=== PATIENT | female | born 1960 | race American Indian/Alaskan Native ===

== ENCOUNTER 2017-06-21 12:21 | Emergency (ER) | payer MEDICAID, OTHER, SELFPAY ==
[2017-06-21 12:35] VITALS: BP 123/86; PULSE 78; RESP 16; RESP 18; TEMP 36.6; TEMP 36.7; O2SAT 98
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
--- NOTE | 2017-06-21 13:47 | DI.RAD.S_ITS ---
PROCEDURE: XR TIBIA FUBULA RT 2V INDICATIONS: pain/fall TECHNIQUE: 2 views of the tibia and fibula were acquired. COMPARISON: None. FINDINGS: Bones: No fractures or dislocations. No suspicious bony lesions. Soft tissues: No suspicious soft tissue calcifications or masses. IMPRESSION: 1. No fracture or dislocation of the tibia or fibula. Dictated by: Ranjit Crenshaw M.D. on 06/21/2017 at 14:45 Approved by: Ranjit Crenshaw M.D. on 06/21/2017 at 14:46
--- NOTE | 2017-06-21 13:47 | DI.RAD.S_ITS ---
PROCEDURE: XR FOOT RT MIN 3V INDICATIONS: fall, MT pain TECHNIQUE: 3 views of the foot were acquired. COMPARISON: None. FINDINGS: Bones: No fractures or dislocations. No suspicious bony lesions. Soft tissues: No tibiotalar joint effusion. Achilles tendon appears normal. IMPRESSION: 1. No fracture or dislocation. Dictated by: Ranjit Crenshaw M.D. on 06/21/2017 at 14:47 Approved by: Ranjit Crenshaw M.D. on 06/21/2017 at 14:47
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
[2017-06-21 14:12] VITALS: BP 127/75; PULSE 68; RESP 14; O2SAT 98
[2017-06-21] MEDS: HYDROCODONE/ACET 5/325 TABLET 2 TAB PO (14:38)
[2017-06-21 15:22] VITALS: BP 128/92; PULSE 62; RESP 20; TEMP 36.4; O2SAT 100
== END 2017-06-21 15:24 | disposition home or self-care (01) ==
PROVIDERS: Emergency Provider Internal Medicine; Family Provider Family Medicine; PCP Family Medicine
DX: S80.11XA Contusion of right lower leg, initial encounter (principal); W23.1XXA Caught, crushed, jammed, or pinched between stationary objects, initial encounter
CPT/HCPCS: 73562; 73590; 73630; 99283

== ENCOUNTER 2017-11-29 16:07 | Emergency (ER) | payer MEDICAID, OTHER, SELFPAY ==
[2017-11-29 16:17] VITALS: BP 143/93; PULSE 68; RESP 15; TEMP 36.1; O2SAT 99; BMI 28.3
[2017-11-29 19:07] VITALS: BP 132/79; PULSE 56; RESP 22; O2SAT 100
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
== END 2017-11-29 20:13 | disposition home or self-care (01) ==
PROVIDERS: Emergency Provider Emergency Medicine; Family Provider Family Medicine; PCP Family Medicine
DX: M25.511 Pain in right shoulder (principal)
CPT/HCPCS: 73030; 99283

== ENCOUNTER 2018-03-03 08:27 | Inpatient (IN) | payer MEDICAID, OTHER, SELFPAY ==
[2018-03-03] VITALS (21 sets, daily range): BP systolic 83–113; BP diastolic 41–76; PULSE 57–87; RESP 12–20; TEMP 36.3–36.9; O2SAT 95–100; BMI 32.4
--- NOTE | 2018-03-03 | DI.ECHO.S_ITS ---
[place] +---------+ Hospital +---------+ : : [address] : : [place], [place] : : : : [id number] : : : : Phone: [phone] Echocardiogram Report + + :Name: AURELIA CHRISTY Study Date: 03/04/2018 Height: 64 in : :[facility] Weight: 189 lb: : Gender: Female BSA: 1.9 m2 : :: 1960 Age: 57 yrs : :Reason For Study: Rule out Endocarditis : : Performed By: Alem Soliman : :Referring: SOY STOCK : + + Interpretation Summary The study quality was technically difficult. Although no obvious vegetation is seen, this possibility cannot be ruled out based on this study. Grossly normal biventricular systolic function. There is no prior echocardiogram noted for this patient. Procedure: A two-dimensional transthoracic echocardiogram with color flow and Doppler was performed. The study quality was technically difficult. There is no prior echocardiogram noted for this patient. Unable to use Definity due to RN unable to place IV. The patient was in sinus bradycardia with heart rates between 50-60 bpm during the exam. Left Ventricle: The left ventricle is grossly normal size. The left ventricular ejection fraction is grossly normal. There are no obvious focal wall motion abnormalities noted but poor endocardial definition reduces the sensitivity for the detection of such. Diastolic parameters suggest a relaxation abnormality of the left ventricle, consistent with probable normal filling pressures. Right Ventricle: The right ventricle is normal in size and function. Atria: The left atrium is borderline dilated. Right atrium not well visualized secondary to technical limitations. There is no Doppler evidence for an interatrial shunt. Mitral Valve: The mitral valve leaflets appear mildly thickened, but open well. There is mild mitral annular calcification. There is trace mitral regurgitation. Aortic Valve: The aortic valve opens well. There is no aortic valve stenosis. No aortic regurgitation is present. Tricuspid Valve: The tricuspid valve is not well visualized, but is grossly normal. There is a trace or physiologic amount of tricuspid regurgitation. The right ventricular systolic pressure is estimated to be at least 21 mmHg based on an estimated right atrial pressure of 3 mm Hg. Pulmonic Valve: The pulmonic valve is not well seen, but is grossly normal. There is a trace or physiologic amount of pulmonic regurgitation. Great Vessels: The aortic root is normal size. The ascending aorta is normal in size. The aortic arch is normal in size. The pulmonary artery is normal size. The IVC is of normal diameter and collapses greater than 50% with a sniff. This suggests a low right atrial pressure of 3 mm Hg. Pericardium/ Pleura There is no pericardial effusion. There is no pleural effusion. MMode/2D Measurements & Calculations LVOT diam: 1.9 cm LA A2 area: 25.2 cm2 Ao root diam: 3.0 cm LA A4 area: 27.5 cm2 asc Aorta Diam: 3.4 cm LA length (vol): 6.3 cm Ao Arch Diam (distal): 2.7 cm LA vol: 92.8 ml LA vol index: 48.6 ml/m2 RA long axis: 5.2 cm RVD1 (basal): 4.3 cm RA area: 22.6 cm2 RA vol: 83.4 ml RA : 43.7 ml/m2 IVC diam: 2.2 cm Doppler Measurements & Calculations Ao V2 max: 128.3 cm/sec LVOT Max Oswaldo: 85.8 cm/sec Ao V2 mean: 83.9 cm/sec LV V1 max P.9 mmHg Ao max P.6 mmHg LV V1 VTI: 20.4 cm Ao mean P.2 mmHg JOE(I,D): 2.1 cm2 Ao V2 VTI: 28.4 cm JOE(V,D): 2.0 cm2 sev ratio: 0.72 JOE indexed to BSA (cm^2/m^2): 1.1 MV E max oswaldo: 100.1 cm/sec TR max oswaldo: 212.5 cm/sec MV A max oswaldo: 47.8 cm/sec TR max P.1 mmHg MV E/A: 2.1 Med Peak E' Oswaldo: 7.7 cm/sec E/E' med: 13.0 Lat Peak E' Oswaldo: 9.5 cm/sec E/E' lat: 10.5 E/e' average: 11.7 MV dec time: 0.20 sec SV(LVOT): 60.5 ml Electronically signed by: John Del Toro M.D. on Reading Physician:03/04/2018 04:07 PM
--- NOTE | 2018-03-03 09:46 | ED_ITS ---
HPI - Skin/Abscess/Foreign Bdy General Chief complaint: Skin/Abscess/Foreign Body Stated complaint: infection on buttocks Time Seen by Provider: 03/03/18 09:45 Source: patient Mode of arrival: ambulatory Limitations: no limitations History of Present Illness HPI narrative: 57-year-old female here for evaluation of infection in her left posterior thigh/buttocks. Was seen at a outside clinic several days ago. Was started on clindamycin. She states she has been taking this medication. He has had 2 and half days of this medication. Returns today for worsening pain and worsening redness. No fevers. No prior history of abscesses. Related Data Home Medications Medication Instructions Recorded Confirmed albuterol sulfate [ProAir HFA] 1 - 2 puff INHALATION Q4-6H PRN 06/21/17 06/21/17 levothyroxine 1 tab PO DAILY 06/21/17 06/21/17 prazosin 2 mg PO QAM 06/21/17 06/21/17 prazosin 4 mg PO QHS 06/21/17 06/21/17 zolpidem 5 mg PO Q3D 06/21/17 06/21/17 Previous Rx's Medication Instructions Recorded estradiol 1 mg PO QDAY #90 tab 03/30/16 hydrocodone-acetaminophen [[place]] 1 tab PO Q4H PRN #10 tab 06/21/17 hydrocodone-acetaminophen 1 tab PO Q4-6H PRN #14 tab 11/29/17 Allergies Allergy/AdvReac Type Severity Reaction Status Date / Time bee pollen [BEE POLLEN] Allergy Unknown throat Verified 03/03/18 08:38 swelling Sulfa (Sulfonamide Allergy Unknown itchy, Verified 03/03/18 08:38 Antibiotics) rash, [SULFA (SULFONAMIDE asthma ANTIBIOTICS)] Iodinated Contrast- Oral and AdvReac Unknown asthma Verified 03/03/18 10:10 IV Dye tetracycline [TETRACYCLINE] AdvReac Unknown nausea Verified 03/03/18 08:38 Review of Systems Constitutional Reports fever(s) (Subjective) Cardiovascular Denies chest pain and Denies dyspnea Respiratory Denies dyspnea Gastrointestinal Gastrointestinal: Denies abdominal pain Musculoskeletal Comments: No left hip pain Integumentary/Breasts Comments: Redness on the back of the left leg Neurologic Comments: No tingling to the left lower extremity Hematologic/Lymphatic Denies easy bleeding and Denies easy bruising PFSH Social History Smoking Status: Never smoker Exam Initial Vital Signs Initial Vital Signs: Vital Signs Temperature 98.5 F 03/03/18 08:32 Pulse Rate 81 03/03/18 08:32 Respiratory Rate 20 03/03/18 08:32 Blood Pressure 110/69 03/03/18 08:32 Pulse Oximetry 97 03/03/18 08:32 Const General: cooperative, No comfortable (Uncomfortable), well developed and well groomed Orientation: alert, awake and oriented x3 HENMT Head: normal to inspection and normocephalic Resp Effort & Inspection: normal respiratory effort Auscultation: clear to auscultation bilaterally Cardio Rate: regular rate Pulses: radial pulses present GI Inspection: non-distended Palpation: soft, No firm and No tender Skin Other: Patient with a large area of redness on the left posterior proximal thigh. Also extending into the buttocks. Extending around to the medial aspect of the thigh. Some induration. A small area of ulceration. No drainage. Neuro General: alert, awake and oriented x3 Extrem General: normal to inspection and capillary refill normal Psych Appearance: grossly normal and well kempt Course Orders Ordered: ED Orders 03/03/18 10:10 CT pelvis wo con Stat 03/03/18 11:45 Basic Metabolic Panel Stat Complete Blood Count AUTO DIFF Stat 03/03/18 12:25 Wound Culture and Gram Stain Stat 03/03/18 12:38 Education, smoking cessation ONGOING 03/03/18 12:42 Consult to Physician Routine 03/04/18 Complete Blood Count AUTO DIFF Routine Comprehensive Metabolic Panel Routine 03/04/18 19:30 Vancomycin Trough Urgent Enoxaparin Sodium (Lovenox) 40 mg SUBCUT DAILY LARA Hydromorphone HCl (Dilaudid) 1 mg IV Q4HR PRN PRN Reason: pain Piperacillin/Tazobactam/Dextrose (Zosyn) 4.5 gm in 100 mls @ 200 mls/hr IV Q6H LARA Sodium Chloride (Normal Saline 0.9%) 1,000 mls @ 100 mls/hr IV CONT LARA Vancomycin HCl/Dextrose (Vancomycin) 750 mg in 150 mls @ 150 mls/hr IV Q8H LARA Ketorolac Tromethamine (Toradol) 10 mg PO Q6HR PRN PRN Reason: Pain, Moderate (4-6) Stop: 03/05/18 12:40 Ondansetron HCl (Zofran) 4 mg IV Q8HR PRN PRN Reason: Nausea And Vomiting Oxycodone HCl (Percolone) 5 mg PO Q6HR PRN PRN Reason: Pain, Moderate (4-6) Vancomycin HCl (Vancomycin Trough) 1 request [facility] Stop: 03/04/18 19:31 Discontinued Medications Hydromorphone HCl (Dilaudid) 1 mg IM NOW ONE Stop: 03/03/18 10:08 Last Admin: 03/03/18 10:14 Dose: 1 mg Hydromorphone HCl (Dilaudid) 1 mg IV NOW ONE Stop: 03/03/18 12:21 Last Admin: 03/03/18 12:27 Dose: 1 mg Vancomycin HCl/Dextrose (Vancomycin) 1,000 mg in 200 mls @ 200 mls/hr IV NOW ONE Stop: 03/03/18 12:31 Last Infusion: 03/03/18 13:19 Dose: 200 mls/hr Admin: 03/03/18 11:54 Dose: 200 mls/hr Vancomycin HCl (Vancomycin Per Pharmacy) 1 request [facility] [place] ONE Stop: 03/03/18 12:41 Vital Signs - 8 hr 03/03/18 08:32 03/03/18 11:16 03/03/18 12:46 Temperature 98.5 F Pulse Rate 81 71 68 Respiratory Rate 20 19 14 Blood Pressure 110/69 Blood Pressure [Left Arm] 112/51 L 101/60 Pulse Oximetry 97 99 97 MDM - Skin/Abscess/Foreign Bdy Lab Data Attestation: I reviewed the patient's lab results. Result diagrams: 03/03/18 11:45 03/03/18 11:45 Lab Results 03/03/18 03/03/18 Range/Units 11:45 11:45 WBC 11.7 H (4.5-11.0) X10^3/uL RBC 4.19 (4.0-5.2) X10^6/uL Hgb 13.4 (12.0-16.0) g/dL Hct 38.9 (36-46) % MCV 92.9 (80-100) fL MCH 32.1 (26-34) PG MCHC 34.5 (30-36) % RDW 13.2 (11.6-14.8) % Plt Count 331 (150-400) X10^3/uL Neut % (Auto) 73.4 (50-75) % Lymph % (Auto) 17.2 L (25-40) % [place] % (Auto) 7.6 (3-14) % Eos % (Auto) 1.3 L (2-4) % Baso % (Auto) 0.5 (0-2) % Neut # (Auto) 8600 H (3289-5418) /uL Lymph # (Auto) 2000 (6250-0766) /uL [place] # (Auto) 900 (0-900) /uL Eos # (Auto) 200 (0-450) /uL Baso # (Auto) 100 (0-100) /uL Sodium 138 (137-145) mmol/L Potassium 4.0 (3.4-5.1) mmol/L Chloride 102 (98-107) mmol/L Carbon Dioxide 26 (22-32) mmol/L BUN 4 L (7-17) mg/dL Creatinine 0.40 L (0.52-1.04) mg/dL Estimated GFR > 60.0 (>60) mL/min BUN/Creatinine Ratio 10.0 (6-22) Glucose 90 (70-100) mg/dL Calcium 8.5 (8.4-10.2) mg/dL Imaging Data CT pelvis: Radiologist's impression: PROCEDURE: CT PEL WO CON INDICATIONS: Left butt abscess, very painfull TECHNIQUE: Noncontrast 3 mm axial sections acquired through the bony pelvis, with coronal and sagittal reformatting. COMPARISON: [facility], CT, ABDOMEN/PELVIS WITH CONTRAST, 04/07/2016, 20: 27. FINDINGS: Image quality: Excellent. Bones: Visualized osseous structures are grossly unremarkable. No fracture, nor osseous lesion. Soft tissues: Within the left inferomedial gluteal location, there is an ill- defined region of severe fat stranding, spanning roughly 10 cm, extending into the posterior subcutaneous fat of the left superior thigh. No definite fluid collection is seen on noncontrast imaging. Visualized bowel loops are normal in caliber. Visualized vasculature is normal in caliber. No free fluid. No regional adenopathy. IMPRESSION: 1. Cellulitis within the left inferior gluteal and posterior thigh. No definite abscess seen by noncontrast imaging. Dictated by: Raghu Holliday M.D. on 03/03/2018 at 10:35 Approved by: Raghu Holliday M.D. on 03/03/2018 at 10:37 [facility] Narrative Medical decision making narrative: CT scan does not show any abscess or deep abscess. She has been on antibiotics for at least the past 2 and half days without any improvement in her symptoms and potentially worsening symptoms. Was in quite a bit of discomfort most likely because this is the area where she is sitting. No indication for incision and drainage. The CT scan was performed without IV contrast secondary to her allergy. I feel that given the fact that she has been on antibiotics for this long and the symptoms have been worsening that admitting to the hospital for IV antibiotics is warranted. I discussed this with the patient and her at bedside. They both expressed understanding and agreement plan. Discussed the case with Dr. Aponte who accepts the patient. Discharge Plan Departure Patient Disposition: Admitted As Inpatient Clinical Impression: Cellulitis Discharge Date/Time: 03/03/18 13:19 Interventions: ED Discharge Assessment Last Done: 03/03/18 13:12 Admit Date/Time: 03/03/18 12:03 Admit Provider: Jean Pierre Aponte
--- NOTE | 2018-03-03 10:10 | DI.CT.S_ITS ---
PROCEDURE: CT PEL WO CON INDICATIONS: Left butt abscess, very painfull TECHNIQUE: Noncontrast 3 mm axial sections acquired through the bony pelvis, with coronal and sagittal reformatting. COMPARISON: [facility], CT, ABDOMEN/PELVIS WITH CONTRAST, 04/07/2016, 20:27. FINDINGS: Image quality: Excellent. Bones: Visualized osseous structures are grossly unremarkable. No fracture, nor osseous lesion. Soft tissues: Within the left inferomedial gluteal location, there is an ill-defined region of severe fat stranding, spanning roughly 10 cm, extending into the posterior subcutaneous fat of the left superior thigh. No definite fluid collection is seen on noncontrast imaging. Visualized bowel loops are normal in caliber. Visualized vasculature is normal in caliber. No free fluid. No regional adenopathy. IMPRESSION: 1. Cellulitis within the left inferior gluteal and posterior thigh. No definite abscess seen by noncontrast imaging. Dictated by: Raghu Holliday M.D. on 03/03/2018 at 10:35 Approved by: Raghu Holliday M.D. on 03/03/2018 at 10:37
[2018-03-03] MEDS: HYDROMORPHONE 2 MG INJ 1 MG IM (10:14)
[2018-03-03] MEDS: VANCOMYCIN 1,000 MG/200 ML FROZ.PIGGY 200 MG IV (11:54)
[2018-03-03 11:56] LABS: Add Manual Diff / Slide Review NO; Basophils Absolute Auto 100 /uL (0-100); Basophils Percent Auto 0.5 % (0-2); Eosinophils Absolute Auto 200 /uL (0-450); Eosinophils Percent Auto 1.3 % (2-4); Hematocrit 38.9 % (36-46); Hemoglobin 13.4 g/dL (12.0-16.0); Lymphocytes Absolute Auto 2000 /uL (1100-4500); Lymphocytes Percent Auto 17.2 % (25-40); Mean Corpuscular HGB Conc 34.5 % (30-36); Mean Corpuscular Hemoglobin 32.1 PG (26-34); Mean Corpuscular Volume 92.9 fL (80-100); Monocytes Absolute Auto 900 /uL (0-900); Monocytes Percent Auto 7.6 % (3-14); Neutrophils Absolute Auto 8600 /uL (1500-7000); Neutrophils Percent Auto 73.4 % (50-75); Platelet Count 331 X10^3/uL (150-400); Red Blood Cell Count 4.19 X10^6/uL (4.0-5.2); Red Cell Distribution Width 13.2 % (11.6-14.8); White Blood Cell Count 11.7 X10^3/uL (4.5-11.0)
[2018-03-03 12:11] LABS: Blood Urea Nitrogen 4 mg/dL (7-17); Calcium 8.5 mg/dL (8.4-10.2); Carbon Dioxide 26 mmol/L (22-32); Chloride 102 mmol/L (98-107); Estimated Glomerular Filt Rate > 60.0 mL/min (>60); Glucose 90 mg/dL (70-100); HEMOLYSIS < 15 (0-50); Sodium 138 mmol/L (137-145)
[2018-03-03] MEDS: HYDROMORPHONE 2 MG INJ 1 MG IV (12:27)
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
[2018-03-03] MEDS: SODIUM CHLORIDE 0.9% 1,000 ML 100 ML IV (13:43)
[2018-03-03] MEDS: ENOXAPARIN 40 MG/0.4 ML SYRINGE SUBCUT (14:32)
[2018-03-03] MEDS: PIPERACILLIN-TAZO 4.5 GM/100 ML FROZ.PIGGY IV ×2 (14:32→19:25)
[2018-03-03] MEDS: HYDROMORPHONE 2 MG INJ IV (14:33)
[2018-03-03 14:35] LABS: Lactate (Lactic Acid) 0.6 mmol/L (0.7-2.1)
--- NOTE | 2018-03-03 16:24 | PM.CN ---
History of Present Illness Date Patient Seen: 03/03/18 Time Patient Seen: 16:00 Chief complaint: infection on buttocks Reason for consult: Cellulitis left buttock and thigh Requesting provider: Jean Pierre Aponte Narrative: Patient is a woman admitted for treatment of cellulitis. She says she was bit by a spider days ago. The area has gotten redder and more tender and she came to the emergency room and was admitted for treatment. I was asked to see her in case there is an abscess present. [facility] Medical History Hypothyroidism (Chronic) Surgical History History of bladder suspension procedure Status post cholecystectomy Status post rotator cuff repair (12/30/15) Status post vaginal hysterectomy Social History household members: spouse and family Smoking Status: Never smoker Meds Home Medications Medication Instructions Recorded Confirmed Type estradiol 1 mg PO QDAY #90 tab 03/30/16 03/03/18 Rx albuterol sulfate [ProAir HFA] 1 - 2 puff INHALATION Q4-6H PRN 06/21/17 03/03/18 History hydrocodone-acetaminophen [[place]] 1 tab PO Q4H PRN #10 tab 06/21/17 03/03/18 Rx levothyroxine 1 tab PO DAILY 06/21/17 03/03/18 History prazosin 2 mg PO QAM 06/21/17 03/03/18 History prazosin 4 mg PO QHS 06/21/17 03/03/18 History zolpidem 5 mg PO Q3D 06/21/17 03/03/18 History hydrocodone-acetaminophen 1 tab PO Q4-6H PRN #14 tab 11/29/17 03/03/18 Rx simvastatin 10 mg PO BEDTIME 03/03/18 03/03/18 History trazodone 150 mg PO BEDTIME 03/03/18 03/03/18 History Allergies Allergy/AdvReac Type Severity Reaction Status Date / Time bee pollen [BEE POLLEN] Allergy Unknown throat Verified 03/03/18 08:38 swelling Sulfa (Sulfonamide Allergy Unknown itchy, Verified 03/03/18 08:38 Antibiotics) rash, [SULFA (SULFONAMIDE asthma ANTIBIOTICS)] Iodinated Contrast- Oral and AdvReac Unknown asthma Verified 03/03/18 10:10 IV Dye tetracycline [TETRACYCLINE] AdvReac Unknown nausea Verified 03/03/18 08:38 Review of Systems Review of Systems Uses an inhaler as needed. No chest pain. No black or bloody bowel movements. No seizures blackouts. Exam Vital Signs (past 8 hours): - 03/03/18 08:32 03/03/18 11:16 03/03/18 12:46 Temperature 98.5 F Pulse Rate 81 71 68 Respiratory Rate 20 19 14 Blood Pressure 110/69 Blood Pressure [Left Arm] 112/51 L 101/60 Pulse Oximetry 97 99 97 03/03/18 13:20 03/03/18 13:55 03/03/18 15:42 Temperature 98.4 F 98.5 F Pulse Rate 71 62 Respiratory Rate 20 20 Blood Pressure 113/76 93/59 L Blood Pressure [Left Arm] Pulse Oximetry 96 96 97 Oxygen Delivery Method Room Air Oxygen Flow Rate 0 Narrative Exam Narrative: Co operative in distress with moving. Her lungs are clear to auscultation no rales or rhonchi. Heart regular rate and rhythm no murmur gallop. Abdomen is soft nontender without mass. Patient has an open sore on her left buttock over the area where the ischial tuberosity might be. There is induration and redness spreading away from it. The ulceration is flat. Objective Labs Result Diagrams: 03/03/18 11:45 03/03/18 11:45 Labs: Laboratory Results - last 24 hr 03/03/18 03/03/18 03/03/18 11:45 11:45 13:45 WBC 11.7 H RBC 4.19 Hgb 13.4 Hct 38.9 MCV 92.9 MCH 32.1 MCHC 34.5 RDW 13.2 Plt Count 331 Neut % (Auto) 73.4 Lymph % (Auto) 17.2 L [place] % (Auto) 7.6 Eos % (Auto) 1.3 L Baso % (Auto) 0.5 Neut # (Auto) 8600 H Lymph # (Auto) 2000 [place] # (Auto) 900 Eos # (Auto) 200 Baso # (Auto) 100 Sodium 138 Potassium 4.0 Chloride 102 Carbon Dioxide 26 BUN 4 L Creatinine 0.40 L Estimated GFR > 60.0 BUN/Creatinine Ratio 10.0 Glucose 90 Lactate 0.6 L Calcium 8.5 Assessment & Plan Plan: Assessment/Plan Narrative: Patient with an open wound on her buttock. She suggests the possibility of spider bites it looks like a an MRSA wound infection to me. She has grown strep in other areas. I would recommend she go to the operating room and I can unroof this and drain any pus that might be in the immediate vicinity. I discussed this with the patient and she is agreeable to do so. While this may not help if there is pus it certainly will make her feel better and also give a something to culture and treat.
[2018-03-03] MEDS: ALBUTEROL 2.5 MG/3 ML NEB (ADULT) INH (16:57)
[2018-03-03] MEDS: LACTATED RINGERS 1,000 ML 42 ML IV (16:58)
--- NOTE | 2018-03-03 16:59 | SUR.OPER ---
Lateral on padded OR bed, head on pillow, gel axillary roll in place, bottom leg bent with gel pad under knee to foot, upper leg straight and supported with pillows. Upper arm supported by pillows and secured over bottom arm to padded arm board. Safety belt at hip, tape over blanket lower legs.
[2018-03-03] MEDS: FAMOTIDINE 20 MG/50 ML PIGGYBACK 200 MG IV (17:04)
[2018-03-03] MEDS: METOCLOPRAMIDE 10 MG/2 ML INJ IV (17:07)
--- NOTE | 2018-03-03 17:22 | PM.PREOP ---
Pre-operative Note Interval Note History & Physical reviewed/Exam performed by Physician: Yes Changes to H&P: No
--- NOTE | 2018-03-03 17:56 | PM.OP.1 ---
Operative Date/Time/Diagnoses Date of procedure: 03/03/18 Time of procedure: 17:51 Pre-op diagnosis: Left buttock cellulitis with possible abscess Post-op diagnosis: same (Abscess left buttock) Procedure & Clinicians Procedure: Incision and drainage of abscess with cultures Same procedure as scheduled: Yes Indications: Cellulitis/possible abscess of the buttock Click Yes if Unassisted: Yes Anesthesia Type: General Operative Notes Findings: Abscess containing a tbsp of pus. Closure Type: non-primary Specimen(s): other (Cultures) Implants & Drains: Packed open Estimated Blood Loss (mL): 10 Blood products transfused: none Procedure in detail: The patient was placed partially on her right side when she was intubated with an LMA and asleep. She was prepped with Betadine and draped. I excised the open lesion about the size of a dime and removed the tissue. I probed the wound toward the indurated area lateral and entered a cavity of pus. I opened the skin over it and removed subcutaneous fat by excising it with the scalpel. The area removed was about 2 x 2 cm. The opening that I debrided of skin and dermis and subcu fat initially was about 2 x 2 cm and was excised with a scalpel also. The wound was irrigated copiously and packed with saline wet to dry. Dressing was applied and the patient was taken to the recovery area extubated in good condition. Complications: none Condition: stable Disposition: PACU Plan for aftercare: Admit for IV antibiotics and wound care
[2018-03-03] MEDS: HYDROMORPHONE 2 MG INJ 0.5 MG IV ×2 (18:17→18:26)
[2018-03-03] MEDS: VANCOMYCIN 750 MG/150 ML FROZ.PIGGY 150 MG IV (20:47)
[2018-03-03] MEDS: GABAPENTIN 300 MG CAPSULE PO (20:47)
[2018-03-04] VITALS (11 sets, daily range): BP systolic 101–127; BP diastolic 58–71; PULSE 51–64; RESP 15–18; TEMP 36.4–36.8; O2SAT 94–99
[2018-03-04] MEDS: PIPERACILLIN-TAZO 4.5 GM/100 ML FROZ.PIGGY IV ×5 (00:13→23:51)
[2018-03-04] MEDS: ZOLPIDEM 5 MG TABLET PO ×2 (00:13→22:09)
[2018-03-04] MEDS: VANCOMYCIN 750 MG/150 ML FROZ.PIGGY 150 MG IV ×3 (03:50→20:34)
[2018-03-04] MEDS: OXYCODONE/ACETAMINOPHEN 5/325 TABLET 2 TAB PO (03:50)
[2018-03-04 05:53] LABS: Add Manual Diff / Slide Review NO; Basophils Absolute Auto 0 /uL (0-100); Basophils Percent Auto 0.4 % (0-2); Eosinophils Absolute Auto 300 /uL (0-450); Eosinophils Percent Auto 3.9 % (2-4); Hematocrit 35.4 % (36-46); Hemoglobin 12.4 g/dL (12.0-16.0); Lymphocytes Absolute Auto 1600 /uL (1100-4500); Lymphocytes Percent Auto 18.6 % (25-40); Mean Corpuscular HGB Conc 34.9 % (30-36); Mean Corpuscular Hemoglobin 32.2 PG (26-34); Mean Corpuscular Volume 92.1 fL (80-100); Monocytes Absolute Auto 900 /uL (0-900); Monocytes Percent Auto 10.1 % (3-14); Neutrophils Absolute Auto 5900 /uL (1500-7000); Platelet Count 301 X10^3/uL (150-400); Red Blood Cell Count 3.84 X10^6/uL (4.0-5.2); White Blood Cell Count 8.8 X10^3/uL (4.5-11.0)
[2018-03-04 06:02] LABS: Alanine Aminotransferase 27 IU/L (9-52); Albumin 3.3 g/dL (3.5-5.0); Albumin Globulin Ratio 1.2 (1.0-2.8); Alkaline Phosphatase 64 U/L (38-126); Aspartate Aminotransferase 23 IU/L (14-36); Bilirubin Total 0.3 mg/dL (0.2-1.3); Blood Urea Nitrogen 3 mg/dL (7-17); Calcium 8.4 mg/dL (8.4-10.2); Carbon Dioxide 32 mmol/L (22-32); Chloride 97 mmol/L (98-107); Estimated Glomerular Filt Rate > 60.0 mL/min (>60); Globulin 2.8 g/dL (1.7-4.1); Glucose 123 mg/dL (70-100); HEMOLYSIS < 15 (0-50); Potassium 4.1 mmol/L (3.4-5.1); Sodium 135 mmol/L (137-145); Total Protein 6.1 g/dL (6.3-8.2)
[2018-03-04] MEDS: LEVOTHYROXINE 125 MCG TABLET PO (06:32)
[2018-03-04] MEDS: GABAPENTIN 300 MG CAPSULE PO ×2 (08:30→20:35)
[2018-03-04] MEDS: KETOROLAC 10 MG TABLET PO ×2 (08:30→18:44)
--- NOTE | 2018-03-04 08:31 | P.PN_ITS ---
Subjective Date Patient Seen: 03/04/18 Time Patient Seen: 08:46 Interval history: She is seen today to follow up the left buttock abscess/ cellulitis with the previous culture at another location on the chest earlier this week group a strep. Cultures done yesterday have no growth so far. She is on precautionary vancomycin with Zosyn at this time. She is postoperative day 1., incision and drainage per Dr. Moon and is feeling/looking a lot better. Exam Vital Signs (past 8 hours): - 03/04/18 03:59 Temperature 98.1 F Pulse Rate 61 Respiratory Rate 18 Blood Pressure 118/58 L Pulse Oximetry 97 Oxygen Delivery Method Room Air Oxygen Flow Rate 0 Narrative Exam Narrative: Alert and oriented x3. No apparent distress. She looks much, much better today. Heart is regular rate and rhythm without murmur. Lungs are clear to auscultation bilaterally. Extremities have no ankle edema. The left buttock incision area has a drain in place. There is no cellulitic redness. There is copious serosanguineous drainage continuing. Objective Labs Result Diagrams: 03/04/18 05:41 03/04/18 05:41 Labs: Laboratory Results - last 24 hr 03/03/18 03/03/18 03/03/18 11:45 11:45 13:45 WBC 11.7 H RBC 4.19 Hgb 13.4 Hct 38.9 MCV 92.9 MCH 32.1 MCHC 34.5 RDW 13.2 Plt Count 331 Neut % (Auto) 73.4 Lymph % (Auto) 17.2 L [place] % (Auto) 7.6 Eos % (Auto) 1.3 L Baso % (Auto) 0.5 Neut # (Auto) 8600 H Lymph # (Auto) 2000 [place] # (Auto) 900 Eos # (Auto) 200 Baso # (Auto) 100 Sodium 138 Potassium 4.0 Chloride 102 Carbon Dioxide 26 BUN 4 L Creatinine 0.40 L Estimated GFR > 60.0 BUN/Creatinine Ratio 10.0 Glucose 90 Lactate 0.6 L Calcium 8.5 Total Bilirubin AST ALT Alkaline Phosphatase Total Protein Albumin Globulin Albumin/Globulin Ratio 03/04/18 03/04/18 05:41 05:41 WBC 8.8 RBC 3.84 L Hgb 12.4 Hct 35.4 L MCV 92.1 MCH 32.2 MCHC 34.9 RDW 13.0 Plt Count 301 Neut % (Auto) 67.0 Lymph % (Auto) 18.6 L [place] % (Auto) 10.1 Eos % (Auto) 3.9 Baso % (Auto) 0.4 Neut # (Auto) 5900 Lymph # (Auto) 1600 [place] # (Auto) 900 Eos # (Auto) 300 Baso # (Auto) 0 Sodium 135 L Potassium 4.1 Chloride 97 L Carbon Dioxide 32 BUN 3 L Creatinine 0.50 L Estimated GFR > 60.0 BUN/Creatinine Ratio 6.0 Glucose 123 H Lactate Calcium 8.4 Total Bilirubin 0.3 AST 23 ALT 27 Alkaline Phosphatase 64 Total Protein 6.1 L Albumin 3.3 L Globulin 2.8 Albumin/Globulin Ratio 1.2 Assessment & Plan Plan: Assessment/Plan Narrative: - Cellulitis of L buttock, POA, Acute, Active - continue vancomycin, Zosyn. With the known organism of group a strep we can probably stop the vancomycin tomorrow assuming no growth on current cultures. - Dilaudid for pain management along with toradol. - Dr. Moon from general surgery is following. - echocardiogram ordered to rule out endocarditis as she does have a history of prior positive cocaine drug screen in November and a history of alcoholism, currently in remission. The other factor to consider is that she had 3 of these skin infections occur at the same time earlier this week. - Hypothyroid, POA, Chronic, Active - will continue home levothyroxine - hypercholesterolemia, POA, Chronic, Stable - will continue home simvastatin -Asthma, POA, Chronic, Stable -PRN albuterol and nebulizer tx as per home medications IBS - stable Zofran prn Depression, POA, Chronic, Active Continue home welbutrin PTSD continue home prazosin. Dayron Aponte MD Quality VTE Deep Vein Thrombosis/Pulmonary Embolism Present on Admission: No
[2018-03-04] MEDS: PRAZOSIN 1 MG CAPSULE 2 MG PO (08:35)
[2018-03-04] MEDS: OXYCODONE IR 10 MG TABLET PO ×4 (09:10→22:09)
[2018-03-04] MEDS: ESTRADIOL 1 MG TABLET PO (09:35)
--- NOTE | 2018-03-04 10:09 | CM.DANOTE ---
Patient is a 57 year old female who was admitted on 03/03/18 for Infection of Buttocks. Pt has [facility] and [facility] for insurance and her PCP is Dr. Princess Lewis at [facility]. EMR was reviewed. Per , pt with cellulitus and currently on IV-Abx and went to surg for I&D. Per MD, pt to have Echo today to r/o Endocarditis and pt has a hx of ETOH use and cocaine use but pt states she has been sober from ETOH for over 4 months and 2 months from Drugs. SW met bedside with pt, her Dtr and granddtr and explained role and pt confirmed that she lives at home in an apartment in [facility] with her and her Dtr and family live locally and are supportive. Pt states she is Independent at baseline with ADL's and drives and denies any hx of HH or SNF. Pt is established with her PCP and states her mental health meds (prazocin and wellbutrin) are prescribed by her psychiatrist and she sees her counselor regularly for additional support. Pt states that her family is local and available to assist at d/c if needed and pt became tearful stating she is worried about the Echo and possible endocarditis but feels she has lots of support and spoke to the Pack Train Driver earlier today and is actively involved in [employer]. Plan: SW to follow closely to confirm pt will be safe for d/c home with spouse and family support and any further identified discharge planning needs. LI Thakur Discharge Planning/Care Management CM Discharge Assessment Start: 03/04/18 10:04 Freq: Status: Active Protocol: Document 03/04/18 10:04 (Rec: 03/04/18 10:06 [id number]) Discharge Planning Assessment Assigned Aircraft Loadmaster Superintendent LI Bateman DPOA/Assigned Designee Name none Advance Directives? No History Provided By Patient Family Member Medical Record Has Patient been admitted in last 30 No days? Prior Living Arrangements House Household Members spouse Type of transporation used prior to Drives own vehicle admit Comment Lives at home with spouse and has local supportive Dtr and grandchildren Independent with ADL's Yes Is patient alert and oriented? Yes Caregiver for Another No Comment Patient has a counselor and psychiatrist for her depression and PTSD and med management Comment Likely home with spouse and supportive family assist Barriers to Discharge No Discharge Plan Home Transportation Arrangement Family likely able to provide transport home for patient at d/c. Referrals Initiated None needed Whiteboard Updated in Patient Room with Yes name and ext. # of Aircraft Loadmaster Superintendent Review Status In Process Please Provide Date Initial DC 03/04/18 Assessment Was Performed Next Review Type Continued Stay Review
[2018-03-04] MEDS: ENOXAPARIN 40 MG/0.4 ML SYRINGE SUBCUT (12:07)
--- NOTE | 2018-03-04 13:14 | PM.PN.1 ---
Subjective Date Patient Seen: 03/04/18 Time Patient Seen: 13:14 Interval history: Denies significant pain. No fever or chills. She is mildly anxious regarding dressing changes however. No dysuria or hematuria. No nausea or vomiting. Tolerating a regular diet this afternoon. Exam Vital Signs (past 8 hours): - 03/04/18 07:00 03/04/18 08:00 03/04/18 12:00 Temperature 98.2 F 98.2 F Pulse Rate 64 60 Respiratory Rate 18 18 Blood Pressure 111/65 123/67 Pulse Oximetry 96 98 99 Oxygen Delivery Method Room Air Oxygen Flow Rate 0 Narrative Exam Narrative: Patient seen and examined with the attending nurse, Cathleen Gudino Well-nourished well-developed female in no acute distress. Alert oriented x3. Patient's family is at the bedside as well. Focused examination of the left thigh region shows the induration to be softening around the abscess cavity. I personally change the wet-to-dry saline dressing to the abscess today. She tolerated this quite well. Wound is clean without residual pus. Skin flaps were viable. Objective Labs Result Diagrams: 03/04/18 05:41 03/04/18 05:41 Labs: Laboratory Results - last 24 hr 03/03/18 03/04/18 03/04/18 13:45 05:41 05:41 WBC 8.8 RBC 3.84 L Hgb 12.4 Hct 35.4 L MCV 92.1 MCH 32.2 MCHC 34.9 RDW 13.0 Plt Count 301 Neut % (Auto) 67.0 Lymph % (Auto) 18.6 L [place] % (Auto) 10.1 Eos % (Auto) 3.9 Baso % (Auto) 0.4 Neut # (Auto) 5900 Lymph # (Auto) 1600 [place] # (Auto) 900 Eos # (Auto) 300 Baso # (Auto) 0 Sodium 135 L Potassium 4.1 Chloride 97 L Carbon Dioxide 32 BUN 3 L Creatinine 0.50 L Estimated GFR > 60.0 BUN/Creatinine Ratio 6.0 Glucose 123 H Lactate 0.6 L Calcium 8.4 Total Bilirubin 0.3 AST 23 ALT 27 Alkaline Phosphatase 64 Total Protein 6.1 L Albumin 3.3 L Globulin 2.8 Albumin/Globulin Ratio 1.2 Cultures demonstrate Streptococcus pyogenes. Awaiting sensitivities. Assessment & Plan Plan: Assessment/Plan Narrative: 57-year-old female postoperative day 1 from incision and drainage and debridement of abscess cavity in the left thigh region posteriorly. The area appears clean without significant residual infection. Continue the current intravenous antibiotics for the Streptococcus species as we await sensitivities. She may be out of bed and ambulate as tolerated. Continue diet as tolerated. She may need home health nursing to assist with daily dressing changes. Nursing staff will work with the family as well for wound care purposes. All questions were answered to the patient's satisfaction, and she voiced understanding. Quality VTE Deep Vein Thrombosis/Pulmonary Embolism Present on Admission: No
[2018-03-04] MEDS: VANCOMYCIN TROUGH 1 REQUEST MISC (19:32)
[2018-03-04 20:04] LABS: Vancomycin Trough 11.7 ug/mL (10-20)
[2018-03-04] MEDS: PRAZOSIN 1 MG CAPSULE 4 MG PO (20:36)
[2018-03-04] MEDS: HYDROMORPHONE 2 MG INJ IV (20:38)
--- NOTE | 2018-03-04 21:53 | PC.NURSE ---
2100- Dressing changed per order wet to dry. Patient premedicated for procedure, tolerated well. Serousanginous fluid noted on dressing.
[2018-03-05] VITALS (9 sets, daily range): BP systolic 93–134; BP diastolic 65–72; PULSE 54–75; RESP 16–18; TEMP 36.4–36.8; O2SAT 91–99
[2018-03-05] MEDS: OXYCODONE IR 10 MG TABLET PO ×6 (02:06→20:55)
[2018-03-05] MEDS: VANCOMYCIN 750 MG/150 ML FROZ.PIGGY 150 MG IV (04:03)
[2018-03-05] MEDS: LEVOTHYROXINE 125 MCG TABLET PO (06:00)
[2018-03-05] MEDS: PIPERACILLIN-TAZO 4.5 GM/100 ML FROZ.PIGGY IV ×3 (06:14→17:44)
[2018-03-05] MEDS: ENOXAPARIN 40 MG/0.4 ML SYRINGE SUBCUT (09:51)
[2018-03-05] MEDS: PRAZOSIN 1 MG CAPSULE 2 MG PO (09:51)
[2018-03-05] MEDS: GABAPENTIN 300 MG CAPSULE PO ×2 (09:51→20:55)
[2018-03-05] MEDS: KETOROLAC 10 MG TABLET PO (09:52)
[2018-03-05] MEDS: ESTRADIOL 1 MG TABLET PO (09:52)
--- NOTE | 2018-03-05 10:01 | PM.PN.1 ---
Subjective Date Patient Seen: 03/05/18 Time Patient Seen: 10:04 Interval history: She is seen today to follow-up her strep pyogenes cellulitis/buttock abscess. She is also being treated for PTSD, hypothyroidism and hyperlipidemia. The wound cultures are consistently group a strep pyogenes. The vancomycin can be stopped. I spoke with Infectious Disease, Dr. Baker in [place]. She advised that clindamycin is the most effective for this organism but depending on sensitivity she could be discharged home on Augmentin as she was initially an outpatient oral clindamycin failure. Surgery is following her and she will need to follow up with them for dressing changes or at the wound Care Center. Exam Vital Signs (past 8 hours): - 03/05/18 04:00 03/05/18 08:02 Temperature 97.5 F L 97.6 F Pulse Rate 63 64 Respiratory Rate 18 18 Blood Pressure 119/65 134/70 Pulse Oximetry 97 98 Fraction of Inspired Oxygen 21 Oxygen Delivery Method Room Air Oxygen Flow Rate 0 Narrative Exam Narrative: She is alert and oriented x3. There is no apparent distress. Heart is regular rate and rhythm without murmur. Lungs are clear to auscultation. Extremities have no ankle edema. I did not examine the buttock/perineal area as surgery is checking on this daily. Objective Labs Result Diagrams: 03/04/18 05:41 03/04/18 05:41 Labs: Laboratory Results - last 24 hr 03/04/18 19:30 Vancomycin Trough 11.7 Assessment & Plan Plan: Assessment/Plan Narrative: - Strep Pyogenes Abscess/Cellulitis of L buttock, POA, Acute, Active - continue IV Zosyn. Per discussion with Infectious Disease today the outpatient regimen will likely include a full 14 days treatment, including the days inpatient, with oral Augmentin, assuming the sensitivities confirm sensitivity to penicillin. Clindamycin would normally be used but that was a failure as an oral outpatient regimen before admission - pain is resolved unless she is sitting directly on that area - general surgery is following. - echocardiogram does not show any obvious signs of valvular endocarditis. - Hypothyroid, POA, Chronic, Active - will continue home levothyroxine - hypercholesterolemia, POA, Chronic, Stable - will continue home simvastatin -Asthma, POA, Chronic, Stable -PRN albuterol and nebulizer tx as per home medications IBS - stable Zofran prn Depression, POA, Chronic, Active Continue home welbutrin PTSD continue home prazosin. Dayron Aponte MD Quality VTE Deep Vein Thrombosis/Pulmonary Embolism Present on Admission: No
--- NOTE | 2018-03-05 11:51 | PM.PN.1 ---
Subjective Date Patient Seen: 03/05/18 Time Patient Seen: 11:52 Interval history: Patient denies significant pain although she has localized discomfort with dressing changes. She is ambulating without difficulty. Tolerating a regular diet without nausea or vomiting. Denies chest pain or shortness of breath. No subjective fever or chills. Exam Vital Signs (past 8 hours): - 03/05/18 04:00 03/05/18 08:02 Temperature 97.5 F L 97.6 F Pulse Rate 63 64 Respiratory Rate 18 18 Blood Pressure 119/65 134/70 Pulse Oximetry 97 98 Fraction of Inspired Oxygen 21 Oxygen Delivery Method Room Air Oxygen Flow Rate 0 Narrative Exam Narrative: Well-nourished well-developed female ambulating about the room at the time of my visit this morning. She is alert oriented x3. Patient seen and examined with the attending nurse, Cathleen Gudino Patient's remains at the bedside for my entire visit as well Focused examination of the left posterior thigh at the wound shows it to be much less indurated without any significant erythema. Surrounding skin edges are clean and viable. I did not change the packing today as it was just done within the last hour or so per nursing staff after the patient had showered. No drainage. Objective Labs Result Diagrams: 03/04/18 05:41 03/04/18 05:41 Labs: Laboratory Results - last 24 hr 03/04/18 19:30 Vancomycin Trough 11.7 Cultures are showing both group way and group B Streptococcus species. They appear to be sensitive to most antibiotics. Assessment & Plan Plan: Assessment/Plan Narrative: 57-year-old female status post incision and drainage of left posterior thigh abscess who is responding nicely to therapy. At this point I would recommend at least once if not twice daily wet-to-dry dressing changes once she is discharged home. Discharge planning is coordinating a caregiver at this point. I anticipate she will be able to leave the hospital tomorrow on oral antibiotics. She is currently receiving intravenous Zosyn per the internal medicine service. Discontinue the IV Dilaudid as she is controlled on oral oxycodone at this time. Otherwise continue activity as tolerated. Once she is discharged from the hospital she will follow up in the surgery clinic within the week. I discussed all the above with her and her family in detail. Questions were answered to her satisfaction, and she voiced understanding. Orders were written. Quality VTE Deep Vein Thrombosis/Pulmonary Embolism Present on Admission: No
[2018-03-05] MEDS: ONDANSETRON 4 MG/2 ML INJ IV (15:32)
[2018-03-05] MEDS: PRAZOSIN 1 MG CAPSULE 4 MG PO (20:55)
[2018-03-06] VITALS: O2SAT 95
[2018-03-06 00:05] VITALS: BP 97/62; PULSE 62; RESP 16; TEMP 36.3; O2SAT 96
[2018-03-06] MEDS: SODIUM CHLORIDE 0.9% FLUSH 10 ML IV ×2 (00:20→06:42)
[2018-03-06] MEDS: PIPERACILLIN-TAZO 4.5 GM/100 ML FROZ.PIGGY IV ×2 (00:20→06:43)
[2018-03-06] MEDS: OXYCODONE IR 10 MG TABLET PO ×4 (01:01→12:43)
[2018-03-06] MEDS: LEVOTHYROXINE 125 MCG TABLET PO (05:32)
[2018-03-06 05:58] VITALS: BP 102/65; PULSE 61; RESP 20; TEMP 36.7; O2SAT 98
[2018-03-06 08:00] VITALS: BP 103/60; PULSE 68; RESP 18; TEMP 36.8; O2SAT 98
[2018-03-06 09:00] VITALS: O2SAT 99
[2018-03-06] MEDS: GABAPENTIN 300 MG CAPSULE PO (09:02)
[2018-03-06] MEDS: ESTRADIOL 1 MG TABLET PO (09:02)
[2018-03-06] MEDS: ENOXAPARIN 40 MG/0.4 ML SYRINGE SUBCUT (09:02)
[2018-03-06] MEDS: PRAZOSIN 1 MG CAPSULE 2 MG PO (09:03)
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
--- NOTE | 2018-03-06 09:40 | PC.NURSE ---
Addendum entered by Marivel Rodriguez R.N. 03/06/18 14:16: DC - given 10mg oxycodone prior to discharge, reviewed instructions, script for oxycodone provided, abx script sent electronically to [facility], belongings gathered, including dressing supplies for any changes, info provided re wound clinic appt tomorrow, hep lock dc'd, when pt wheeled by veneer department manager to car, stated the ER lost my shoes, the EVENT SECURITY OFFICER did check room and again with ER, none found, family to check at home. Original Note: Addendum entered by Marivel Rodriguez R.N. 03/06/18 10:35: INTEG - after earlier pain medication, positioned r side, dsg removed, pt is very tender around wound, skin soft, w/o redness, would bed with with exudate, cleaned with ns and replaced dampened 2x2 w/folded 4x4 over, hyperfix tape. Original Note: AM NOTE - awake, moving indep in bed, has own waffle cushion under buttocks, pain 8 on scale 0/10 l buttock, dsg cdi, has small scabbed spot posterior r shoulder and small spot r upper torso w/o drainage, smooth surface, hr reg ra 99%, after breakfast given 10mg po oxycodone prior to dsg change.
--- NOTE | 2018-03-06 10:23 | P.PN_ITS ---
Subjective Date Patient Seen: 03/06/18 Time Patient Seen: 10:19 Interval history: Patient denies any significant pain except with dressing changes. Pain otherwise controlled with oral analgesics. She remains afebrile without chills. No chest pain or shortness of breath. Tolerating a regular diet. She is having normal spontaneous bowel bladder function. Exam Vital Signs (past 8 hours): - 03/06/18 05:58 03/06/18 08:00 03/06/18 09:00 Temperature 98.0 F 98.3 F Pulse Rate 61 68 Respiratory Rate 20 18 Blood Pressure 102/65 103/60 Pulse Oximetry 98 98 99 Fraction of Inspired Oxygen 21 Oxygen Delivery Method Room Air Oxygen Flow Rate 0 Narrative Exam Narrative: Well-nourished well-developed female in no acute distress. Alert oriented x3. She is ambulating about the room at the time my visit. Her daughter is present as well for my entire visit. No fevers. Maximal temperature this morning 98.3. No tachycardia. Normal blood pressure. In the presence of the patient's family I examined the posterior thigh wound which shows no significant erythema or residual induration. Packing is clean. No significant drainage. Objective Labs Result Diagrams: 03/04/18 05:41 03/04/18 05:41 Labs: No new culture data other than that already Assessment & Plan Plan: Assessment/Plan Narrative: 57-year-old female status post incision and drainage of left posterior thigh abscess showing group A and group B strep species. She is stable from a surgical perspective in requires no further debridement at this point. Would recommend at least once daily if not twice daily wet-to-dry dressing changes. Patient will need assistance with such. These arrangements are being made today. She may shower but should not soak the incision in a bathtub or pool water until further notice. She may be discharged home today once the above care is in place. Antibiotics as per the internal medicine service. She may follow up with Dr. Moon at [facility] office Saturday March 10, 2018 or the following week on Wednesday March 14, 2018. Please contact the office for an appointment. However, I clearly explained to the patient to call or return sooner if she has any issues with fever, chills, further purulent drainage, progressive pain, or other concerns. All questions were answered to her satisfaction, and she voiced understanding. Quality VTE Deep Vein Thrombosis/Pulmonary Embolism Present on Admission: No
--- NOTE | 2018-03-06 12:11 | CM.DPC ---
DCP/continued: Reviewed chart. Spoke with Dr. Hawk and she reports that patient is medically stable for discharge. Patient requiring daily dressing changes after I&D to buttocks. Met with patient and daughter Alem at bedside explained role. Patient teary at time of visit. Daughter and patient upset and concerned because patient has not been getting her wellbutrin 150mg everyday since her arrival. Patient emotional at time of visit, and daughter wondering if it's because she has been without her home medications. Family had requested that RN (Tuesday)obtain order for home meds to be resumed but apparently that did not happen. At the request of patient and family placed call to [facility] they were agreeable to fax home medication list to CM department. Obtained list and provided to Dr. Hawk. PAPERHANGER APPRENTICE and MD spoke with patient and daughter and Dr. Hawk informed patient that she might be more emotional due to going without her home medications but that it should still be in her system. Apologized to family/patient re: home medication confusion. Patient agreeable to discharge home today and prefers to go outpatient for daily dressing changes. PAPERHANGER APPRENTICE placed call to [facility] ext# [phone] spoke with Carmen she confirms that they can see patient tomorrow at 1:15pm. Patient and daughter made aware that it is highly unlikely that insurance will cover daily dressings change as outpatient or through HH by professional RN. Family aware that they will most likely need to be taught. Daughter hesitant but patient reports that her spouse or another family member can assist. Encouraged patient to have that family member come to her appointment tomorrow. P: Home today. Provided RN with wound care appointment information and she will include with discharge instructions. LI Davies
== END 2018-03-06 14:22 | disposition home or self-care (01) | DRG 572 ==
LOC: ED 11:39 → AC 12:03
PROVIDERS: Specialist; Admitting Provider Family Medicine; Emergency Provider Emergency Medicine; Visit Provider Family Medicine
PROC: 0JB90ZZ Excision of Buttock Subcutaneous Tissue and Fascia, Open Approach (ICD-10-PCS; principal; 2018-03-03 16:20)
DX: L03.317 Cellulitis of buttock (principal); E03.9 Hypothyroidism, unspecified; E78.00 Pure hypercholesterolemia, unspecified; F32.9 Major depressive disorder, single episode, unspecified; F43.10 Post-traumatic stress disorder, unspecified; L02.31 Cutaneous abscess of buttock; B95.4 Other streptococcus as the cause of diseases classified elsewhere
CPT/HCPCS: 36415; 36591; 72192; 80048; 80053; 80202; 83605; 85025; 87070; 87075; 87077; 87147; 87186; 87205; 93306; 94760; 96365; 96366; 96375; 96376; 99283; 99284; J1170; J1650; J2250; J2405; J2543; J2704; J2765; J3010; J3370; J7613

== ENCOUNTER → 2018-03-07 13:39 | Outpatient (CLI) | payer MEDICAID, OTHER, SELFPAY ==
[2018-03-03 13:55] VITALS: BMI 32.4
== END ==
PROVIDERS: Visit Provider Family Medicine
DX: L02.31 Cutaneous abscess of buttock (principal); S31.829A Unspecified open wound of left buttock, initial encounter
CPT/HCPCS: 99213

== ENCOUNTER → 2018-03-14 13:26 | Outpatient (CLI) | payer MEDICAID, OTHER, SELFPAY ==
[2018-03-03 13:55] VITALS: BMI 32.4
== END ==
PROVIDERS: Visit Provider Family Medicine
DX: L02.31 Cutaneous abscess of buttock (principal); S31.829A Unspecified open wound of left buttock, initial encounter; R52 Pain, unspecified
CPT/HCPCS: 99213

== ENCOUNTER → 2018-03-21 10:40 | Outpatient (CLI) | payer MEDICAID, OTHER, SELFPAY ==
[2018-03-03 13:55] VITALS: BMI 32.4
--- NOTE | 2018-03-21 12:46 | PM.PN.1 ---
Subjective Date Patient Seen: 03/21/18 Time Patient Seen: 12:46 Interval history: Patient known to the general surgery service following incision and drainage of left posterior thigh abscess on approximately March 03, 2018 who is now being managed by the wound care center. She presented to the office and spoke with our nurse, Cyndy Conner, as I was not immediately available in the clinic. She actually presented directly from the wound Care Center to this office immediately following her scheduled appointment with Dr. Lopez. She presents for the sole purpose of requesting a refill on her opioid pain medication. She states she is continuing to have discomfort at the wound Care site. Exam Narrative Exam Narrative: Obviously I did not speak with or examined the patient as she had already left the clinic prior to my arrival and discussion with the nurse. Assessment & Plan Assessment Narrative: 57-year-old female status post incision and drainage of abscess almost 3 weeks ago now who continues to request opioid pain medication despite having several prescriptions for such already. In fact, her last prescription was filled by Dr. Moon exactly 7 days ago per the record. I spoke with Dr. Lopez via telephone several minutes ago after I received the patient's request. Per his report the wound is 88% closed by volume. Measurements now include dimensions of approximately 2 cm x 0.8 cm x 0.3 cm. He informs me that the wound is healing nicely with no induration or evidence of infection. The residual wound is granulating nicely. He does report that she has, in his opinion, remarkable pain out of proportion to the findings as well as his examination. Please see his note for further details. Regardless, he did not feel that the wound warranted opioid pain medication at this time. In addition, she has extensive documented history of alcohol and illicit substance abuse with significant addiction potential. Given that the wound is nearly healed and quite superficial as well as the above issues in conjunction with frequent opioid prescription refills I agree that further opiate therapy is not indicated. Patient was informed via office nurse at my instruction to utilize Tylenol and/or Advil as needed for pain. She will follow up in the Wound Care Center as directed also.
== END ==
PROVIDERS: Visit Provider Family Medicine
DX: L02.31 Cutaneous abscess of buttock (principal); S31.829A Unspecified open wound of left buttock, initial encounter; N63.12 Unspecified lump in the right breast, upper inner quadrant
CPT/HCPCS: 99212; 99213

== ENCOUNTER → 2018-03-28 13:45 | Outpatient (CLI) | payer MEDICAID, OTHER, SELFPAY ==
[2018-03-03 13:55] VITALS: BMI 32.4
== END ==
PROVIDERS: Visit Provider Family Medicine
DX: L02.31 Cutaneous abscess of buttock (principal); S31.829A Unspecified open wound of left buttock, initial encounter
CPT/HCPCS: 99212; 99213

== ENCOUNTER → 2018-05-10 16:15 | Outpatient (CLI) | payer MEDICAID, OTHER, SELFPAY ==
[2018-03-03 13:55] VITALS: BMI 32.4
--- NOTE | 2018-05-10 | DI.MRI.S_ITS ---
PROCEDURE: MR SHOULDER RT WO CON INDICATIONS: Other specific joint derangements of right shoulder. Right shoulder pain TECHNIQUE: Noncontrast oblique coronal T2 fast spin echo with fat saturation, oblique sagittal T1 spin echo and T2 fast spin echo with fat saturation, axial T1 spin echo and T2 fast spin echo with fat saturation through the shoulder. COMPARISON: None. FINDINGS: Image quality: Excellent. Rotator cuff: There is suggestion of prior rotator cuff tendon repair. There is a full-thickness rupture of the distal supraspinatus and infraspinatus at their insertions on greater tuberosity of humeral head with medial retraction of the tendon fibers to the level of the glenoid. Tendinosis and moderate grade partial-thickness tear involving the superior to mid fibers of the distal subscapularis is seen. There is moderate atrophy of supraspinatus and infraspinatus muscle. Mild atrophy of subscapularis muscle is also seen. Bones and bursae: There is suggestion of prior acromioplasty. Moderate to large amount of fluid is seen distending acromioclavicular joint capsule. Moderate amount of fluid is also noted within the glenohumeral joint and subacromial subdeltoid bursa. Osteoarthritic changes are noted in glenohumeral joint with superior migration of humeral head in relation to glenoid. No gross acute fracture or dislocation. No gross intra-articular loose body. Capsule and soft tissues: In the absence of intra-articular contrast, the labrum and glenohumeral ligaments appear intact. Tendinosis and moderate grade partial-thickness tear involving proximal intra-articular portion of lung in the biceps tendon is seen. The rotator interval appears normal, without fibrosis. The coracohumeral ligament is normal in thickness. IMPRESSION: #1. Prior rotator cuff tendon repair and possible acromioplasty with post surgical changes. Moderate glenohumeral joint osteoarthritis. No acute fracture or dislocation. Moderate amount of fluid distending acromioclavicular joint. Moderate amount of fluid within subacromial subdeltoid bursa and glenohumeral joint. No gross intra-articular loose body. #2. Full-thickness rupture of distal supraspinatus and infraspinatus with medial retraction of torn tendon fibers to the level of glenoid. Tendinosis and moderate grade partial-thickness tear involving superior to mid fibers of distal subscapularis. Moderate supraspinatus and infraspinatus muscle atrophy and mild subscapularis muscle atrophy. #3. Tendinosis and moderate grade partial-thickness involving proximal intra-articular portion of long head biceps tendon. No evidence of focal labral tear. Dictated by: Noel Collier M.D. on 05/10/2018 at 17:11 Approved by: Noel Collier M.D. on 05/10/2018 at 17:24
== END ==
PROVIDERS: Visit Provider Orthopaedic Surgery
DX: M24.811 Other specific joint derangements of right shoulder, not elsewhere classified (principal); M75.121 Complete rotator cuff tear or rupture of right shoulder, not specified as traumatic; M25.511 Pain in right shoulder; M19.011 Primary osteoarthritis, right shoulder; M67.88 Other specified disorders of synovium and tendon, other site
CPT/HCPCS: 73221

== ENCOUNTER 2018-11-22 23:13 | Emergency (ER) | payer MEDICAID, OTHER, SELFPAY ==
[2018-03-03 13:55] VITALS: BMI 32.4
--- NOTE | 2018-11-22 23:28 | DI.RAD.S_ITS ---
PROCEDURE: XR HIP W PEL IF DONE LT 2V INDICATIONS: fall with hip pain TECHNIQUE: AP pelvis with lateral view(s) of the left hip(s). COMPARISON: None. FINDINGS: Bones: No fractures or dislocations. Pelvic ring appears intact. No suspicious bony lesions. Lower lumbar spondylosis. Mild bilateral hip degeneration. Soft tissues: The visualized bowel gas pattern is normal. No suspicious soft tissue calcifications. IMPRESSION: No fracture. If the patient's pain or other symptoms persist, consider further evaluation with MRI Dictated by: Wiliam Hollis M.D. on 11/23/2018 at 9:16 Approved by: Wiliam Hollis M.D. on 11/23/2018 at 9:18
--- NOTE | 2018-11-22 23:28 | DI.RAD.S_ITS ---
PROCEDURE: XR SHOULDER LT MIN 2V INDICATIONS: fall with shoulder pain TECHNIQUE: 3 views of the shoulder were acquired. COMPARISON: [facility], CHRIS, CHEST 1 VIEW, 04/08/2017, 22:32. [facility], CR, XR SHOULDER RT MIN 2V, 11/29/2017, 18:46. FINDINGS: Bones: No fractures or dislocations. No suspicious bony lesions. Visualized ribs appear intact. Mild AC joint degeneration. There is also glenohumeral degenerative spurring and sclerosis. Soft tissues: No suspicious soft tissue calcifications. IMPRESSION: No fracture. Left shoulder joint degeneration. If the patient's pain or other symptoms persist, consider further evaluation with MRI Dictated by: Wiliam Hollis M.D. on 11/23/2018 at 9:26 Approved by: Wiliam Hollis M.D. on 11/23/2018 at 9:30
[2018-11-22 23:29] VITALS: BP 103/58; PULSE 68; RESP 14; O2SAT 99
--- NOTE | 2018-11-23 00:27 | DI.CT.S_ITS ---
PROCEDURE: CT PEL WO CON INDICATIONS: fall,left hip pain TECHNIQUE: Noncontrast 3 mm axial sections acquired through the bony pelvis, with coronal and sagittal reformatting. COMPARISON: [facility], CT, CT PEL WO CON, 03/03/2018, 10:00. [facility], CR, XR HIP W PEL IF DONE LT 2V, 11/22/2018, 23:28. FINDINGS: Image quality: Excellent. Bones: No fracture or focal osseous destruction identified. Anatomic alignment at the sacroiliac joints and pubic symphysis. Degenerative sclerosis present at the pubis symphysis. Mild bilateral hip degeneration. Lumbar spondylosis. Grade 1 anterolisthesis of L4 on L5. Kyphotic angulation of the sacrococcygeal junction although by CT this appears chronic. Soft tissues: Unremarkable appearance of the intrapelvic contents. IMPRESSION: No fracture identified. Chronic and degenerative changes as above. Dictated by: Wiliam Hollis M.D. on 11/23/2018 at 8:13 Approved by: Wiliam Hollis M.D. on 11/23/2018 at 8:17
--- NOTE | 2018-11-23 00:54 | ED_ITS ---
HPI - Fall General Chief Complaint: Fall Stated Complaint: fell this morning/got worse through day/cant sleep Time Seen by Provider: 11/22/18 23:15 Source: patient Mode of arrival: Ambulatory Limitations: no limitations History of Present Illness HPI Narrative: 58-year-old female nonsmoker with history of asthma presents with her and a chief complaint gradually worsening left shoulder and left hip pain over the course of the day. Upon waking yesterday morning she tripped in her sheets and fell onto her side. Her or pain was notable at the onset but nothing of significant concern. She states her pain primarily in her hip has been gradually worsening over the course of the day. She denies any head or neck pain. Both hip and shoulder are worse with range of motion and improved with rest. She denies any numbness, tingling or weakness. MD complaint: fall Onset (ago): hour(s) Fall from: standing Fall witnessed: no Place fall occurred: home Loss of consciousness: none Prolonged down time: no Symptoms prior to fall: none Context: tripped/slipped Related Data Home Medications Medication Instructions Recorded Confirmed albuterol sulfate 1 - 2 puff INHALATION Q4-6H PRN 06/21/17 03/03/18 levothyroxine 1 tab PO DAILY 06/21/17 03/03/18 prazosin 2 mg PO QAM 06/21/17 03/03/18 prazosin 4 mg PO QHS 06/21/17 03/03/18 zolpidem 5 mg PO Q3D 06/21/17 03/03/18 simvastatin 10 mg PO BEDTIME 03/03/18 03/03/18 trazodone 150 mg PO BEDTIME 03/03/18 03/03/18 bupropion HCl [Wellbutrin XL] 150 mg PO QAM 03/06/18 03/06/18 Previous Rx's Medication Instructions Recorded estradiol 1 mg PO QDAY #90 tab 03/30/16 oxycodone 10 mg PO Q4HR PRN #30 tab 03/06/18 hydrocodone 5 mg-acetaminophen 325 1 tab PO Q4H PRN #20 tab 03/14/18 mg tablet Allergies Allergy/AdvReac Type Severity Reaction Status Date / Time bee pollen [BEE POLLEN] Allergy Unknown throat Verified 03/03/18 08:38 swelling Sulfa (Sulfonamide Allergy Unknown itchy, Verified 03/03/18 08:38 Antibiotics) rash, [SULFA (SULFONAMIDE asthma ANTIBIOTICS)] Iodinated Contrast Media AdvReac Unknown asthma Verified 03/03/18 10:10 [Iodinated Contrast- Oral and IV Dye] tetracycline [TETRACYCLINE] AdvReac Unknown nausea Verified 03/03/18 08:38 Review of Systems Constitutional Constitutional: Denies chills, Denies fatigue, Denies fever(s), Denies frequent falls, Denies lethargy and Denies weakness Eyes Eyes: Denies change in vision, Denies eye discharge, Denies irritation and Denies loss of vision ENT Ears, Nose, Mouth, and Throat: Denies change in voice, Denies dizziness, Denies neck pain, Denies sore throat and Denies throat swelling Cardiovascular Cardiovascular: Denies chest pain, Denies irregular heart rhythm, Denies lightheadedness, Denies palpitations, Denies dyspnea, Denies dyspnea on exertion and Denies orthopnea Respiratory Respiratory: Denies cough, Denies dyspnea, Denies dyspnea on exertion and Denies wheezing Gastrointestinal Gastrointestinal: Denies abdominal pain, Denies change in bowel habits, Denies diarrhea, Denies nausea and Denies vomiting Genitourinary Genitourinary: Denies hematuria, Denies flank pain, Denies urinary incontinence and Denies urinary urgency Musculoskeletal Musculoskeletal: Denies back pain, Reports limited range of motion, Denies muscle weakness, Denies neck pain, Denies numbness and Denies tingling Integumentary/Breasts Skin/Breast: Denies pruritus, Denies erythema, Denies rash and Denies wounds Neurologic Neurologic: Denies behavioral changes, Denies confusion, Denies dizziness, Denies frequent falls, Denies loss of vision, Denies numbness, Denies tingling and Denies weakness Psychiatric Psychiatric: Denies anxiety, Denies behavioral changes, Denies confusion, Denies depression, Denies homicidal ideation and Denies suicidal ideation Endocrine Endocrine: Denies fatigue, Denies flushing and Denies palpitations Hematologic/Lymphatic Hematologic/Lymphatic: Denies easy bruising Allergic/Immunologic Allergic/Immunologic: Denies urticaria, Denies throat swelling and Denies wheezing Patient History Medical History Hypothyroidism (Chronic) Surgical History History of bladder suspension procedure Status post cholecystectomy Status post rotator cuff repair (12/30/15) Status post vaginal hysterectomy Social History household members: spouse Smoking Status: Never smoker Social History household members: spouse Smoking Status: Never smoker alcohol intake frequency: 0-2 drinks per day Substance Use Type: marijuana Exam Narrative Exam Narrative: GEN: AOx3 and in mild distress EYES: Pupils are equal, round, and reactive to light and accommodation. Extraoccular muscles are intact bilaterally. There is no subconjunctival hemorrhage or exudate. CHEST: Lungs are clear to auscultation bilaterally and free of wheezes, rales, or rhonchi. Heart rate is regular rhythm, there are no murmurs, clicks, rubs, or gallops. There is no chest wall tenderness. ABD: Abdomen is soft and nontender. There is no guarding or rebound. Bowel sounds are normal in all 4 quadrants. There is no mass or organomegaly. EXT: L shoulder absent of obvious deformity. Full, but painful ROM. No numbness, tingling, or weakness. NV in tact. L hip with full but decreased ROM. Tender to palp laterally. Closed. NV intact. SKIN: Warm, pink, and dry. No erythema or rash Initial Vital Signs Initial Vital Signs: Vital Signs Pulse Rate 68 11/22/18 23:29 Respiratory Rate 14 11/22/18 23:29 Blood Pressure 103/58 L 11/22/18 23:29 Pulse Oximetry 99 11/22/18 23:29 Procedures Orthopedic Splinting/Casting Injury #1: Side: left Upper Extremity Injury Location: shoulder Upper Extremity Immobilizer: sling/shoulder immobilizer Post splinting neuro exam: intact Post splinting vascular exam: intact Placed by: Nursing Course Orders Ordered: ED Orders 11/22/18 23:28 XR hip w pel if done LT 2V Stat XR shoulder LT min 2V Stat 11/23/18 00:27 CT pelvis wo con Stat Vital Signs Vital signs: Vital Signs - 8 hr 11/22/18 23:29 Pulse Rate 68 Respiratory Rate 14 Blood Pressure 103/58 L Pulse Oximetry 99 MDM - Fall Imaging Data Shoulder Xray: Attestation: I personally reviewed and interpreted this imaging study as follows: My impression: NO fracture or dislocation Pelvis / Hip Xray: Attestation: I personally reviewed and interpreted this imaging study as follows: My impression: No fx or dislocation Pelvis CT: Radiologist's impression: No fracture or dislocation Discharge Plan Departure Patient Disposition: Home Clinical Impression: Acute pain of left hip Acute shoulder pain Qualifiers: Laterality: left Qualified Code(s): M25.512 - Pain in left shoulder Instructions: How to Prevent Falls Activity Restrictions/Additional Instructions: *You have been diagnosed with [acute left shoulder and hip pain] *What to do: *Take medications as directed *Follow up with your primary care provider in 2-3 days, call for an appointment. Let them know you were seen in the Emergency Department and that we ask that you be seen in follow up *Return to ER if you should have any new, worsening or concerning symptoms Prescriptions: No Action estradiol 1 MG tablet 1 mg PO QDAY Qty: 90 RF: 3 hydrocodone-acetaminophen [[place]] 5-325 mg tablet 1 tab PO Q4H PRN (Reason: pain) Qty: 20 RF: 0 levothyroxine 125 mcg tablet 1 tab PO DAILY RF: 0 albuterol sulfate 90 mcg/actuation HFA aerosol inhaler 1 - 2 puff Inhalation Q4-6H PRN (Reason: Shortness Of Breath) RF: 0 prazosin 2 mg capsule 2 mg PO QAM RF: 0 prazosin 2 mg capsule 4 mg PO QHS RF: 0 zolpidem 5 mg tablet 5 mg PO Q3D RF: 0 simvastatin 10 mg Tablet 10 mg PO BEDTIME RF: 0 trazodone 150 mg Tablet 150 mg PO BEDTIME RF: 0 bupropion HCl [Wellbutrin XL] 150 mg Tablet Extended Release 24 Hr 150 mg PO QAM RF: 0 oxycodone 10 mg Tablet 10 mg PO Q4HR PRN (Reason: Pain, Severe (7-10)) Qty: 30 RF: 0 Referrals: Hammad Ahn MD [Primary Care Provider] -
[2018-11-23 02:09] VITALS: BP 108/63; PULSE 64; RESP 14; O2SAT 99
== END 2018-11-23 01:58 | disposition home or self-care (01) ==
PROVIDERS: Emergency Provider Emergency Medicine; PCP Family Medicine
DX: M25.552 Pain in left hip (principal); M25.512 Pain in left shoulder; W01.0XXA Fall on same level from slipping, tripping and stumbling without subsequent striking against object, initial encounter
CPT/HCPCS: 72192; 73030; 73502; 99282; 99284

== ENCOUNTER → 2019-02-13 14:51 | Outpatient (CLI) | payer MEDICAID, OTHER, SELFPAY ==
[2018-03-03 13:55] VITALS: BMI 32.4
--- NOTE | 2019-02-13 | DI.RAD.S_ITS ---
PROCEDURE: XR SHOULDER LT MIN 2V INDICATIONS: ACUTE PAIN OF RIGHT SHOULDER TECHNIQUE: 3 views of the shoulder were acquired. COMPARISON: [facility], CR, XR SHOULDER LT MIN 2V, 11/22/2018, 23:28. FINDINGS: Bones: No fractures or dislocations. No suspicious bony lesions. Mild cortical or joint effusion. There is prominent inferior osteophyte under the acromion. Visualized ribs appear intact. Soft tissues: No suspicious soft tissue calcifications. IMPRESSION: 1. No fracture or dislocation. 2. Prominent inferior osteophyte under the acromion, which may impinge the rotator cuff tendon. If clinical symptoms persist or clinical suspicion for pathology is high, MRI is suggested for further evaluation. Dictated by: Neal Loving M.D. on 02/13/2019 at 17:54 Approved by: Neal Loving M.D. on 02/13/2019 at 18:16
== END ==
PROVIDERS: PCP Family Medicine; Visit Provider Family Medicine
DX: M25.712 Osteophyte, left shoulder (principal); M25.511 Pain in right shoulder
CPT/HCPCS: 73030

== ENCOUNTER → 2019-03-31 09:42 | Outpatient (CLI) | payer MEDICAID, OTHER, SELFPAY ==
[2018-03-03 13:55] VITALS: BMI 32.4
--- NOTE | 2019-03-31 | DI.MRI.S_ITS ---
PROCEDURE: MR SHOULDER LT WO CON INDICATIONS: Impingement syndrome of left shoulder TECHNIQUE: Noncontrast oblique coronal T2 fast spin echo with fat saturation, oblique sagittal T1 spin echo and T2 fast spin echo with fat saturation, axial T1 spin echo and T2 fast spin echo with fat saturation through the shoulder. COMPARISON: [facility], MR, MR SHOULDER RT WO CON, 05/10/2018, 16:29. FINDINGS: Image quality: Excellent. Rotator cuff: Massive full-thickness tear of the supraspinatus and infraspinatus tendons measuring up to 4.6 cm in its AP dimension on sagittal image 13/10. This measures approximately 4.1 cm in the transverse/longitudinal dimension as seen on coronal image 11/8. Severe subscapularis tendinopathy and high-grade partial-thickness articular sided tear is noted, with medial subluxation long head biceps tendon. Teres minor appears grossly intact. There is severe atrophy of the supraspinatus, infraspinatus and subscapularis muscles. Bones and bursae: No bone marrow contusions or fractures. Moderate acromioclavicular joint degeneration. Glenohumeral degenerative joint disease. There is marrow edema and subchondral cystic change. Acromion demonstrates conventional anatomy, without an os acromiale. Capsule and soft tissues: Labrum: Ill-defined circumferential labral tear, involving all segments. Blunted appearance of the inferior labrum. Long head of the biceps tendinopathy, and medial subluxation. Partial obliteration of the subcoracoid fat. Coracohumeral ligament not well visualized. IMPRESSION: Massive full-thickness tear involving the supraspinatus and infraspinatus tendons as detailed above Severe subscapularis tendinopathy and high-grade partial-thickness articular sided tear, probably greater than 50% of tendon thickness Severe atrophy of the supraspinatus, infraspinatus and subscapularis muscles. Associated medial subluxation long head biceps tendon, and background tendinopathy. Ill-defined circumferential labral tear, likely chronic. Severe acromioclavicular and glenohumeral degenerative joint disease Dictated by: Wiliam Hollis M.D. on 04/02/2019 at 10:04 Approved by: Wiliam Hollis M.D. on 04/02/2019 at 11:01
== END ==
PROVIDERS: PCP Family Medicine; Referring Provider Orthopaedic Surgery; Visit Provider Orthopaedic Surgery
DX: M75.122 Complete rotator cuff tear or rupture of left shoulder, not specified as traumatic (principal); M75.42 Impingement syndrome of left shoulder; M19.012 Primary osteoarthritis, left shoulder; S43.492A Other sprain of left shoulder joint, initial encounter; M62.512 Muscle wasting and atrophy, not elsewhere classified, left shoulder; M67.814 Other specified disorders of tendon, left shoulder
CPT/HCPCS: 73221

== ENCOUNTER 2020-06-24 17:00 | Emergency (ER) | payer MEDICAID, OTHER, SELFPAY ==
[2018-03-03 13:55] VITALS: BMI 32.4
[2020-06-24] VITALS (9 sets, daily range): BP systolic 130–177; BP diastolic 70–93; PULSE 68–80; RESP 14–25; TEMP 36.9–37.4; O2SAT 92–99; BMI 38.6
--- NOTE | 2020-06-24 17:25 | DI.CT.S_ITS ---
PROCEDURE: CT HEAD/BRAIN WO CON INDICATIONS: severe headache, sudden onset TECHNIQUE: Noncontrast 4.5 mm thick angled axial sections acquired from the foramen magnum to the vertex, with coronal and sagittal reformats. For radiation dose reduction, the following was used: automated exposure control, adjustment of mA and/or kV according to patient size. COMPARISON: None. FINDINGS: Image quality: Excellent. CSF spaces: Basal cisterns are patent. No extra-axial fluid collections. Ventricles are normal in size and shape. Brain: No midline shift. No intracranial masses or hemorrhage. [place]on[place]-white matter interface is normal. Skull and face: Calvarium and visualized facial bones are intact, without suspicious lesions. Sinuses: Visualized sinuses and mastoids are clear. IMPRESSION: Unremarkable CT brain without intracranial hemorrhage or mass effect. Dictated by: Huber Christensen M.D. on 06/24/2020 at 17:07 Approved by: Huber Christensen M.D. on 06/24/2020 at 17:18
--- NOTE | 2020-06-24 17:25 | DI.CT.S_ITS ---
PROCEDURE: CT ANGIO HEAD AND NECK INDICATIONS: sudden headache TECHNIQUE: After the administration of intravenous contrast, 1 mm thick sections acquired from the aortic arch through the [place]. Post-contrast 4.5 mm thick sections then re-acquired from the foramen magnum to the vertex. COMPARISON: None. FINDINGS: Cerebral CT Angiogram: Internal carotid arteries: No acute findings. Intracranial ICA are patent with no significant stenosis. No occlusion. No aneurysm. Mild calcified atherosclerotic plaque noted involving the cavernous portions of both internal carotid arteries. Anterior cerebral arteries: Unremarkable. No significant stenosis. No occlusion. No aneurysm. Middle cerebral arteries: Unremarkable. No significant stenosis. No occlusion. No aneurysm. Posterior cerebral arteries: Unremarkable. No significant stenosis. No occlusion. No aneurysm. Basilar artery: Unremarkable. No significant stenosis. No occlusion. No aneurysm. Vertebral arteries: There is right vertebral artery dominance common the left vertebral artery is diminutive. The distal left intradural vertebral artery occludes distally. The widely patent right vertebral artery supplies the basilar artery. Dural venous sinuses: Unremarkable given phase of enhancement. Other: None. Neck CT Angiogram: Internal carotid arteries: Unremarkable. No significant stenosis. No dissection or occlusion. Both carotid vessels are tortuous, and there is medialization in the mid cervical ICA bilaterally. Common carotid arteries: Unremarkable. No significant stenosis. No dissection or occlusion. External carotid arteries: Unremarkable. No occlusion. Vertebral arteries: Unremarkable. No significant stenosis. No dissection or occlusion. There is right vertebral artery dominance Aortic Arch and Mediastinum: Partially visualized aortic arch unremarkable without evidence of aneurysm. Origins of the great vessels unremarkable. Other: There has been a surgical thyroidectomy. Both lung apices are clear. Degenerative changes noted involving the cervical spine results in grade 1 anterior spondylolisthesis at C7-T1 and reversal the normal cervical lordosis. IMPRESSION: 1. Right vertebral artery dominance. 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 Right vertebral artery is widely patent. 2. No evidence of intracranial aneurysm or vascular malformation. No intracranial hemorrhage. Any quantitative measurements of stenosis were performed using NASCET criteria. Dictated by: Huber Christensen M.D. on 06/24/2020 at 18:06 Approved by: Huber Christensen M.D. on 06/24/2020 at 18:25
[2020-06-24] MEDS: METOCLOPRAMIDE 10 MG/2 ML INJ IV (17:39)
[2020-06-24] MEDS: MORPHINE 4 MG/ML INJ IV (17:39)
[2020-06-24] MEDS: SODIUM CHLORIDE 0.9% 1,000 ML 1000 ML IV (17:40)
[2020-06-24] MEDS: diphenhydrAMINE 50 MG/ML VIAL 25 MG IV ×2 (17:40→18:34)
[2020-06-24 17:59] LABS: Add Manual Diff / Slide Review NO; Basophils Absolute Auto 100 /uL (0-100); Basophils Percent Auto 0.6 % (0-2); Eosinophils Absolute Auto 100 /uL (0-450); Eosinophils Percent Auto 1.5 % (2-4); Hematocrit 42.5 % (36-46); Hemoglobin 15.1 g/dL (12.0-16.0); Lymphocytes Absolute Auto 1800 /uL (1100-4500); Lymphocytes Percent Auto 21.3 % (25-40); Mean Corpuscular HGB Conc 35.5 % (30-36); Mean Corpuscular Hemoglobin 33.8 PG (26-34); Mean Corpuscular Volume 95.2 fL (80-100); Monocytes Absolute Auto 500 /uL (0-900); Monocytes Percent Auto 6.4 % (3-14); Neutrophils Absolute Auto 5800 /uL (1500-7000); Neutrophils Percent Auto 70.2 % (50-75); Platelet Count 285 X10^3/uL (150-400); Red Blood Cell Count 4.47 X10^6/uL (4.0-5.2); Red Cell Distribution Width 13.6 % (11.6-14.8); White Blood Cell Count 8.3 X10^3/uL (4.5-11.0)
[2020-06-24 18:09] LABS: INR 1.1 (0.9-1.3); Prothrombin Time 11.8 SECONDS (10.1-12.7)
[2020-06-24 18:12] LABS: PTT Partial Thromboplastin Tim 34 SECONDS (26.4-36.2)
[2020-06-24 18:20] LABS: Alanine Aminotransferase 16 IU/L (<35); Albumin 4.6 g/dL (3.5-5.0); Albumin Globulin Ratio 1.4 (1.0-2.8); Alkaline Phosphatase 80 U/L (38-126); Aspartate Aminotransferase 34 IU/L (14-36); BUN Creatinine Ratio 13.2 (6-22); Bilirubin Total 0.5 mg/dL (0.2-1.3); Blood Urea Nitrogen 9 mg/dL (7-17); Calcium 9.3 mg/dL (8.4-10.2); Carbon Dioxide 23 mmol/L (22-32); Chloride 102 mmol/L (98-107); Estimated Glomerular Filt Rate > 60.0 mL/min (>60); Ethanol (ETOH) < 10 mg/dL; Globulin 3.2 g/dL (1.7-4.1); Glucose 95 mg/dL (80-110); HEMOLYSIS < 15 (0-50); Potassium 3.9 mmol/L (3.4-5.1); Sodium 134 mmol/L (137-145); Total Protein 7.8 g/dL (6.3-8.2)
[2020-06-24] MEDS: methylPREDNISolone 125 MG/2 ML VIAL IV (18:34)
--- NOTE | 2020-06-24 20:41 | ED.HA ---
HPI - Headache General Chief Complaint: Headache Stated Complaint: Headache Time Seen by Provider: 06/24/20 17:17 Mode of arrival: EMS Limitations: no limitations History of Present Illness HPI Narrative: 59-year-old woman with a history of hypertension, hyperlipidemia, hypothyroidism depression anxiety presents with severe headache that began at 4:15 a.m. this afternoon. She describes having a very busy and active day, tirado so than each usual for her. She got out of the car to go for a walk and within 10-15 steps she noticed the onset of headache, complaining that everything was too bright and immediately felt that ?something was wrong?. She is concerned that this may be related to the fact that she has not taken her thyroid medication for the last 2 weeks. She does have refills available to her but has not had a chance to pick him up. She also notes that she has not picked up her Ativan and has not had any Ativan for the last 3-4 days. She typically takes 1 mg 3 times a day. She does not have a history of stroke she states that she has not had migraines since she was quite a bit younger. She does not describe fevers, cough, chest pain, palpitations, abdominal pain she is not having any vomiting, no diarrhea, no dysuria. She has no complaints of weakness or numbness or unilateral neurologic changes. Related Data Home Medications Medication Instructions Recorded Confirmed albuterol sulfate 1 - 2 puff INHALATION Q4-6H PRN 06/21/17 03/03/18 levothyroxine 1 tab PO DAILY 06/21/17 03/03/18 prazosin 2 mg PO QAM 06/21/17 03/03/18 prazosin 4 mg PO QHS 06/21/17 03/03/18 zolpidem 5 mg PO Q3D 06/21/17 03/03/18 simvastatin 10 mg PO BEDTIME 03/03/18 03/03/18 trazodone 150 mg PO BEDTIME 03/03/18 03/03/18 bupropion HCl [Wellbutrin XL] 150 mg PO QAM 03/06/18 03/06/18 Previous Rx's Medication Instructions Recorded estradiol 1 mg PO QDAY #90 tab 03/30/16 oxycodone 10 mg PO Q4HR PRN #30 tab 03/06/18 hydrocodone 5 mg-acetaminophen 325 1 tab PO Q4H PRN #20 tab 03/14/18 mg tablet Allergies Allergy/AdvReac Type Severity Reaction Status Date / Time NSAIDS (Non-Steroidal Allergy Intermediate worsening Verified 06/24/20 20:54 Anti-Inflamma asthma, throat swelling bee pollen [BEE POLLEN] Allergy Unknown throat Verified 03/03/18 08:38 swelling Sulfa (Sulfonamide Allergy Unknown itchy, Verified 03/03/18 08:38 Antibiotics) rash, [SULFA (SULFONAMIDE asthma ANTIBIOTICS)] Iodinated Contrast Media AdvReac Unknown asthma Verified 03/03/18 10:10 [Iodinated Contrast- Oral and IV Dye] tetracycline [TETRACYCLINE] AdvReac Unknown nausea Verified 03/03/18 08:38 Review of Systems Review of Systems Narrative: Remainder of complete review of systems is otherwise unremarkable except for that included in the HPI. Patient History Medical History Hypothyroidism Surgical History History of bladder suspension procedure Status post cholecystectomy Status post rotator cuff repair (12/30/15) Status post vaginal hysterectomy Social History household members: spouse Smoking Status: Never smoker Smoking Status: Never smoker alcohol intake frequency: 0-2 drinks per day Substance Use Type: marijuana Exam Narrative Exam Narrative: General: Sitting with the hoodie covering her eyes but Able to give a complete and coherent history. Well-nourished well-developed HEENT: Moist mucous membranes, normal sclera with reactive pupils, Neck: No JVD, supple Respiratory: Lungs are clear to auscultation, no wheezing no rales no rhonchi. Full and symmetrical air movement Cardiac: Regular rate and rhythm no murmurs no bruits Abdomen: Soft, nontender, good bowel tones, no flank pain Skin: Warm and dry, no rashes Neurologic: Grossly neurologically intact with no obvious asymmetries or abnormalities Extremities: No trauma, well perfused Psych: Cooperative, appropriate insight and affect Initial Vital Signs Initial Vital Signs: Vital Signs Temperature 99.3 F 06/24/20 17:08 Pulse Rate 79 06/24/20 17:08 Respiratory Rate 20 06/24/20 17:08 Blood Pressure 139/92 H 06/24/20 17:08 Pulse Oximetry 99 06/24/20 17:08 Course Orders Ordered: Discontinued Medications Diphenhydramine HCl (Diphenhydramine 50 Mg/Ml Vial) 25 mg IV NOW ONE Stop: 06/24/20 17:26 Last Admin: 06/24/20 17:40 Dose: 25 mg Documented by: ANI Diphenhydramine HCl (Diphenhydramine 50 Mg/Ml Vial) 25 mg IV NOW ONE Stop: 06/24/20 18:27 Last Admin: 06/24/20 18:34 Dose: 25 mg Documented by: ANI Sodium Chloride (Normal Saline 0.9%) 1,000 mls @ 1,000 mls/hr IV BOLUS ONE Stop: 06/24/20 18:24 Last Infusion: 06/24/20 19:00 Dose: 0 mls/hr Documented by: Admin: 06/24/20 17:40 Dose: 1,000 mls/hr Documented by: ANI Lorazepam (Lorazepam 2 Mg/Ml Inj) 1 mg IV NOW ONE Stop: 06/24/20 20:55 Last Admin: 06/24/20 21:04 Dose: 1 mg Documented by: KAYLA Lorazepam (Lorazepam 2 Mg/Ml Inj) 1 mg IV NOW ONE Stop: 06/24/20 21:22 Last Admin: 06/24/20 21:23 Dose: 1 mg Documented by: GIULIANA Methylprednisolone (Methylprednisolone 125 Mg/2 Ml Vial) 125 mg IV NOW ONE Stop: 06/24/20 18:27 Last Admin: 06/24/20 18:34 Dose: 125 mg Documented by: ANI Metoclopramide HCl (Metoclopramide 10 Mg/2 Ml Inj) 10 mg IV NOW ONE Stop: 06/24/20 17:26 Last Admin: 06/24/20 17:39 Dose: 10 mg Documented by: ANI Metoclopramide HCl (Metoclopramide 10 Mg/2 Ml Inj) 10 mg IV NOW ONE Stop: 06/24/20 20:55 Last Admin: 06/24/20 21:04 Dose: Not Given Documented by: KAYLA Morphine Sulfate (Morphine 4 Mg/Ml Inj) 4 mg IV NOW ONE Stop: 06/24/20 17:26 Last Admin: 06/24/20 17:39 Dose: 4 mg Documented by: ANI Vital Signs Vital signs: Vital Signs - 8 hr 06/24/20 21:39 Temperature 98.5 F Pulse Rate 72 Respiratory Rate 20 Blood Pressure 132/70 Pulse Oximetry 92 MDM - Headache Medical Records Attestation: I reviewed the patient's medical records. Lab Data Attestation: I reviewed the patient's lab results. Result diagrams: 06/24/20 17:52 06/24/20 17:52 Labs: Lab Results 06/24/20 06/24/20 06/24/20 Range/Units 17:52 17:52 17:52 WBC 8.3 (4.5-11.0) X10^3/uL RBC 4.47 (4.0-5.2) X10^6/uL Hgb 15.1 (12.0-16.0) g/dL Hct 42.5 (36-46) % MCV 95.2 (80-100) fL MCH 33.8 (26-34) PG MCHC 35.5 (30-36) % RDW 13.6 (11.6-14.8) % Plt Count 285 (150-400) X10^3/uL Neut % (Auto) 70.2 (50-75) % Lymph % (Auto) 21.3 L (25-40) % [place] % (Auto) 6.4 (3-14) % Eos % (Auto) 1.5 L (2-4) % Baso % (Auto) 0.6 (0-2) % Neut # (Auto) 5800 (6384-5746) /uL Lymph # (Auto) 1800 (3817-4386) /uL [place] # (Auto) 500 (0-900) /uL Eos # (Auto) 100 (0-450) /uL Baso # (Auto) 100 (0-100) /uL PT 11.8 (10.1-12.7) SECONDS INR 1.1 (0.9-1.3) APTT 34 (26.4-36.2) SECONDS Sodium 134 L (137-145) mmol/L Potassium 3.9 (3.4-5.1) mmol/L Chloride 102 (98-107) mmol/L Carbon Dioxide 23 (22-32) mmol/L BUN 9 (7-17) mg/dL Creatinine 0.68 (0.52-1.04) mg/dL Estimated GFR > 60.0 (>60) mL/min BUN/Creatinine Ratio 13.2 (6-22) Glucose 95 (80-110) mg/dL Calcium 9.3 (8.4-10.2) mg/dL Total Bilirubin 0.5 (0.2-1.3) mg/dL AST 34 (14-36) IU/L ALT 16 (<35) IU/L Alkaline Phosphatase 80 (38-126) U/L Total Protein 7.8 (6.3-8.2) g/dL Albumin 4.6 (3.5-5.0) g/dL Globulin 3.2 (1.7-4.1) g/dL Albumin/Globulin Ratio 1.4 (1.0-2.8) TSH (0.47-4.68) uIU/mL Ethyl Alcohol ( - 10) mg/dL 06/24/20 06/24/20 Range/Units 17:52 17:52 WBC (4.5-11.0) X10^3/uL RBC (4.0-5.2) X10^6/uL Hgb (12.0-16.0) g/dL Hct (36-46) % MCV (80-100) fL MCH (26-34) PG MCHC (30-36) % RDW (11.6-14.8) % Plt Count (150-400) X10^3/uL Neut % (Auto) (50-75) % Lymph % (Auto) (25-40) % [place] % (Auto) (3-14) % Eos % (Auto) (2-4) % Baso % (Auto) (0-2) % Neut # (Auto) (5441-7430) /uL Lymph # (Auto) (3213-5309) /uL [place] # (Auto) (0-900) /uL Eos # (Auto) (0-450) /uL Baso # (Auto) (0-100) /uL PT (10.1-12.7) SECONDS INR (0.9-1.3) APTT (26.4-36.2) SECONDS Sodium (137-145) mmol/L Potassium (3.4-5.1) mmol/L Chloride (98-107) mmol/L Carbon Dioxide (22-32) mmol/L BUN (7-17) mg/dL Creatinine (0.52-1.04) mg/dL Estimated GFR (>60) mL/min BUN/Creatinine Ratio (6-22) Glucose (80-110) mg/dL Calcium (8.4-10.2) mg/dL Total Bilirubin (0.2-1.3) mg/dL AST (14-36) IU/L ALT (<35) IU/L Alkaline Phosphatase (38-126) U/L Total Protein (6.3-8.2) g/dL Albumin (3.5-5.0) g/dL Globulin (1.7-4.1) g/dL Albumin/Globulin Ratio (1.0-2.8) TSH 13.3 H (0.47-4.68) uIU/mL Ethyl Alcohol < 10 ( - 10) mg/dL Urine Dip Bedside Urine Glucose Negative Bedside Urine Bilirubin - Negative Bedside Urine Ketone - Negative Urine Specific [place] 1.015 Bedside Urine Occult Blood - Negative Bedside Urine pH 7.0 Bedside Urine Protein - Negative Bedside Urine Urobilinogen - Negative Bedside Urine Nitrite - Negative Bedside Urine Leukocytes - Negative Esterase Imaging Data CT scan - head: Radiologist's Impression: FINDINGS: Image quality: Excellent. CSF spaces: Basal cisterns are patent. No extra-axial fluid collections. Ventricles are normal in size and shape. Brain: No midline shift. No intracranial masses or hemorrhage. Jeronimo-white matter interface is normal. Skull and face: Calvarium and visualized facial bones are intact, without suspicious lesions. Sinuses: Visualized sinuses and mastoids are clear. IMPRESSION: Unremarkable CT brain without intracranial hemorrhage or mass effect. Dictated by: Huber Christensen M.D. on 06/24/2020 at 17:07 Head neck CTA: Radiologist's Impression: FINDINGS: Cerebral CT Angiogram: Internal carotid arteries: No acute findings. Intracranial ICA are patent with no significant stenosis. No occlusion. No aneurysm. Mild calcified atherosclerotic plaque noted involving the cavernous portions of both internal carotid arteries. Anterior cerebral arteries: Unremarkable. No significant stenosis. No occlusion. No aneurysm. Middle cerebral arteries: Unremarkable. No significant stenosis. No occlusion. No aneurysm. Posterior cerebral arteries: Unremarkable. No significant stenosis. No occlusion. No aneurysm. Basilar artery: Unremarkable. No significant stenosis. No occlusion. No aneurysm. Vertebral arteries: There is right vertebral artery dominance common the left vertebral artery is diminutive. The distal left intradural vertebral artery occludes distally. The widely patent right vertebral artery supplies the basilar artery. Dural venous sinuses: Unremarkable given phase of enhancement. Other: None. Neck CT Angiogram: Internal carotid arteries: Unremarkable. No significant stenosis. No dissection or occlusion. Both carotid vessels are tortuous, and there is medialization in the mid cervical ICA bilaterally. Common carotid arteries: Unremarkable. No significant stenosis. No dissection or occlusion. External carotid arteries: Unremarkable. No occlusion. Vertebral arteries: Unremarkable. No significant stenosis. No dissection or occlusion. There is right vertebral artery dominance Aortic Arch and Mediastinum: Partially visualized aortic arch unremarkable without evidence of aneurysm. Origins of the great vessels unremarkable. Other: There has been a surgical thyroidectomy. Both lung apices are clear. Degenerative changes noted involving the cervical spine results in grade 1 anterior spondylolisthesis at C7-T1 and reversal the normal cervical lordosis. IMPRESSION: 1. Right vertebral artery dominance. 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 Right vertebral artery is widely patent. 2. No evidence of intracranial aneurysm or vascular malformation. No intracranial hemorrhage. Any quantitative measurements of stenosis were performed using NASCET criteria. Dictated by: Huber Christensen M.D. on 06/24/2020 at 18:06 MDM Narrative Medical decision making narrative: 59-year-old woman with acute onset headache with negative head CT and CT a. Labs are unremarkable. She feels slightly better after a L of fluid. She notes that she is allergic to nonsteroidal (her upper throat gets tight in her tongue feels like it is swollen) so she was not given Toradol. When I realized it had been 3-4 days since she has had any benzodiazepines in the setting of taking 3 mg of Ativan daily an additional mg of Ativan was given to her IV which did help with symptoms significantly. At this point there is no evidence of stroke, meningitis, other infection. Migraine exacerbated by mild benzodiazepine withdrawal certainly is within the realm of possibility. She is safe for home discharge at this time. Discharge Plan Departure Patient Disposition: Home Clinical Impression: Headache Qualifiers: Headache type: unspecified Headache chronicity pattern: acute headache Intractability: not intractable Qualified Code(s): R51.9 - Headache, unspecified Benzodiazepine withdrawal Qualifiers: Complication of substance-induced condition: uncomplicated Qualified Code(s): F13.230 - Sedative, hypnotic or anxiolytic dependence with withdrawal, uncomplicated Instructions: DI for Headache Activity Restrictions/Additional Instructions: Thank you for coming in today Your workup was very reassuring. There is no evidence of stroke, aneurysm or bleeding inside your brain. There is no clear infection and her kidney function and liver function are all quite appropriate. In describing your medications if you typically take 3 mg of Ativan a day and having had this for 3-4 days, you may be experiencing some mild withdrawal symptoms from this medication. I have given you a dose of Ativan in the emergency department. Please fill your prescription that you have available to you tomorrow. I have added thyroid labs on to your lab work done in the emergency department for your primary care doctor to follow up with in the near future. Please schedule an appointment for this. At this time it is safe for you to go home. I hope that you feel better. Prescriptions: No Action estradiol 1 MG tablet 1 mg PO QDAY Qty: 90 RF: 3 hydrocodone-acetaminophen [[place]] 5-325 mg tablet 1 tab PO Q4H PRN (Reason: pain) Qty: 20 RF: 0 levothyroxine 125 mcg tablet 1 tab PO DAILY RF: 0 albuterol sulfate 90 mcg/actuation HFA aerosol inhaler 1 - 2 puff Inhalation Q4-6H PRN (Reason: Shortness Of Breath) RF: 0 prazosin 2 mg capsule 2 mg PO QAM RF: 0 prazosin 2 mg capsule 4 mg PO QHS RF: 0 zolpidem 5 mg tablet 5 mg PO Q3D RF: 0 simvastatin 10 mg Tablet 10 mg PO BEDTIME RF: 0 trazodone 150 mg Tablet 150 mg PO BEDTIME RF: 0 bupropion HCl [Wellbutrin XL] 150 mg Tablet Extended Release 24 Hr 150 mg PO QAM RF: 0 oxycodone 10 mg Tablet 10 mg PO Q4HR PRN (Reason: Pain, Severe (7-10)) Qty: 30 RF: 0
[2020-06-24] MEDS: LORazepam 2 MG/ML INJ 1 MG IV ×2 (21:04→21:23)
[2020-06-24 21:43] LABS: Thyroid Stimulating Hormone 13.3 uIU/mL (0.47-4.68)
== END 2020-06-24 21:40 | disposition home or self-care (01) ==
PROVIDERS: Emergency Medicine; Emergency Provider Emergency Medicine
DX: R51.9 Headache, unspecified (principal); F13.230 Sedative, hypnotic or anxiolytic dependence with withdrawal, uncomplicated
CPT/HCPCS: 36415; 70450; 70496; 70498; 80053; 80320; 81003; 84443; 85025; 85610; 85730; 96361; 96374; 96375; 96376; 99284; J1200; J2060; J2270; J2765; J2930

== ENCOUNTER → 2021-04-15 16:49 | Outpatient (CLI) | payer MEDICAID, OTHER, SELFPAY ==
[2018-03-03 13:55] VITALS: BMI 32.4
--- NOTE | 2021-04-15 | DI.RAD.S_ITS ---
PROCEDURE: XR FOOT LT MIN 3V INDICATIONS: pain of left mid foot TECHNIQUE: 3 views of the foot were acquired. COMPARISON: None. FINDINGS: Bones: No fractures or dislocations. No suspicious bony lesions. Small calcaneal bone spur. Mild 1st TMT joint osteoarthritis. Soft tissues: No tibiotalar joint effusion. Achilles tendon appears normal. IMPRESSION: 1. Osteoarthritis. 2. Calcaneal bone spur. Dictated by: Danna Tan MD, PhD on 04/16/2021 at 10:45 Approved by: Danna Tan MD, PhD on 04/16/2021 at 10:46
== END ==
PROVIDERS: PCP Family Medicine; Referring Provider Family Medicine; Visit Provider Family Medicine
DX: M19.072 Primary osteoarthritis, left ankle and foot (principal); M77.32 Calcaneal spur, left foot; M79.672 Pain in left foot
CPT/HCPCS: 73630

== ENCOUNTER → 2021-07-07 09:48 | Outpatient (CLI) | payer MEDICAID, OTHER, SELFPAY ==
[2018-03-03 13:55] VITALS: BMI 32.4
[2021-07-07 10:42] LABS: COVID19 -Nasal RAPID Negative (Negative)
== END ==
PROVIDERS: PCP Family Medicine; Visit Provider Surgery
DX: Z20.822 Contact with and (suspected) exposure to COVID-19; Z01.812 Encounter for preprocedural laboratory examination
CPT/HCPCS: 87635; C9803

== ENCOUNTER 2021-07-08 09:42 | Day surgery (SDC) | payer MEDICAID, OTHER, SELFPAY ==
[2018-03-03 13:55] VITALS: BMI 32.4
--- NOTE | 2021-07-08 | PATH_ITS ---
[facility] Accession Number: [id number] . 01 Material submitted: . colon - TRANSVERSE COLON POLYPS . 01 Diagnosis: Transverse Colon Polyps, Biopsies: Fragments of tubular adenoma. MRV 07/10/2021 1202 Local . 01 Electronically signed: . Luis Alfredo Gonzalez MD, PhD, Pathologist NPI- [id number] . 01 Gross description: . TRANSVERSE COLON POLYPS: Received in formalin are 2 fragment(s) of simmons, soft tissue measuring 0.3 x 0.3 x 0.3 cm to 0.2 x 0.1 x 0.1 cm submitted entirely in 1 cassette(s) /CPE 07/09/2021 0430 Local . 01 Pathologist provided ICD-10: D12.3 . 01 CPT . 984954 Specimen Comment: A courtesy copy of this report has been sent to [phone] Performed at: 01 [facility] [address] [place] [address], [place], [place] [id number] MD Ranjit Morales MD Phone: [phone]
[2021-07-08 10:07] VITALS: BMI 37.8
[2021-07-08 10:14] VITALS: BP 111/76; PULSE 68; RESP 18; TEMP 36.9; O2SAT 95
[2021-07-08] MEDS: ACETAMINOPHEN 325 MG TABLET 975 MG PO (10:20)
[2021-07-08] MEDS: LACTATED RINGERS 1,000 ML 200 ML IV (10:21)
--- NOTE | 2021-07-08 11:22 | PM.HP.1 ---
History of Present Illness History of Present Illness Date Patient Seen: 07/08/21 Time Patient Seen: 11:27 Chief complaint: DX COLONOSCOPY Narrative: The patient presents for colorectal screening. She has a personal history of colonic polyps. Last colonoscopy 5 years ago. She had bad reaction to procedural sedation secondary to multiple wait meetings and is requesting anesthesia service. No personal or family history of colon cancer. On further history denies any recent gastrointestinal symptoms. No nausea, vomiting, abdominal pain, loss of appetite, unexplained weight loss, change in bowel habits, diarrhea, constipation, melena, hematochezia, or bright red blood per rectum. Patient History Medical History Hypothyroidism Surgical History History of bladder suspension procedure Status post cholecystectomy Status post rotator cuff repair (12/30/15) Status post vaginal hysterectomy Family & Social History Social History: household members spouse Tobacco & Substance use: Smoking Status Never smoker alcohol intake frequency holiday/special occasion Substance Use Type marijuana Meds Home Medications and Allergies Home Medications Medication Instructions Recorded Confirmed Type estradiol 1 mg tablet 1 mg PO QDAY #90 tab 03/30/16 07/08/21 Rx albuterol sulfate 90 mcg/actuation 1 - 2 puff INHALATION Q4-6H PRN 06/21/17 07/08/21 History aerosol inhaler levothyroxine 125 mcg tablet 1 tab PO DAILY 06/21/17 07/08/21 History prazosin 2 mg capsule 10 mg PO DAILY 06/21/17 07/08/21 History aripiprazole 5 mg PO DAILY 07/08/21 07/08/21 History escitalopram oxalate 30 mg PO DAILY 07/08/21 07/08/21 History lorazepam 1 mg capsule,extended 1 mg PO BID 07/08/21 07/08/21 History release 24 hr Allergies Allergy/AdvReac Type Severity Reaction Status Date / Time NSAIDS (Non-Steroidal Allergy Intermediate worsening Verified 07/08/21 09:54 Anti-Inflamma asthma, throat swelling bee pollen [BEE POLLEN] Allergy Unknown throat Verified 07/08/21 09:54 swelling Sulfa (Sulfonamide Allergy Unknown itchy, Verified 07/08/21 09:54 Antibiotics) rash, [SULFA (SULFONAMIDE asthma ANTIBIOTICS)] Iodinated Contrast Media AdvReac Unknown asthma Verified 07/08/21 09:54 [Iodinated Contrast- Oral and IV Dye] tetracycline [TETRACYCLINE] AdvReac Unknown nausea Verified 07/08/21 09:54 Exam Vital Signs (past 8 hours): - 07/08/21 10:14 Temperature 98.5 F Pulse Rate 68 Respiratory Rate 18 Blood Pressure 111/76 Pulse Oximetry 95 Oxygen Delivery Method Room Air Narrative Exam Narrative: General adult woman alert no acute distress Chest nonlabored respiration Abdomen soft nontender nondistended Extremities warm well perfused Assessment & Plan Assessment & Plan narrative: The patient requires colorectal screening and colonoscopy is recommended. Technical details were discussed. Risks, benefits, alternatives explained. Risks including but not limited to myocardial infarction, aspiration, bleeding, pain, missed lesion, incomplete examination, need for further radiographic studies, colonic perforation, and need for major abdominal surgery were discussed. All questions were answered to their satisfaction, and they are in agreement with this plan. Time Spent With Patient Critical Care time: I spent a total of [] minutes of critical care time on this patient's care today; this time is exclusive of procedural time.
--- NOTE | 2021-07-08 12:10 | PM.OP.COLON ---
Operative Date/Time/Diagnoses Date of procedure: 07/08/21 Time of procedure: 12:10 Pre-op diagnosis: Personal history of colon polyps Post-op diagnosis: same Procedure & Clinicians Study performed: Colonoscopy Same procedure as scheduled: Yes Indications: personal history colon polyps Surgeon: Ayo Spain Procedure Notes Procedure in detail: The history and physical was performed/updated and the patient is ASA class is 3. The procedure was discussed in detail with the patient. Potential risks complications including infection, bleeding, missed diagnosis, perforation, need for surgery, and were explained. Their questions were answered and informed consent was obtained. Patient was brought to the procedure room and placed standard monitoring equipment. The patient's vital signs were monitored continuously throughout the entire procedure. Prior to starting time-out was performed. The patient was placed in the left lateral recumbent position. Procedural sedation was administered by Anesthesia. Examination began with a thorough inspection of the perianal area there was no evidence of fissures, fistulae, external hemorrhoids or cutaneous malignancy. The colonoscopy scope was then placed into the anal canal and was advanced to the cecum, which was identified by the ileocecal valve, the appendiceal orifice and the confluence of the taenia. The scope was then slowly withdrawn examining colon thoroughly in all directions, irrigating it of any residual stool. FINDINGS 1. two 5 mm polyps within the transverse colon were removed with biopsy forceps 2. Internal hemorrhoids The patient tolerated the procedure well. They will be discharged once criteria are met. The prep was of good/excellent quality. The withdrawl time was 8 minutes. Specimen(s): other (Transverse colonic polyps) Complications: none Impression: Polyps Post-procedure Recommendations: Colonoscopy in 5 years Disposition: same day surgery
[2021-07-08 12:15] VITALS: BP 93/72; PULSE 72; RESP 22; TEMP 36.4; O2SAT 93
[2021-07-08 12:20] VITALS: BP 99/66; PULSE 70; RESP 19; O2SAT 93
[2021-07-08 12:25] VITALS: BP 105/69; PULSE 67; RESP 19; O2SAT 93
[2021-07-08 12:30] VITALS: BP 119/74; PULSE 83; RESP 17; TEMP 36.4; O2SAT 97
[2021-07-08 12:35] VITALS: BP 121/73; PULSE 78; RESP 16; O2SAT 99
== END 2021-07-08 12:49 | disposition home or self-care (01) ==
PROVIDERS: PCP Family Medicine; Referring Provider Surgery; Visit Provider Surgery
PROC: 0DJD8ZZ Inspection of Lower Intestinal Tract, Via Natural or Artificial Opening Endoscopic (ICD-10-PCS; CPT 45378; principal; 2021-07-08 11:15)
DX: Z12.11 Encounter for screening for malignant neoplasm of colon (principal); Z86.010 Personal history of colon polyps; K64.8 Other hemorrhoids; D12.3 Benign neoplasm of transverse colon; E66.9 Obesity, unspecified; Z68.37 Body mass index [BMI] 37.0-37.9, adult
CPT/HCPCS: 45380; 99152; J2250; J2704

== ENCOUNTER 2021-10-19 07:54 | Emergency (ER) | payer MEDICAID, OTHER, SELFPAY ==
[2018-03-03 13:55] VITALS: BMI 32.4
--- NOTE | 2021-10-19 08:15 | ED.GIBLEED ---
HPI - GI Bleed General Chief complaint: Abdominal Pain Stated complaint: too much to drink thinks she has bleeding inside Time Seen by Provider: 10/19/21 08:14 Source: patient and old records reviewed Limitations: no limitations History of Present Illness HPI Narrative: This is a 61-year-old female with history of asthma, anxiety depression, possible hypertension and dyslipidemia, hypothyroidism with prior thyroid cancer and thyroidectomy and parotid nodule and parotid gland removed. Patient states that last night she thinks she had 5 maybe more beers she states she does not normally drink this morning she has felt sweaty she is been vomiting has had some lower bilateral abdominal pain and then having black tarry stools in the past 12 hours. Patient has felt sweaty and hot. She denies chest pain or pressure. She felt short of breath last night but not currently. She still feels quite nauseated. Patient states she was vomiting what looked like bile or yellow denies blood in her emesis. Patient denies any syncope or passing out. No dizziness. No back or flank pain. Patient denies any dysuria urgency or frequency. Patient states no blood thinners. Patient did have a colonoscopy in July of 2021 which showed 2 5 mm polyps that were removed and internal hemorrhoids. Related Data Home Medications Medication Instructions Recorded Confirmed albuterol sulfate 90 mcg/actuation 1 - 2 puff inhalation Q4-6H PRN 06/21/17 10/19/21 aerosol inhaler Shortness Of Breath levothyroxine 125 mcg tablet 1 tab PO DAILY 06/21/17 10/19/21 prazosin 2 mg capsule 10 mg PO DAILY 06/21/17 10/19/21 aripiprazole 5 mg PO DAILY 07/08/21 10/19/21 escitalopram oxalate 30 mg PO DAILY 07/08/21 10/19/21 lorazepam 1 mg capsule,extended 1 mg PO BID 07/08/21 10/19/21 release 24 hr Previous Rx's Medication Instructions Recorded estradiol 1 mg tablet 1 mg PO QDAY #90 tabs 03/30/16 ondansetron 4 mg disintegrating 4 mg PO Q6H PRN nausea and 10/19/21 tablet vomiting #5 tabs Allergies Allergy/AdvReac Type Severity Reaction Status Date / Time NSAIDS (Non-Steroidal Allergy Intermediate worsening Verified 10/19/21 07:40 Anti-Inflamma asthma, throat swelling bee pollen [BEE POLLEN] Allergy Unknown throat Verified 10/19/21 07:40 swelling Sulfa (Sulfonamide Allergy Unknown itchy, Verified 10/19/21 07:40 Antibiotics) rash, [SULFA (SULFONAMIDE asthma ANTIBIOTICS)] Iodinated Contrast Media AdvReac Unknown asthma Verified 10/19/21 07:40 [Iodinated Contrast- Oral and IV Dye] tetracycline [TETRACYCLINE] AdvReac Unknown nausea Verified 10/19/21 07:40 Review of Systems Review of Systems ROS Unobtainable: All systems reviewed & are unremarkable except as noted in HPI and below Patient History Medical History (Updated 10/19/21 @ 10:04 by Fransisca Copeland DO) Hypothyroidism Surgical History History of bladder suspension procedure Status post cholecystectomy Status post rotator cuff repair (12/30/15) Status post vaginal hysterectomy Social History household members: spouse Smoking Status: Never smoker Smoking Status: Never smoker alcohol intake frequency: holidays/special occasions only Substance Use Type: marijuana Exam Narrative Exam Narrative: GENERAL: Alert and oriented x three, female in moderate distress. Patient is clammy. Does not appear to be diaphoretic. HEENT: Head normocephalic, atraumatic, EOMI, pupils reactive, face symmetric, moist mucous membranes NECK: Supple, full range of motion CARDIOVASCULAR: Regular rate and rhythm without murmurs, rubs or gallops. No edema bilateral lower extremities. RESPIRATORY: Breath sounds equal bilaterally, no wheezes rales or rhonchi. No tachypnea or accessory muscle use. ABDOMEN: Soft, mild bilateral lower abdominal tenderness, hyperactive bowel sounds all 4 quadrants. No guarding or rebound, rigidity, no mass, on digital rectal exam stool occult is negative patient does have little bit of green mucousy discharge rectally. No mass appreciated. Patient has some small hemorrhoids. No bright red blood. : No CVA tenderness EXTREMITIES: Normal range of motion, no clubbing or edema. Neurovascularly intact NEUROLOGICAL: Cranial nerves II through XII grossly intact. Moving all extremities SKIN: Warm, dry, no petechiae, no rashes or lesions. Initial Vital Signs Initial Vital Signs: Vital Signs Temperature 97.7 F 10/19/21 08:20 Pulse Rate 66 10/19/21 08:20 Respiratory Rate 26 H 10/19/21 08:20 Blood Pressure 178/89 H 10/19/21 08:20 Pulse Oximetry 99 10/19/21 08:20 Oxygen Delivery Method 10/19/21 08:20 Course Orders Ordered: Discontinued Medications Diphenhydramine HCl (Diphenhydramine 50 Mg/Ml Vial) 25 mg IV NOW ONE Stop: 10/19/21 08:29 Last Admin: 10/19/21 08:37 Dose: 25 mg Documented By: OW Sodium Chloride (Normal Saline 0.9%) 1,000 mls @ 150 mls/hr IV CONT LARA Last Infusion: 10/19/21 10:47 Dose: 0 mls/hr Documented By: Admin: 10/19/21 08:37 Dose: 150 mls/hr Documented By: OW Methylprednisolone (Methylprednisolone 125 Mg/2 Ml Vial) 125 mg IV NOW ONE Stop: 10/19/21 08:29 Last Admin: 10/19/21 08:37 Dose: 125 mg Documented By: OW Morphine Sulfate (Morphine 2 Mg/Ml Inj) 2 mg IV Q2HR PRN PRN Reason: Pain, Moderate (4-6) Last Admin: 10/19/21 09:45 Dose: 2 mg Documented By: OW Ondansetron HCl (Ondansetron 4 Mg/2 Ml Inj) 4 mg IV NOW ONE Stop: 10/19/21 08:17 Last Admin: 10/19/21 08:22 Dose: 4 mg Documented By: DONTE Vital Signs Vital signs: Vital Signs - 8 hr 10/19/21 08:20 10/19/21 09:05 10/19/21 10:00 Temperature 97.7 F Pulse Rate 66 71 71 Respiratory Rate 26 H 20 21 Blood Pressure 178/89 H 147/72 H Pulse Oximetry 99 96 94 Oxygen Delivery Method Room Air Room Air MDM - GI Bleed Lab Data Result diagrams: 10/19/21 08:13 10/19/21 08:13 Labs: Lab Results 10/19/21 10/19/21 10/19/21 Range/Units 08:13 08:13 08:13 WBC 6.4 (4.5-11.0) X10^3/uL RBC 4.98 (4.0-5.2) X10^6/uL Hgb 16.6 H (12.0-16.0) g/dL Hct 46.2 H (36-46) % MCV 92.9 (80-100) fL MCH 33.4 (26-34) PG MCHC 36.0 (30-36) % RDW 13.6 (11.6-14.8) % Plt Count 267 (150-400) X10^3/uL Neut % (Auto) 68.0 (50-75) % Lymph % (Auto) 24.2 L (25-40) % [place] % (Auto) 6.6 (3-14) % Eos % (Auto) 0.4 L (2-4) % Baso % (Auto) 0.8 (0-2) % Neut # (Auto) 4300 (7789-4712) /uL Lymph # (Auto) 1500 (1738-1822) /uL [place] # (Auto) 400 (0-900) /uL Eos # (Auto) 0 (0-450) /uL Baso # (Auto) 100 (0-100) /uL Sodium 134 L (137-145) mmol/L Potassium 3.9 (3.4-5.1) mmol/L Chloride 102 (98-107) mmol/L Carbon Dioxide 17 L (22-32) mmol/L BUN 11 (7-17) mg/dL Creatinine 0.66 (0.52-1.04) mg/dL Estimated GFR > 60 (>60) mL/min BUN/Creatinine Ratio 16.7 (6-22) Glucose 114 H (80-110) mg/dL Calcium 7.9 L (8.4-10.2) mg/dL Total Bilirubin 1.2 (0.2-1.3) mg/dL AST 191 H (14-36) IU/L ALT 72 H (<35) IU/L Alkaline Phosphatase 157 H (38-126) U/L Total Creatine Kinase (30-135) U/L CK-MB (CK-2) (<2.37) ng/mL CK-MB (CK-2) Rel Index (1.5-5.0) % Troponin I (0.01-0.034) ng/mL Total Protein 8.2 (6.3-8.2) g/dL Albumin 4.3 (3.5-5.0) g/dL Globulin 3.9 (1.7-4.1) g/dL Albumin/Globulin Ratio 1.1 (1.0-2.8) Lipase 143 (23-300) U/L 10/19/21 Range/Units 08:13 WBC (4.5-11.0) X10^3/uL RBC (4.0-5.2) X10^6/uL Hgb (12.0-16.0) g/dL Hct (36-46) % MCV (80-100) fL MCH (26-34) PG MCHC (30-36) % RDW (11.6-14.8) % Plt Count (150-400) X10^3/uL Neut % (Auto) (50-75) % Lymph % (Auto) (25-40) % [place] % (Auto) (3-14) % Eos % (Auto) (2-4) % Baso % (Auto) (0-2) % Neut # (Auto) (3467-1635) /uL Lymph # (Auto) (0969-9087) /uL [place] # (Auto) (0-900) /uL Eos # (Auto) (0-450) /uL Baso # (Auto) (0-100) /uL Sodium (137-145) mmol/L Potassium (3.4-5.1) mmol/L Chloride (98-107) mmol/L Carbon Dioxide (22-32) mmol/L BUN (7-17) mg/dL Creatinine (0.52-1.04) mg/dL Estimated GFR (>60) mL/min BUN/Creatinine Ratio (6-22) Glucose (80-110) mg/dL Calcium (8.4-10.2) mg/dL Total Bilirubin (0.2-1.3) mg/dL AST (14-36) IU/L ALT (<35) IU/L Alkaline Phosphatase (38-126) U/L Total Creatine Kinase 167 H (30-135) U/L CK-MB (CK-2) 5.88 H (<2.37) ng/mL CK-MB (CK-2) Rel Index 3.5 (1.5-5.0) % Troponin I < 0.012 (0.01-0.034) ng/mL Total Protein (6.3-8.2) g/dL Albumin (3.5-5.0) g/dL Globulin (1.7-4.1) g/dL Albumin/Globulin Ratio (1.0-2.8) Lipase (23-300) U/L Point of Care Testing Stool Occult Blood Negative Urine Dip Bedside Urine Glucose Negative Bedside Urine Bilirubin - Negative Bedside Urine Ketone - Negative Urine Specific [place] 1.01 Bedside Urine Occult Blood +/- Bedside Urine pH 6.5 Bedside Urine Protein - Negative Bedside Urine Urobilinogen - Negative Bedside Urine Nitrite - Negative Bedside Urine Leukocytes - Negative Esterase ECG Data Attestation: I personally reviewed and interpreted this ECG as follows: Prior ECG tracings: available for review Interpretation: Sinus rhythm right bundle-branch block. Rate of 74 ME 182 QRS of 158 QTC 521. Patient has prior from 04/08/2017 which had abnormal LAD. MDM Narrative Medical decision making narrative: This is a 61-year-old female who states she had too much alcohol to drink was vomiting overnight no hematemesis but had reported black stools, stool occult is negative here, patient's labs otherwise fairly stable LFTs are slightly elevated. Patient having lower discomfort with this reported black stools CT abdomen was obtained, so some cirrhotic change, patient states she has not been told this before she is aware of the change on her kidney discussion he is to continue to follow this. Plan for short course of Zofran, patient is feeling much better after fluids and Zofran here and return precautions. Discharge Plan Departure Patient Disposition: Home Clinical Impression: Vomiting, Angiomyolipoma of right kidney Activity Restrictions/Additional Instructions: Your labs today are overall reassuring although your liver enzymes are slightly elevated this can be related to alcohol intake. Your imaging today shows some cirrhosis or change to liver, incidentally there is a small mass on your right kidney which was present on prior imaging and should be monitored by you in your physician but is not likely cause of your discomfort today. I would recommend that you have scope or EGD/colonoscopy to evaluate for dark stools. It sounds like you had a colonoscopy in the last several months but should be repeated if having persistent changes. You may take Zofran 1 tablet every 6 hours as needed for nausea. Please continue to avoid alcohol especially with the changes seen to your liver. Prescription sent to [facility] in [place]. Please return for persistent symptoms, fevers, new chest pain, shortness of breath, persistent black or bloody stools or other new or concerning changes. Prescriptions: New ondansetron 4 mg tablet,disintegrating 4 mg PO Q6H PRN (Reason: nausea and vomiting) Qty: 5 0RF No Action estradiol 1 MG tablet 1 mg PO QDAY Qty: 90 3RF levothyroxine 125 mcg tablet 1 tab PO DAILY Label Comments: TAKE 1 TABLET BY MOUTH EVERY DAY albuterol sulfate 90 mcg/actuation HFA aerosol inhaler 1 - 2 puff Inhalation Q4-6H PRN (Reason: Shortness Of Breath) Label Comments: INHALE 1-2 PUFFS INHALE EVERY 4-6 HOURS prazosin 2 mg capsule 10 mg PO DAILY Label Comments: 2 CAPSULES BY MOUTH AT AT BEDTIME FOR HIGH BLOOD PRESSURE-5 mgs tabs Rx Instructions: takes at hs lorazepam 1 mg Capsule,Extended Release 24hr 1 mg PO BID aripiprazole 5 mg PO DAILY escitalopram oxalate 30 mg PO DAILY Rx Instructions: one 10 mg, one 20 mgs Referrals: Amanda Lara MD [Primary Care Provider] - Ayo Spain MD [Physician] - Visit Report Forms: Patient Portal/API
[2021-10-19 08:20] VITALS: BP 178/89; PULSE 66; RESP 26; TEMP 36.5; O2SAT 99; BMI 36.6
[2021-10-19] MEDS: ONDANSETRON 4 MG/2 ML INJ IV (08:22)
--- NOTE | 2021-10-19 08:28 | DI.CT.S_ITS ---
PROCEDURE: CT ABDOMEN PELVIS W CON INDICATIONS: lower abd pain, black stools, vomiting TECHNIQUE: After the administration of intravenous contrast, axial sections acquired from the lung bases to the pubic symphysis. Coronal and sagittal reformats were performed. For radiation dose reduction, the following was used: automated exposure control, adjustment of mA and/or kV according to patient size. COMPARISON: [facility], CT, ABDOMEN/PELVIS WITH CONTRAST, 04/07/2016, 20:27. FINDINGS: Image quality: Excellent. Lung bases: Unremarkable. Heart: No significant findings. ABDOMEN: Liver: Liver is enlarged. Hepatic contour is nodular. Gallbladder: Surgically absent Biliary ducts: Unremarkable. Pancreas: Unremarkable. Spleen: Unremarkable. Adrenal Glands: Unremarkable. Kidneys and Ureters: No hydronephrosis. Fat containing mass within the inferior pole right kidney posteriorly measuring 25 mm, increased in size. Nonobstructing punctate calcification within the superior pole left kidney, new since the prior examination. Stomach and Bowel: Stomach, small bowel loops, and colon are unremarkable. Normal appendix. Diverticulosis of the descending and sigmoid colon. Peritoneum: No abnormal intraperitoneal fluid. No free air. Ventral Wall: No hernias. Abdominal Nodes: No retroperitoneal or mesenteric adenopathy by size criteria. Vessels: Aorta and inferior vena cava are normal in size. PELVIS: Pelvic Organs: Unremarkable. Bladder: Unremarkable. Pelvic Nodes: No enlarged lymph nodes. Miscellaneous: No hernias are seen. Bones: Anterolisthesis of L4 on L5. IMPRESSION: 1. No acute process. 2. Normal appendix. 3. Increased right inferior pole renal angiomyolipoma. 4. Cirrhosis. 5. Nonobstructing left superior pole renal calcification. Dictated by: Raghu Holliday M.D. on 10/19/2021 at 9:43 Approved by: Raghu Holliday M.D. on 10/19/2021 at 9:45
[2021-10-19 08:35] LABS: Hematocrit 46.2 % (36-46); Hemoglobin 16.6 g/dL (12.0-16.0); Lymphocytes Percent Auto 24.2 % (25-40); Mean Corpuscular Hemoglobin 33.4 PG (26-34); Mean Corpuscular Volume 92.9 fL (80-100); Monocytes Percent Auto 6.6 % (3-14); Platelet Count 267 X10^3/uL (150-400); Red Blood Cell Count 4.98 X10^6/uL (4.0-5.2); Red Cell Distribution Width 13.6 % (11.6-14.8); White Blood Cell Count 6.4 X10^3/uL (4.5-11.0)
[2021-10-19 08:36] LABS: Add Manual Diff / Slide Review NO; Basophils Absolute Auto 100 /uL (0-100); Basophils Percent Auto 0.8 % (0-2); Eosinophils Absolute Auto 0 /uL (0-450); Eosinophils Percent Auto 0.4 % (2-4); Lymphocytes Absolute Auto 1500 /uL (1100-4500); Monocytes Absolute Auto 400 /uL (0-900); Neutrophils Absolute Auto 4300 /uL (1500-7000)
[2021-10-19] MEDS: methylPREDNISolone 125 MG/2 ML VIAL IV (08:37)
[2021-10-19] MEDS: diphenhydrAMINE 50 MG/ML VIAL 25 MG IV (08:37)
[2021-10-19] MEDS: SODIUM CHLORIDE 0.9% 1,000 ML 150 ML IV (08:37)
[2021-10-19 08:41] LABS: Alanine Aminotransferase 72 IU/L (<35); Albumin 4.3 g/dL (3.5-5.0); Albumin Globulin Ratio 1.1 (1.0-2.8); Alkaline Phosphatase 157 U/L (38-126); Aspartate Aminotransferase 191 IU/L (14-36); BUN Creatinine Ratio 16.7 (6-22); Bilirubin Total 1.2 mg/dL (0.2-1.3); Blood Urea Nitrogen 11 mg/dL (7-17); Calcium 7.9 mg/dL (8.4-10.2); Carbon Dioxide 17 mmol/L (22-32); Chloride 102 mmol/L (98-107); Estimated Glomerular Filt Rate > 60 mL/min (>60); Globulin 3.9 g/dL (1.7-4.1); Glucose 114 mg/dL (80-110); HEMOLYSIS 24 (0-50); Potassium 3.9 mmol/L (3.4-5.1); Sodium 134 mmol/L (137-145); Total Protein 8.2 g/dL (6.3-8.2)
[2021-10-19 08:49] LABS: Lipase 143 U/L (23-300)
[2021-10-19 08:51] LABS: Creatine Kinase 167 U/L (30-135)
[2021-10-19 09:04] LABS: Troponin I < 0.012 ng/mL (0.01-0.034)
[2021-10-19 09:05] VITALS: BP 147/72; PULSE 71; RESP 20; O2SAT 96
[2021-10-19 09:07] LABS: CKMB % Relative Index 3.5 % (1.5-5.0); Creatine Kinase MB 5.88 ng/mL (<2.37)
[2021-10-19] MEDS: MORPHINE 2 MG/ML INJ IV (09:45)
[2021-10-19 10:00] VITALS: PULSE 71; RESP 21; O2SAT 94
[2021-10-19 10:57] VITALS: BP 154/78; PULSE 77; RESP 24; O2SAT 95
== END 2021-10-19 10:59 | disposition home or self-care (01) ==
PROVIDERS: Emergency Provider Emergency Medicine; PCP Family Medicine
DX: D17.71 Benign lipomatous neoplasm of kidney (principal); R11.2 Nausea with vomiting, unspecified; R79.89 Other specified abnormal findings of blood chemistry
CPT/HCPCS: 36415; 74177; 80053; 81003; 82272; 82550; 82553; 83690; 84484; 85025; 93005; 96361; 96374; 96375; 99284; J1200; J2270; J2405; J2930

== ENCOUNTER 2022-04-19 07:33 | Emergency (ER) | payer MEDICAID, OTHER, SELFPAY ==
[2018-03-03 13:55] VITALS: BMI 32.4
[2022-04-19] VITALS (11 sets, daily range): BP systolic 119–144; BP diastolic 66–79; PULSE 70–82; RESP 14–26; TEMP 36.1; O2SAT 93–99; BMI 36.6
--- NOTE | 2022-04-19 07:40 | DI.RAD.S_ITS ---
PROCEDURE: XR CHEST 1V INDICATIONS: chest pain TECHNIQUE: One view of the chest was acquired. COMPARISON: [facility], CHEST 1 VIEW, 04/08/2017, 22:32. [facility], CHEST 2 VIEW, 05/31/2016, 23:29. FINDINGS: Surgical changes and devices: None. Lungs and pleura: Lungs are clear. No pleural effusions or pneumothorax. Mediastinum: Mediastinal contours appear normal. Heart size is normal. Bones and chest wall: No suspicious bony lesions. Overlying soft tissues appear unremarkable. IMPRESSION: No acute cardiopulmonary process. Dictated by: Jagdeep Arauz M.D. on 04/19/2022 at 8:39 Approved by: Jagdeep Arauz M.D. on 04/19/2022 at 8:43
--- NOTE | 2022-04-19 07:51 | ED_ITS ---
HPI - Chest Pain General Chief Complaint: Chest Pain Stated Complaint: chest pain since 4 am Time Seen by Provider: 04/19/22 07:41 Source: patient Mode of arrival: Ambulatory Limitations: no limitations History of Present Illness HPI narrative: Patient is a 61-year-old female. Has a history of hypertension and anxiety and asthma. Woke up this morning at approximately 0400 hours with dull chest discomfort. Has been consistent since then. No shortness of breath. Some nausea but no vomiting. She states she has had symptoms similar to this in the past but it was several years ago. She stated that she had a workup and was told that was most likely anxiety. She states she does feel anxious. She did take some Ativan this morning which she states did not help her symptoms all that much. Symptoms not worse with palpation or movement or breathing. No fevers. Related Data Home Medications Medication Instructions Recorded Confirmed albuterol sulfate 90 mcg/actuation 1 - 2 puff inhalation Q4-6H PRN 06/21/17 10/19/21 aerosol inhaler Shortness Of Breath levothyroxine 125 mcg tablet 1 tab PO DAILY 06/21/17 10/19/21 prazosin 2 mg capsule 10 mg PO DAILY 06/21/17 10/19/21 aripiprazole 5 mg PO DAILY 07/08/21 10/19/21 escitalopram oxalate 30 mg PO DAILY 07/08/21 10/19/21 lorazepam 1 mg capsule,extended 1 mg PO BID 07/08/21 10/19/21 release 24 hr Previous Rx's Medication Instructions Recorded estradiol 1 mg tablet 1 mg PO QDAY #90 tabs 03/30/16 ondansetron 4 mg disintegrating 4 mg PO Q6H PRN nausea and 10/19/21 tablet vomiting #5 tabs Allergies Allergy/AdvReac Type Severity Reaction Status Date / Time NSAIDS (Non-Steroidal Allergy Intermediate worsening Verified 04/19/22 07:46 Anti-Inflamma asthma, throat swelling bee pollen [BEE POLLEN] Allergy Unknown throat Verified 04/19/22 07:46 swelling Sulfa (Sulfonamide Allergy Unknown itchy, Verified 04/19/22 07:46 Antibiotics) rash, [SULFA (SULFONAMIDE asthma ANTIBIOTICS)] Iodinated Contrast Media AdvReac Unknown asthma Verified 04/19/22 07:46 [Iodinated Contrast- Oral and IV Dye] tetracycline [TETRACYCLINE] AdvReac Unknown nausea Verified 04/19/22 07:46 Review of Systems Review of Systems ROS Unobtainable: All systems reviewed & are unremarkable except as noted in HPI and below Patient History Medical History (Updated 04/19/22 @ 11:16 by Moisés Welsh DO) Hypothyroidism Surgical History History of bladder suspension procedure Status post cholecystectomy Status post rotator cuff repair (12/30/15) Status post vaginal hysterectomy Social History household members: spouse Smoking Status: Never smoker Smoking Status: Never smoker alcohol intake frequency: 0-2 drinks per day Substance Use Type: does not use Exam Initial Vital Signs Initial Vital Signs: Vital Signs Temperature 97 F L 04/19/22 07:40 Pulse Rate 76 04/19/22 07:40 Respiratory Rate 20 04/19/22 07:40 Blood Pressure 133/67 04/19/22 07:40 Pulse Oximetry 99 04/19/22 07:40 Oxygen Delivery Method Room Air 04/19/22 07:40 Const General: cooperative and comfortable HENMT Head: normal to inspection and normocephalic Resp Effort & Inspection: normal respiratory effort Auscultation: clear to auscultation bilaterally Cardio Rate: regular rate Rhythm: regular rhythm GI Inspection: normal to inspection and non-distended Skin General: no rashes or lesions noted Neuro General: patient alert, patient awake and moves all extremities Extrem General: capillary refill normal Scores HEART Score Heart Score history: Slightly Suspicious Heart Score EKG: Normal Heart Score Age: 45-64 years old Heart Score risk factors: 1-2 risk factors Heart Score troponin: < or = to normal limit Heart Score Total: 2 Course Orders Ordered: ED Orders 04/19/22 07:40 XR chest 1V Stat EKG-12 Lead Stat 04/19/22 07:50 Complete Blood Count AUTO DIFF Stat Comprehensive Metabolic Panel Stat Lipase Stat Magnesium Stat Troponin & CK Cardiac Panel Stat 04/19/22 09:52 Troponin I Stat Discontinued Medications Aspirin (Aspirin 81 Mg Chew Tab) 324 mg PO NOW ONE Stop: 04/19/22 07:41 Last Admin: 04/19/22 07:57 Dose: 324 mg Documented By: AT Lorazepam (Lorazepam 2 Mg/Ml Inj) 1 mg IV NOW ONE Stop: 04/19/22 07:52 Last Admin: 04/19/22 07:58 Dose: 1 mg Documented By: AT Lorazepam (Lorazepam 2 Mg/Ml Inj) 1 mg IV NOW ONE Stop: 04/19/22 09:03 Last Admin: 04/19/22 09:15 Dose: 1 mg Documented By: AT Vital Signs Vital signs: Vital Signs - 8 hr 04/19/22 07:40 04/19/22 07:52 04/19/22 08:00 Temperature 97 F L Pulse Rate 76 79 78 Respiratory Rate 20 14 20 Blood Pressure 133/67 Pulse Oximetry 99 95 97 Oxygen Delivery Method Room Air Room Air 04/19/22 08:02 04/19/22 08:02 04/19/22 08:30 Temperature Pulse Rate 74 Respiratory Rate 16 Blood Pressure 119/71 124/66 Pulse Oximetry 95 Oxygen Delivery Method 04/19/22 08:30 04/19/22 09:00 04/19/22 09:01 Temperature Pulse Rate 72 76 82 Respiratory Rate 25 H 23 24 Blood Pressure Pulse Oximetry 93 95 97 Oxygen Delivery Method Room Air Room Air 04/19/22 09:01 04/19/22 09:30 04/19/22 09:30 Temperature Pulse Rate 70 Respiratory Rate 26 H Blood Pressure 144/73 H 128/66 Pulse Oximetry 94 Oxygen Delivery Method Room Air 04/19/22 10:00 04/19/22 10:00 04/19/22 10:30 Temperature Pulse Rate 74 Respiratory Rate 19 Blood Pressure 128/71 140/79 Pulse Oximetry 97 Oxygen Delivery Method Room Air 04/19/22 10:30 04/19/22 11:00 04/19/22 11:00 Temperature Pulse Rate 74 70 Respiratory Rate 22 24 Blood Pressure 131/74 Pulse Oximetry 96 94 Oxygen Delivery Method Room Air Room Air MDM - Chest Pain Lab Data Attestation: I reviewed the patient's lab results. 04/19/22 07:50 04/19/22 07:50 Labs: Lab Results 04/19/22 04/19/22 04/19/22 Range/Units 07:50 07:50 09:52 WBC 6.0 (4.5-11.0) X10^3/uL RBC 4.45 (4.0-5.2) X10^6/uL Hgb 14.5 (12.0-16.0) g/dL Hct 41.9 (36-46) % MCV 94.3 (80-100) fL MCH 32.7 (26-34) PG MCHC 34.6 (30-36) % RDW 13.4 (11.6-14.8) % Plt Count 296 (150-400) X10^3/uL Neut % (Auto) 62.8 (50-75) % Lymph % (Auto) 29.4 (25-40) % [place] % (Auto) 4.9 (3-14) % Eos % (Auto) 2.1 (2-4) % Baso % (Auto) 0.8 (0-2) % Neut # (Auto) 3800 (1367-7898) /uL Lymph # (Auto) 1800 (0988-1223) /uL [place] # (Auto) 300 (0-900) /uL Eos # (Auto) 100 (0-450) /uL Baso # (Auto) 0 (0-100) /uL Sodium 134 L (137-145) mmol/L Potassium 4.2 (3.4-5.1) mmol/L Chloride 105 (98-107) mmol/L Carbon Dioxide 22 (22-32) mmol/L BUN 13 (7-17) mg/dL Creatinine 0.54 (0.52-1.04) mg/dL Estimated GFR > 60 (>60) mL/min BUN/Creatinine Ratio 24.1 H (6-22) Glucose 106 (80-110) mg/dL Calcium 7.4 L (8.4-10.2) mg/dL Magnesium 1.8 (1.6-2.3) mg/dL Total Bilirubin 0.7 (0.2-1.3) mg/dL AST 70 H (14-36) IU/L ALT 41 H (<35) IU/L Alkaline Phosphatase 99 (38-126) U/L Total Creatine Kinase 63 (30-135) U/L CK-MB (CK-2) TNP CK-MB (CK-2) Rel Index TNP Troponin I < 0.012 < 0.012 (0.01-0.034) ng/mL Total Protein 7.2 (6.3-8.2) g/dL Albumin 3.9 (3.5-5.0) g/dL Globulin 3.3 (1.7-4.1) g/dL Albumin/Globulin Ratio 1.2 (1.0-2.8) Lipase 65 (23-300) U/L Imaging Data Chest x-ray: Radiologist's Impression: PROCEDURE:? XR CHEST 1V ? INDICATIONS:? chest pain ? TECHNIQUE:? One view of the chest was acquired.? ? COMPARISON:? [facility], CHEST 1 VIEW, 04/08/2017, 22:32.? [facility], CHEST 2 VIEW, 05/31/2016, 23:29. ? FINDINGS:? ? Surgical changes and devices:? None.? ? Lungs and pleura:? Lungs are clear.? No pleural effusions or pneumothorax.? ? Mediastinum:? Mediastinal contours appear normal.? Heart size is normal.? ? Bones and chest wall:? No suspicious bony lesions.? Overlying soft tissues appear unremarkable.? ? IMPRESSION:? No acute cardiopulmonary process. ECG Data Attestation: I personally reviewed and interpreted this ECG as follows: Interpretation: Sinus rhythm Left axis deviation Ventricular rate is 77 Normal axis Normal QRS Normal QTC No ST T wave changes MDM Narrative Medical decision making narrative: Chest x-ray is unremarkable. Low risk heart score. EKG is unremarkable. Patient has not had risk stratification testing. I did discuss this with the patient. Will discharge patient home to follow-up with primary provider to discuss this further. She was given return precautions. She expressed understanding and agreement. Discharge Plan Departure Patient Disposition: Home Clinical Impression: Atypical chest pain Instructions: DI for Atypical Chest Pain Activity Restrictions/Additional Instructions: Continue to take all of your medications as directed. Contact your primary doctor to discuss further workup to include a stress test. Return to the emergency department for any new or worsening symptoms. Prescriptions: No Action estradiol 1 MG tablet 1 mg PO QDAY Qty: 90 3RF levothyroxine 125 mcg tablet 1 tab PO DAILY Patient Comments: TAKE 1 TABLET BY MOUTH EVERY DAY albuterol sulfate 90 mcg/actuation HFA aerosol inhaler 1 - 2 puff Inhalation Q4-6H PRN (Reason: Shortness Of Breath) Patient Comments: INHALE 1-2 PUFFS INHALE EVERY 4-6 HOURS prazosin 2 mg capsule 10 mg PO DAILY Patient Comments: 2 CAPSULES BY MOUTH AT AT BEDTIME FOR HIGH BLOOD PRESSURE-5 mgs tabs Rx Instructions: takes at hs ondansetron 4 mg tablet,disintegrating 4 mg PO Q6H PRN (Reason: nausea and vomiting) Qty: 5 0RF lorazepam 1 mg Capsule,Extended Release 24hr 1 mg PO BID aripiprazole 5 mg PO DAILY escitalopram oxalate 30 mg PO DAILY Rx Instructions: one 10 mg, one 20 mgs Referrals: Amanda Lara MD [Primary Care Provider] - Stand Alone Forms: Patient Portal/API
[2022-04-19] MEDS: ASPIRIN 81 MG CHEW TAB 324 MG PO (07:57)
[2022-04-19] MEDS: LORazepam 2 MG/ML INJ 1 MG IV ×2 (07:58→09:15)
[2022-04-19 08:04] LABS: Add Manual Diff / Slide Review NO; Basophils Absolute Auto 0 /uL (0-100); Basophils Percent Auto 0.8 % (0-2); Eosinophils Absolute Auto 100 /uL (0-450); Eosinophils Percent Auto 2.1 % (2-4); Hematocrit 41.9 % (36-46); Hemoglobin 14.5 g/dL (12.0-16.0); Lymphocytes Absolute Auto 1800 /uL (1100-4500); Lymphocytes Percent Auto 29.4 % (25-40); Mean Corpuscular HGB Conc 34.6 % (30-36); Mean Corpuscular Hemoglobin 32.7 PG (26-34); Mean Corpuscular Volume 94.3 fL (80-100); Monocytes Absolute Auto 300 /uL (0-900); Monocytes Percent Auto 4.9 % (3-14); Neutrophils Absolute Auto 3800 /uL (1500-7000); Neutrophils Percent Auto 62.8 % (50-75); Platelet Count 296 X10^3/uL (150-400); Red Blood Cell Count 4.45 X10^6/uL (4.0-5.2); Red Cell Distribution Width 13.4 % (11.6-14.8)
[2022-04-19 08:20] LABS: Alanine Aminotransferase 41 IU/L (<35); Albumin 3.9 g/dL (3.5-5.0); Albumin Globulin Ratio 1.2 (1.0-2.8); Alkaline Phosphatase 99 U/L (38-126); Aspartate Aminotransferase 70 IU/L (14-36); BUN Creatinine Ratio 24.1 (6-22); Bilirubin Total 0.7 mg/dL (0.2-1.3); Blood Urea Nitrogen 13 mg/dL (7-17); Calcium 7.4 mg/dL (8.4-10.2); Carbon Dioxide 22 mmol/L (22-32); Chloride 105 mmol/L (98-107); Creatine Kinase 63 U/L (30-135); Estimated Glomerular Filt Rate > 60 mL/min (>60); Globulin 3.3 g/dL (1.7-4.1); Glucose 106 mg/dL (80-110); Lipase 65 U/L (23-300); Magnesium 1.8 mg/dL (1.6-2.3); Potassium 4.2 mmol/L (3.4-5.1); Sodium 134 mmol/L (137-145); Total Protein 7.2 g/dL (6.3-8.2)
[2022-04-19 08:23] LABS: HEMOLYSIS 51 (0-50)
[2022-04-19 08:45] LABS: Troponin I < 0.012 ng/mL (0.01-0.034)
[2022-04-19 10:28] LABS: Troponin I < 0.012 ng/mL (0.01-0.034)
== END 2022-04-19 11:23 | disposition home or self-care (01) ==
PROVIDERS: Emergency Provider Emergency Medicine; PCP Family Medicine
DX: R07.89 Other chest pain (principal)
CPT/HCPCS: 36415; 71045; 80053; 82550; 83690; 83735; 84484; 85025; 93005; 93010; 96374; 96376; 99284; J2060

== ENCOUNTER 2023-01-16 07:02 | Emergency (ER) | payer MEDICAID, OTHER, SELFPAY ==
[2018-03-03 13:55] VITALS: BMI 32.4
[2023-01-16] VITALS (7 sets, daily range): BP systolic 152–171; BP diastolic 67–87; PULSE 76–85; RESP 18; TEMP 36.8; O2SAT 93–97; BMI 33.7
--- NOTE | 2023-01-16 07:06 | ED.FEMALEGU ---
HPI - Female Genitourinary General Chief complaint: Urogenital-Female Stated complaint: uti for 2 weeks -meds not helping has back pain Time Seen by Provider: 01/16/23 07:05 Source: patient, RN notes reviewed and old records reviewed Mode of arrival: Ambulatory Limitations: no limitations History of Present Illness HPI Narrative: 62-year-old female with history of asthma, hypothyroidism, hypertension, disorder who presents with complaint of urinary symptoms and diagnosis of UTI/pyelonephritis starting just before . Patient states symptoms have been persistent and worsening despite antibiotics. She states she was seen the Tuesday after started on an amoxicillin and did not improve her symptoms which were mostly dysuria, urgency sense of incomplete emptying and frequency was changed to Augmentin which she has completed with persistent symptoms and worsening abdominal and flank pain. Patient states she still has urinary symptoms such as dysuria, urgency, sense of incomplete emptying she has not seen any hematuria denies any vaginal bleeding or discharge. Patient notes she had UTIs remotely in the past but has not had 1 for many years. She also notes she was told she would a mass on her right kidney at some point. She is right lower quadrant pain and right flank pain. She states the flank pain is new and worsening over the last 24 hours. She is felt hot and cold intermittently. She is had nausea but no vomiting. No chest pain or shortness of breath reported. Patient denies any left-sided pain. Patient states she had a bowel movement earlier today no black or bloody stools. Patient states no pain medication today, she was taking Pyridium and it was helpful. She states only prior surgeries are for thyroidectomy and a mass underneath her right chin. Patient states she has allergies to sulfa which causes a rash and iodine/contrast dye which irritates her asthma. She states she has had pretreatment before and tolerated CT contrast well. Denies tobacco, alcohol or illicit. Patient's primary care is with the [facility], Dr. Amanda Lara. Related Data Home Medications Medication Instructions Recorded Confirmed albuterol sulfate 90 mcg/actuation 1 - 2 puff inhalation Q4-6H PRN 06/21/17 10/19/21 aerosol inhaler Shortness Of Breath levothyroxine 125 mcg tablet 1 tab PO DAILY 06/21/17 10/19/21 prazosin 2 mg capsule 10 mg PO DAILY 06/21/17 10/19/21 aripiprazole 5 mg PO DAILY 07/08/21 10/19/21 escitalopram oxalate 30 mg PO DAILY 07/08/21 10/19/21 lorazepam 1 mg capsule,extended 1 mg PO BID 07/08/21 10/19/21 release 24 hr Previous Rx's Medication Instructions Recorded estradiol 1 mg tablet 1 mg PO QDAY #90 tabs 03/30/16 ondansetron 4 mg disintegrating 4 mg PO Q6H PRN nausea and 10/19/21 tablet vomiting #5 tabs ciprofloxacin HCl 500 mg tablet 500 mg PO Q12H #14 tabs 01/16/23 metoclopramide HCl 10 mg tablet 10 mg PO Q6H PRN nausea and 01/16/23 (Reglan) vomiting #10 tabs oxycodone 5 mg tablet 5 mg PO Q6H PRN pain #10 tabs 01/16/23 Allergies Allergy/AdvReac Type Severity Reaction Status Date / Time NSAIDS (Non-Steroidal Allergy Intermediate worsening Verified 04/19/22 07:46 Anti-Inflamma asthma, throat swelling bee pollen [BEE POLLEN] Allergy Unknown throat Verified 04/19/22 07:46 swelling Sulfa (Sulfonamide Allergy Unknown itchy, Verified 04/19/22 07:46 Antibiotics) rash, [SULFA (SULFONAMIDE asthma ANTIBIOTICS)] Iodinated Contrast Media AdvReac Unknown asthma Verified 04/19/22 07:46 [Iodinated Contrast- Oral and IV Dye] tetracycline [TETRACYCLINE] AdvReac Unknown nausea Verified 04/19/22 07:46 Review of Systems Review of Systems ROS Unobtainable: All systems reviewed & are unremarkable except as noted in HPI and below Patient History Medical History (Updated 01/16/23 @ 08:56 by Fransisca Copeland DO) Hypothyroidism Surgical History History of bladder suspension procedure Status post rotator cuff repair (12/30/15) Status post cholecystectomy Status post vaginal hysterectomy alcohol intake frequency: 0-2 drinks per day Substance Use Type: does not use Exam Narrative Exam Narrative: GENERAL: Alert and oriented x three, female in moderate distress. HEENT: Head normocephalic, atraumatic, EOMI, pupils reactive, face symmetric, moist mucous membranes NECK: Supple, full range of motion CARDIOVASCULAR: Regular rate and rhythm without murmurs, rubs or gallops. RESPIRATORY: Breath sounds equal bilaterally, no wheezes rales or rhonchi. ABDOMEN: Soft, positive for right lower quadrant tenderness patient also has some mild right upper quadrant but much more significant in the lower. Normoactive bowel sounds all 4 quadrants. No guarding or rebound, rigidity, no mass : Positive for right CVA tenderness, no left CVA tenderness. EXTREMITIES: Normal range of motion, no clubbing or edema. Neurovascularly intact NEUROLOGICAL: Cranial nerves II through XII grossly intact. Moving all extremities SKIN: Warm, dry, no petechiae, no rashes or lesions, no erythema, blisters or other skin changes to torso. Initial Vital Signs Initial Vital Signs: Vital Signs Pulse Rate 77 01/16/23 07:10 Blood Pressure 171/87 H 01/16/23 07:10 Pulse Oximetry 96 01/16/23 07:10 Course Orders Ordered: ED Orders 01/16/23 07:18 Complete Blood Count AUTO DIFF Stat Comprehensive Metabolic Panel Stat Lipase Stat 01/16/23 07:32 Urine Culture Stat Urine Microscopic Stat 01/16/23 08:14 CT abdomen pelvis w con Stat Discontinued Medications Acetaminophen (Acetaminophen 325 Mg Tablet) 975 mg PO NOW ONE Stop: 01/16/23 07:24 Last Admin: 01/16/23 07:33 Dose: 975 mg Documented By: ELDA Ciprofloxacin (Ciprofloxacin 250 Mg Tablet) 500 mg PO NOW ONE Stop: 01/16/23 09:00 Last Admin: 01/16/23 09:06 Dose: 500 mg Documented By: ELDA Diphenhydramine HCl (Diphenhydramine 50 Mg/Ml Vial) 50 mg IV NOW ONE Stop: 01/16/23 07:22 Last Admin: 01/16/23 07:34 Dose: 50 mg Documented By: ELDA Sodium Chloride (Normal Saline 0.9%) 1,000 mls @ 1,000 mls/hr IV BOLUS ONE Stop: 01/16/23 08:20 Last Infusion: 01/16/23 08:36 Dose: Infused Documented By: Admin: 01/16/23 07:33 Dose: 1,000 mls/hr Documented By: ELDA Methylprednisolone (Methylprednisolone 125 Mg/2 Ml Vial) 125 mg IV NOW ONE Stop: 01/16/23 07:23 Last Admin: 01/16/23 07:33 Dose: 125 mg Documented By: ELDA Morphine Sulfate (Morphine 4 Mg/Ml Inj) 4 mg IV NOW ONE Stop: 01/16/23 07:56 Last Admin: 01/16/23 08:00 Dose: 4 mg Documented By: ELDA Ondansetron HCl (Ondansetron 4 Mg/2 Ml Inj) 4 mg IV NOW ONE Stop: 01/16/23 07:56 Last Admin: 01/16/23 08:00 Dose: 4 mg Documented By: ELDA Oxycodone/Acetaminophen (Oxycodone/Acetaminophen 5/325 Tablet) 2 tab PO NOW ONE Stop: 01/16/23 09:00 Last Admin: 01/16/23 09:05 Dose: 2 tab Documented By: ELDA Phenazopyridine HCl (Phenazopyridine 100 Mg Tablet) 200 mg PO NOW ONE Stop: 01/16/23 07:24 Last Admin: 01/16/23 07:34 Dose: 200 mg Documented By: ELDA Vital Signs Vital signs: Vital Signs - 8 hr 01/16/23 07:10 01/16/23 07:10 01/16/23 07:17 Temperature 98.2 F Pulse Rate 77 85 Respiratory Rate 18 Blood Pressure 171/87 H 171/87 H Pulse Oximetry 96 97 Oxygen Delivery Method Room Air 01/16/23 07:36 01/16/23 08:11 01/16/23 08:30 Temperature Pulse Rate 78 82 78 Respiratory Rate Blood Pressure Pulse Oximetry 96 96 95 Oxygen Delivery Method 01/16/23 08:54 01/16/23 08:54 01/16/23 09:00 Temperature Pulse Rate 76 78 Respiratory Rate Blood Pressure 152/67 H Pulse Oximetry 96 93 Oxygen Delivery Method MDM - Female Genitourinary Lab Data 01/16/23 07:18 01/16/23 07:18 Labs: Lab Results 01/16/23 01/16/23 Range/Units 07:18 07:32 WBC 11.2 H (4.5-11.0) X10^3/uL RBC 4.64 (4.0-5.2) X10^6/uL Hgb 15.7 (12.0-16.0) g/dL Hct 45.2 (36-46) % MCV 97.3 (80-100) fL MCH 33.7 (26-34) PG MCHC 34.7 (30-36) % RDW 13.3 (11.6-14.8) % Plt Count 320 (150-400) X10^3/uL Neut % (Auto) 80.0 H (50-75) % Lymph % (Auto) 14.1 L (25-40) % [place] % (Auto) 4.6 (3-14) % Eos % (Auto) 0.6 L (2-4) % Baso % (Auto) 0.7 (0-2) % Neut # (Auto) 9000 H (3292-6752) /uL Lymph # (Auto) 1600 (1574-7402) /uL [place] # (Auto) 500 (0-900) /uL Eos # (Auto) 100 (0-450) /uL Baso # (Auto) 100 (0-100) /uL Sodium 133 L (137-145) mmol/L Potassium 4.2 (3.4-5.1) mmol/L Chloride 102 (98-107) mmol/L Carbon Dioxide 23 (22-32) mmol/L BUN 3 L (7-17) mg/dL Creatinine 0.58 (0.52-1.04) mg/dL Estimated GFR > 60 (>60) mL/min BUN/Creatinine Ratio 5.2 L (6-22) Glucose 138 H (80-110) mg/dL Calcium 9.1 (8.4-10.2) mg/dL Total Bilirubin 0.8 (0.2-1.3) mg/dL AST 75 H (14-36) IU/L ALT 38 H (<35) IU/L Alkaline Phosphatase 130 H (38-126) U/L Total Protein 8.3 H (6.3-8.2) g/dL Albumin 4.3 (3.5-5.0) g/dL Globulin 4.0 (1.7-4.1) g/dL Albumin/Globulin Ratio 1.1 (1.0-2.8) Lipase 146 (23-300) U/L Urine RBC None seen (0-5/HPF) Urine WBC None seen (0-5/HPF) Ur Squamous Epith Cells 1-5 /hpf (0-5/HPF) Urine Bacteria None seen (None) Ur Culture Indicated? Cult not indicated Urine Dip Bedside Urine Glucose Negative Bedside Urine Bilirubin - Negative Bedside Urine Ketone - Negative Urine Specific [place] 1.005 Bedside Urine Occult Blood - Negative Bedside Urine pH 8.0 Bedside Urine Protein - Negative Bedside Urine Urobilinogen - Negative Bedside Urine Nitrite - Negative Bedside Urine Leukocytes - Negative Esterase MDM Narrative Medical decision making narrative: 62-year-old female with reported UTI with urinary symptoms now developed right lower quadrant and right flank pain. Patient has had 2 rounds of antibiotics amoxicillin followed by Augmentin. Patient's vitals here she is slightly hypertensive but no tachycardia, afebrile normal O2 on room air and normal respiratory rate. Discussed with patient could be pyelonephritis that is not adequately treated but with her right lower quadrant flank pain could also be kidney stone, appendicitis, colitis versus other cause. Patient agreeable to line labs, pain medication and CT imaging. We will pre treat as patient has reported contrast allergy she states she has tolerated well with Solu-Medrol and Benadryl in the past. Labs white count of 11.2, hemoglobin of 15 hematocrit of 45 platelets of 320 leftward shift 80% neutrophils no bandemia. Sodium 133, normal BUN 3, glucose of 138, bilirubin is negative but AST 75 ALT 38 with an alk-phos of 130- lipase. Urine, point of care urine negative. Microscopy shows no RBCs no WBCs 1-5 squamous epithelials with no bacteria. CT abdomen pelvis shows hepatic steatosis nodular contour consistent with cirrhosis liver is enlarged. Right inferior pole fat containing lesion measuring 2.8 x 2.5 cm consistent with angiomyolipoma and diverticulosis without evidence of diverticulitis, normal appendix. No evidence of pyelonephritis with left upper pole 2 mm nonobstructing calcification no obstructing stones noted degenerative changes with grade 1 anterolisthesis on L4-L5. Recheck after Tylenol, Pyridium, fluids patient was still quite uncomfortable. Has allergies to NSAIDs was given a dose of IV narcotic pain medication. Patient states she does feel improved. Patient's workup shows slight leukocytosis, urine is otherwise negative although she has been on antibiotics x2 until recently has had urinary symptoms so sent for culture. Patient imaging does not show clear source she has slightly elevated LFTs but has been elevated in the past. She was much more tender in her flank and right lower quadrant making gallbladder less likely source of symptoms. Patient has change to the right kidney consistent with angiomyolipoma does not appear to be abscess. Discussed pelvic exam and patient notes she is had a prior hysterectomy. States she is not having any symptoms and seems less likely source. Discussed findings with patient plan for short course of pain medication. After discussion we will send urine for urine culture she does have some urinary symptoms still. Discussed risks versus benefits of starting a new antibiotic. Patient would like to go ahead and start. We will also send with a little antinausea and narcotic pain medication for the short term. Need for follow-up, return precautions reviewed. Also reviewed all the patient's labs and imaging findings with her and her at bedside. Discharge Plan Departure Patient Disposition: Home Clinical Impression: Flank pain, acute, Abdominal pain Activity Restrictions/Additional Instructions: Your workup today does not show a clear source for pain, we will continue with the new antibiotic. Urine culture was sent this takes 2 days to result if it shows resistance to bacteria you would be contacted but will not be contacted for negative cultures or if it is the appropriate antibiotic. Your workup does show hepatic steatosis or fatty liver changes, a mass or tumor on your right kidney most consistent with an angiomyolipoma. Continue to follow these changes with your primary care physician. Let them know if they are not already aware of these. Take antibiotics until completed. You may take Zofran 1 tablet every 6 hours as needed for nausea/vomiting. You may take Tylenol up to a 1000 mg every 6 hours as needed. You may continue your home prescription of Pyridium. Take oxycodone 1-2 tablets every 6 hours as needed for pain. This medication can make you sleepy do not drive, perform hazardous activities or make any major decisions while taking it. This medication will make you constipated please take a stool softener once to twice daily until stools are soft and regular. Prescription sent to [facility] in [place]. Please return for fevers, new or worsening abdominal back or flank pain, persistent vomiting, black or bloody stools, inability to difficulty to urinate or other new or concerning changes. Prescriptions: New ciprofloxacin HCl 500 mg tablet 500 mg PO Q12H Qty: 14 0RF oxycodone 5 mg tablet 5 mg PO Q6H PRN (Reason: pain) Qty: 10 0RF metoclopramide HCl [Reglan] 10 mg tablet 10 mg PO Q6H PRN (Reason: nausea and vomiting) Qty: 10 0RF No Action estradiol 1 MG tablet 1 mg PO QDAY Qty: 90 3RF levothyroxine 125 mcg tablet 1 tab PO DAILY Patient Comments: TAKE 1 TABLET BY MOUTH EVERY DAY albuterol sulfate 90 mcg/actuation HFA aerosol inhaler 1 - 2 puff Inhalation Q4-6H PRN (Reason: Shortness Of Breath) Patient Comments: INHALE 1-2 PUFFS INHALE EVERY 4-6 HOURS prazosin 2 mg capsule 10 mg PO DAILY Patient Comments: 2 CAPSULES BY MOUTH AT AT BEDTIME FOR HIGH BLOOD PRESSURE-5 mgs tabs Rx Instructions: takes at hs ondansetron 4 mg tablet,disintegrating 4 mg PO Q6H PRN (Reason: nausea and vomiting) Qty: 5 0RF lorazepam 1 mg Capsule,Extended Release 24hr 1 mg PO BID aripiprazole 5 mg PO DAILY escitalopram oxalate 30 mg PO DAILY Rx Instructions: one 10 mg, one 20 mgs Referrals: Amanda Lara MD [Primary Care Provider] - Stand Alone Forms: Patient Portal/API
[2023-01-16] MEDS: ACETAMINOPHEN 325 MG TABLET 975 MG PO (07:33)
[2023-01-16] MEDS: methylPREDNISolone 125 MG/2 ML VIAL IV (07:33)
[2023-01-16] MEDS: SODIUM CHLORIDE 0.9% 1,000 ML 1000 ML IV (07:33)
[2023-01-16] MEDS: diphenhydrAMINE 50 MG/ML VIAL IV (07:34)
[2023-01-16] MEDS: PHENAZOPYRIDINE 100 MG TABLET 200 MG PO (07:34)
[2023-01-16 07:36] LABS: Add Manual Diff / Slide Review NO; Basophils Absolute Auto 100 /uL (0-100); Basophils Percent Auto 0.7 % (0-2); Eosinophils Absolute Auto 100 /uL (0-450); Eosinophils Percent Auto 0.6 % (2-4); Hematocrit 45.2 % (36-46); Hemoglobin 15.7 g/dL (12.0-16.0); Lymphocytes Absolute Auto 1600 /uL (1100-4500); Lymphocytes Percent Auto 14.1 % (25-40); Mean Corpuscular HGB Conc 34.7 % (30-36); Mean Corpuscular Hemoglobin 33.7 PG (26-34); Mean Corpuscular Volume 97.3 fL (80-100); Monocytes Absolute Auto 500 /uL (0-900); Monocytes Percent Auto 4.6 % (3-14); Neutrophils Absolute Auto 9000 /uL (1500-7000); Platelet Count 320 X10^3/uL (150-400); Red Blood Cell Count 4.64 X10^6/uL (4.0-5.2); Red Cell Distribution Width 13.3 % (11.6-14.8); White Blood Cell Count 11.2 X10^3/uL (4.5-11.0)
[2023-01-16 07:47] LABS: Alanine Aminotransferase 38 IU/L (<35); Albumin 4.3 g/dL (3.5-5.0); Albumin Globulin Ratio 1.1 (1.0-2.8); Alkaline Phosphatase 130 U/L (38-126); Aspartate Aminotransferase 75 IU/L (14-36); BUN Creatinine Ratio 5.2 (6-22); Bilirubin Total 0.8 mg/dL (0.2-1.3); Blood Urea Nitrogen 3 mg/dL (7-17); Calcium 9.1 mg/dL (8.4-10.2); Carbon Dioxide 23 mmol/L (22-32); Chloride 102 mmol/L (98-107); Estimated Glomerular Filt Rate > 60 mL/min (>60); Glucose 138 mg/dL (80-110); HEMOLYSIS 36 (0-50); Lipase 146 U/L (23-300); Potassium 4.2 mmol/L (3.4-5.1); Sodium 133 mmol/L (137-145); Total Protein 8.3 g/dL (6.3-8.2)
[2023-01-16] MEDS: MORPHINE 4 MG/ML INJ IV (08:00)
[2023-01-16] MEDS: ONDANSETRON 4 MG/2 ML INJ IV (08:00)
[2023-01-16 08:01] LABS: Bacteria Urine None Seen; Culture Indicated Urine Cult Not Indicated; RBC Urine None Seen (0-5/HPF); Squamous Epithelial Cell Urine 1-5 /HPF (0-5/HPF); WBC Urine None Seen (0-5/HPF)
--- NOTE | 2023-01-16 08:14 | DI.CT.S_ITS ---
PROCEDURE: CT ABDOMEN PELVIS W CON INDICATIONS: ? pyelonephritis, RLQ/R flank x 2-3weeks after abx TECHNIQUE: After the administration of intravenous contrast, axial sections acquired from the lung bases to the pubic symphysis. Coronal and sagittal reformats were performed. For radiation dose reduction, the following was used: automated exposure control, adjustment of mA and/or kV according to patient size. COMPARISON: [facility], CT, CT ABDOMEN PELVIS W CON, 10/19/2021, 9:28. FINDINGS: Image quality: Excellent. Lung bases: Unremarkable. Heart: No significant findings. ABDOMEN: Liver: Decreased attenuation of liver consistent with hepatic steatosis. Nodular contour, consistent with cirrhosis. Liver is enlarged. Gallbladder: Surgically absent. Biliary ducts: Unremarkable. Pancreas: Unremarkable. Spleen: Unremarkable. Adrenal Glands: Unremarkable. Kidneys and Ureters: Right inferior pole fat containing lesion measuring 2.8 x 2.5 cm. 2 mm nonobstructing calcification at the left upper pole. No hydronephrosis.. Stomach and Bowel: Stomach, small bowel loops, and colon are unremarkable. Diverticulosis without evidence of acute diverticulitis. Normal appendix. Peritoneum: No abnormal intraperitoneal fluid. No free air. Ventral Wall: No hernias. Abdominal Nodes: No retroperitoneal or mesenteric adenopathy by size criteria. Vessels: Aorta and inferior vena cava are normal in size. Mild atherosclerotic vascular calcifications. PELVIS: Pelvic Organs: Hysterectomy.. Bladder: Unremarkable. Pelvic Nodes: No enlarged lymph nodes. Miscellaneous: No hernias are seen. Bones: Degenerative changes of the lumbar spine. Grade 1 anterolisthesis of L4 on L5. IMPRESSION: 1. No evidence of pyelonephritis. Left upper pole 2 mm nonobstructing calcification. No obstructing stones. 2. Diverticulosis without evidence of acute diverticulitis. Normal appendix. 3. Fat containing lesion at the inferior pole the right kidney measuring 2.8 cm, most consistent with an angiomyolipoma. 4. Hepatic cirrhosis with superimposed steatosis. Dictated by: Javad Avila M.D. on 01/16/2023 at 8:23 Approved by: Javad Avila M.D. on 01/16/2023 at 8:31
[2023-01-16] MEDS: OXYCODONE/ACETAMINOPHEN 5/325 TABLET 2 TAB PO (09:05)
[2023-01-16] MEDS: CIPROFLOXACIN 250 MG TABLET 500 MG PO (09:06)
== END 2023-01-16 09:14 | disposition home or self-care (01) ==
PROVIDERS: Emergency Provider Emergency Medicine; PCP Family Medicine
DX: R30.0 Dysuria (principal); R10.9 Unspecified abdominal pain; B96.20 Unspecified Escherichia coli [E. coli] as the cause of diseases classified elsewhere; Z16.11 Resistance to penicillins
CPT/HCPCS: 36415; 74177; 80053; 81003; 81015; 83690; 85025; 87077; 87086; 87186; 96374; 96375; 99284; 99285; J1200; J2270; J2405; J2930; Q9967

== ENCOUNTER 2023-01-19 16:49 | Emergency (ER) | payer MEDICAID, OTHER, SELFPAY ==
[2018-03-03 13:55] VITALS: BMI 32.4
[2023-01-19 17:10] VITALS: BP 157/76; PULSE 70; RESP 18; TEMP 36.8; O2SAT 98; BMI 33.7
[2023-01-19 20:50] VITALS: BP 168/98; PULSE 64; O2SAT 98
[2023-01-19 21:00] VITALS: BP 159/87; PULSE 63; O2SAT 96
--- NOTE | 2023-01-19 21:19 | ED.GENADULT ---
HPI - General Adult General Chief complaint: Urogenital-Female Stated complaint: md states e coli, and covid Time Seen by Provider: 01/19/23 20:58 Source: patient Mode of arrival: Ambulatory History of Present Illness HPI narrative: Patient is a 62-year-old female who was sent from primary doctor's office to the emergency department. Patient has been dealing with a urinary tract infection and what she states is a kidney infection for the past several weeks. She was initially started on Augmentin then eventually switched to Macrobid by her primary provider. She was seen here in the emergency department earlier this week. Had a urinalysis. Was started on Cipro. Has been taking the Cipro. The culture was E coli that was sensitive to Cipro. Also earlier this week she was diagnosed with COVID. She is having a headache, body aches, nausea and generally not feeling well. Related Data Home Medications Medication Instructions Recorded Confirmed albuterol sulfate 90 mcg/actuation 1 - 2 puff inhalation Q4-6H PRN 06/21/17 10/19/21 aerosol inhaler Shortness Of Breath levothyroxine 125 mcg tablet 1 tab PO DAILY 06/21/17 10/19/21 prazosin 2 mg capsule 10 mg PO DAILY 06/21/17 10/19/21 aripiprazole 5 mg PO DAILY 07/08/21 10/19/21 escitalopram oxalate 30 mg PO DAILY 07/08/21 10/19/21 lorazepam 1 mg capsule,extended 1 mg PO BID 07/08/21 10/19/21 release 24 hr Previous Rx's Medication Instructions Recorded estradiol 1 mg tablet 1 mg PO QDAY #90 tabs 03/30/16 ondansetron 4 mg disintegrating 4 mg PO Q6H PRN nausea and 10/19/21 tablet vomiting #5 tabs ciprofloxacin HCl 500 mg tablet 500 mg PO Q12H #14 tabs 01/16/23 metoclopramide HCl 10 mg tablet 10 mg PO Q6H PRN nausea and 01/16/23 (Reglan) vomiting #10 tabs oxycodone 5 mg tablet 5 mg PO Q6H PRN pain #10 tabs 01/16/23 ondansetron 4 mg disintegrating 4 mg PO Q6H PRN nausea and 01/19/23 tablet vomiting #14 tabs oxycodone-acetaminophen 5 mg-325 1 tab PO Q8H PRN pain #10 tabs 01/19/23 mg tablet (Percocet) Allergies Allergy/AdvReac Type Severity Reaction Status Date / Time NSAIDS (Non-Steroidal Allergy Intermediate worsening Verified 04/19/22 07:46 Anti-Inflamma asthma, throat swelling bee pollen [BEE POLLEN] Allergy Unknown throat Verified 04/19/22 07:46 swelling Sulfa (Sulfonamide Allergy Unknown itchy, Verified 04/19/22 07:46 Antibiotics) rash, [SULFA (SULFONAMIDE asthma ANTIBIOTICS)] Iodinated Contrast Media AdvReac Unknown asthma Verified 04/19/22 07:46 [Iodinated Contrast- Oral and IV Dye] tetracycline [TETRACYCLINE] AdvReac Unknown nausea Verified 04/19/22 07:46 Review of Systems Review of Systems ROS Unobtainable: All systems reviewed & are unremarkable except as noted in HPI and below Patient History Medical History Hypothyroidism Surgical History History of bladder suspension procedure Status post rotator cuff repair (12/30/15) Status post cholecystectomy Status post vaginal hysterectomy Social History household members: spouse Smoking Status: Never smoker Smoking Status: Never smoker alcohol intake frequency: other Substance Use Type: marijuana Exam Initial Vital Signs Initial Vital Signs: Vital Signs Temperature 98.2 F 01/19/23 17:10 Pulse Rate 70 01/19/23 17:10 Respiratory Rate 18 01/19/23 17:10 Blood Pressure 157/76 H 01/19/23 17:10 Pulse Oximetry 98 01/19/23 17:10 Oxygen Delivery Method Room Air 01/19/23 17:10 HENOH Head: normal to inspection and normocephalic Resp Effort & Inspection: normal respiratory effort Auscultation: clear to auscultation bilaterally Cardio Rate: regular rate Rhythm: regular rhythm GI Inspection: normal to inspection and non-distended Back/Spine/Pelvis Back: CVA tenderness right Skin General: no rashes or lesions noted Neuro General: patient alert, patient awake and moves all extremities Extrem General: normal to inspection and capillary refill normal Course Orders Ordered: Discontinued Medications Ondansetron HCl (Ondansetron 4 Mg Odt Prepack) 1 bottle MISC DIRECTED ONE Stop: 01/19/23 21:21 Last Admin: 01/19/23 21:30 Dose: 1 bottle Documented By: LAMONT Oxycodone/Acetaminophen (Oxycodone/Apap 5/325 Prepack) 1 bottle MISC DIRECTED ONE Stop: 01/19/23 21:21 Last Admin: 01/19/23 21:30 Dose: 1 bottle Documented By: LAMONT Vital Signs Vital signs: Vital Signs - 8 hr 01/19/23 20:50 01/19/23 20:50 01/19/23 21:00 Pulse Rate 64 63 Respiratory Rate Blood Pressure 168/98 H Pulse Oximetry 98 96 Oxygen Delivery Method Room Air 01/19/23 21:00 01/19/23 21:30 01/19/23 21:30 Pulse Rate 62 Respiratory Rate 18 Blood Pressure 159/87 H 155/88 H Pulse Oximetry 95 Oxygen Delivery Method Medical Decision Making Lab Data Labs: Urine Dip Bedside Urine Glucose Negative Bedside Urine Bilirubin - Negative Bedside Urine Ketone - Negative Urine Specific [place] 1.010 Bedside Urine Occult Blood - Negative Bedside Urine pH 7.0 Bedside Urine Protein - Negative Bedside Urine Urobilinogen - Negative Bedside Urine Nitrite - Negative Bedside Urine Leukocytes - Negative Esterase Point of care testing: Urine Dip Bedside Urine Glucose Negative Bedside Urine Bilirubin - Negative Bedside Urine Ketone - Negative Urine Specific [place] 1.010 Bedside Urine Occult Blood - Negative Bedside Urine pH 7.0 Bedside Urine Protein - Negative Bedside Urine Urobilinogen - Negative Bedside Urine Nitrite - Negative Bedside Urine Leukocytes - Negative Esterase MDM Narrative Medical decision making narrative: Urinalysis today is unremarkable however she is on antibiotics. Per the urine culture from a couple days ago Cipro is an appropriate antibiotic. She is COVID positive as well. Not hypoxic. Lungs are clear. I suspect that her symptoms are combination of both the COVID and also the urinary tract infection. Is not tachycardic. Not hypotensive. There was no indication to switch the antibiotic that she was currently taking. I did discuss this with her. Unfortunately she is most likely just going to have to whether through the current infections and continue to take her antibiotics. There was no indication for admission to the hospital. She was given return precautions. She expressed understanding and agreement. Discharge Plan Departure Patient Disposition: Home Clinical Impression: COVID-19, Flank pain Instructions: COVID-19 Activity Restrictions/Additional Instructions: Continue to take all of your medications as directed. Be sure to follow all CDC guidelines with regard to quarantine. Contact your primary doctor for follow-up. Prescriptions: New ondansetron 4 mg tablet,disintegrating 4 mg PO Q6H PRN (Reason: nausea and vomiting) Qty: 14 0RF oxycodone-acetaminophen [Percocet] 5-325 mg tablet 1 tab PO Q8H PRN (Reason: pain) Qty: 10 0RF No Action estradiol 1 MG tablet 1 mg PO QDAY Qty: 90 3RF levothyroxine 125 mcg tablet 1 tab PO DAILY Patient Comments: TAKE 1 TABLET BY MOUTH EVERY DAY albuterol sulfate 90 mcg/actuation HFA aerosol inhaler 1 - 2 puff Inhalation Q4-6H PRN (Reason: Shortness Of Breath) Patient Comments: INHALE 1-2 PUFFS INHALE EVERY 4-6 HOURS prazosin 2 mg capsule 10 mg PO DAILY Patient Comments: 2 CAPSULES BY MOUTH AT AT BEDTIME FOR HIGH BLOOD PRESSURE-5 mgs tabs Rx Instructions: takes at hs ondansetron 4 mg tablet,disintegrating 4 mg PO Q6H PRN (Reason: nausea and vomiting) Qty: 5 0RF lorazepam 1 mg Capsule,Extended Release 24hr 1 mg PO BID aripiprazole 5 mg PO DAILY escitalopram oxalate 30 mg PO DAILY Rx Instructions: one 10 mg, one 20 mgs ciprofloxacin HCl 500 mg tablet 500 mg PO Q12H Qty: 14 0RF oxycodone 5 mg tablet 5 mg PO Q6H PRN (Reason: pain) Qty: 10 0RF metoclopramide HCl [Reglan] 10 mg tablet 10 mg PO Q6H PRN (Reason: nausea and vomiting) Qty: 10 0RF Referrals: Amanda Lara MD [Primary Care Provider] - Stand Alone Forms: Patient Portal/API
[2023-01-19 21:30] VITALS: BP 155/88; PULSE 62; RESP 18; O2SAT 95
[2023-01-19] MEDS: OXYCODONE/APAP 5/325 PREPACK 1 BOTTLE MISC (21:30)
[2023-01-19] MEDS: ONDANSETRON 4 MG ODT PREPACK 1 BOTTLE MISC (21:30)
== END 2023-01-19 21:37 | disposition home or self-care (01) ==
PROVIDERS: Emergency Provider Emergency Medicine; PCP Family Medicine; Referring Provider Family Medicine
DX: U07.1 COVID-19 (principal); R10.9 Unspecified abdominal pain
CPT/HCPCS: 81003; 99282; 99283

== ENCOUNTER 2023-03-19 03:50 | Emergency (ER) | payer MEDICAID, OTHER, SELFPAY ==
[2018-03-03 13:55] VITALS: BMI 32.4
[2023-03-19] VITALS (7 sets, daily range): BP systolic 138–146; BP diastolic 73–82; PULSE 71–82; RESP 11–23; TEMP 37.2; O2SAT 93–98; BMI 34.3
--- NOTE | 2023-03-19 03:55 | DI.RAD.S_ITS ---
PROCEDURE: XR CHEST 1V INDICATIONS: CP and SOB TECHNIQUE: One view of the chest was acquired. COMPARISON: [facility], , XR CHEST 1V, 04/19/2022, 7:39. [facility], , CHEST 1 VIEW, 04/08/2017, 22:32. FINDINGS: Surgical changes and devices: Surgical clips projecting over the lower neck. Lungs and pleura: Subtle bilateral patchy nodular opacities. Mild bronchial wall thickening. No pleural effusions or pneumothorax. Mediastinum: Mediastinal contours appear normal. Heart size is normal. Bones and chest wall: No suspicious bony lesions. Overlying soft tissues appear unremarkable. IMPRESSION: Subtle bilateral patchy nodular opacities, consider atypical viral pneumonitis. Mild bronchial thickening. Follow-up until resolution. Findings are concordant with preliminary interpretation provided by [facility]. Dictated by: Javad Avila M.D. on 03/19/2023 at 7:42 Approved by: Javad Avila M.D. on 03/19/2023 at 7:43
--- NOTE | 2023-03-19 04:17 | ED.CHESTPAIN ---
HPI - Chest Pain General Chief Complaint: Chest Pain Stated Complaint: CP, cough, nausea Time Seen by Provider: 03/19/23 03:54 Source: patient and EMS Mode of arrival: EMS Limitations: no limitations History of Present Illness HPI narrative: Patient is a 62-year-old female with a history of asthma. Over the past 24 hours has developed was initially described as chest pain, cough and nausea. What she describes as chest pain is more epigastric pain. It is worse with palpation. It is causing her to have some nausea. She has been coughing quite a bit. This has been triggering some issues with her asthma and also her anxiety. She has been taking all of her medications at home. She denies any fevers. He has had her gallbladder removed. No history of reflux disease. Has not tried anything for the symptoms prior to arrival. Related Data Home Medications Medication Instructions Recorded Confirmed albuterol sulfate 90 mcg/actuation 1 - 2 puff inhalation Q4-6H PRN 06/21/17 10/19/21 aerosol inhaler Shortness Of Breath levothyroxine 125 mcg tablet 1 tab PO DAILY 06/21/17 10/19/21 prazosin 2 mg capsule 10 mg PO DAILY 06/21/17 10/19/21 aripiprazole 5 mg PO DAILY 07/08/21 10/19/21 escitalopram oxalate 30 mg PO DAILY 07/08/21 10/19/21 lorazepam 1 mg capsule,extended 1 mg PO BID 07/08/21 10/19/21 release 24 hr Previous Rx's Medication Instructions Recorded estradiol 1 mg tablet 1 mg PO QDAY #90 tabs 03/30/16 ondansetron 4 mg disintegrating 4 mg PO Q6H PRN nausea and 10/19/21 tablet vomiting #5 tabs ciprofloxacin HCl 500 mg tablet 500 mg PO Q12H #14 tabs 01/16/23 metoclopramide HCl 10 mg tablet 10 mg PO Q6H PRN nausea and 01/16/23 (Reglan) vomiting #10 tabs oxycodone 5 mg tablet 5 mg PO Q6H PRN pain #10 tabs 01/16/23 ondansetron 4 mg disintegrating 4 mg PO Q6H PRN nausea and 01/19/23 tablet vomiting #14 tabs oxycodone-acetaminophen 5 mg-325 1 tab PO Q8H PRN pain #10 tabs 01/19/23 mg tablet (Percocet) oxycodone-acetaminophen 5 mg-325 1 tab PO Q6H PRN pain #8 tabs 01/21/23 mg tablet (Percocet) benzonatate 100 mg capsule 100 mg PO BID-TID PRN cough #14 03/19/23 caps Allergies Allergy/AdvReac Type Severity Reaction Status Date / Time NSAIDS (Non-Steroidal Allergy Intermediate worsening Verified 04/19/22 07:46 Anti-Inflamma asthma, throat swelling bee pollen [BEE POLLEN] Allergy Unknown throat Verified 04/19/22 07:46 swelling Sulfa (Sulfonamide Allergy Unknown itchy, Verified 04/19/22 07:46 Antibiotics) rash, [SULFA (SULFONAMIDE asthma ANTIBIOTICS)] Iodinated Contrast Media AdvReac Unknown asthma Verified 04/19/22 07:46 [Iodinated Contrast- Oral and IV Dye] tetracycline [TETRACYCLINE] AdvReac Unknown nausea Verified 04/19/22 07:46 Review of Systems Constitutional Constitutional: Reports system reviewed and no additional complaints, except as documented Cardiovascular Cardiovascular: Reports system reviewed and no additional complaints, except as documented Respiratory Respiratory: Reports system reviewed and no additional complaints, except as documented Gastrointestinal Gastrointestinal: Reports system reviewed and no additional complaints, except as documented Integumentary/Breasts Skin/Breast: Reports system reviewed and no additional complaints, except as documented Patient History Medical History (Updated 03/19/23 @ 06:00 by Moisés Welsh DO) Hypothyroidism Surgical History History of bladder suspension procedure Status post rotator cuff repair (12/30/15) Status post cholecystectomy Status post vaginal hysterectomy Social History household members: spouse Smoking Status: Never smoker Smoking Status: Never smoker alcohol intake frequency: other Substance Use Type: marijuana Exam Initial Vital Signs Initial Vital Signs: Vital Signs Pulse Rate 80 03/19/23 03:51 Blood Pressure 140/76 03/19/23 03:51 Pulse Oximetry 98 03/19/23 03:51 Oxygen Delivery Method Room Air 03/19/23 03:51 Const General: cooperative and comfortable Chest Chest: No crepitus and tenderness (Reproducible tenderness in the inferior portion of the sternum) GI Inspection: non-distended Palpation: soft, No firm, No guarding and tender (Epigastric region) Skin General: no rashes or lesions noted Neuro General: patient alert and patient awake Course Orders Ordered: ED Orders 03/19/23 03:55 XR chest 1V Stat EKG-12 Lead Stat 03/19/23 03:59 Consult to [employer]ICIAN - [employer]ing Machine Tender Stat 03/19/23 04:35 Complete Blood Count AUTO DIFF Stat Comprehensive Metabolic Panel Stat Lipase Stat Troponin & CK Cardiac Panel Stat Discontinued Medications Benzonatate (Benzonatate 100 Mg Capsule) 100 mg PO NOW ONE Stop: 03/19/23 05:52 Last Admin: 03/19/23 05:54 Dose: 100 mg Al Hydrox/Mg Hydrox/Simethicone 20 ml/ Lidocaine HCl 15 ml 0 ml PO NOW ONE Stop: 03/19/23 04:19 Last Admin: 03/19/23 04:25 Dose: 35 ml Documented By: ABENA Ondansetron HCl (Ondansetron 4 Mg/2 Ml Inj) 4 mg IV NOW ONE Stop: 03/19/23 04:19 Last Admin: 03/19/23 04:25 Dose: 4 mg Documented By: ABENA Vital Signs Vital signs: Vital Signs - 8 hr 03/19/23 03:51 03/19/23 03:51 03/19/23 03:54 Temperature 98.9 F Pulse Rate 80 82 Respiratory Rate 20 Blood Pressure 140/76 140/76 Pulse Oximetry 98 97 Oxygen Delivery Method Room Air Room Air 03/19/23 04:00 03/19/23 04:00 03/19/23 04:30 Temperature Pulse Rate 79 74 Respiratory Rate 17 11 L Blood Pressure 138/73 Pulse Oximetry 96 97 Oxygen Delivery Method Room Air 03/19/23 05:00 03/19/23 05:30 Temperature Pulse Rate 82 71 Respiratory Rate 23 11 L Blood Pressure Pulse Oximetry 97 96 Oxygen Delivery Method Room Air MDM - Chest Pain Lab Data Attestation: I reviewed the patient's lab results. 03/19/23 04:35 03/19/23 04:35 Labs: Lab Results 03/19/23 Range/Units 04:35 WBC 4.6 (4.5-11.0) X10^3/uL RBC 4.46 (4.0-5.2) X10^6/uL Hgb 15.0 (12.0-16.0) g/dL Hct 42.9 (36-46) % MCV 96.4 (80-100) fL MCH 33.6 (26-34) PG MCHC 34.8 (30-36) % RDW 12.3 (11.6-14.8) % Plt Count 305 (150-400) X10^3/uL Neut % (Auto) 59.2 (50-75) % Lymph % (Auto) 32.1 (25-40) % Mason % (Auto) 5.6 (3-14) % Eos % (Auto) 2.0 (2-4) % Baso % (Auto) 1.1 (0-2) % Neut # (Auto) 2700 (7484-1654) /uL Lymph # (Auto) 1500 (8498-8132) /uL Mason # (Auto) 300 (0-900) /uL Eos # (Auto) 100 (0-450) /uL Baso # (Auto) 100 (0-100) /uL Sodium 137 (137-145) mmol/L Potassium 4.1 (3.4-5.1) mmol/L Chloride 102 (98-107) mmol/L Carbon Dioxide 24 (22-32) mmol/L BUN 11 (7-17) mg/dL Creatinine 0.58 (0.52-1.04) mg/dL Estimated GFR > 60 (>60) mL/min BUN/Creatinine Ratio 19.0 (6-22) Glucose 126 H (80-110) mg/dL Calcium 8.6 (8.4-10.2) mg/dL Total Bilirubin 1.1 (0.2-1.3) mg/dL AST 93 H (14-36) IU/L ALT 47 H (<35) IU/L Alkaline Phosphatase 112 (38-126) U/L Total Creatine Kinase 96 (30-135) U/L Troponin I < 0.012 (0.01-0.034) ng/mL Total Protein 7.3 (6.3-8.2) g/dL Albumin 3.9 (3.5-5.0) g/dL Globulin 3.4 (1.7-4.1) g/dL Albumin/Globulin Ratio 1.1 (1.0-2.8) Lipase 92 (23-300) U/L Imaging Data Chest x-ray: Radiologist's Impression: Subtle bilateral patchy nodular opacities consider atypical viral pneumonitis. Mild bronchial wall thickening. Follow-up until resolution. ECG Data Attestation: I personally reviewed and interpreted this ECG as follows: Interpretation: Sinus rhythm Ventricular rate is 77 Left axis deviation QRS 108 milliseconds Normal QTC No ST T wave changes MDM Narrative Medical decision making narrative: Patient initially with reproducible tenderness in the lower portion of the sternum and in the epigastric region. After treatment here in the ER she describes the pain more in the lower 1/3 of the sternum. It is reproducible with palpation. She has been coughing. Her workup here in the emergency department is reassuring. I have low suspicion that this is ACS. Given the fact that it is reproducible and that she has been coughing this is most likely inflammation of the muscles or potentially costochondritis. I discuss this with the patient. Discussed the use of anti-inflammatories. Will try Tessalon to try to help with the cough. Her lungs are clear. No indication for antibiotics. LFTs and lipase unremarkable she has had a cholecystectomy. Will discharge patient home with return precautions. She expressed understanding. Discharge Plan Departure Patient Disposition: Home Clinical Impression: Chest wall pain Activity Restrictions/Additional Instructions: Recommend that you continue to take all of your medications as directed. A prescription for a cough medicine was sent to the pharmacy of your choice. Often this medication does not take the cough completely away but hopefully will help. Continue to use your inhaler as needed. Contact your primary doctor for follow-up. Prescriptions: New benzonatate 100 mg capsule 100 mg PO BID-TID PRN (Reason: cough) Qty: 14 0RF No Action estradiol 1 MG tablet 1 mg PO QDAY Qty: 90 3RF levothyroxine 125 mcg tablet 1 tab PO DAILY Patient Comments: TAKE 1 TABLET BY MOUTH EVERY DAY albuterol sulfate 90 mcg/actuation HFA aerosol inhaler 1 - 2 puff Inhalation Q4-6H PRN (Reason: Shortness Of Breath) Patient Comments: INHALE 1-2 PUFFS INHALE EVERY 4-6 HOURS prazosin 2 mg capsule 10 mg PO DAILY Patient Comments: 2 CAPSULES BY MOUTH AT AT BEDTIME FOR HIGH BLOOD PRESSURE-5 mgs tabs Rx Instructions: takes at hs ondansetron 4 mg tablet,disintegrating 4 mg PO Q6H PRN (Reason: nausea and vomiting) Qty: 5 0RF lorazepam 1 mg Capsule,Extended Release 24hr 1 mg PO BID aripiprazole 5 mg PO DAILY escitalopram oxalate 30 mg PO DAILY Rx Instructions: one 10 mg, one 20 mgs ciprofloxacin HCl 500 mg tablet 500 mg PO Q12H Qty: 14 0RF oxycodone 5 mg tablet 5 mg PO Q6H PRN (Reason: pain) Qty: 10 0RF metoclopramide HCl [Reglan] 10 mg tablet 10 mg PO Q6H PRN (Reason: nausea and vomiting) Qty: 10 0RF ondansetron 4 mg tablet,disintegrating 4 mg PO Q6H PRN (Reason: nausea and vomiting) Qty: 14 0RF oxycodone-acetaminophen [Percocet] 5-325 mg tablet 1 tab PO Q8H PRN (Reason: pain) Qty: 10 0RF oxycodone-acetaminophen [Percocet] 5-325 mg tablet 1 tab PO Q6H PRN (Reason: pain) Qty: 8 0RF Referrals: Amanda Lara MD [Primary Care Provider] - Stand Alone Forms: Patient Portal/API
[2023-03-19] MEDS: ONDANSETRON 4 MG/2 ML INJ IV (04:25)
[2023-03-19] MEDS: MAG HYDROX/ALUMINUM/SIMETH SUS 20 ML, LIDOCAINE VISCOUS 2% 15 ML PO (04:25)
[2023-03-19 04:50] LABS: Add Manual Diff / Slide Review NO; Basophils Absolute Auto 100 /uL (0-100); Basophils Percent Auto 1.1 % (0-2); Eosinophils Absolute Auto 100 /uL (0-450); Hematocrit 42.9 % (36-46); Lymphocytes Absolute Auto 1500 /uL (1100-4500); Lymphocytes Percent Auto 32.1 % (25-40); Mean Corpuscular HGB Conc 34.8 % (30-36); Mean Corpuscular Hemoglobin 33.6 PG (26-34); Mean Corpuscular Volume 96.4 fL (80-100); Monocytes Absolute Auto 300 /uL (0-900); Monocytes Percent Auto 5.6 % (3-14); Neutrophils Absolute Auto 2700 /uL (1500-7000); Neutrophils Percent Auto 59.2 % (50-75); Platelet Count 305 X10^3/uL (150-400); Red Blood Cell Count 4.46 X10^6/uL (4.0-5.2); Red Cell Distribution Width 12.3 % (11.6-14.8); White Blood Cell Count 4.6 X10^3/uL (4.5-11.0)
[2023-03-19 05:02] LABS: Creatine Kinase 96 U/L (30-135); Lipase 92 U/L (23-300)
[2023-03-19 05:04] LABS: Alanine Aminotransferase 47 IU/L (<35); Albumin 3.9 g/dL (3.5-5.0); Albumin Globulin Ratio 1.1 (1.0-2.8); Alkaline Phosphatase 112 U/L (38-126); Aspartate Aminotransferase 93 IU/L (14-36); Bilirubin Total 1.1 mg/dL (0.2-1.3); Blood Urea Nitrogen 11 mg/dL (7-17); Calcium 8.6 mg/dL (8.4-10.2); Carbon Dioxide 24 mmol/L (22-32); Chloride 102 mmol/L (98-107); Estimated Glomerular Filt Rate > 60 mL/min (>60); Globulin 3.4 g/dL (1.7-4.1); Glucose 126 mg/dL (80-110); HEMOLYSIS < 15 (0-50); Potassium 4.1 mmol/L (3.4-5.1); Sodium 137 mmol/L (137-145); Total Protein 7.3 g/dL (6.3-8.2)
[2023-03-19 05:15] LABS: Troponin I < 0.012 ng/mL (0.01-0.034)
[2023-03-19] MEDS: BENZONATATE 100 MG CAPSULE PO (05:54)
== END 2023-03-19 06:30 | disposition home or self-care (01) ==
PROVIDERS: Emergency Provider Emergency Medicine; PCP Family Medicine
DX: R07.89 Other chest pain (principal)
CPT/HCPCS: 71045; 80053; 82550; 83690; 84484; 85025; 93005; 93010; 96374; 99284; J2405

== ENCOUNTER → 2023-06-09 16:13 | Outpatient (CLI) | payer MEDICAID, OTHER, SELFPAY ==
[2018-03-03 13:55] VITALS: BMI 32.4
--- NOTE | 2023-06-09 | DI.RAD.S_ITS ---
PROCEDURE: XR KNEE RT 3V INDICATIONS: BILATERAL KNEES WITH LEFT KNEE PAIN TECHNIQUE: Four views were obtained COMPARISON: [facility], CR, XR KNEE RT 3V, 06/21/2017, 13:34. FINDINGS: Bones: No fractures or dislocations. No suspicious bony lesions. Medial compartment joint space narrowing with marginal osteophyte Soft tissues: No joint effusion. No suspicious soft tissue calcifications. IMPRESSION: Bilateral medial compartment joint space narrowing with small marginal osteophyte on the right Approved by: Huber Christensen M.D. on 06/09/2023 at 19:58
--- NOTE | 2023-06-09 16:16 | DI.RAD.S_ITS ---
PROCEDURE: XR KNEE LT 3V INDICATIONS: LT KNEE PAIN TECHNIQUE: 3 views of the knee were acquired. COMPARISON: [facility], CR, XR KNEE RT 3V, 06/21/2017, 13:34. FINDINGS: Bones: No fractures or dislocations. No suspicious bony lesions. Moderate medial compartment joint space narrowing without significant osteophyte. Soft tissues: No joint effusion. No suspicious soft tissue calcifications. IMPRESSION: Moderate medial compartment joint space narrowing Approved by: Huber Christensen M.D. on 06/09/2023 at 19:59
== END ==
PROVIDERS: PCP Family Medicine; Referring Provider Family Medicine; Visit Provider Family Medicine
DX: M25.562 Pain in left knee (principal); M25.761 Osteophyte, right knee
CPT/HCPCS: 73562

== ENCOUNTER → 2023-08-25 07:31 | Outpatient (CLI) | payer MEDICAID, OTHER, SELFPAY ==
[2018-03-03 13:55] VITALS: BMI 32.4
[2023-08-25 08:55] LABS: Cholesterol 156 mg/dL (140-199); HDL Cholesterol 51 mg/dL (40-60); LDL Cholesterol Calculated 65 mg/dL (<100); Triglycerides 198 mg/dL (35-150)
== END ==
PROVIDERS: PCP Family Medicine; Referring Provider Internal Medicine Cardiovascular Disease; Visit Provider Internal Medicine Cardiovascular Disease
DX: E78.5 Hyperlipidemia, unspecified (principal)
CPT/HCPCS: 36415; 80061

== ENCOUNTER 2023-12-20 07:41 | Emergency (ER) | payer MEDICAID, OTHER, SELFPAY ==
[2018-03-03 13:55] VITALS: BMI 32.4
[2023-12-20 07:49] VITALS: BP 134/67; PULSE 71; RESP 18; TEMP 36.1; O2SAT 99; BMI 34.3
--- NOTE | 2023-12-20 07:52 | DI.RAD.S_ITS ---
PROCEDURE: XR ELBOW RT MIN 3V INDICATIONS: recent injury TECHNIQUE: 3 views of the elbow were acquired. COMPARISON: None. FINDINGS: Bones: No fractures or dislocations. No suspicious bony lesions. Soft tissues: Small elbow joint effusion. No suspicious soft tissue calcifications. IMPRESSION: No fracture. No osseous lesion. If symptoms and/or clinical suspicion for pathology persists, further assessment with repeat radiographs (7-10 days) or advanced imaging (e.g. CT, MRI or bone scan) should be considered. Small joint effusion. In the setting of trauma study the finding is suspicious for occult injury. Dictated by: Danna Tan MD, PhD on 12/20/2023 at 9:29 Approved by: Danna Tan MD, PhD on 12/20/2023 at 9:30
--- NOTE | 2023-12-20 07:53 | DI.RAD.S_ITS ---
PROCEDURE: XR FOREARM RT 2V INDICATIONS: fall/pain TECHNIQUE: 2 views of the forearm were acquired. COMPARISON: None. FINDINGS: Bones: No fractures or dislocations. No suspicious bony lesions. Soft tissues: No suspicious soft tissue calcifications or masses. IMPRESSION: No acute bony abnormality. Dictated by: Danna Tan MD, PhD on 12/20/2023 at 9:28 Approved by: Danna Tan MD, PhD on 12/20/2023 at 9:28
--- NOTE | 2023-12-20 08:27 | ED_ITS ---
HPI - General Adult General Chief complaint: Extremity Injury, Upper Stated complaint: fall, r elbow pain Time Seen by Provider: 12/20/23 07:45 History of Present Illness HPI narrative: 63-year-old woman with a history of depression, anxiety, hypothyroidism, hyperlipidemia who suffered a mechanical fall 3- 4 days ago. Landing on her right elbow increasing pain and comes in for further evaluation. She would initially noted some right knee pain that has since resolved. She has had no problems with her right upper extremity in the past. She took a Tylenol early this morning and found it offered no relief. She is not complaining of shoulder pain or wrist pain. She is neurovascularly intact Related Data Home Medications Medication Instructions Recorded Confirmed albuterol sulfate 90 mcg/actuation 1 - 2 puff inhalation Q4-6H PRN 06/21/17 10/19/21 aerosol inhaler Shortness Of Breath levothyroxine 125 mcg tablet 1 tab PO DAILY 06/21/17 10/19/21 prazosin 2 mg capsule 10 mg PO DAILY 06/21/17 10/19/21 aripiprazole 5 mg PO DAILY 07/08/21 10/19/21 escitalopram oxalate 30 mg PO DAILY 07/08/21 10/19/21 lorazepam 1 mg capsule,extended 1 mg PO BID 07/08/21 10/19/21 release 24 hr Previous Rx's Medication Instructions Recorded estradiol 1 mg tablet 1 mg PO QDAY #90 tabs 03/30/16 ondansetron 4 mg disintegrating 4 mg PO Q6H PRN nausea and 10/19/21 tablet vomiting #5 tabs ciprofloxacin HCl 500 mg tablet 500 mg PO Q12H #14 tabs 01/16/23 metoclopramide HCl 10 mg tablet 10 mg PO Q6H PRN nausea and 01/16/23 (Reglan) vomiting #10 tabs oxycodone 5 mg tablet 5 mg PO Q6H PRN pain #10 tabs 01/16/23 ondansetron 4 mg disintegrating 4 mg PO Q6H PRN nausea and 01/19/23 tablet vomiting #14 tabs oxycodone-acetaminophen 5 mg-325 1 tab PO Q8H PRN pain #10 tabs 01/19/23 mg tablet (Percocet) oxycodone-acetaminophen 5 mg-325 1 tab PO Q6H PRN pain #8 tabs 01/21/23 mg tablet (Percocet) benzonatate 100 mg capsule 100 mg PO BID-TID PRN cough #14 03/19/23 caps oxycodone-acetaminophen 5 mg-325 1 tab PO Q6H PRN pain #10 tabs 12/20/23 mg tablet Allergies Allergy/AdvReac Type Severity Reaction Status Date / Time NSAIDS (Non-Steroidal Allergy Intermediate worsening Verified 04/19/22 07:46 Anti-Inflamma asthma, throat swelling bee pollen [BEE POLLEN] Allergy Unknown throat Verified 04/19/22 07:46 swelling Sulfa (Sulfonamide Allergy Unknown itchy, Verified 04/19/22 07:46 Antibiotics) rash, [SULFA (SULFONAMIDE asthma ANTIBIOTICS)] Iodinated Contrast Media AdvReac Unknown asthma Verified 04/19/22 07:46 [Iodinated Contrast- Oral and IV Dye] tetracycline [TETRACYCLINE] AdvReac Unknown nausea Verified 04/19/22 07:46 Review of Systems Review of Systems Narrative: Pertinent positive and negative findings as per HPI Patient History Medical History (Updated 12/20/23 @ 11:56 by Nargis Mueller MD) Hypothyroidism Surgical History History of bladder suspension procedure Status post rotator cuff repair (12/30/15) Status post cholecystectomy Status post vaginal hysterectomy Social History household members: spouse Smoking Status: Never smoker Smoking Status: Never smoker alcohol intake frequency: other Substance Use Type: marijuana Exam Initial Vital Signs Initial Vital Signs: Vital Signs Temperature 97.0 F L 12/20/23 07:49 Pulse Rate 71 12/20/23 07:49 Respiratory Rate 18 12/20/23 07:49 Blood Pressure 134/67 12/20/23 07:49 Pulse Oximetry 99 12/20/23 07:49 Oxygen Delivery Method Room Air 12/20/23 07:49 General: Alert appropriate in no acute distress Respiratory: Able to speak in full sentences, no obvious respiratory distress Skin: No obvious rashes, warm and dry Neurologic: Grossly intact no obvious asymmetries or abnormalities Psych: appropriate insight and affect, cooperative Extremity: No tenderness to palpation nor abrasions to the lower extremities. Right shoulder with passive range of motion has no tenderness, right wrist is unremarkable. No abrasions or contusions. She is unable to completely extend the right elbow without severe pain. There is no obvious effusion or abrasion. Course Orders Ordered: ED Orders 12/20/23 07:52 XR elbow RT min 3V Stat 12/20/23 07:53 XR forearm RT 2V Stat 12/20/23 09:53 Ct Elbow right without con Stat Discontinued Medications Oxycodone/Acetaminophen (Oxycodone/Acetaminophen 5/325 Tablet) 1 tab PO NOW ONE Stop: 12/20/23 08:34 Last Admin: 12/20/23 08:42 Dose: 1 tab Documented By: GREGORY Vital Signs Vital signs: Vital Signs - 8 hr 12/20/23 07:49 Temperature 97.0 F L Pulse Rate 71 Respiratory Rate 18 Blood Pressure 134/67 Pulse Oximetry 99 Oxygen Delivery Method Room Air Medical Decision Making [facility] Narrative Medical decision making narrative: CC: Fall approximately 72 hours ago increasing pain in the right elbow Complicating co-morbidities: No prior injuries to the upper extremity Data collected from: patient Differential considered: Fractured elbow, proximal humerus, shoulder dislocation Exam documented above, pertinent findings include: Patient is tender at the elbow not able to completely extend, no obvious effusions, hematomas or abrasions. She is neurovascularly intact Imaging studies independently reviewed: Initial x-rays did not show fractures of the elbow or shoulder abnormalities. With the increased swelling noted around the elbow joint in the x-rays if additional concern was noted CT scan was recommended. With the pain in the fall and increasing symptoms, CT scan was performed CT scan confirms absence of any fractures Treatments: Oral Percocet Procedure: Right arm is placed in a sling by nursing staff. She is neurovascularly intact post placement. The immobilization is helpful in overall pain control Discussion: 63-year-old woman with a fall mechanical, landing on her right arm increasing elbow pain. Equivocal x-ray in definitive CT scan shows no fracture. Discussed anticipated course of continued healing. She has given a sling, we will give her a small prescription for Percocet. She has had allergic reactions with nonsteroidals in the past. Discussed reasons to return and she is safe for discharge Discharge Plan Departure Patient Disposition: Home Clinical Impression: Elbow contusion Qualifiers: Encounter type: initial encounter Laterality: right Qualified Code(s): S50.01XA - Contusion of right elbow, initial encounter Instructions: DI for Elbow Fracture Activity Restrictions/Additional Instructions: Thank you for coming in today After a fall 3 or 4 days ago and increasing pain, I believe coming to the ER was very appropriate. The x-ray of your shoulder was unremarkable. The x-ray of your elbow had some minor questions and elbow fractures can sometimes be very difficult to fully diagnosed. Because of that and your pain, we did do a CT scan. The CT scan definitively shows you do not have a fracture You are going to hurt and it is likely going to be sore for the rest of the week. We have given you a sling to use for comfort. It is still important to make sure that you take your arm out of the sling and move your shoulder and your elbow around a couple of times a day. I have given you a small prescription for Percocet to use for pain control. This will cause constipation so please consider taking a stool softener with it. There is potential for addiction with any narcotic medication, please use it for severe pain only. The prescription was electronically transmitted to [facility] today If you find that you are getting worse or develop any new symptoms, please feel free to return to the emergency department for further evaluation. Prescriptions: New oxycodone-acetaminophen 5-325 mg tablet 1 tab PO Q6H PRN (Reason: pain) Qty: 10 0RF No Action estradiol 1 MG tablet 1 mg PO QDAY Qty: 90 3RF levothyroxine 125 mcg tablet 1 tab PO DAILY Patient Comments: TAKE 1 TABLET BY MOUTH EVERY DAY albuterol sulfate 90 mcg/actuation HFA aerosol inhaler 1 - 2 puff Inhalation Q4-6H PRN (Reason: Shortness Of Breath) Patient Comments: INHALE 1-2 PUFFS INHALE EVERY 4-6 HOURS prazosin 2 mg capsule 10 mg PO DAILY Patient Comments: 2 CAPSULES BY MOUTH AT AT BEDTIME FOR HIGH BLOOD PRESSURE-5 mgs tabs Rx Instructions: takes at hs ondansetron 4 mg tablet,disintegrating 4 mg PO Q6H PRN (Reason: nausea and vomiting) Qty: 5 0RF benzonatate 100 mg capsule 100 mg PO BID-TID PRN (Reason: cough) Qty: 14 0RF lorazepam 1 mg Capsule,Extended Release 24hr 1 mg PO BID aripiprazole 5 mg PO DAILY escitalopram oxalate 30 mg PO DAILY Rx Instructions: one 10 mg, one 20 mgs ciprofloxacin HCl 500 mg tablet 500 mg PO Q12H Qty: 14 0RF oxycodone 5 mg tablet 5 mg PO Q6H PRN (Reason: pain) Qty: 10 0RF metoclopramide HCl [Reglan] 10 mg tablet 10 mg PO Q6H PRN (Reason: nausea and vomiting) Qty: 10 0RF ondansetron 4 mg tablet,disintegrating 4 mg PO Q6H PRN (Reason: nausea and vomiting) Qty: 14 0RF oxycodone-acetaminophen [Percocet] 5-325 mg tablet 1 tab PO Q8H PRN (Reason: pain) Qty: 10 0RF oxycodone-acetaminophen [Percocet] 5-325 mg tablet 1 tab PO Q6H PRN (Reason: pain) Qty: 8 0RF Referrals: Amanda Lara MD [Primary Care Provider] - Stand Alone Forms: Patient Portal/API/Survey
[2023-12-20] MEDS: OXYCODONE/ACETAMINOPHEN 5/325 TABLET 1 TAB PO ×2 (08:42→12:03)
--- NOTE | 2023-12-20 09:53 | DI.CT.S_ITS ---
PROCEDURE: CT ELBOW RIGHT WITHOUT CON INDICATIONS: fell hit right elbow TECHNIQUE: Noncontrast 1-1.5 mm axial sections were acquired through the elbow joint, with coronal and sagittal reformats. COMPARISON: [facility], CR, XR ELBOW RT MIN 3V, 12/20/2023, 7:55. FINDINGS: Image quality: Excellent. Bones: No fracture or dislocation. No suspicious osseous lesions. No lytic or blastic lesion. Soft tissues: Small joint effusion. No soft tissue hematoma. No radiodense foreign body. IMPRESSION: No fracture. Dictated by: Danna Tan MD, PhD on 12/20/2023 at 10:38 Approved by: Danna Tan MD, PhD on 12/20/2023 at 10:41
[2023-12-20 12:17] VITALS: BP 130/74; PULSE 74; RESP 16; O2SAT 98
== END 2023-12-20 12:18 | disposition home or self-care (01) ==
PROVIDERS: Emergency Provider Emergency Medicine; PCP Family Medicine
DX: S50.01XA Contusion of right elbow, initial encounter (principal); W18.30XA Fall on same level, unspecified, initial encounter
CPT/HCPCS: 73080; 73090; 73200; 99283; 99284

== ENCOUNTER 2024-03-09 10:52 | Emergency (ER) | payer MEDICAID, SELFPAY ==
[2018-03-03 13:55] VITALS: BMI 32.4
[2024-03-09 11:01] VITALS: BP 138/79; PULSE 68; RESP 15; TEMP 36.6; O2SAT 97; BMI 34.3
--- NOTE | 2024-03-09 11:03 | DI.RAD.S_ITS ---
PROCEDURE: XR KNEE LT 3V INDICATIONS: knee pain after twisting it TECHNIQUE: 3 views of the knee were acquired. COMPARISON: [facility], , XR KNEE LT 3V, 06/09/2023, 16:24. FINDINGS: Bones: Suspected osteochondral lesion versus minimally impacted fracture at the weight-bearing portion of the medial femoral condyle. [id number] osteoarthrosis. Soft tissues: Small joint effusion. No suspicious soft tissue calcifications. IMPRESSION: Contour irregularity at the medial femoral condyle is suspicious for an osteochondral lesion or minimally depressed fracture. MRI or CT could be performed for further evaluation. Approved by: Brandon Billingsley M.D. on 03/09/2024 at 12:47
[2024-03-09 11:19] VITALS: PULSE 80
--- NOTE | 2024-03-09 11:30 | ED_ITS ---
<Statement entered by Ángel Austin, - 03/09/24 17:26> Dr. Austin: I was immediately available in the department for consultation. I did not actually see the patient. HPI - Extremity Injury (Lower) General Chief Complaint: Extremity Injury, Lower Stated Complaint: Twisted Left Knee Time Seen by Provider: 03/09/24 11:07 Mode of arrival: Wheelchair History of Present Illness HPI Narrative: Ms. Keerthi Granda is a pleasant 63-year-old female with a past medical history of depression, anxiety, hyperlipidemia, hyperthyroidism, right knee repair 10 years ago who presents to the emergency department for left knee pain that occurred ju st prior to arrival. Patient states that she was reaching down to [place] out of her Fridge when her left knee twisted and felt like it bent in an abnormal way. She did not fall. She is now having 10/10 pain in the left knee. Pain is primarily located on the medial aspect of the left knee, pain is worse with weight-bearing and bending the knee. She has not taken any medications prior to arrival. She [place] the [place] from the hospital and it took her about an hour to slowly walk/limb over to the emergency department. She is allergic to NSAIDs. Denies any other injuries or pain. Related Data Home Medications Medication Instructions Recorded Confirmed albuterol sulfate 90 mcg/actuation 1 - 2 puff inhalation Q4-6H PRN 06/21/17 10/19/21 aerosol inhaler Shortness Of Breath levothyroxine 125 mcg tablet 1 tab PO DAILY 06/21/17 10/19/21 prazosin 2 mg capsule 10 mg PO DAILY 06/21/17 10/19/21 aripiprazole 5 mg PO DAILY 07/08/21 10/19/21 escitalopram oxalate 30 mg PO DAILY 07/08/21 10/19/21 lorazepam 1 mg capsule,extended 1 mg PO BID 07/08/21 10/19/21 release 24 hr Previous Rx's Medication Instructions Recorded estradiol 1 mg tablet 1 mg PO QDAY #90 tabs 03/30/16 ondansetron 4 mg disintegrating 4 mg PO Q6H PRN nausea and 10/19/21 tablet vomiting #5 tabs ciprofloxacin HCl 500 mg tablet 500 mg PO Q12H #14 tabs 01/16/23 metoclopramide HCl 10 mg tablet 10 mg PO Q6H PRN nausea and 01/16/23 (Reglan) vomiting #10 tabs oxycodone 5 mg tablet 5 mg PO Q6H PRN pain #10 tabs 01/16/23 ondansetron 4 mg disintegrating 4 mg PO Q6H PRN nausea and 01/19/23 tablet vomiting #14 tabs oxycodone-acetaminophen 5 mg-325 1 tab PO Q8H PRN pain #10 tabs 01/19/23 mg tablet (Percocet) oxycodone-acetaminophen 5 mg-325 1 tab PO Q6H PRN pain #8 tabs 01/21/23 mg tablet (Percocet) benzonatate 100 mg capsule 100 mg PO BID-TID PRN cough #14 03/19/23 caps oxycodone-acetaminophen 5 mg-325 1 tab PO Q6H PRN pain #10 tabs 12/20/23 mg tablet oxycodone-acetaminophen 5 mg-325 1 tab PO Q6H PRN pain #12 tabs 03/09/24 mg tablet Allergies Allergy/AdvReac Type Severity Reaction Status Date / Time NSAIDS (Non-Steroidal Allergy Intermediate worsening Verified 03/09/24 11:01 Anti-Inflamma asthma, throat swelling bee pollen [BEE POLLEN] Allergy Unknown throat Verified 03/09/24 11:01 swelling Sulfa (Sulfonamide Allergy Unknown itchy, Verified 03/09/24 11:01 Antibiotics) rash, [SULFA (SULFONAMIDE asthma ANTIBIOTICS)] Iodinated Contrast Media AdvReac Unknown asthma Verified 03/09/24 11:01 [Iodinated Contrast- Oral and IV Dye] tetracycline [TETRACYCLINE] AdvReac Unknown nausea Verified 03/09/24 11:01 Review of Systems Review of Systems ROS Unobtainable: All systems reviewed & are unremarkable except as noted in HPI and below Patient History Medical History (Updated 03/09/24 @ 15:11 by Raquel Reinoso PA-C) Hypothyroidism Surgical History History of bladder suspension procedure Status post rotator cuff repair (12/30/15) Status post cholecystectomy Status post vaginal hysterectomy Social History household members: spouse Smoking Status: Never smoker Smoking Status: Never smoker alcohol intake frequency: other Exam Narrative Exam Narrative: GENERAL: 63 year old patient appears stated age. Well-developed patient, in mild discomfort 2/2 left knee pain, tearful. HEAD: Atraumatic. Normocephalic. CARDIOVASCULAR: Regular rate. Strong DP and PT pulses bilaterally. Brisk capillary refill in bilateral toes. RESPIRATORY: ?Nonlabored respirations. ?Speaking in clear, full sentences. EXTREMITIES: Mild edema on medial aspect of left knee with tenderness to palpation over this area. Negative anterior drawer sign. Reproducible pain medial knee with valgus stress of left knee. No tenderness to palpation of left thigh or left bernard. No tenderness over patella or patellar tendon. No pain on the remainder of the appendicular skeleton. NEURO: AOx3. ?Clear speech. ?Moves all 4 extremities appropriately. SKIN: No rash or erythema of visible areas Initial Vital Signs Initial Vital Signs: Vital Signs Temperature 97.8 F 03/09/24 11:01 Pulse Rate 68 03/09/24 11:01 Respiratory Rate 15 03/09/24 11:01 Blood Pressure 138/79 03/09/24 11:01 Pulse Oximetry 97 03/09/24 11:01 Oxygen Delivery Method Room Air 03/09/24 11:01 Course Orders Ordered: ED Orders 03/09/24 11:03 XR knee LT 3V Stat 03/09/24 13:01 CT LE LT wo con Stat Discontinued Medications Albuterol/Ipratropium (Albuterol/Ipratropium 3 Ml Ampul) 3 ml INH NOW ONE Stop: 03/09/24 13:06 Last Admin: 03/09/24 13:14 Dose: 3 ml Documented By: DS Ondansetron HCl (Ondansetron 4 Mg Odt) 4 mg SL NOW ONE Stop: 03/09/24 12:40 Last Admin: 03/09/24 12:43 Dose: 4 mg Documented By: RB Oxycodone HCl (Oxycodone Ir 5 Mg Tablet) 5 mg PO NOW ONE Stop: 03/09/24 13:09 Last Admin: 03/09/24 13:27 Dose: 5 mg Documented By: SPF Oxycodone/Acetaminophen (Oxycodone/Acetaminophen 5/325 Tablet) 1 tab PO NOW ONE Stop: 03/09/24 11:42 Last Admin: 03/09/24 11:48 Dose: 1 tab Documented By: RB Vital Signs Vital signs: Vital Signs - 8 hr 03/09/24 11:01 03/09/24 11:19 03/09/24 13:18 Temperature 97.8 F Pulse Rate 68 Pulse Rate [Left Posterior Tibial] 80 Respiratory Rate 15 Blood Pressure 138/79 Pulse Oximetry 97 Oxygen Delivery Method Room Air Room Air 03/09/24 13:32 03/09/24 15:43 Temperature 98.2 F Pulse Rate 59 L 64 Pulse Rate [Left Posterior Tibial] Respiratory Rate 20 18 Blood Pressure 131/74 138/76 Pulse Oximetry 94 99 Oxygen Delivery Method Room Air Room Air MDM - Extremity Injury (Lower) Medical Records Attestation: I reviewed the patient's medical records. Imaging Data Left Knee X-Ray: Radiologist's Impression: PROCEDURE: XR KNEE LT 3V INDICATIONS: knee pain after twisting it TECHNIQUE: 3 views of the knee were acquired. COMPARISON: [facility], XR KNEE LT 3V, 06/09/2023, 16:24. FINDINGS: Bones: Suspected osteochondral lesion versus minimally impacted fracture at the weight-bearing portion of the medial femoral condyle. [id number] osteoarthrosis. Soft tissues: Small joint effusion. No suspicious soft tissue calcifications. IMPRESSION: Contour irregularity at the medial femoral condyle is suspicious for an osteochondral lesion or minimally depressed fracture. MRI or CT could be performed for further evaluation. Left Knee CT: Radiologist's Impression: PROCEDURE: CT LE LT W CON INDICATIONS: possible fx on xray left knee; twisting injury TECHNIQUE: Noncontrast 1-1.5 mm axial sections acquired from the mid-patella to the proximal tibia, with coronal and sagittal reformats. COMPARISON: [facility], XR KNEE LT 3V, 03/09/2024, 11:22. FINDINGS: Image quality: Excellent. Bones: As identified on x-ray, there is a cortical defect in the medial femoral condyle. Areas of adjacent sclerosis are present. Tricompartmental arthritic changes are present. Soft tissues: Mild effusion. IMPRESSION: Cortical defect of the medial femoral condyle most suspicious for osteochondral lesion. MDM Narrative Medical decision making narrative: 63-year-old female with a past medical history of depression, anxiety, hyperlipidemia, hyperthyroidism, right knee repair 10 years ago who presents to the emergency department for left knee pain that occurred just prior to arrival. Differential diagnosis includes but is not limited to left knee strain, sprain, ligament injury, meniscus injury, effusion, fracture, etc. On exam patient is in no acute distress, nontoxic appearing, she is tearful and in pain with the left knee. She did walk here which exacerbated the pain. She has pain on the medial aspect of the left knee and small amount of swelling. X- ray left knee obtained in triage. We will treat 10/10 pain with oxycodone- acetaminophen as patient has tolerated this in the past and she does have allergy to NSAIDs. She was also provided with ice pack. 1300: Patient states oxycodone has not helped her pain and she is now starting to have an asthma attack because of the pain, which has happened to her in the past. Oropharynx is widely patent, no itching or oropharyngeal swelling or signs concerning for allergic reaction. She has expiratory wheezing on exam. Respiratory therapy consult ordered for DuoNeb, in addition patient is requesting additional oxycodone states that she has had up to 25 mg in the past. Patient feeling much better after additional oxycodone and DuoNeb, wheezing improved. X-ray inconclusive for osteochondral lesion versus subtle fracture so a CT scan was obtained which reveals cortical defect of the medial femoral condyle most suspicious for an osteochondral lesion. There is also tricompartmental arthritic changes and mild effusion. We will place patient into a left knee immobilizer and provide crutches for left knee injury and advised follow up with Orthopedics. Patient is allergic to NSAIDs so she was sent a short course of oxycodone-acetaminophen and also recommended rice therapy. Patient verbalized understanding all information, we discussed the risks of opioids and the importance of not taking opioids and benzodiazepines t ogether. She is stable for discharge home. Discharge Plan Departure Patient Disposition: Home Clinical Impression: Osteochondral defect of condyle of femur, Effusion of left knee Left knee sprain Qualifiers: Encounter type: initial encounter Involved ligament of knee: unspecified ligament Qualified Code(s): S83.92XA - Sprain of unspecified site of left knee, initial encounter Instructions: DI for Knee Sprain Activity Restrictions/Additional Instructions: Dear Ms. rGanda, Today you were evaluated for left knee injury. X-ray and CT scan of the left knee reveal a cortical defect of the medial femoral condyle most suspicious for osteochondral lesion or injury to the cartilage of the knee. You also have swelling/effusion of the left knee. We have placed him into a left knee brace and given crutches. I would like you to use these and follow up with the orthopedic doctor for further evaluation. Please follow up with your primary care doctor who may give you a referral to Orthopedics or you can call to schedule an appointment with [facility] for further evaluation at [phone]. Please use RICE therapy for your pain in addition to ibuprofen/acetaminophen. Rest the painful area. Ice the area of pain/swelling for at least 15 minutes, 4x a day. Compress the area of swelling using a brace, wrap, or splint if applied. Elevate the painful or swollen extremity by supporting it above the level of the heart with pillows when sitting or laying. You have been prescribed a short course of narcotic medications. These are potentially dangerous and addictive medications that should be used carefully. While on these medications you cannot drive or operate heavy machinery. Additionally, you cannot sign legal documents or perform any duties such as this. 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 Please understand that we cannot provide further refills of narcotics or controlled substances through the ED and your pain management will need to be through your Primary Care Provider Please follow up with your primary care doctor within the next 2-3 days for ER follow-up. (If you do not have a PCP you can call [phone]. ?to schedule an appointment with an [facility] Primary Care Provider) IF YOU DEVELOP ANY NEW OR WORSENING SYMPTOMS, RETURN TO THE ER! Please read the attached instructions, they highlight more specific treatments and interventions for you at home. Thank you for letting me participate in your care, Raquel Reinoso PA-C Prescriptions: New oxycodone-acetaminophen 5-325 mg tablet 1 tab PO Q6H PRN (Reason: pain) Qty: 12 0RF No Action estradiol 1 MG tablet 1 mg PO QDAY Qty: 90 3RF levothyroxine 125 mcg tablet 1 tab PO DAILY Patient Comments: TAKE 1 TABLET BY MOUTH EVERY DAY albuterol sulfate 90 mcg/actuation HFA aerosol inhaler 1 - 2 puff Inhalation Q4-6H PRN (Reason: Shortness Of Breath) Patient Comments: INHALE 1-2 PUFFS INHALE EVERY 4-6 HOURS prazosin 2 mg capsule 10 mg PO DAILY Patient Comments: 2 CAPSULES BY MOUTH AT AT BEDTIME FOR HIGH BLOOD PRESSURE-5 mgs tabs Rx Instructions: takes at hs ondansetron 4 mg tablet,disintegrating 4 mg PO Q6H PRN (Reason: nausea and vomiting) Qty: 5 0RF benzonatate 100 mg capsule 100 mg PO BID-TID PRN (Reason: cough) Qty: 14 0RF oxycodone-acetaminophen 5-325 mg tablet 1 tab PO Q6H PRN (Reason: pain) Qty: 10 0RF lorazepam 1 mg Capsule,Extended Release 24hr 1 mg PO BID aripiprazole 5 mg PO DAILY escitalopram oxalate 30 mg PO DAILY Rx Instructions: one 10 mg, one 20 mgs ciprofloxacin HCl 500 mg tablet 500 mg PO Q12H Qty: 14 0RF oxycodone 5 mg tablet 5 mg PO Q6H PRN (Reason: pain) Qty: 10 0RF metoclopramide HCl [Reglan] 10 mg tablet 10 mg PO Q6H PRN (Reason: nausea and vomiting) Qty: 10 0RF ondansetron 4 mg tablet,disintegrating 4 mg PO Q6H PRN (Reason: nausea and vomiting) Qty: 14 0RF oxycodone-acetaminophen [Percocet] 5-325 mg tablet 1 tab PO Q8H PRN (Reason: pain) Qty: 10 0RF oxycodone-acetaminophen [Percocet] 5-325 mg tablet 1 tab PO Q6H PRN (Reason: pain) Qty: 8 0RF Referrals: Amanda Lara MD [Primary Care Provider] - Stand Alone Forms: Patient Portal/API/Survey
[2024-03-09] MEDS: OXYCODONE/ACETAMINOPHEN 5/325 TABLET 1 TAB PO (11:48)
--- NOTE | 2024-03-09 12:35 | PC.NURSE ---
This RN informed PA-c Kemar of patient continued 10/10 pain. Provider is check on patient themselves at this time and wrapping patient knee in nicho wrap.
[2024-03-09] MEDS: ONDANSETRON 4 MG ODT SL (12:43)
--- NOTE | 2024-03-09 13:01 | DI.CT.S_ITS ---
PROCEDURE: CT LE LT W CON INDICATIONS: possible fx on xray left knee; twisting injury TECHNIQUE: Noncontrast 1-1.5 mm axial sections acquired from the mid-patella to the proximal tibia, with coronal and sagittal reformats. COMPARISON: [facility], [facility], XR KNEE LT 3V, 03/09/2024, 11:22. FINDINGS: Image quality: Excellent. Bones: As identified on x-ray, there is a cortical defect in the medial femoral condyle. Areas of adjacent sclerosis are present. Tricompartmental arthritic changes are present. Soft tissues: Mild effusion. IMPRESSION: Cortical defect of the medial femoral condyle most suspicious for osteochondral lesion. Dictated by: Toyin Quigley M.D. on 03/09/2024 at 14:13 Approved by: Toyin Quigley M.D. on 03/09/2024 at 14:15
[2024-03-09] MEDS: ALBUTEROL/IPRATROPIUM 3 ML AMPUL INH (13:14)
[2024-03-09] MEDS: OXYCODONE IR 5 MG TABLET PO (13:27)
[2024-03-09 13:32] VITALS: BP 131/74; PULSE 59; RESP 20; O2SAT 94
[2024-03-09 15:43] VITALS: BP 138/76; PULSE 64; RESP 18; TEMP 36.8; O2SAT 99
== END 2024-03-09 15:45 | disposition home or self-care (01) ==
PROVIDERS: Emergency Provider Physician Assistant; PCP Family Medicine
DX: S83.92XA Sprain of unspecified site of left knee, initial encounter (principal); M21.952 Unspecified acquired deformity of left thigh; X50.1XXA Overexertion from prolonged static or awkward postures, initial encounter; M25.462 Effusion, left knee; Z88.6 Allergy status to analgesic agent; J45.909 Unspecified asthma, uncomplicated
CPT/HCPCS: 73562; 73700; 94640; 99284

== ENCOUNTER → 2024-04-10 16:10 | Outpatient (CLI) | payer MEDICAID, SELFPAY ==
[2018-03-03 13:55] VITALS: BMI 32.4
--- NOTE | 2024-04-10 16:13 | DI.MRI.S_ITS ---
PROCEDURE: MR KNEE LT WO CON INDICATIONS: ACUTE PAIN OF LEFT KNEE-R/O OCCULT FX MEDIAL FEMOR TECHNIQUE: Noncontrast sagittal PD fast spin echo and T2 fast spin echo with fat saturation, sagittal 3-D FLASH with fat saturation; coronal T1 spin echo and PD fast spin echo with fat saturation, and axial PD fast spin echo with fat saturation through the knee. COMPARISON: [facility], CR, XR KNEE LT 3V, 03/09/2024, 11:22. [facility], CT, CT LE LT WO CON, 03/09/2024, 13:35. [facility], CR, XR KNEE STANDING BILATERAL, 04/06/2024, 9:12. FINDINGS: Image quality: Excellent. Anterior cruciate ligament: Intact. Posterior cruciate ligament: Intact. Medial collateral ligament: Intact. Lateral collateral ligament: Intact. Medial meniscus: Diffuse complex tearing of the medial meniscus with maceration and extrusion beyond the femorotibial joint line. Lateral meniscus: Complex tearing of the lateral meniscus with a horizontal oblique component extending to the inner third of the tibial articular surface at the meniscal body as well as a vertical longitudinal versus horizontal oblique tear at the anterior root attachment. Medial and lateral tendons: The semimembranosus tendon insertions appear intact. Visualized portions of the pes anserinus tendons appear normal. The popliteus tendon is intact. Iliotibial band appears normal. Anterior structures: The quadriceps and patellar tendons appear intact. No patellar subluxation. No femoral trochlear dysplasia or ventral trochlear prominence. No edema in the infrapatellar fat pad. Bones: Moderately-sized geographic area bone infarct is seen at the weight-bearing portion of the medial femoral condyle. No surrounding osseous edema. There is focal disruption of the subchondral plate at the central weight-bearing portion measuring approximately 6 x 6 mm that may be related to mild articular surface collapse versus superimposed osteochondral lesion. Adjacent subchondral cystic changes are present and there is overlying cartilage irregularity. Smaller area bone infarct is seen at the posterior weight-bearing portion of the lateral femoral condyle without disruption of the overlying articular surfaces. Medial femorotibial cartilage: Focal high-grade cartilage irregularity in the central weight-bearing portion of the medial femoral condyle as described above. High-grade cartilage loss loss is also seen at the far posterior portion of the medial femoral condyle and there is diffuse moderate to high-grade cartilage irregularity throughout the weight-bearing portion. Lateral femorotibial cartilage: Mild partial-thickness cartilage thinning and surface irregularity. Patellofemoral cartilage: Deep cartilage fissuring at the medial patellar facet with focal subchondral cystic changes. Partial-thickness cartilage irregularity at the trochlear groove. Soft tissues: Moderate joint effusion. Moderate medial popliteal cyst. Mild adjacent edema may indicate prior cyst rupture. The visualized musculature demonstrates generalized grade 2 fatty infiltration. IMPRESSION: 1. Moderately-sized bone infarct at the weight-bearing portion of the medial femoral condyle with focal 6 x 6 mm irregularity of the subchondral plate and overlying cartilage, suspicious for mild articular surface collapse versus osteochondral lesion. No loose osteochondral fragment is seen. Small bone infarct at the lateral femoral condyle without articular surface collapse. 2. Complex tearing and maceration of the medial meniscus with extrusion of the meniscal body beyond the femorotibial joint line. 3. Complex tearing of the lateral meniscus with a horizontal oblique component at the meniscal body and a vertical longitudinal component at the anterior root attachment. 4. Areas of grade 3 and grade 4 chondromalacia in throughout the medial femorotibial compartment. Mild grade 2 chondromalacia in the lateral femorotibial and patellofemoral compartments. 5. Cruciate and collateral ligaments are intact. 6. Moderate joint effusion. Moderate medial popliteal cyst with signs of possible prior cyst rupture. Approved by: Brandon Billingsley M.D. on 04/11/2024 at 10:23
== END ==
PROVIDERS: PCP Family Medicine; Referring Provider Orthopaedic Surgery Foot and Ankle Surgery; Visit Provider Orthopaedic Surgery Foot and Ankle Surgery
DX: S83.232A Complex tear of medial meniscus, current injury, left knee, initial encounter (principal); S83.272A Complex tear of lateral meniscus, current injury, left knee, initial encounter; M25.562 Pain in left knee; M25.462 Effusion, left knee; M71.22 Synovial cyst of popliteal space [Baker], left knee; M22.42 Chondromalacia patellae, left knee; M87.9 Osteonecrosis, unspecified
CPT/HCPCS: 73721

== ENCOUNTER → 2024-04-27 13:03 | Outpatient (CLI) | payer MEDICAID, OTHER, SELFPAY ==
[2018-03-03 13:55] VITALS: BMI 32.4
[2024-04-27 14:20] LABS: Add Manual Diff / Slide Review NO; Basophils Absolute Auto 100 /uL (0-100); Basophils Percent Auto 0.8 % (0-2); Eosinophils Absolute Auto 300 /uL (0-450); Hematocrit 42.7 % (36-46); Hemoglobin 14.9 g/dL (12.0-16.0); Lymphocytes Absolute Auto 1800 /uL (1100-4500); Lymphocytes Percent Auto 27.9 % (25-40); Mean Corpuscular HGB Conc 34.8 % (30-36); Mean Corpuscular Hemoglobin 33.9 PG (26-34); Mean Corpuscular Volume 97.4 fL (80-100); Monocytes Absolute Auto 500 /uL (0-900); Monocytes Percent Auto 7.4 % (3-14); Neutrophils Absolute Auto 3900 /uL (1500-7000); Neutrophils Percent Auto 58.9 % (50-75); Platelet Count 269 X10^3/uL (150-400); Red Blood Cell Count 4.38 X10^6/uL (4.0-5.2); Red Cell Distribution Width 13.5 % (11.6-14.8); White Blood Cell Count 6.6 X10^3/uL (4.5-11.0)
[2024-04-27 14:28] LABS: Hemoglobin A1C% w Est Avg Glu 5.1 % (4.0-6.0)
[2024-04-27 14:57] LABS: BUN Creatinine Ratio 7.9 (6-22); Blood Urea Nitrogen 5 mg/dL (7-17); Calcium 9.1 mg/dL (8.4-10.2); Carbon Dioxide 26 mmol/L (22-32); Chloride 104 mmol/L (98-107); Estimated Glomerular Filt Rate > 60 mL/min (>60); Glucose 104 mg/dL (80-110); HEMOLYSIS 24 (0-50); Potassium 4.1 mmol/L (3.4-5.1); Sodium 137 mmol/L (137-145)
--- NOTE | 2024-04-27 15:08 | EKG_ITS ---
[facility] [address] [place] [address] Test Date: 2024-04-27 Pat Name: Keerthi Granda Department: [facility] Room: Gender: Female Conference Director: JAYANT : 1960 Requested By: Order Number: [id number] Reading MD: Charles Murphy MD Measurements Intervals [place] Rate: 53 P: 1 NC: 162 QRS: -72 QRSD: 166 T: 7 QT: 532 QTc: 499 Interpretive Statements Sinus bradycardia Right bundle branch block (seen previously) Left anterior fascicular block (seen previously) Bifascicular block Electronically Signed On 04-29-2024 14:58:48 PDT by Charles Murphy MD
== END ==
LOC: LAB 13:05
PROVIDERS: PCP Family Medicine; Referring Provider Orthopaedic Surgery Foot and Ankle Surgery; Visit Provider Orthopaedic Surgery Foot and Ankle Surgery
DX: Z01.818 Encounter for other preprocedural examination (principal); Z01.812 Encounter for preprocedural laboratory examination; R73.9 Hyperglycemia, unspecified
CPT/HCPCS: 36415; 80048; 83036; 85025; 93005

== ENCOUNTER 2024-05-10 13:14 | Emergency (ER) | payer MEDICAID, OTHER, SELFPAY ==
[2018-03-03 13:55] VITALS: BMI 32.4
[2024-05-10 13:32] VITALS: BP 139/83; PULSE 72; RESP 24; TEMP 36.8; O2SAT 99; BMI 35.2
--- NOTE | 2024-05-10 14:53 | ED.EXTPRO ---
HPI - Extremity Problem <Raquel Reinoso PA-C - Last Filed: 05/10/24 17:20> General Chief complaint: Extremity Problem,Nontraumatic Stated complaint: Extreme pain Time Seen by Provider: 05/10/24 14:36 Source: patient Mode of arrival: Wheelchair History of Present Illness HPI Narrative: Ms. Granda is a pleasant 63-year-old female with a past medical history of chronic left knee pain who was supposed to have L total knee surgery today but was canceled due to not getting cleared by Cardiology who presents to the emergency department due to severe left knee pain. Patient is extremely tearful, crying, unable to provide full history but reports that she has been suffering with severe pain of her left knee and was looking forward to having surgery today however because she has not yet received cardiology clearance she is still ?waiting on the phone call? for 1 her surgery will be rescheduled. She ran out of her 5 mg oxycodone pain medication about 2 days ago and is here due to the intractable left knee pain which is primarily on the anterior/medial aspect of the knee. No new trauma to the knee, no fevers, no redness, no swelling. No pain medication prior to arrival today. She is allergic to NSAIDs. Related Data Home Medications Medication Instructions Recorded Confirmed albuterol sulfate 90 mcg/actuation 1 - 2 puff inhalation Q4-6H PRN 06/21/17 05/02/24 aerosol inhaler Shortness Of Breath lorazepam 1 mg capsule,extended 0.5 - 1 mg PO BID PRN Anxiety 07/08/21 05/02/24 release 24 hr atorvastatin 10 mg tablet 10 mg PO DAILY 05/02/24 05/02/24 budesonide-formoterol HFA 160 2 inh inhalation BID 05/02/24 05/02/24 mcg-4.5 mcg/actuation aerosol inhaler cetirizine 10 mg tablet 10 mg PO DAILY 05/02/24 05/02/24 estradiol 1 mg tablet 0.5 mg PO SEEINSTR 05/02/24 05/02/24 levothyroxine 112 mcg tablet 112 mcg PO DAILY 05/02/24 05/02/24 oxycodone-acetaminophen 5 mg-325 1 tab PO Q4H PRN pain 05/02/24 05/02/24 mg tablet Previous Rx's Medication Instructions Recorded ondansetron HCl 4 mg tablet 4 mg PO Q8H PRN nausea and 05/11/24 vomiting #30 tabs Allergies Allergy/AdvReac Type Severity Reaction Status Date / Time Iodinated Contrast Media Allergy Severe Shortness Verified 05/11/24 07:50 [Iodinated Contrast- Oral of Breath and IV Dye] Sulfa (Sulfonamide Allergy Severe itchy, Verified 05/11/24 07:50 Antibiotics) rash, [SULFA (SULFONAMIDE asthma ANTIBIOTICS)] NSAIDS (Non-Steroidal Allergy Intermediate worsening Verified 05/11/24 07:50 Anti-Inflamma asthma, throat swelling bee pollen [BEE POLLEN] Allergy Unknown throat Verified 05/11/24 07:50 swelling tetracycline [TETRACYCLINE] AdvReac Severe nausea Verified 05/11/24 07:50 Review of Systems <Raquel Reinoso PA-C - Last Filed: 05/10/24 17:20> Review of Systems ROS Unobtainable: All systems reviewed & are unremarkable except as noted in HPI and below Patient History <Raquel Reinoso PA-C - Last Filed: 05/10/24 17:20> Medical History History of COVID-19 (2022) Thyroid cancer (~2003) Osteoarthritis Panic disorder PTSD (post-traumatic stress disorder) VASILIY (generalized anxiety disorder) MDD (major depressive disorder) Alcoholic cirrhosis of liver Alcohol use disorder in remission HLD (hyperlipidemia) HTN (hypertension) Hypothyroidism Surgical History Hx of right knee surgery History of surgery Hx of thyroidectomy History of bladder suspension procedure Status post rotator cuff repair (12/30/15) Status post cholecystectomy Status post vaginal hysterectomy Social History household members: spouse and family alcohol intake: former alcohol intake frequency: other Exam <Raquel Reinoso PA-C - Last Filed: 05/10/24 17:20> Narrative Exam Narrative: GENERAL: 63 year old patient appears stated age. Sitting in wheelchiar, crying, in mild distress 2/2 L knee pain. HEAD: Atraumatic. Normocephalic. NECK: Trachea midline. Cervical ROM intact. CARDIOVASCULAR: Regular rate RESPIRATORY: ?Nonlabored respirations. ?Speaking in clear, full sentences. EXTREMITIES: Tenderness to palpation of anterior/medial knee. Exam limited secondary to pain, there is no redness or swelling of the knee, no increased warmth. NEURO: AOx3. ?Clear speech. SKIN: No rash or erythema of visible areas Initial Vital Signs Initial Vital Signs: Vital Signs Temperature 98.2 F 05/10/24 13:32 Pulse Rate 72 05/10/24 13:32 Respiratory Rate 24 05/10/24 13:32 Blood Pressure 139/83 05/10/24 13:32 Pulse Oximetry 99 05/10/24 13:32 Oxygen Delivery Method Room Air 05/10/24 13:32 <Katerin Ureña DO - Last Filed: 05/18/24 09:13> Initial Vital Signs Initial Vital Signs: Vital Signs Temperature 98.2 F 05/10/24 13:32 Pulse Rate 72 05/10/24 13:32 Respiratory Rate 24 05/10/24 13:32 Blood Pressure 139/83 05/10/24 13:32 Pulse Oximetry 99 05/10/24 13:32 Oxygen Delivery Method Room Air 05/10/24 13:32 Course <Raquel Reinoso PA-C - Last Filed: 05/10/24 17:20> Orders Ordered: Discontinued Medications Acetaminophen (Acetaminophen 325 Mg Tablet) 975 mg PO NOW ONE Stop: 05/10/24 15:02 Last Admin: 05/10/24 15:25 Dose: 975 mg Documented By: ELISABETH Oxycodone HCl (Oxycodone Ir 5 Mg Tablet) 5 mg PO NOW ONE Stop: 05/10/24 15:02 Last Admin: 05/10/24 15:26 Dose: 5 mg Documented By: ELISABETH Oxycodone HCl (Oxycodone Ir 5 Mg Tablet) 5 mg PO NOW ONE Stop: 05/10/24 16:12 Last Admin: 05/10/24 16:33 Dose: 5 mg Documented By: GREGORY Vital Signs Vital signs: Vital Signs - 8 hr 05/10/24 13:32 Temperature 98.2 F Pulse Rate 72 Respiratory Rate 24 Blood Pressure 139/83 Pulse Oximetry 99 Oxygen Delivery Method Room Air <Katerin Ureña DO - Last Filed: 05/18/24 09:13> Orders Ordered: Discontinued Medications Acetaminophen (Acetaminophen 325 Mg Tablet) 975 mg PO NOW ONE Stop: 05/10/24 15:02 Last Admin: 05/10/24 15:25 Dose: 975 mg Documented By: ELISABETH Oxycodone HCl (Oxycodone Ir 5 Mg Tablet) 5 mg PO NOW ONE Stop: 05/10/24 15:02 Last Admin: 05/10/24 15:26 Dose: 5 mg Documented By: ELISABETH Oxycodone HCl (Oxycodone Ir 5 Mg Tablet) 5 mg PO NOW ONE Stop: 05/10/24 16:12 Last Admin: 05/10/24 16:33 Dose: 5 mg Documented By: GREGORY Vital Signs Vital signs: Vital Signs - 8 hr 05/10/24 13:32 Temperature 98.2 F Pulse Rate 72 Respiratory Rate 24 Blood Pressure 139/83 Pulse Oximetry 99 Oxygen Delivery Method Room Air MDM - Extremity (Nontraumatic) <Raquel eRinoso PA-C - Last Filed: 05/10/24 17:20> Medical Records Attestation: I reviewed the patient's medical records. MDM Narrative Medical decision making narrative: 63-year-old female with a past medical history of chronic left knee pain who was supposed to have L total knee surgery today but was canceled due to not getting cleared by Cardiology who presents to the emergency department due to severe left knee pain. Differential diagnosis includes but is not limited to acute on chronic left knee pain, osteoarthritis, effusion, etc. On exam patient is in mild distress secondary left knee pain. No direct trauma. No signs of infection. No indications for repeat imaging. She was prescribed 20 pills of 5 mg oxycodone on May 02, reports that she ran out about 2 days ago, was planning to have surgery today. Exam is limited by patient's pain. We will treat with home dose of 5 mg oxycodone in addition to extra-strength Tylenol. Pain not improved with initial medications, patient is requesting additional 5 mg dose of oxycodone and states that she is tolerating 10 mg in the past. She was provided with an additional dose of medication in addition to warm compress and Ab wrap which did help. I had an extensive discussion with the patient that the emergency department can not refill her chronic oxycodone and that we can only supplied very short supply, she needs to follow up with primary care doctor and orthopedic doctor for further management of her chronic pain. Patient verbalized understanding all of this information is agreeable to the plan. She is feeling better, has better range of motion. She also verbalized that she is extremely upset over the fact that her surgery was unable to happened today which is contributing. We discussed strict ED return precautions, narcotic risks, PCP follow up. She verbalized understanding of all information is agreeable to the plan. She is stable for discharge home, has a family member to drive her home. Discharge Plan Departure Patient Disposition: Home Clinical Impression: Chronic pain of left knee Instructions: DI for Knee Pain Activity Restrictions/Additional Instructions: Dear Ms. Granda, Thank you for coming to the emergency department. Today you were evaluated for left knee pain. We are very sorry that you were not able to get your knee surgery today. I have prescribed you a very short course of pain medication for you until he can follow up with your primary care doctor or your orthopedic doctor for further management/medication refills. Please take 5 mg of oxycodone if needed for severe pain every 4-6 hours. I also would like you to take 650 mg of acetaminophen/Tylenol every 6 hours for pain or 1000 mg every 8 hours for pain. You may also use ice compresses or warm compresses to help with pain and topical diclofenac arthritis gel. You have been prescribed a short course of narcotic medications. These are potentially dangerous and addictive medications that should be used carefully. While on these medications you cannot drive or operate heavy machinery, or drink alcohol. Additionally, you cannot sign legal documents or perform any duties such as this. Many people get constipated on narcotic medications so it would be advisable to discuss stool softeners with the pharmacist when you picker and sorter load and unload your prescription. Please understand that we cannot provide further refills of narcotics or controlled substances through the ED and your pain management will need to be through your Primary Care Provider Please follow up with your primary care doctor within the next 2-3 days for ER follow-up. (If you do not have a PCP you can call [phone]. ?to schedule an appointment with an [facility] Primary Care Provider) IF YOU DEVELOP ANY NEW OR WORSENING SYMPTOMS, RETURN TO THE ER! Please read the attached instructions, they highlight more specific treatments and interventions for you at home. Thank you for letting me participate in your care, Raquel Reinoso PA-C Prescriptions: No Action albuterol sulfate 90 mcg/actuation HFA aerosol inhaler 1 - 2 puff Inhalation Q4-6H PRN (Reason: Shortness Of Breath) Patient Comments: INHALE 1-2 PUFFS INHALE EVERY 4-6 HOURS cetirizine 10 mg Tablet 10 mg PO DAILY atorvastatin 10 mg Tablet 10 mg PO DAILY levothyroxine 112 mcg Tablet 112 mcg PO DAILY budesonide-formoterol 160-4.5 mcg/actuation Hfa Aerosol Inhaler 2 inh INHALATION BID oxycodone-acetaminophen 5-325 mg tablet 1 tab PO Q4H PRN (Reason: pain) estradiol 1 MG tablet 0.5 mg PO SEEINSTR Rx Instructions: Holds Tues & Thurs ondansetron HCl 4 mg tablet 4 mg PO Q8H PRN (Reason: nausea and vomiting) Qty: 30 0RF lorazepam 1 mg Capsule,Extended Release 24hr 0.5 - 1 mg PO BID PRN (Reason: Anxiety) Referrals: Amanda Lara MD [Primary Care Provider] - Stand Alone Forms: Patient Portal/API/Survey ED Sign-out <Katerin Ureña DO - Last Filed: 05/18/24 09:13> Cosign ED Attending Cosignature Attestation: I was available for consultation.
[2024-05-10] MEDS: ACETAMINOPHEN 325 MG TABLET 975 MG PO (15:25)
[2024-05-10] MEDS: OXYCODONE IR 5 MG TABLET PO ×2 (15:26→16:33)
[2024-05-10 17:22] VITALS: BP 138/77; PULSE 60; RESP 14; O2SAT 99
== END 2024-05-10 17:24 | disposition home or self-care (01) ==
PROVIDERS: Emergency Provider Physician Assistant; PCP Family Medicine
DX: M25.562 Pain in left knee (principal)
CPT/HCPCS: 99283

== ENCOUNTER 2024-05-11 07:29 | Emergency (ER) | payer MEDICAID, OTHER, SELFPAY ==
[2018-03-03 13:55] VITALS: BMI 32.4
[2024-05-11] VITALS (8 sets, daily range): BP systolic 121–164; BP diastolic 57–77; PULSE 62–107; RESP 11–26; TEMP 36.2; O2SAT 91–99; BMI 35.9
--- NOTE | 2024-05-11 08:53 | ED.NAVMDI ---
HPI - Nausea/Vomiting/Diarrhea General Chief complaint: Nausea/Vomiting/Diarrhea Stated complaint: Nauseated from meds prescribed last night ER visit Time Seen by Provider: 05/11/24 08:44 Source: patient Mode of arrival: Family Vehicle History of Present Illness HPI Narrative: 63-year-old female history of cholecystectomy, hysterectomy, chronic left knee pain dyslipidemia hypothyroidism on previously oxycodone for chronic left knee pain seen yesterday given Percocet took only 1 tablet and subsequently started to have multiple episodes of nonbilious nonbloody nausea and vomiting but no diarrhea. She did have a small bowel movement earlier this morning and also reports abdominal cramps throughout. Other than what is stated 14 point review of system is negative Related Data Home Medications Medication Instructions Recorded Confirmed albuterol sulfate 90 mcg/actuation 1 - 2 puff inhalation Q4-6H PRN 06/21/17 05/02/24 aerosol inhaler Shortness Of Breath lorazepam 1 mg capsule,extended 0.5 - 1 mg PO BID PRN Anxiety 07/08/21 05/02/24 release 24 hr atorvastatin 10 mg tablet 10 mg PO DAILY 05/02/24 05/02/24 budesonide-formoterol HFA 160 2 inh inhalation BID 05/02/24 05/02/24 mcg-4.5 mcg/actuation aerosol inhaler cetirizine 10 mg tablet 10 mg PO DAILY 05/02/24 05/02/24 estradiol 1 mg tablet 0.5 mg PO SEEINSTR 05/02/24 05/02/24 levothyroxine 112 mcg tablet 112 mcg PO DAILY 05/02/24 05/02/24 oxycodone-acetaminophen 5 mg-325 1 tab PO Q4H PRN pain 05/02/24 05/02/24 mg tablet Previous Rx's Medication Instructions Recorded oxycodone 5 mg tablet 5 mg PO Q6H PRN pain 3 days #12 05/10/24 tabs ondansetron HCl 4 mg tablet 4 mg PO Q8H PRN nausea and 05/11/24 vomiting #30 tabs Allergies Allergy/AdvReac Type Severity Reaction Status Date / Time Iodinated Contrast Media Allergy Severe Shortness Verified 05/11/24 07:50 [Iodinated Contrast- Oral of Breath and IV Dye] Sulfa (Sulfonamide Allergy Severe itchy, Verified 05/11/24 07:50 Antibiotics) rash, [SULFA (SULFONAMIDE asthma ANTIBIOTICS)] NSAIDS (Non-Steroidal Allergy Intermediate worsening Verified 05/11/24 07:50 Anti-Inflamma asthma, throat swelling bee pollen [BEE POLLEN] Allergy Unknown throat Verified 05/11/24 07:50 swelling tetracycline [TETRACYCLINE] AdvReac Severe nausea Verified 05/11/24 07:50 Review of Systems Review of Systems ROS Unobtainable: All systems reviewed & are unremarkable except as noted in HPI and below Patient History Medical History History of COVID-19 (2022) Thyroid cancer (~2003) Osteoarthritis Panic disorder PTSD (post-traumatic stress disorder) VASILIY (generalized anxiety disorder) MDD (major depressive disorder) Alcoholic cirrhosis of liver Alcohol use disorder in remission HLD (hyperlipidemia) HTN (hypertension) Hypothyroidism Surgical History Hx of right knee surgery History of surgery Hx of thyroidectomy History of bladder suspension procedure Status post rotator cuff repair (12/30/15) Status post cholecystectomy Status post vaginal hysterectomy Social History household members: spouse and family Smoking Status: Never smoker alcohol intake: former Smoking Status: Never smoker alcohol intake frequency: other Exam Narrative Exam Narrative: GENERAL: [63] year old patient appears stated age. Well-developed patient, in mild distress. HEAD: Atraumatic. Normocephalic. EYES: Pupils equal round and reactive. Extraocular motions intact. No scleral icterus. No injection or drainage. ENT: Nose without bleeding, purulent drainage. Throat without erythema, tonsillar hypertrophy or exudate. Airway patent. NECK: Trachea midline. Non tender CARDIOVASCULAR: Regular rate and rhythm without murmurs, gallops, or rubs. RESPIRATORY: Clear to auscultation. Breath sounds equal bilaterally. No wheezes, rales, or rhonchi. GASTROINTESTINAL: Abdomen soft, epigastric TTP but no r/r/g, nondistended. EXTREMITIES: No edema or joint tenderness. BACK: Nontender without deformity or crepitance. No flank tenderness. NEURO: AOx3. SKIN: No rash or erythema of visible areas Initial Vital Signs Initial Vital Signs: Vital Signs Temperature 97.1 F L 05/11/24 07:44 Pulse Rate 70 05/11/24 07:44 Respiratory Rate 19 05/11/24 07:44 Blood Pressure 153/73 H 05/11/24 07:44 Pulse Oximetry 99 05/11/24 07:44 Oxygen Delivery Method Room Air 05/11/24 07:44 Course Orders Ordered: ED Orders 05/11/24 08:53 CT abdomen pelvis wo con Stat Stool Culture Stat EKG-12 Lead Stat 05/11/24 09:10 Complete Blood Count AUTO DIFF Stat Comprehensive Metabolic Panel Stat Troponin I Stat Ondansetron HCl (Ondansetron 4 Mg/2 Ml Inj) 4 mg IV NOW PRN PRN Reason: Nausea And Vomiting Ondansetron HCl (Ondansetron 4 Mg Odt) 4 mg SL NOW PRN PRN Reason: Nausea And Vomiting Discontinued Medications Sodium Chloride (Normal Saline 0.9%) 1,000 mls @ 1,000 mls/hr IV BOLUS ONE Stop: 05/11/24 09:52 Last Infusion: 05/11/24 10:43 Dose: Infused Documented By: Admin: 05/11/24 09:33 Dose: 1,000 mls/hr Documented By: Metoclopramide HCl (Metoclopramide 10 Mg/2 Ml Inj) 10 mg IV NOW ONE Stop: 05/11/24 10:09 Last Admin: 05/11/24 10:12 Dose: 10 mg Documented By: Morphine Sulfate (Morphine 4 Mg/Ml Inj) 4 mg IV NOW ONE Stop: 05/11/24 10:34 Last Admin: 05/11/24 10:37 Dose: 4 mg Documented By: Ondansetron HCl (Ondansetron 4 Mg/2 Ml Inj) 4 mg IV NOW ONE Stop: 05/11/24 08:54 Last Admin: 05/11/24 09:33 Dose: 4 mg Documented By: Vital Signs Vital signs: Vital Signs - 8 hr 05/11/24 07:44 05/11/24 09:10 05/11/24 09:12 Temperature 97.1 F L Pulse Rate 70 107 H 73 Respiratory Rate 19 11 L Blood Pressure 153/73 H Pulse Oximetry 99 97 Oxygen Delivery Method Room Air 05/11/24 09:12 05/11/24 09:30 05/11/24 09:31 Temperature Pulse Rate 72 Respiratory Rate 11 L Blood Pressure 164/77 H 147/67 H Pulse Oximetry 98 Oxygen Delivery Method 05/11/24 09:31 05/11/24 10:00 05/11/24 10:00 Temperature Pulse Rate 62 68 Respiratory Rate 25 H Blood Pressure 141/64 H Pulse Oximetry 98 94 Oxygen Delivery Method MDM - Nausea/Vomiting/Diarrhea Lab Data 05/11/24 09:10 05/11/24 09:10 Labs: Lab Results 05/11/24 Range/Units 09:10 WBC 8.8 (4.5-11.0) X10^3/uL RBC 4.57 (4.0-5.2) X10^6/uL Hgb 15.5 (12.0-16.0) g/dL Hct 44.3 (36-46) % MCV 96.9 (80-100) fL MCH 33.9 (26-34) PG MCHC 35.0 (30-36) % RDW 13.8 (11.6-14.8) % Plt Count 347 (150-400) X10^3/uL Neut % (Auto) 78.5 H (50-75) % Lymph % (Auto) 14.1 L (25-40) % [place] % (Auto) 5.8 (3-14) % Eos % (Auto) 0.6 L (2-4) % Baso % (Auto) 1.0 (0-2) % Neut # (Auto) 6900 (0441-5005) /uL Lymph # (Auto) 1200 (0840-5319) /uL [place] # (Auto) 500 (0-900) /uL Eos # (Auto) 100 (0-450) /uL Baso # (Auto) 100 (0-100) /uL Sodium 136 L (137-145) mmol/L Potassium 4.1 (3.4-5.1) mmol/L Chloride 102 (98-107) mmol/L Carbon Dioxide 20 L (22-32) mmol/L BUN 6 L (7-17) mg/dL Creatinine 0.55 (0.52-1.04) mg/dL Estimated GFR > 60 (>60) mL/min BUN/Creatinine Ratio 10.9 (6-22) Glucose 135 H (80-110) mg/dL Calcium 8.9 (8.4-10.2) mg/dL Total Bilirubin 1.1 (0.2-1.3) mg/dL AST 143 H (14-36) IU/L ALT 65 H (<35) IU/L Alkaline Phosphatase 142 H (38-126) U/L Troponin I < 0.012 (0.01-0.034) ng/mL Total Protein 8.3 H (6.3-8.2) g/dL Albumin 4.6 (3.5-5.0) g/dL Globulin 3.7 (1.7-4.1) g/dL Albumin/Globulin Ratio 1.2 (1.0-2.8) Urine Dip Bedside Urine Glucose Negative Bedside Urine Bilirubin - Negative Bedside Urine Ketone - Negative Urine Specific [place] 1.005 Bedside Urine Occult Blood - Negative Bedside Urine pH 7.5 Bedside Urine Protein - Negative Bedside Urine Urobilinogen +/- 1mg Bedside Urine Nitrite - Negative Bedside Urine Leukocytes - Negative Esterase Imaging Data CT scan - abdomen/pelvis: Radiologist's Impression: [address] [address] [address] Scan Report Signed Patient: Keerthi Granda MR#: [id number] : 1960 Acct:[id number] Age/Sex: 63 / F Date of Service: 05/11/24 Loc: ED Accession Number: [id number] Procedure: CT abdomen pelvis wo con Ordering Provider: Charles Cuellar D.O. PROCEDURE: CT ABDOMEN PELVIS WO CON INDICATIONS: abd pain/n/v TECHNIQUE: Axial sections were acquired from the lung bases to the pubic symphysis. Coronal and sagittal reformats were performed. For radiation dose reduction, the following was used: automated exposure control, adjustment of mA and/or kV according to patient size. COMPARISON: [facility], CT, CT ABDOMEN PELVIS W CON, 01/16/2023, 7:32. FINDINGS: Image quality: Diagnostic. Lower Chest: No significant findings. URINARY: Right Kidney: No stones or hydronephrosis. Fat containing right renal mass unchanged most consistent with angiomyolipoma. Right Ureter: No hydroureter. Left Kidney: Nonobstructing punctate left renal calcification, unchanged. Left Ureter: No hydroureter. Bladder: Normal wall thickness. No stones. ABDOMEN: Liver: Steatosis with nodularity. Gallbladder: Removed. Biliary ducts: Common bile duct measures 1.3 cm, unchanged likely reflective of post cholecystectomy sequela. Pancreas: No ductal dilation. Spleen: Size is within normal limits. Adrenal Glands: No adrenal nodules. Stomach and Bowel: Normal colonic caliber, without significant wall thickening. Diverticula without inflammation. Peritoneum: No abnormal intraperitoneal fluid. No free air. Ventral Wall: No hernia. Abdominal Nodes: No enlarged retroperitoneal or mesenteric lymph nodes. Vessels: Aorta and inferior vena cava are normal in size. PELVIS: Pelvic Organs: Unremarkable. Pelvic Nodes: Unremarkable. Miscellaneous: No inguinal hernias are seen. Bones: Unremarkable. IMPRESSION: No acute intra-abdominal or pelvic process. Nodular appearance of the liver suggestive of cirrhosis. 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 Diverticulosis. Dictated by: Toyin Quigley M.D. on 05/11/2024 at 10:06 Approved by: Toyin Quigley M.D. on 05/11/2024 at 10:09 ECG Data Attestation: I personally reviewed and interpreted this ECG as follows: Interpretation: NSR LAFB HR [address]-t wave change pr 164 qrs 104 qt 438 Unchanged from 04/27/24 MDM Narrative Medical decision making narrative: All lab work and CT scan reviewed patient given 2 L of normal saline 4 of Zofran and 10 of Reglan IV here along with 4 of morphine IV for the chronic left knee pain. Differential diagnosis includes viral gastroenteritis, small-bowel obstruction, electrolyte derangement, dehydration, COVID, flu. DC home on Zofran prescription keep hydrated start with clear liquid diet advance as tolerated. Follow up with PCP in 1 week Discharge Plan Departure Patient Disposition: Home Clinical Impression: Nausea and vomiting Qualifiers: Vomiting type: unspecified Qualified Code(s): R11.2 - Nausea with vomiting, unspecified Abdominal pain Qualifiers: Abdominal location: epigastric Qualified Code(s): R10.13 - Epigastric pain Instructions: DI for Vomiting -- Adult Activity Restrictions/Additional Instructions: Return with new or worsening symptoms. Take your medicines as directed. Follow up with PCP in 1 week, keep hydrated. Clear liquid diet advance as tolerated. Prescriptions: New ondansetron HCl 4 mg tablet 4 mg PO Q8H PRN (Reason: nausea and vomiting) Qty: 30 0RF No Action albuterol sulfate 90 mcg/actuation HFA aerosol inhaler 1 - 2 puff Inhalation Q4-6H PRN (Reason: Shortness Of Breath) Patient Comments: INHALE 1-2 PUFFS INHALE EVERY 4-6 HOURS cetirizine 10 mg Tablet 10 mg PO DAILY atorvastatin 10 mg Tablet 10 mg PO DAILY levothyroxine 112 mcg Tablet 112 mcg PO DAILY budesonide-formoterol 160-4.5 mcg/actuation Hfa Aerosol Inhaler 2 inh INHALATION BID oxycodone-acetaminophen 5-325 mg tablet 1 tab PO Q4H PRN (Reason: pain) estradiol 1 MG tablet 0.5 mg PO SEEINSTR Rx Instructions: Holds Tues & Thurs lorazepam 1 mg Capsule,Extended Release 24hr 0.5 - 1 mg PO BID PRN (Reason: Anxiety) oxycodone 5 mg tablet 5 mg PO Q6H PRN (Reason: pain) 3 Days Qty: 12 0RF Referrals: Amanda Lara MD [Primary Care Provider] - Stand Alone Forms: Patient Portal/API/Survey
--- NOTE | 2024-05-11 09:18 | EKG_ITS ---
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
[2024-05-11 09:27] LABS: Add Manual Diff / Slide Review NO; Basophils Absolute Auto 100 /uL (0-100); Eosinophils Absolute Auto 100 /uL (0-450); Eosinophils Percent Auto 0.6 % (2-4); Hematocrit 44.3 % (36-46); Hemoglobin 15.5 g/dL (12.0-16.0); Lymphocytes Absolute Auto 1200 /uL (1100-4500); Lymphocytes Percent Auto 14.1 % (25-40); Mean Corpuscular Hemoglobin 33.9 PG (26-34); Mean Corpuscular Volume 96.9 fL (80-100); Monocytes Absolute Auto 500 /uL (0-900); Monocytes Percent Auto 5.8 % (3-14); Neutrophils Absolute Auto 6900 /uL (1500-7000); Neutrophils Percent Auto 78.5 % (50-75); Platelet Count 347 X10^3/uL (150-400); Red Blood Cell Count 4.57 X10^6/uL (4.0-5.2); Red Cell Distribution Width 13.8 % (11.6-14.8); White Blood Cell Count 8.8 X10^3/uL (4.5-11.0)
[2024-05-11] MEDS: SODIUM CHLORIDE 0.9% 1,000 ML 1000 ML IV (09:33)
[2024-05-11] MEDS: ONDANSETRON 4 MG/2 ML INJ IV (09:33)
[2024-05-11 09:37] LABS: Alanine Aminotransferase 65 IU/L (<35); Albumin 4.6 g/dL (3.5-5.0); Albumin Globulin Ratio 1.2 (1.0-2.8); Alkaline Phosphatase 142 U/L (38-126); Aspartate Aminotransferase 143 IU/L (14-36); BUN Creatinine Ratio 10.9 (6-22); Bilirubin Total 1.1 mg/dL (0.2-1.3); Blood Urea Nitrogen 6 mg/dL (7-17); Calcium 8.9 mg/dL (8.4-10.2); Carbon Dioxide 20 mmol/L (22-32); Chloride 102 mmol/L (98-107); Estimated Glomerular Filt Rate > 60 mL/min (>60); Globulin 3.7 g/dL (1.7-4.1); Glucose 135 mg/dL (80-110); HEMOLYSIS < 15 (0-50); Potassium 4.1 mmol/L (3.4-5.1); Sodium 136 mmol/L (137-145); Total Protein 8.3 g/dL (6.3-8.2)
--- NOTE | 2024-05-11 09:43 | PC.NURSE ---
Arrived in pt's room to pt dry heaving. Discussed plan of care, understands .
[2024-05-11 09:50] LABS: Troponin I < 0.012 ng/mL (0.01-0.034)
--- NOTE | 2024-05-11 10:04 | PC.NURSE ---
Pt continues to remain nauseated and dry heaving. Dr Cuellar notified. Verbal order received for Reglan 10 mg.
[2024-05-11] MEDS: METOCLOPRAMIDE 10 MG/2 ML INJ IV (10:12)
[2024-05-11] MEDS: MORPHINE 4 MG/ML INJ IV (10:37)
--- NOTE | 2024-05-11 11:15 | PC.NURSE ---
Pt reports that she is feeling more tired. States that she is ready to go home.
== END 2024-05-11 11:42 | disposition home or self-care (01) ==
PROVIDERS: Emergency Provider Family Medicine; PCP Family Medicine
DX: R10.13 Epigastric pain (principal); R11.2 Nausea with vomiting, unspecified
CPT/HCPCS: 36415; 74176; 80053; 81003; 84484; 85025; 93005; 96361; 96374; 96375; 99284; J2270; J2405; J2765

== ENCOUNTER → 2024-06-18 07:00 | Outpatient (CLI) | payer MEDICAID, OTHER, SELFPAY ==
[2018-03-03 13:55] VITALS: BMI 32.4
--- NOTE | 2024-06-18 07:02 | DI.ECHO.S_ITS ---
[facility] : : [address] : : [place] : : [id number] : : Phone: [phone] Echocardiogram Report + + :Name: AURELIA CHRISTY Study Date: 06/18/2024 Height: 64 in : :Hospital ReadingLocation: Weight: 210 lb : : Gender: Female BSA: 2.0 m2 : :: 1960 Age: 63 yrs BP: 135/83 mmHg: :Reason For Study: Cirrhosis of the liver : :Ordering Physician: CARLOS, : :KIM Performed By: Codey Velasco : :Referring: KIM GONZALEZ : + + Interpretation Summary The study quality was technically difficult. Normal left ventricle size with ejection fraction 65-70%. Mild mitral annular calcification. Comparison is made with the echocardiogram of 03/04/2018, no significant change. Procedure: A two-dimensional transthoracic echocardiogram with color flow and Doppler was performed. The study quality was technically difficult. Comparison is made with the echocardiogram of 03/04/2018. A contrast injection of Definity was performed to improve assessment of LV function. The patient was in a bradycardic rhythm during the exam. The heart rate ranged between 51- 57 bpm during the study. Left Ventricle: The left ventricle is normal in size. There is normal left ventricular wall thickness. The ejection fraction is estimated to be 65-70%. There are no focal wall motion abnormalities. Right Ventricle: The right ventricle is normal in size and function. Atria: The left atrial size is normal. The right atrium is normal in size. There is no Doppler evidence for an interatrial shunt. Mitral Valve: The mitral valve leaflets appear to open well. There is mild mitral annular calcification. There is no mitral valve stenosis. There is trace mitral regurgitation. Aortic Valve: The aortic valve is not well visualized. No doppler evidence for aortic stenosis. No aortic regurgitation is present. Tricuspid Valve: The tricuspid valve is not well visualized, but is grossly normal. There is trace tricuspid regurgitation. The right ventricular systolic pressure is estimated to be at least 24 mmHg based on an estimated right atrial pressure of 3 mm Hg. Pulmonic Valve: The pulmonic valve is not well seen, but is grossly normal. There has been no significant change since the previous study. Great Vessels: The aortic root is normal size. The ascending aorta is normal in size. The IVC is of normal diameter and collapses greater than 50% with a sniff. This suggests a low right atrial pressure of 3 mm Hg. Pericardium/ Pleura There is no pericardial effusion. MMode/2D Measurements & Calculations LVIDd: 5.6 cm LVOT diam: 2.0 cm LVIDs: 3.4 cm Ao root diam: 3.0 cm FS: 39.2 % asc Aorta Diam: 3.2 cm IVSd: 1.1 cm Ao Arch Diam (Prox Trans): 2.4 cm LVPWd: 1.1 cm LV claudio. diameter/BSA (cm/m^2): 2.8 LV sys. diameter/BSA (cm/m^2): 1.7 LA A2 area: 18.9 cm2 IVC diam: 1.6 cm LA A4 area: 19.7 cm2 LA length (vol): 5.8 cm LA vol: 54.7 ml LA vol index: 27.4 ml/m2 RVD1 (basal): 3.3 cm RVD2 (mid): 3.3 cm TAPSE: 2.2 cm Doppler Measurements & Calculations Ao V2 max: 156.2 cm/sec LVOT Max Oswaldo: 99.0 cm/sec Ao V2 mean: 99.0 cm/sec LV V1 max P.9 mmHg Ao max P.8 mmHg LV V1 VTI: 24.4 cm Ao mean P.8 mmHg JOE(I,D): 2.2 cm2 Ao V2 VTI: 35.4 cm JOE(V,D): 2.0 cm2 sev ratio: 0.69 JOE indexed to BSA (cm^2/m^2): 1.1 MV E max oswaldo: 112.6 cm/sec TR max oswaldo: 228.2 cm/sec MV A max oswaldo: 49.5 cm/sec TR max P.8 mmHg MV E/A: 2.3 PA V2 max: 115.4 cm/sec Med Peak E' Oswaldo: 5.6 cm/sec PA V2 mean: 73.4 cm/sec E/E' med: 20.1 PA mean P.5 mmHg Lat Peak E' Oswaldo: 7.5 cm/sec PA pr(Accel): 39.6 mmHg E/E' lat: 15.1 E/e' average: 17.6 MV dec time: 0.22 sec SV(LVOT): 76.2 ml Electronically signed by: Steffen Holloway on Reading Physician:06/18/2024 09:14 AM
--- NOTE | 2024-06-18 07:02 | DI.US.S_ITS ---
PROCEDURE: US ABDOMEN COMPLETE INDICATIONS: CIRRHOSIS; KIDNEY STONE TECHNIQUE: Real-time scanning was performed of the abdominal and retroperitoneal organs, with image documentation. COMPARISON: [facility], CT, CT ABDOMEN PELVIS WO CON, 05/11/2024, 9:02. FINDINGS: Liver: Increased liver echogenicity, likely mild hepatic steatosis. Gallbladder: Absent. Biliary ducts: Intrahepatic bile ducts are non-dilated. Extrahepatic bile duct caliber measures 1.2 mm. Normal is 6-7 mm or less in diameter, or 10 mm or less post-cholecystectomy. Pancreas: Visualized portions of the pancreas are sonographically normal. Spleen: Spleen is normal in size and homogeneous in echotexture. Kidneys: Kidneys are normal in size and echotexture. Right kidney measures 13.3 cm long; left kidney measures 10.1 cm long. No hydronephrosis or nephrolithiasis. Echogenic mass on the inferior pole of the right kidney measuring 2.9 cm, corresponding to the benign angiomyolipoma seen on comparison CT. Known left-sided stone is not well demonstrated. Aorta: Visualized aorta is normal in caliber at less than 3 cm. Iliacs: Not seen due to overlying bowel gas. IVC: Not seen due to liver echogenicity. Miscellaneous: No free abdominal fluid. IMPRESSION: Liver is poorly evaluated due to the presence of posterior attenuation. Mass not excluded. Consider HCC screening with CT or MRI (hepatic mass protocol). 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 Known left renal stone not appreciated. No hydronephrosis. Dictated by: Jagdeep Arauz M.D. on 06/18/2024 at 9:40 Approved by: Jagdeep Arauz M.D. on 06/18/2024 at 9:42
== END ==
PROVIDERS: PCP Family Medicine; Referring Provider Family Medicine; Visit Provider Family Medicine
DX: I34.81 Nonrheumatic mitral (valve) annulus calcification (principal); R00.1 Bradycardia, unspecified; I45.10 Unspecified right bundle-branch block; D17.71 Benign lipomatous neoplasm of kidney; Z90.49 Acquired absence of other specified parts of digestive tract
CPT/HCPCS: 76700; 93306; Q9957

== ENCOUNTER → 2024-07-25 12:39 | Outpatient (CLI) | payer MEDICARE, MEDICAID, SELFPAY ==
[2018-03-03 13:55] VITALS: BMI 32.4
--- NOTE | 2024-07-25 12:43 | DI.US.S_ITS ---
PROCEDURE: US PERIPH VENOUS LOW EXTREM LT INDICATIONS: PAIN. STATUS POST TOTAL KNEE REPLACEMENT. TECHNIQUE: Real-time imaging, as well as color and pulse Doppler interrogation, were performed of the lower extremity veins and soft tissues status post left total knee arthroplasty. COMPARISON: None. FINDINGS: The common femoral, femoral, popliteal, and the visualized calf veins are normally compressible, and free of intraluminal thrombus. Color and pulse Doppler demonstrate normal phasic intraluminal flow. There is normal augmentation response to distal compression maneuver. There is extensive left thigh and left proximal leg soft tissue swelling and edema. There is a popliteal fossa fluid collection which likely represent hematoma versus less likely a Luu's cyst measuring 6.1 x 7.4 x 2.7 cm. There is a moderate to large left knee joint effusion demonstrating pulsatile color Doppler signal which can also be seen on cine grayscale images concerning for small arterial or intra-articular hemorrhage. IMPRESSION: 1. Left knee joint space intra-articular arterial or hemorrhage resulting in moderate to large hemarthrosis. 2. Extensive left thigh and leg soft tissue swelling. Consider CT angiogram of the left lower extremity to exclude other underlying vascular cause for significant sudden soft tissue swelling. 3. No findings of lower extremity deep venous thrombosis. Dictated by: Ranjit Clark M.D. on 07/25/2024 at 14:34 Approved by: Ranjit Clark M.D. on 07/25/2024 at 14:44
== END ==
PROVIDERS: PCP Family Medicine; Referring Provider Orthopaedic Surgery Foot and Ankle Surgery; Visit Provider Orthopaedic Surgery Foot and Ankle Surgery
DX: M25.062 Hemarthrosis, left knee (principal); M79.89 Other specified soft tissue disorders; M25.462 Effusion, left knee; Z96.652 Presence of left artificial knee joint
CPT/HCPCS: 93971

== ENCOUNTER 2024-07-25 14:04 | Inpatient (IN) | payer MEDICARE, MEDICAID, SELFPAY ==
[2018-03-03 13:55] VITALS: BMI 32.4
[2024-07-25] VITALS (14 sets, daily range): BP systolic 114–171; BP diastolic 58–98; PULSE 62–79; RESP 12–30; TEMP 35.9–36.6; O2SAT 92–100; BMI 53.0; BMI 35.9; BMI 38.7
[2024-07-25 15:12] LABS: Add Manual Diff / Slide Review NO; Basophils Absolute Auto 100 /uL (0-100); Basophils Percent Auto 0.6 % (0-2); Eosinophils Absolute Auto 700 /uL (0-450); Hematocrit 33.9 % (36-46); Hemoglobin 11.8 g/dL (12.0-16.0); Lymphocytes Absolute Auto 2000 /uL (1100-4500); Lymphocytes Percent Auto 20.5 % (25-40); Mean Corpuscular HGB Conc 34.9 % (30-36); Mean Corpuscular Hemoglobin 34.6 PG (26-34); Mean Corpuscular Volume 99.1 fL (80-100); Monocytes Absolute Auto 1000 /uL (0-900); Monocytes Percent Auto 10.4 % (3-14); Neutrophils Absolute Auto 6000 /uL (1500-7000); Neutrophils Percent Auto 61.5 % (50-75); Platelet Count 317 X10^3/uL (150-400); Red Blood Cell Count 3.42 X10^6/uL (4.0-5.2); Red Cell Distribution Width 14.2 % (11.6-14.8); White Blood Cell Count 9.7 X10^3/uL (4.5-11.0)
--- NOTE | 2024-07-25 16:00 | DI.CT.S_ITS ---
PROCEDURE: CT ANGIO ABD AORTA RUNOFF INDICATIONS: Left knee pain and swelling status post left total knee arthroplasty with significant interval increase in left leg swelling since postoperative visit few days ago. Ultrasound of the left knee demonstrating pulsatile hemarthrosis. TECHNIQUE: After the administration of intravenous contrast, 2.5 mm sections acquired from T12 to the feet, with optional delayed image acquisition from the knees to the feet. 3-dimensional maximum intensity projection (MIP) coronal and sagittal reformats, and/or 3-dimensional volume rendering reformatting was then performed. For radiation dose reduction, the following was used: automated exposure control. COMPARISON: None. FINDINGS: Image Quality: Diagnostic. Abdominal aorta: Nonaneurysmal with mild atheromatous plaque. Splanchnic vessels: Single bilateral renal arteries are widely patent, though with severe focal stenosis at the ostium of the left renal artery. Partially visualized celiac artery is patent. Superior mesenteric and inferior mesenteric arteries are patent. Lower extremity arteries: Common, external and internal iliac arteries, common deep and superficial femoral arteries, popliteal arteries and bilateral 3 vessel runoffs are patent. No evidence of extravasation. Lower extremity soft tissues: There is a large right knee Luu's cyst within the popliteal fossa measuring 1.6 x 5.8 x 5.6 cm (AP, TV, cc). Partially limited evaluation at the left knee related to streak artifact from the total left knee arthroplasty. Significant asymmetric soft tissue edema is noted in the left thigh to the left calf with accumulated fascial edema seen along the left lateral leg and popliteal fossa. Moderate to large left knee joint effusion is seen (series 12, image 3 of 3). No definite intra-articular extravasation is seen on CT though an area of suspicious hyperdensity is seen in the inferior lateral left knee joint space (series 12, images [id number]). Lower Chest: Visualized on the topogram only, without acute abnormality seen. ABDOMEN: Liver: Partially visualized liver with cirrhotic morphology without ascites or liver mass. Gallbladder and bile ducts: Surgically absent with cholecystectomy clips in the gallbladder fossa and intrahepatic pneumobilia suggestive of ampullary sphincter malfunction. No biliary ductal dilatation to suggest obstruction. Pancreas: No ductal dilation. Spleen: Partially visualized without obvious abnormality. Adrenal Glands: Partially visualized without adrenal nodules. Kidneys and Ureters: Within the inferior pole of the right kidney is noted a 2.9 x 3.1 x 2.6 cm heterogenous hypodense renal mass with internal Hounsfield units averaging -35 with obvious macroscopic fat, consistent with an angiomyolipoma. No nephrolithiasis. No hydronephrosis. No complex renal cystic lesion which requires follow up. Left kidney parenchymal atrophy, likely related to the focal stenosis at the origin of the left renal artery. Stomach and Bowel: Normal colonic caliber, without significant wall thickening. Partially visualized stomach appears normal. Partially visualized small bowel appears normal. Peritoneum: No abnormal intraperitoneal fluid. No free air. Ventral Wall: No hernia. Abdominal Nodes: No retroperitoneal or mesenteric adenopathy by size criteria. Vessels: Inferior vena cava appears normal. PELVIS: Pelvic Organs: Unremarkable. Bladder: Unremarkable. Pelvic Nodes: No enlarged lymph nodes. Miscellaneous: No inguinal hernias are seen. Bones: No aggressive osseous abnormality. Grade 1 anterolisthesis of L4 on L5. Moderate to severe degenerative disc disease at L4-L5 with ex vacuo phenomenon. Near complete disc height loss at L5-S1. Total left knee arthroplasty appears intact. IMPRESSION: 1. Possible pseudoaneurysm at the inferolateral margin of the left knee lateral compartment with hemarthrosis noted. 2. No evidence of active extravasation within the soft tissues of the left lower extremity or large hematoma. 3. Liver cirrhosis without ascites or concerning intrahepatic mass. Intrahepatic pneumobilia, suggestive of ampullary sphincter malfunction. Dictated by: Ranjit Clark M.D. on 07/26/2024 at 8:00 Approved by: Ranjit Clark M.D. on 07/26/2024 at 8:32
--- NOTE | 2024-07-25 16:13 | PM.HP.1 ---
History of Present Illness History of Present Illness Date Patient Seen: 07/25/24 Time Patient Seen: 16:14 Date of Onset of Symptoms: 07/25/24 Chief complaint: abnormal Ultrasound findings Narrative: Keerthi is a 63-year-old female with a history of asthma. Also has a history of cirrhosis and unknown benign lesion on her kidney. 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 She had a dressing change on Tuesday in clinic with standard postoperative appearance. Then noticed this morning increased pain and swelling from thigh to knee towards ankle and increased pain. Denies a fall. Was sent for lower extremity ultrasound found to have some active extravasation around the patella and hemarthrosis. Due to significant swelling no signs of DVT and signs of active small bleed around the knee joint but also increase thigh swelling was sent for CTA to rule out more proximal bleed. The patient's results were discussed with the orthopedic surgeon from the IR attending reading of the ultrasound. Patient was sent to ER for labs and CTA. Discussed based on result would plan for open arthrotomy and hematoma evacuation versus potential IR procedure if more proximal vascular issues are found. Patient was seen in the ER is able to stand on her own demonstrates increased left lower extremity swelling compared to my examined of the patient 2 days ago involves the distal thigh and knee down into the calf. Is able to demonstrate active dorsiflexion and plantar flexion. Large effusion. Ramos dressing in place. No drainage on dressing. No fevers or chills. Last had a just few sips of soda no recent solid food. Until today pain has been better using hydromorphone compared to oxycodone. Endorses increased pain swelling and bruising today. No falls. No chest pain. States had a good day on Tuesday after her dressing change and switched pain medication to hydrocodone. States may have been a little bit motivated in the more active than in the previous stays. But no falls or events. Then noticed the increased in pain and swelling starting this morning, Tuesday and increasing throughout the day. [facility] Medical History History of COVID-19 (2022) Thyroid cancer (~2003) Osteoarthritis Panic disorder PTSD (post-traumatic stress disorder) VASILIY (generalized anxiety disorder) MDD (major depressive disorder) Alcoholic cirrhosis of liver Alcohol use disorder in remission HLD (hyperlipidemia) HTN (hypertension) Hypothyroidism Surgical History Hx of right knee surgery History of surgery Hx of thyroidectomy History of bladder suspension procedure Status post rotator cuff repair (12/30/15) Status post cholecystectomy Status post vaginal hysterectomy Social History household members: spouse and family Smoking Status: Former smoker alcohol intake: former Meds Home Medications and Allergies Home Medications ?Medication ?Instructions ?Recorded ?Confirmed ?Type albuterol sulfate 90 mcg/actuation 1 - 2 puff inhalation Q4-6H PRN 06/21/17 05/02/24 History aerosol inhaler Shortness Of Breath lorazepam 1 mg capsule,extended 0.5 - 1 mg PO BID PRN Anxiety 07/08/21 05/02/24 History release 24 hr atorvastatin 10 mg tablet 10 mg PO DAILY 05/02/24 05/02/24 History budesonide-formoterol HFA 160 2 inh inhalation BID 05/02/24 05/02/24 History mcg-4.5 mcg/actuation aerosol inhaler cetirizine 10 mg tablet 10 mg PO DAILY 05/02/24 05/02/24 History estradiol 1 mg tablet 0.5 mg PO SEEINSTR 05/02/24 05/02/24 History levothyroxine 112 mcg tablet 112 mcg PO DAILY 05/02/24 05/02/24 History oxycodone-acetaminophen 5 mg-325 1 tab PO Q4H PRN pain 05/02/24 05/02/24 History mg tablet ondansetron HCl 4 mg tablet 4 mg PO Q8H PRN nausea and 05/11/24 Rx vomiting #30 tabs Allergies Allergy/AdvReac Type Severity Reaction Status Date / Time Iodinated Contrast Media Allergy Severe Shortness Verified 07/25/24 14:29 (Iodinated Contrast- Oral of Breath and IV Dye) Sulfa (Sulfonamide Allergy Severe itchy, Verified 07/25/24 14:29 Antibiotics) (SULFA rash, (SULFONAMIDE ANTIBIOTICS)) asthma NSAIDS (Non-Steroidal Allergy Intermediate worsening Verified 07/25/24 14:29 Anti-Inflamma asthma, throat swelling bee pollen (BEE POLLEN) Allergy Unknown throat Verified 07/25/24 14:29 swelling tetracycline (TETRACYCLINE) AdvReac Severe nausea Verified 07/25/24 14:29 Review of Systems Review of Systems ROS: Yes All systems reviewed & are unremarkable except as noted in HPI and below Exam Vital Signs (past 8 hours): - 07/25/24 14:28 Temperature 98 F Pulse Rate 69 Respiratory Rate 20 Blood Pressure 123/59 L Pulse Oximetry 100 Oxygen Delivery Method Room Air Oxygen Delivery Method Room Air Narrative Exam Narrative: Alert and oriented no acute distress. Heart regular rate and rhythm. Lungs clear to auscultation. Demonstrates increased pain left lower extremities, able to stand on her own. Decreased range of motion swelling distal thigh knee and into the calf and foot Demonstrates active dorsiflexion plantar flexion of the ankle. Able to wiggle toes. Brisk capillary refill. Circumferential swelling but compressible compartments. No pain on passive stretch. Ramos dressing intact over anterior knee without drainage. Large effusion. Objective Imaging CTA lower extremity: My impression: Recommend over the CTA with the radiologist in person. Demonstrates large hemarthrosis and subcutaneous edema. No active proximal bleeding. Ultrasound lower extremity: My impression: Went over ultrasound with radiologist demonstrated active arterial extravasation inferior lateral patella just around the proximal tibial border along the lateral joint line and hemarthrosis. Labs 07/25/24 14:53 Labs: Laboratory Results - last 24 hr 07/25/24 14:53 WBC 9.7 RBC 3.42 L Hgb 11.8 L Hct 33.9 L MCV 99.1 MCH 34.6 H MCHC 34.9 RDW 14.2 Plt Count 317 Neut % (Auto) 61.5 Lymph % (Auto) 20.5 L [place] % (Auto) 10.4 Eos % (Auto) 7.0 H Baso % (Auto) 0.6 Neut # (Auto) 6000 Lymph # (Auto) 2000 [place] # (Auto) 1000 H Eos # (Auto) 700 H Baso # (Auto) 100 Assessment & Plan Assessment and plan (1) Hemarthrosis involving knee joint: Qualifiers: Laterality: left Qualified Code(s): M25.062 - Hemarthrosis, left knee Status: Acute (2) Arterial hemorrhage: Status: Acute (3) History of knee replacement procedure of left knee: Status: Acute Plan The patient has evolution of significant swelling and hemarthrosis over the course of 1 day 1 week out from total knee arthroplasty. Ultrasound demonstrated some active arterial extravasation the patella suspect small atraumatic arterial bleeding intra-articular. Due to additional swelling CTA indicated to rule out more proximal bleed. If just intra-articular and then would plan for open arthrotomy hematoma evacuation and cautery hemostasis. Surgical plans pending CTA. No evidence of deep venous thrombosis on CTA. Presentation today demonstrates significant change from last inspection of the patient's surgical site 2 days ago. High-level medical decision-making. Discussion with multiple additional medical providers including radiology and emergency medicine today. Indication for hospital admission and emergent surgery for active bleeding. Plan for hospital admission and surgery for hematoma evacuation left knee and to establish hemostasis of arterial bleed. The risks and benefits of the procedure have been discussed with the patient and given the opportunity to ask questions. Vital signs stable. Labs reviewed. High-level medical decision-making. Time-Based Coding :: [TOTAL MINUTES] spent with patient and on the chart (including review of chart, obtaining history, exam, reviewing outside data, placing orders, documenting exam and treatment plan, and counseling patient) on [DATE]. Quality VTE Deep Vein Thrombosis/Pulmonary Embolism Present on Admission: No
--- NOTE | 2024-07-25 16:17 | ED_ITS ---
HPI - Extremity Problem General Chief complaint: Extremity Problem,Nontraumatic Stated complaint: abnormal Ultrasound findings Time Seen by Provider: 07/25/24 16:17 Source: patient Mode of arrival: Ambulatory History of Present Illness HPI Narrative: 63-year-old female history of cholecystectomy hysterectomy dyslipidemia hypothyroidism chronic left knee pain status post knee replacement July 19 sent over here for evaluation given increase in redness, pain, swelling, shortness of breath and bodyaches. Patient denies fever or chills, chest pain, or any history of DVT or PE. Other than what is stated 14 point review of system is Related Data Home Medications ?Medication ?Instructions ?Recorded ?Confirmed albuterol sulfate 90 mcg/actuation 1 - 2 puff inhalati on Q4-6H PRN 06/21/17 07/25/24 aerosol inhaler Shortness Of Breath lorazepam 1 mg capsule,extended 0.5 - 1 mg PO BID PRN Anxiety 07/08/21 07/25/24 release 24 hr atorvastatin 10 mg tablet 10 mg PO DAILY 05/02/2407/08 budesonide-formoterol HFA 160 2 inh inhalation BID 07/25/24 mcg-4.5 mcg/actuation aerosol inhaler cetirizine 10 mg tablet 10 mg PO DAILY 05/02/2407/08 estradiol 1 mg tablet 0.5 mg PO SEEINSTR 05/02/24 07/25/24 levothyroxine 112 mcg tablet 112 mcg PO DAILY 05/02/24 07/25/24 oxycodone-acetaminophen 5 mg-325 1 tab PO Q4H PRN pain 05/02/24 07/25/24 mg tablet Previous Rx's ?Medication ?Instructions ?Recorded ondansetron HCl 4 mg tablet 4 mg PO Q8H PRN nausea and 05/11/24 vomiting #30 tabs Allergies Allergy/AdvReac Type Severity Reaction Status Date / Time Iodinated Contrast Media Allergy Severe Shortness Verified 07/25/24 14:29 (Iodinated Contrast- Oral of Breath and IV Dye) Sulfa (Sulfonamide Allergy Severe itchy, Verified 07/25/24 14:29 Antibiotics) (SULFA rash, (SULFONAMIDE ANTIBIOTICS)) asthma NSAIDS (Non-Steroidal Allergy Intermediate worsening Verified 07/25/24 14:29 Anti-Inflamma asthma, throat swelling bee pollen (BEE POLLEN) Allergy Unknown throat Verified 07/25/24 14:29 swelling tetracycline (TETRACYCLINE) AdvReac Severe nausea Verified 07/25/24 14:29 Review of Systems Review of Systems ROS Unobtainable: All systems reviewed & are unremarkable except as noted in HPI and below Patient History Medical History History of COVID-19 (2022) Thyroid cancer (~2003) Osteoarthritis Panic disorder PTSD (post-traumatic stress disorder) VASILIY (generalized anxiety disorder) MDD (major depressive disorder) Alcoholic cirrhosis of liver Alcohol use disorder in remission HLD (hyperlipidemia) HTN (hypertension) Hypothyroidism Surgical History Hx of right knee surgery History of surgery Hx of thyroidectomy History of bladder suspension procedure Status post rotator cuff repair (12/30/15) Status post cholecystectomy Status post vaginal hysterectomy Social History household members: spouse and family Smoking Status: Never smoker alcohol intake: former Smoking Status: Former smoker alcohol intake frequency: other Exam Narrative Exam Narrative: GENERAL: [63] year old patient appears stated age. Well-developed patient, in mild distress. HEAD: Atraumatic. Normocephalic. EYES: Pupils equal round and reactive. Extraocular motions intact. No scleral icterus. No injection or drainage. NECK: Trachea midline. Non tender CARDIOVASCULAR: Regular rate and rhythm without murmurs, gallops, or rubs. RESPIRATORY: Clear to auscultation. Breath sounds equal bilaterally. No wheezes, rales, or rhonchi. GASTROINTESTINAL: Abdomen soft, non-tender, nondistended. EXTREMITIES: L knee dec ROM, warmth, redness, TTP, motor, sensory intact +2DP +2PT cap refill <2secs BACK: Nontender without deformity or crepitance. No flank tenderness. NEURO: AOx3. SKIN: No rash or erythema of visible areas Initial Vital Signs Initial Vital Signs: Vital Signs Temperature 98 F 07/25/24 14:28 Pulse Rate 69 07/25/24 14:28 Respiratory Rate 20 07/25/24 14:28 Blood Pressure 123/59 L 07/25/24 14:28 Pulse Oximetry 100 07/25/24 14:28 Oxygen Delivery Method Room Air 07/25/24 14:28 Course Orders Ordered: Acetaminophen (Acetaminophen 325 Mg Tablet) 650 mg PO Q6H PRN PRN Reason: Pain, Mild (1-3) Last Admin: 07/26/24 08:34 Dose: 650 mg Documented By: LIN Albuterol (Albuterol 2.5 Mg/3 Ml Neb (Adult)) 2.5 mg INH Q4H PRN PRN Reason: SHORTNESS OF BREATH Albuterol (Albuterol 2.5 Mg/3 Ml Neb (Adult)) 2.5 mg INH [id number] [facility] Last Admin: 07/26/24 15:07 Dose: 2.5 mg Documented By: Admin: 07/26/24 13:02 Dose: 2.5 mg Documented By: Admin: 07/26/24 07:00 Dose: Not Given Documented By: WANDER Aspirin (Aspirin Ec 81 Mg Tablet) 81 mg PO BID [facility] Last Admin: 07/26/24 08:23 Dose: 81 mg Documented By: LIN Atorvastatin Calcium (Atorvastatin 20 Mg Tablet) 10 mg PO BEDTIME LARA Budesonide (Budesonide 0.5 Mg/2 Ml Neb) 0.5 mg INH RTBID [facility] Last Admin: 07/26/24 13:02 Dose: 0.5 mg Documented By: WANDER Diphenhydramine HCl (Diphenhydramine 25 Mg Tablet) 25 mg PO Q6HR PRN PRN Reason: Itching Docusate Sodium (Docusate 100 Mg Capsule) 100 mg PO BID [facility] Last Admin: 07/26/24 08:23 Dose: 100 mg Documented By: LIN Hydromorphone HCl (Hydromorphone 2 Mg Tablet) 2 mg PO Q4HR PRN PRN Reason: Pain, Moderate (4-6) Last Admin: 07/25/24 23:01 Dose: 2 mg Documented By: HELEN Hydromorphone HCl (Hydromorphone 2 Mg Tablet) 4 mg PO Q4HR PRN PRN Reason: Pain, Severe (7-10) Last Admin: 07/26/24 14:18 Dose: 4 mg Documented By: Admin: 07/26/24 10:37 Dose: 4 mg Documented By: Admin: 07/26/24 07:10 Dose: 4 mg Documented By: Admin: 07/26/24 02:22 Dose: 4 mg Documented By: YANE Hydromorphone HCl (Hydromorphone 0.5 Mg Inj) 0.5 mg IV Q2H PRN PRN Reason: Pain, Severe (7-10) Last Admin: 07/26/24 09:43 Dose: 0.5 mg Documented By: Admin: 07/26/24 01:22 Dose: 0.5 mg Documented By: YANE Hydroxyzine HCl (Hydroxyzine Hcl 25 Mg Tablet) 25 mg PO Q6H PRN PRN Reason: Nausea Last Admin: 07/26/24 08:25 Dose: 25 mg Documented By: LIN Lactated Ringer's (Lactated Ringers) 1,000 mls @ 100 mls/hr IV CONT [facility] Last Infusion: 07/26/24 15:05 Dose: Infused Documented By: Admin: 07/25/24 23:26 Dose: 100 mls/hr Documented By: YANE Levothyroxine Sodium (Levothyroxine 112 Mcg Tablet) 112 mcg PO 0600 [facility] Last Admin: 07/26/24 06:06 Dose: 112 mcg Documented By: YANE Loratadine (Loratadine 10 Mg Tablet) 10 mg PO DAILY [facility] Last Admin: 07/26/24 08:24 Dose: 10 mg Documented By: LIN Lorazepam (Lorazepam 0.5 Mg Tablet) 0.5 mg PO Q6HR PRN PRN Reason: Anxiety Last Admin: 07/26/24 08:26 Dose: 0.5 mg Documented By: LIN Naloxone HCl (Naloxone 0.4 Mg/Ml Vial) 0.2 mg IV Q2MIN PRN PRN Reason: Opiate Reversal Non-Formulary Medication (Lorazepam) 1 mg PO BID PRN PRN Reason: Anxiety Ondansetron HCl (Ondansetron 4 Mg Odt) 4 mg PO Q4HR PRN PRN Reason: Nausea And Vomiting Ondansetron HCl (Ondansetron 4 Mg/2 Ml Inj) 4 mg IV Q4HR PRN PRN Reason: Nausea And Vomiting Polyethylene Glycol (Polyethylene Glycol 3350 17 Gm Powd.Pack) 17 gm PO DAILY PRN PRN Reason: Constipation Sodium Chloride (Sodium Chloride 0.9% Flush) 10 ml IV BID [facility] Last Admin: 07/26/24 10:00 Dose: 10 ml Documented By: LIN Discontinued Medications Acetaminophen (Acetaminophen 325 Mg Tablet) 975 mg PO NOW PRN PRN Reason: Pain, Moderate (4-6) Last Admin: 07/25/24 19:13 Dose: 975 mg Documented By: NICKI Albuterol (Albuterol Hfa Mdi 60 Puff/8 Gm Inhaler (Covid Only)) 1 puff INH Q4- 6H PRN PRN Reason: Shortness Of Breath Bupivacaine HCl/Epinephrine Bitart (Bupivacaine 0.25% W/ Epi 30 Ml Vial) 30 ml INJ NOW ONE Stop: 07/25/24 21:31 Last Admin: 07/25/24 21:31 Dose: 30 ml Documented By: CC Diphenhydramine HCl (Diphenhydramine 50 Mg/Ml Vial) 50 mg IV NOW ONE Stop: 07/25/24 16:55 Last Admin: 07/25/24 17:00 Dose: 50 mg Documented By: ES Famotidine (Famotidine 20 Mg/2 Ml Vial) 20 mg IV NOW LARA Last Admin: 07/25/24 17:00 Dose: 20 mg Documented By: ES Fentanyl (Fentanyl 100 Mcg/2 Ml Inj) 0 mcg IV Q5MIN PRN PRN Reason: Pain, Severe (7-10) Last Admin: 07/25/24 22:44 Dose: 25 mcg Documented By: Admin: 07/25/24 22:36 Dose: 25 mcg Documented By: HELEN Gabapentin (Gabapentin 300 Mg Capsule) 300 mg PO NOW ONE Stop: 07/25/24 20:11 Last Admin: 07/25/24 20:21 Dose: 300 mg Documented By: HELEN Hydromorphone HCl (Hydromorphone 1 Mg Inj) 1 mg IV NOW ONE Stop: 07/25/24 16:25 Last Admin: 07/25/24 16:40 Dose: 1 mg Documented By: ES Hydromorphone HCl (Hydromorphone 1 Mg Inj) 1 mg IV NOW ONE Stop: 07/25/24 18:31 Last Admin: 07/25/24 18:40 Dose: 1 mg Documented By: ES Hydromorphone HCl (Hydromorphone 1 Mg Inj) 0 mg IV Q5MIN PRN PRN Reason: Pain, Mild (1-3) Last Admin: 07/25/24 22:54 Dose: 0.25 mg Documented By: Admin: 07/25/24 22:49 Dose: 0.25 mg Documented By: TC Hydroxyzine HCl (Hydroxyzine 50 Mg/Ml Inj) 25 mg IM NOW PRN PRN Reason: Pain, Mild (1-3) Last Admin: 07/25/24 22:36 Dose: 25 mg Documented By: HELEN Lactated Ringer's (Lactated Ringers) 1,000 mls @ 1,000 mls/hr IV BOLUS ONE Stop: 07/25/24 17:23 Last Infusion: 07/25/24 18:56 Dose: 0 mls/hr Documented By: Admin: 07/25/24 16:40 Dose: 1,000 mls/hr Documented By: UMU Cefazolin Sodium/Dextrose (Ancef) 100 mls @ 200 mls/hr IV NOW ONE Stop: 07/25/24 21:55 Last Infusion: 07/25/24 20:55 Dose: Infused Documented By: Admin: 07/25/24 20:41 Dose: 200 mls/hr Documented By: NATALY Cefazolin Sodium/Dextrose (Ancef) 100 mls @ 200 mls/hr IV Q8H LARA Stop: 07/26/24 13:29 Last Infusion: 07/26/24 15:04 Dose: Infused Documented By: Admin: 07/26/24 14:15 Dose: 200 mls/hr Documented By: Infusion: 07/26/24 05:07 Dose: Infused Documented By: Admin: 07/26/24 04:37 Dose: 200 mls/hr Documented By: YANE Meperidine HCl (Meperidine 50 Mg/Ml Inj) 12.5 mg IV PACUNOW PRN PRN Reason: Mild pain or shivering Methylprednisolone (Methylprednisolone 125 Mg/2 Ml Vial) 125 mg IV NOW ONE Stop: 07/25/24 16:55 Last Admin: 07/25/24 17:00 Dose: 125 mg Documented By: UMU Metoclopramide HCl (Metoclopramide 10 Mg/2 Ml Inj) 10 mg IV NOW PRN PRN Reason: Nausea And Vomiting Non-Formulary Medication (Atorvastatin) 10 mg PO DAILY [facility] Non-Formulary Medication (Budesonide-Formoterol) 2 inhalation INHALATION BID LARA Non-Formulary Medication (Cetirizine) 10 mg PO DAILY LARA Ondansetron HCl (Ondansetron 4 Mg/2 Ml Inj) 4 mg IV NOW PRN PRN Reason: Nausea And Vomiting Oxycodone HCl (Oxycodone Ir 5 Mg Tablet) 5 mg PO PACUNOW PRN PRN Reason: Mild or moderate pain Scopolamine (Scopolamine 1 Patch) 1 patch TOP NOW ONE Stop: 07/25/24 19:42 Last Admin: 07/25/24 23:28 Dose: 1 patch Documented By: YANE Vital Signs Vital signs: Vital Signs - 8 hr 07/25/24 14:28 Temperature 98 F Pulse Rate 69 Respiratory Rate 20 Blood Pressure 123/59 L Pulse Oximetry 100 Oxygen Delivery Method Room Air MDM - Extremity (Nontraumatic) Lab Data 07/26/24 04:39 07/26/24 04:39 Labs: Lab Results 07/25/24 07/25/24 Range/Units 14:53 16:07 WBC 9.7 (4.5-11.0) X10^3/uL RBC 3.42 L (4.0-5.2) X10^6/uL Hgb 11.8 L (12.0-16.0) g/dL Hct 33.9 L (36-46) % MCV 99.1 (80-100) fL MCH 34.6 H (26-34) PG MCHC 34.9 (30-36) % RDW 14.2 (11.6-14.8) % Plt Count 317 (150-400) X10^3/uL Neut % (Auto) 61.5 (50-75) % Lymph % (Auto) 20.5 L (25-40) % [place] % (Auto) 10.4 (3-14) % Eos % (Auto) 7.0 H (2-4) % Baso % (Auto) 0.6 (0-2) % Neut # (Auto) 6000 (4803-7700) /uL Lymph # (Auto) 2000 (6105-5851) /uL [place] # (Auto) 1000 H (0-900) /uL Eos # (Auto) 700 H (0-450) /uL Baso # (Auto) 100 (0-100) /uL PT 12.6 H (9.4-12.5) SECONDS INR 1.1 (0.9-1.3) APTT 36 (25.1-36.5) SECONDS Sodium 129 L (137-145) mmol/L Potassium 4.1 (3.4-5.1) mmol/L Chloride 95 L (98-107) mmol/L Carbon Dioxide 26 (22-32) mmol/L BUN 5 L (7-17) mg/dL Creatinine 0.55 (0.52-1.04) mg/dL Estimated GFR > 60 (>60) mL/min BUN/Creatinine Ratio 9.1 (6-22) Glucose 117 H (70-99) mg/dL Calcium 8.7 (8.4-10.2) mg/dL Total Bilirubin 1.0 (0.2-1.3) mg/dL AST 52 H (14-36) IU/L ALT 25 (<35) IU/L Alkaline Phosphatase 113 (38-126) U/L Troponin I < 0.012 (0.01-0.034) ng/mL Total Protein 7.2 (6.3-8.2) g/dL Albumin 4.1 (3.5-5.0) g/dL Globulin 3.1 (1.7-4.1) g/dL Albumin/Globulin Ratio 1.3 (1.0-2.8) Imaging Data US - DVT: Radiologist's Impression: [place] [id number] Ultrasound Report Signed Patient: Keerthi Granda MR#: [id number] : 1960 Acct:[id number] Age/Sex: 63 / F Date of Service: 07/25/24 Loc: US Accession Number: [id number] Procedure: US perip venous low extrem lt Ordering Provider: Josey Quintanilla MD PROCEDURE: US PERIP VENOUS LOW EXTREM LT INDICATIONS: PAIN. STATUS POST TOTAL KNEE REPLACEMENT. TECHNIQUE: Real-time imaging, as well as color and pulse Doppler interrogation, were performed of the lower extremity veins and soft tissues status post left total knee arthroplasty. COMPARISON: None. FINDINGS: The common femoral, femoral, popliteal, and the visualized calf veins are normally compressible, and free of intraluminal thrombus. Color and pulse Doppler demonstrate normal phasic intraluminal flow. There is normal augmentation response to distal compression maneuver. There is extensive left thigh and left proximal leg soft tissue swelling and edema. There is a popliteal fossa fluid collection which likely represent hematoma versus less likely a Luu's cyst measuring 6.1 x 7.4 x 2.7 cm. There is a moderate to large left knee joint effusion demonstrating pulsatile color Doppler signal which can also be seen on cine grayscale images concerning for small arterial or intra-articular hemorrhage. IMPRESSION: 1. Left knee joint space intra-articular arterial or hemorrhage resulting in moderate to large hemarthrosis. 2. Extensive left thigh and leg soft tissue swelling. Consider CT angiogram of the left lower extremity to exclude other underlying vascular cause for significant sudden soft tissue swelling. 3. No findings of lower extremity deep venous thrombosis. Dictated by: Ranjit Clark M.D. on 07/25/2024 at 14:34 Approved by: Ranjit Clark M.D. on 07/25/2024 at 14:44 Extremity x-ray #2: Radiologist's Impression: [address] [address] [address] Scan Report Signed Patient: Keerthi Granda MR#: [id number] : 1960 Acct:[id number] Age/Sex: 63 / F Date of Service: 07/25/24 Loc: 225-1 Accession Number: [id number] Procedure: CT angio abd aorta runoff Ordering Provider: Josey Quintanilla MD PROCEDURE: CT ANGIO ABD AORTA RUNOFF INDICATIONS: Left knee pain and swelling status post left total knee arthroplasty with significant interval increase in left leg swelling since postoperative visit few days ago. Ultrasound of the left knee demonstrating pulsatile hemarthrosis. TECHNIQUE: After the administration of intravenous contrast, 2.5 mm sections acquired from T12 to the feet, with optional delayed image acquisition from the knees to the feet. 3-dimensional maximum intensity projection (MIP) coronal and sagittal reformats, and/or 3-dimensional volume rendering reformatting was then performed. For radiation dose reduction, the following was used: automated exposure control. COMPARISON: None. FINDINGS: Image Quality: Diagnostic. Abdominal aorta: Nonaneurysmal with mild atheromatous plaque. Splanchnic vessels: Single bilateral renal arteries are widely patent, though with severe focal stenosis at the ostium of the left renal artery. Partially visualized celiac artery is patent. Superior mesenteric and inferior mesenteric arteries are patent. Lower extremity arteries: Common, external and internal iliac arteries, common deep and superficial femoral arteries, popliteal arteries and bilateral 3 vessel runoffs are patent. No evidence of extravasation. Lower extremity soft tissues: There is a large right knee Luu's cyst within the popliteal fossa measuring 1.6 x 5.8 x 5.6 cm (AP, TV, cc). Partially limited evaluation at the left knee related to streak artifact from the total left knee arthroplasty. Significant asymmetric soft tissue edema is noted in the left thigh to the left calf with accumulated fascial edema seen along the left lateral leg and popliteal fossa. Moderate to large left knee joint effusion is seen (series 12, image 3 of 3). No definite intra-articular extravasation is seen on CT though an area of suspicious hyperdensity is seen in the inferior lateral left knee joint space (series 12, images 333-336). Lower Chest: Visualized on the topogram only, without acute abnormality seen. ABDOMEN: Liver: Partially visualized liver with cirrhotic morphology without ascites or liver mass. Gallbladder and bile ducts: Surgically absent with cholecystectomy clips in the gallbladder fossa and intrahepatic pneumobilia suggestive of ampullary sphincter malfunction. No biliary ductal dilatation to suggest obstruction. Pancreas: No ductal dilation. Spleen: Partially visualized without obvious abnormality. Adrenal Glands: Partially visualized without adrenal nodules. Kidneys and Ureters: Within the inferior pole of the right kidney is noted a 2.9 x 3.1 x 6 cm heterogenous hypodense renal mass with internal Hounsfield units averaging -35 with obvious macroscopic fat, consistent with an angiomyolipoma. No nephrolithiasis. No hydronephrosis. No complex renal cystic lesion which requires follow up. Left kidney parenchymal atrophy, likely related to the focal stenosis at the origin of the left renal artery. Stomach and Bowel: Normal colonic caliber, without significant wall thickening. Partially visualized stomach appears normal. Partially visualized small bowel appears normal. Peritoneum: No abnormal intraperitoneal fluid. No free air. Ventral Wall: No hernia. Abdominal Nodes: No retroperitoneal or mesenteric adenopathy by size criteria. Vessels: Inferior vena cava appears normal. PELVIS: Pelvic Organs: Unremarkable. Bladder: Unremarkable. Pelvic Nodes: No enlarged lymph nodes. Miscellaneous: No inguinal hernias are seen. Bones: No aggressive osseous abnormality. Grade 1 anterolisthesis of L4 on L5. Moderate to severe degenerative disc disease at L4-L5 with ex vacuo phenomenon. Near complete disc height loss at L5-S1. Total left knee arthroplasty appears intact. IMPRESSION: 1. Possible pseudoaneurysm at the inferolateral margin of the left knee lateral compartment with hemarthrosis noted. 2. No evidence of active extravasation within the soft tissues of the left lower extremity or large hematoma. 3. Liver cirrhosis without ascites or concerning intrahepatic mass. Intrahepatic pneumobilia, suggestive of ampullary sphincter malfunction. MDM Narrative Medical decision making narrative: All lab work, vital signs, nurse triage note, medication list, previous ER visits and all imaging modality reviewed. Ultrasound showed left knee joint space intra-articular arterial or hemorrhage resulting in moderate to large hemo arthrosis. Extensive left thigh and left soft tissue swelling but no acute DVT. Case was discussed with who will take the patient directly to the OR at this time. Differential diagnosis includes septic knee joint, cellulitis abscess, DVT, hemearthosis. Discharge Plan Departure Patient Disposition: Admitted As Inpatient Clinical Impression: Hemarthrosis Admit Date/Time: 07/25/24 18:51 Admit Provider: Josey Quintanilla
[2024-07-25 16:32] LABS: INR 1.1 (0.9-1.3); PTT Partial Thromboplastin Tim 36 SECONDS (25.1-36.5); Prothrombin Time 12.6 SECONDS (9.4-12.5)
[2024-07-25] MEDS: LACTATED RINGERS 1,000 ML 1000 ML IV (16:40)
[2024-07-25] MEDS: HYDROMORPHONE 1 MG INJ IV ×4 (16:40→22:54)
[2024-07-25] MEDS: diphenhydrAMINE 50 MG/ML VIAL IV (17:00)
[2024-07-25] MEDS: methylPREDNISolone 125 MG/2 ML VIAL IV (17:00)
[2024-07-25] MEDS: FAMOTIDINE 20 MG/2 ML VIAL IV (17:00)
[2024-07-25 17:15] LABS: Alanine Aminotransferase 25 IU/L (<35); Albumin 4.1 g/dL (3.5-5.0); Albumin Globulin Ratio 1.3 (1.0-2.8); Alkaline Phosphatase 113 U/L (38-126); Aspartate Aminotransferase 52 IU/L (14-36); BUN Creatinine Ratio 9.1 (6-22); Blood Urea Nitrogen 5 mg/dL (7-17); Calcium 8.7 mg/dL (8.4-10.2); Carbon Dioxide 26 mmol/L (22-32); Chloride 95 mmol/L (98-107); Estimated Glomerular Filt Rate > 60 mL/min (>60); Globulin 3.1 g/dL (1.7-4.1); Glucose 117 mg/dL (70-99); HEMOLYSIS < 15 (0-50); Potassium 4.1 mmol/L (3.4-5.1); Sodium 129 mmol/L (137-145); Total Protein 7.2 g/dL (6.3-8.2)
[2024-07-25 17:29] LABS: Troponin I < 0.012 ng/mL (0.01-0.034)
[2024-07-25] MEDS: ACETAMINOPHEN 325 MG TABLET 975 MG PO (19:13)
[2024-07-25] MEDS: GABAPENTIN 300 MG CAPSULE PO (20:21)
--- NOTE | 2024-07-25 20:26 | P.OP_ITS ---
Operative Date/Time/Diagnoses Date of procedure: 07/25/24 Time of procedure: 20:26 Pre-op diagnosis: Left knee hemarthrosis, arterial bleed, history of left total knee replacement Post-op diagnosis: same Procedure & Clinicians Procedure: 1. Arthrotomy and evacuation and exploration and drainage of hematoma left knee CPT code 28921 modifier 78 Same procedure(s) as scheduled: Yes Indications: Patient is a 63-year-old female that underwent a uncomplicated left total knee arthroplasty on July 19, 2024 for avascular necrosis. She had sudden onset left leg swelling on 07/25/2024 in the morning that worsened throughout the day with bruising and swelling from the thigh to the ankle. She had an ultrasound that was negative for DVT but showed a small active extra have around the inferior lateral patella. CTA was also ordered to rule out more proximal bleed. No other bleeding was identified. There was subcutaneous swelling and hemarthrosis Patient was indicated for exploration evacuation of hemarthrosis and exploration of the knee for intracapsular arterial bleeding. The risks and benefits of the procedure have been discussed with the patient and given the opportunity to ask questions. The risks of surgery include but are not limited to infection, need for additional procedures, persistence of pain, damage to nerves and blood vessels, posttraumatic arthritis, DVT, PE, coardiopulmonary complications and . The patient expressed a thorough understanding of the risks and benefits of surgery and has elected to proceed. Consent was signed. Surgeon: Josey Quintanilla Anesthesia Type: General and Local Operative Notes Findings: Subcutaneous swelling from distal thigh to level of foot with ecchymosis and bruising. Large effusion knee. Anterior incision with a yvonne dressing scant drainage towards distal dressing no saturation of dressing. Thigh and lower extremity compartments are compressible. Palpable dorsalis pedis pulse. Closure Type: primary Specimen(s): none sent Applied: none Estimated Blood Loss (mL): 50 Blood products transfused: none Tourniquet time (min): 11 Procedure in detail: The patient was seen in the preoperative area the site of surgery was marked informed consent confirmed this was the left knee. Patient was brought back to the operating room by the anesthesia team and positioned supine on the table. A well-padded thigh tourniquet was applied. The left lower extremity was prepped and draped in the standard sterile fashion a formal time-out procedure was performed confirming the patient's side and site of surgery and administration of appropriate preoperative antibiotic. All were in agreement. Attention was turned to the right knee. The previous anterior incision was then tacked. There was moderate ecchymosis over the lateral and medial thigh and moderate s welling from the level of the thigh to the foot with ecchymosis. Thigh and lower extremity compartments were soft. There was no active drainage. No purulence. Esmarch was used for exsanguination the tourniquet was raised on the thigh to 250 mm of mercury. This stayed elevated for approximately 11 minutes and then was venous and let down for the remainder of the case. The previous anterior incision was reopened with a scalpel through the skin and subcutaneous tissue. The medial parapatellar approach was then opened in the old sutures removed. There was a small amount of hematoma encountered just below the skin incision superficial to the patella. Then the arthrotomy was reopened and the sutures removed. The implant was visualized. Hematoma was evacuated using the suction. And the joint was irrigated using 4 L pulsatile lavage. Tourniquet was released. Gloves were changed. Meticulous inspection of the capsule around the anterior joint were completed with special attention along the lateral joint line near the tibia where the suspected bleed was. Pressure was held. Inspection was completed. There was no significant bleeding. There was a little bit of oozing from the capsule in general and subcutaneous tissues. As well as little oozing right anterior at the tibia. Selected areas were cauterized with Bovie cautery. There was no obvious arterial bleeds. Pressure was held using lap pads for 3 minutes. Following this again the capsule was thoroughly inspected. No brisk bleeding was encountered. Only a very Small amount of oozing. Pressure was held for 2 more minutes and released inspected. No significant bleeding. Medium Hemovac drain was placed in the standard fashion exiting laterally. Knee was brought into flexion the capsule was closed with 1. Ethibond followed by the Quill stitch then 3-0 Vicryl subcutaneous followed by 3-0 Stratafix Monocryl and the skin Dermabond and then once this dried the incision was reinforced with jovany. 30 cc of 0.25% Marcaine with epinephrine was injected for local anesthetic. Dressing was placed with an Aquacel dressing. Then Ab wraps from the foot up towards the thigh. all compartments were soft at the end of the case. And the Hemovac drain was secured to the Ab wraps. The patient was awoken from anesthesia and taken to the recovery room in good condition there were no immediate complications from this procedure. Counts were correct. Complications: none Post-operative Condition: stable Disposition: PACU Plan for aftercare: The patient will be admitted to the inpatient floor for monitoring overnight. Drain will remain in place overnight and throughout the day tomorrow. We will check on output tomorrow evening. Depending on progress dispo evening versus Tuesday. Aspirin 81 mg b.i.d.. Two doses of cefazolin postoperatively. Follow up in Orthopedic Clinic in 2 weeks. Weightbear as tolerated with the assistive devices.
[2024-07-25] MEDS: CEFAZOLIN 2 GM/100 ML PREMIX 100 ML IV (20:41)
--- NOTE | 2024-07-25 21:09 | SUR.OPER ---
Supine on padded OR bed. Pillow under head, arms secured on padded armboards <90 degree abduction. Safety belt across torso. Non-operative leg secured with tape over blanket over lower leg. Operative leg secured in [place] lateral post left thigh
[2024-07-25] MEDS: BUPIVACAINE 0.25% W/ EPI 30 ML VIAL INJ (21:31)
[2024-07-25] MEDS: fentaNYL 100 MCG/2 ML INJ IV ×2 (22:36→22:44)
[2024-07-25] MEDS: hydrOXYzine 50 MG/ML INJ 25 MG IM (22:36)
[2024-07-25] MEDS: HYDROMORPHONE 2 MG TABLET PO (23:01)
[2024-07-25] MEDS: LACTATED RINGERS 1,000 ML 100 ML IV (23:26)
[2024-07-25] MEDS: SCOPOLAMINE 1 PATCH TOP (23:28)
[2024-07-26] VITALS (9 sets, daily range): BP systolic 121–150; BP diastolic 57–100; PULSE 61–80; RESP 16–22; TEMP 35.8–36.1; O2SAT 91–100
--- NOTE | 2024-07-26 00:11 | PC.NURSE ---
Pt. admitted from PACU, had I&D, for Lt. knee hematoma. Oriented to her room, reported had a fall at home. Bed alarm activated & encouraged to call for any assistance to the bathroom. Call light with in reached, will monitor & continue plan of care.
[2024-07-26] MEDS: HYDROMORPHONE 0.5 MG INJ IV ×2 (01:22→09:43)
[2024-07-26] MEDS: HYDROMORPHONE 2 MG TABLET 4 MG PO ×5 (02:22→20:26)
--- NOTE | 2024-07-26 04:12 | DI.RAD.S_ITS ---
PROCEDURE: XR CHEST 1V INDICATIONS: Right shoulder pain limited ROM TECHNIQUE: One view of the chest was acquired. COMPARISON: [facility], , XR CHEST 1V, 03/19/2023, 3:57. FINDINGS: Surgical changes and devices: Surgical clips in the thyroid bed Lungs and pleura: Lungs are clear. No pleural effusions or pneumothorax. Mediastinum: Mediastinal contours appear normal. Heart size is normal. Bones and chest wall: No suspicious bony lesions. Overlying soft tissues appear unremarkable. IMPRESSION: No acute cardiopulmonary abnormality is seen. Approved by: Huber Christensen M.D. on 07/26/2024 at 9:48
--- NOTE | 2024-07-26 04:26 | PC.NURSE ---
Dr. Alejo notified that patient is Complaining of her right shoulder limited ROM & painful. Also crying & anxious orders received for an X-ray & 0.5 mg of Ativan PO, Q6hrs. PRN. Also ordered hot or cold therapy to her right shoulder. Will implement orders & monitor.
[2024-07-26] MEDS: CEFAZOLIN 2 GM/100 ML PREMIX 100 ML IV ×2 (04:37→14:15)
[2024-07-26 04:50] LABS: Add Manual Diff / Slide Review NO; Basophils Absolute Auto 100 /uL (0-100); Basophils Percent Auto 0.7 % (0-2); Eosinophils Absolute Auto 0 /uL (0-450); Hematocrit 31.4 % (36-46); Hemoglobin 11.1 g/dL (12.0-16.0); Lymphocytes Absolute Auto 900 /uL (1100-4500); Lymphocytes Percent Auto 8.6 % (25-40); Mean Corpuscular HGB Conc 35.2 % (30-36); Mean Corpuscular Hemoglobin 34.6 PG (26-34); Mean Corpuscular Volume 98.3 fL (80-100); Monocytes Absolute Auto 400 /uL (0-900); Monocytes Percent Auto 3.7 % (3-14); Neutrophils Absolute Auto 9600 /uL (1500-7000); Platelet Count 316 X10^3/uL (150-400); White Blood Cell Count 11.1 X10^3/uL (4.5-11.0)
[2024-07-26 05:17] LABS: BUN Creatinine Ratio 12.2 (6-22); Blood Urea Nitrogen 6 mg/dL (7-17); Calcium 8.5 mg/dL (8.4-10.2); Carbon Dioxide 22 mmol/L (22-32); Chloride 98 mmol/L (98-107); Estimated Glomerular Filt Rate > 60 mL/min (>60); Glucose 170 mg/dL (70-99); HEMOLYSIS < 15 (0-50); Potassium 4.7 mmol/L (3.4-5.1); Sodium 130 mmol/L (137-145)
[2024-07-26] MEDS: LEVOTHYROXINE 112 MCG TABLET PO (06:06)
--- NOTE | 2024-07-26 08:03 | PM.PNPO.1 ---
Subjective Subjective Interval history: She noted some right shoulder pain overnight. She has a history of prior arthroscopic surgery on her shoulder. She has been using it more to mobilize. She also was having some pain control issues in her left knee. She also had anxiety. Exam Vital Signs (past 8 hours): - 07/26/24 01:00 07/26/24 01:25 07/26/24 02:54 Pulse Rate 77 80 80 Respiratory Rate 16 16 16 Blood Pressure 121/62 130/58 L 122/87 Pulse Oximetry 95 Oxygen Delivery Method Room Air Oxygen Flow Rate 0 Narrative Exam Narrative: Right shoulder has minimal pain with range of motion she has healed arthroscopy arthroscopy portals active forward flexion is about 90 external rotation is 20, there is no specific crepitation with range of motion her left leg her dressings intact she has minimal drainage and mild swelling in the foot she is neurologically intact distally Objective Labs 07/26/24 04:39 07/26/24 04:39 Labs: Laboratory Results - last 24 hr 07/25/24 07/25/24 07/26/24 14:53 16:07 04:39 WBC 9.7 11.1 H RBC 3.42 L 3.20 L Hgb 11.8 L 11.1 L Hct 33.9 L 31.4 L MCV 99.1 98.3 MCH 34.6 H 34.6 H MCHC 34.9 35.2 RDW 14.2 14.0 Plt Count 317 316 Neut % (Auto) 61.5 87.0 H D Lymph % (Auto) 20.5 L 8.6 L Teller % (Auto) 10.4 3.7 Eos % (Auto) 7.0 H 0.0 L Baso % (Auto) 0.6 0.7 Neut # (Auto) 6000 9600 H Lymph # (Auto) 2000 900 L Teller # (Auto) 1000 H 400 Eos # (Auto) 700 H 0 Baso # (Auto) 100 100 PT 12.6 H INR 1.1 APTT 36 Sodium 129 L 130 L Potassium 4.1 4.7 Chloride 95 L 98 Carbon Dioxide 26 22 BUN 5 L 6 L Creatinine 0.55 0.49 L Estimated GFR > 60 > 60 BUN/Creatinine Ratio 9.1 12.2 Glucose 117 H 170 H Calcium 8.7 8.5 Total Bilirubin 1.0 AST 52 H ALT 25 Alkaline Phosphatase 113 Troponin I < 0.012 Total Protein 7.2 Albumin 4.1 Globulin 3.1 Albumin/Globulin Ratio 1.3 PFSH Medical History History of COVID-19 (2022) Thyroid cancer (~2003) Osteoarthritis Panic disorder PTSD (post-traumatic stress disorder) VASILIY (generalized anxiety disorder) MDD (major depressive disorder) Alcoholic cirrhosis of liver Alcohol use disorder in remission HLD (hyperlipidemia) HTN (hypertension) Hypothyroidism Surgical History Hx of right knee surgery History of surgery Hx of thyroidectomy History of bladder suspension procedure Status post rotator cuff repair (12/30/15) Status post cholecystectomy Status post vaginal hysterectomy Social History household members: spouse and family Smoking Status: Never smoker alcohol intake: former Assessment & Plan Post-op Postoperative Procedures: Procedures Operation Date: 07/25/24 19:00 Actual Procedure Side Surgeon p Incision and Drainage, evacuation of hematoma left knee Left Josey Quintanilla MD Postoperative day: 1 Postoperative status: doing well Postoperative status narrative: Doing well postoperatively. We are going to leave her drain in until the afternoon and probably allow her to be discharged to home tomorrow. Quality VTE Deep Vein Thrombosis/Pulmonary Embolism Present on Admission: No
[2024-07-26] MEDS: ASPIRIN EC 81 MG TABLET PO ×2 (08:23→20:25)
[2024-07-26] MEDS: DOCUSATE 100 MG CAPSULE PO ×2 (08:23→20:26)
[2024-07-26] MEDS: LORATADINE 10 MG TABLET PO (08:24)
[2024-07-26] MEDS: hydrOXYzine HCL 25 MG TABLET PO (08:25)
[2024-07-26] MEDS: LORazepam 0.5 MG TABLET PO (08:26)
[2024-07-26] MEDS: ACETAMINOPHEN 325 MG TABLET 650 MG PO ×2 (08:34→20:25)
[2024-07-26] MEDS: SODIUM CHLORIDE 0.9% FLUSH 10 ML IV ×2 (10:00→21:10)
--- NOTE | 2024-07-26 11:30 | CM.DANOTE ---
Initial DCP Assessment Visit Note Reviewed EMR and team rounds for pt's medical status and updates. Met with pt at bedside to introduce self and role, pt was found to be alert/oriented, able to share her home situation and family that will provide care for her when she returns home. Pt lives modified independently with her spouse in their own home here in [place]. Her spouse will transport her home once she's medically cleared for d/c. No CM d/c assistance needs are identified at this time. Payor: Medicare Attending: Dr. Quintanilla Pt is a 63 year-old F post-op day 1 from surgery to drain her postsurgical TKA hemorrhage and resulting hematoma. She initally had a L-knee arthroplasty done on July 19, and presented to the ED last evening with concerns that it was becoming more painful, red, swollen, and now she is increasingly SOB w/body aches. ED imaging did show an arterial hemorrhage with a large hematoma. Dr. Quintanilla consulted and took her straight to surgery. Today, she is doing well, and plan is to keep the drain in until tomorrow, after removal she will discharge back home with OP Ortho f/u. Discharge Planning/Care Management CM Discharge Assessment Start: 07/25/24 19:04 Freq: Status: Active Protocol: Document 07/26/24 11:28 DPL (Rec: 07/26/24 11:30 DPL [id number]) Discharge Planning Assessment Assigned Discharge LI [employer] Advance Directives? No History Provided By Patient,Medical Record Has Patient been No admitted in last 30 days? Prior Living House Arrangements Household Members spouse,family Type of Drives own vehicle transporation used prior to admit Independent with ADL No: modified independent with a walker 's Is patient alert and Yes oriented? Comment N/A Caregiver for No Another DME Already Rented / Elevated Toilet Seat,FWW / Walker,Cane Owned Patient/Family OP PT Therapy Preference Barriers to No Discharge Discharge Plan Home Transportation Family likely able to provide transport home for Arrangement patient at d/c. Referrals Initiated None needed Whiteboard Updated Yes in Patient Room with name and ext. # of Bleach Chlorinator Review Status In Process Please Provide Date 07/26/24 Initial DC Assessment Was Performed
--- NOTE | 2024-07-26 12:09 | PT.IIE ---
Current Diagnoses Hemarthrosis, left knee (07/25/24) Hemorrhage, not elsewhere classified (07/25/24) Presence of left artificial knee joint (07/25/24) Surgery Performed Operation Date: 07/25/24 19:00 Actual Procedures p Incision and Drainage, evacuation of hematoma left knee(Left) - Josey Quintanilla MD Surgical History (Last Reviewed 07/25/24 @ 16:17 by Josey Quintanilla MD) History of bladder suspension procedure History of surgery Hx of right knee surgery Hx of thyroidectomy Status post cholecystectomy Status post rotator cuff repair (12/30/15) Status post vaginal hysterectomy Medical History (Last Reviewed 07/25/24 @ 16:17 by Josey Quintanilla MD) Alcohol use disorder in remission Alcoholic cirrhosis of liver VASILIY (generalized anxiety disorder) History of COVID-19 (2022) HLD (hyperlipidemia) HTN (hypertension) Hypothyroidism MDD (major depressive disorder) Osteoarthritis Panic disorder PTSD (post-traumatic stress disorder) Thyroid cancer (~2003) Physical Therapy Inpatient Evaluation/Re-Eval M1 PT/OT-IP Prior Functional Status Start: 07/26/24 14:13 Freq: NEEDED Status: Active Protocol: Document 07/26/24 13:10 CCC (Rec: 07/26/24 14:48 CCC Desktop) Medical Review Prior Functional Status Communication I Mobility and Gait Not very clear if pt was still using a FWW or weaned herself off from using a device after recent sx. Activities of Daily Pt states prior to sx was completely independent with Living and IADL's all needs. Pt states uses a strap to assist to more her leg into and out of the bed. Social History Household Members spouse,family Living Arrangements House Number of Stairs To no steps Enter/Railing? Home Environment High Toilet,Tub/Shower,Built-In Shower Seat Home Equipment Front Wheel Walker,Bedside Commode,Grab Bars In Shower M2 PT-IP Current Condition Start: 07/26/24 16:58 Freq: NEEDED Status: Active Protocol: Document 07/26/24 12:09 DLM (Rec: 07/26/24 17:28 DLM Desktop) Physical Therapy Current Condition Current Condition Evaluation Date 07/26/24 Treatment Diagnosis left TKA hemorrhage Onset Date 07/25/24 M3 PT-IP Subjective Start: 07/26/24 16:58 Freq: NEEDED Status: Active Protocol: Document 07/26/24 12:09 DLM (Rec: 07/26/24 17:28 DLM Desktop) Subjective Physical Therapy Visit Type Type Initial Evaluation Visit Start Time 11:30 Visit Stop Time 12:09 Notes 39 min Number of MACADAM RAKER Visits 0 Physical Therapy Visit Comments Patient Comments She feels like her right toes are swelling up. She reports the purplish bruising in left LE is changing. She had out-pt PT scheduled to start today; called to cancel. Patient Goals Discharge home Therapy Pain Assessment Pain When Pain Assessed During Mobility Pain Present Pain Present Pain Reported Location LLE Intensity 7 Scale Used Numeric (0 - 10) Description Aching,Tender,With Movement Pain Behaviors Facial Grimacing,Guarding Pain Management Apply Cold,Re-positioning Techniques M4 PT-IP Mobility and Gait Start: 07/26/24 16:58 Freq: NEEDED Status: Active Protocol: Document 07/26/24 12:09 DLM (Rec: 07/26/24 17:28 DLM Desktop) PT-Bed Mobility Assessment Supine to Sit Supine to Sit Independent Sit to Supine Sit to Supine Independent Scooting Scooting to Edge of Independent Bed PT-Transfer Assessment Sit to and From Stand Sit to and from Standby Assistance,Use of Upper Extremities Stand Equipment Transfer Assistive Gait Belt,Front Wheeled Walker Device Transfers Transfer Destination Chair Transfer Technique Stand Step Pivot Transfer Ability Level of Assist Standby Assistance,Use of Upper Extremities Comments Mobility Comments She needs safety reminders during mobility. She likes to use gait belt as a strap to assist left LE. Pt left up in recliner after activity with feet elevated and ice in place. Hemovac in place. Pt educated to use caution to avoid pulling out her drain/hemovac. Gait Assessment Gait Gait Assistance Standby Assistance Required: Distance (Feet) 125 Assistive Devices Assistive Device Gait Belt,Front Wheeled Walker Gait Deviations General Gait Pattern Antalgic Factors Limiting Gait Function Factors Limiting Decreased Activity Tolerance,Decreased Strength,Limited Gait Function Range of Motion,Pain Stair Climbing Assessment Comments Stair Climbing no stairs at home Comments PT-Balance Assessment Sitting Balance and Reactions Static Sitting Normal Balance Ability Dynamic Sitting Normal Balance Ability Standing Balance and Reactions Static Standing Good Balance Ability Dynamic Standing Good Balance Ability Device Used FWW M5 PT-IP Objective Assessments Start: 07/26/24 16:58 Freq: NEEDED Status: Active Protocol: Document 07/26/24 12:09 DLM (Rec: 07/26/24 17:28 DLM Desktop) Orientation Orientation/Cognition Level of Alertness Alert Orientation Name,Age,Birthday,Month,Date,Year,Day of Week,Place, Situation Language Function No Deficits Noted Ability Safety Awareness Decreased Safety Awareness Memory Description No Deficits Noted Comments she needs repetition of safety issues post-op Gross Range of Motion Upper Extremity ROM Assessment Within Functional Limits Lower Extremity ROM Assessment Left Impaired Impairments pain and swelling in left knee limits motion Strength Upper Extremity Strength Assessment Within Functional Limits Lower Extremity Strength Assessment Left Impaired Hip needs assist to move left LE in bed Knee pain limits functional strength, ext 2+/5 Ankle DF 5/5 Coordination Assessment Gross Coordination Gross Coordination WNL Sensation Assessment Comments Sensation Comments no changes reported by pt Muscle Tone Muscle Tone WNL Yes M6 PT-IP Treatment Start: 07/26/24 16:58 Freq: NEEDED Status: Active Protocol: Document 07/26/24 12:09 DLM (Rec: 07/26/24 17:28 DLM Desktop) Physical Therapy Treatment Exercises Exercises Ankle Pumps,Quad Sets Education Education Provided Safety Other Treatments Other Treatment she reports she has been doing heel slides on her own Performed in bed with UE assist or belt M7 PT-IP Assessment and Plan Start: 07/26/24 16:58 Freq: NEEDED Status: Active Protocol: Document 07/26/24 12:09 DLM (Rec: 07/26/24 17:28 DLM Desktop) PT Summary Assessment and Plan Potential Rehabilitation Good Potential Status of Condition Evolving at Evaluation Summary Impairments Pain,ROM,Strength,Transfers,Gait,Activity Tolerance Assessment Summary Keerthi is alert and has been up moving in her room. She was admitted with hemorrhage in left knee s/p TKA 07/19. She underwent I&D 07/25/24. She reports increased knee pain today with activity. She needs reminders for safety during mobility including use of UE's and staying with the FWW. She is able to ambulate in the aguilar this visit. Educated pt to progress exercises slowly to manage her bleeding at this time. She appears safe to discharge home when she is medically cleared by her surgeon. Pt has out-pt PT set up. Will follow up for one to two more visits to reinforce safety and help with gradual exercise progression post-op. Goals Bed Mobility Goal Independent Transfer Goal Independent Gait Goal Independent,Front Wheel Walker Gait Distance 200 feet Days to Meet Goals 2 Frequency of Treatment Frequency Of Once a Day Treatment Treatment Plan Physical Therapy Transfer Training,Gait Training,Therapeutic Exercise, Treatment Plan Post Op Education,Discharge Planning,Hot or Cold Pack Other reinforce safety and gradual progression of exercises Recommendations and to manage bleeding and swelling due to post-op Next Treatment Focus complications Weight Bearing Status Weight Bearing Weight Bear as Tolerated Status Allowed Weight left LE s/p TKA and I&D Bearing Amount ( enter % or #) (%) Recommendations To Nursing Amount of Assist Standby Assistance Needed Discharge Recommendations PT Discharge Home with Assistance,Outpatient PT Recommendations Other Discharge resume out-pt PT when cleared by surgeon Recommendations Transportation Needs Private Vehicle at Discharge - PT assist 1
[2024-07-26] MEDS: BUDESONIDE 0.5 MG/2 ML NEB INH ×2 (13:02→20:54)
[2024-07-26] MEDS: ALBUTEROL 2.5 MG/3 ML NEB (ADULT) INH ×3 (13:02→20:54)
--- NOTE | 2024-07-26 13:50 | OT.IP.EVAL ---
Current Diagnoses Hemarthrosis, left knee (07/25/24) Hemorrhage, not elsewhere classified (07/25/24) Presence of left artificial knee joint (07/25/24) Surgery Performed Operation Date: 07/25/24 19:00 Actual Procedures p Incision and Drainage, evacuation of hematoma left knee(Left) - Josey Quintanilla MD Past Medical History (Last Reviewed 07/25/24 @ 16:17 by Josey Quintanilla MD) Alcohol use disorder in remission Alcoholic cirrhosis of liver VASILIY (generalized anxiety disorder) History of COVID-19 (2022) HLD (hyperlipidemia) HTN (hypertension) Hypothyroidism MDD (major depressive disorder) Osteoarthritis Panic disorder PTSD (post-traumatic stress disorder) Thyroid cancer (~2003) Surgical History (Last Reviewed 07/25/24 @ 16:17 by Josey Quintanilla MD) History of bladder suspension procedure History of surgery Hx of right knee surgery Hx of thyroidectomy Status post cholecystectomy Status post rotator cuff repair (12/30/15) Status post vaginal hysterectomy Occupational Therapy Inpatient Evaluation/Re-Eval M1 PT/OT-IP Prior Functional Status Start: 07/26/24 14:13 Freq: NEEDED Status: Active Protocol: Document 07/26/24 13:10 [facility] (Rec: 07/26/24 14:48 [facility] Desktop) Medical Review Prior Functional Status Communication I Mobility and Gait Not very clear if pt was still using a FWW or weaned herself off from using a device after recent sx. Activities of Daily Pt states prior to sx was completely independent with Living and IADL's all needs. Pt states uses a strap to assist to more her leg into and out of the bed. Social History Household Members spouse,family Living Arrangements House Number of Stairs To no steps Enter/Railing? Home Environment High Toilet,Tub/Shower,Built-In Shower Seat Home Equipment Front Wheel Walker,Bedside Commode,Grab Bars In Shower M2 OT-IP Current Condition Start: 07/26/24 14:13 Freq: Status: Active Protocol: Document 07/26/24 13:10 [facility] (Rec: 07/26/24 14:48 [facility] Desktop) Occupational Therapy Current Condition Current Condition Evaluation Date 07/26/24 Treatment Diagnosis I and D of hematoma Left knee Diagnosis Onset Date 07/25/24 M3 OT- IP Subjective and Pain Start: 07/26/24 14:13 Freq: Status: Active Protocol: Document 07/26/24 13:10 [facility] (Rec: 07/26/24 14:48 [facility] Desktop) OT- Subjective Occupational Therapy Visit Type Type Initial Evaluation Visit Start Time 13:10 Visit Stop Time 13:50 Occupational Therapy Visit Comments Patient Comments Pt getting out of the bathroom when OT came in to see the pt. Patient/Caregiver TO go home. Goals OT Pain Assessment Pain When Pain Assessed At Rest Pain Present Pain Present Pain Reported Location LLE Intensity 6 M4 OT- IP ADL's Start: 07/26/24 14:13 Freq: Status: Active Protocol: Document 07/26/24 13:10 [facility] (Rec: 07/26/24 14:48 [facility] Desktop) OT OYL-Cosm-Sjxtiiy Comments OT Self-Feeding Not at meal time. Comments OT ADL-Grooming Comments OT Grooming Comments Not observed. OT ADL-Oral Care Comments Oral Care Comments Not observed. OT ADL-Dressing General Eval Lower Body Dressing Maximum Assistance Ability Comments OT Dressing Comments Able to practice and show pt use of LB dressing equipment for sock management. Also emphasized best to be mindful not to twist her knee, especially crossing her LLE over for clothing needs. Best to dress her LLE first and take out last. OT ADL-Toileting Comments OT Toileting Pt just walking out form the bathroom when OT arrived. Comments OT ADL-Bathing Comments OT Bathing Comments Not performed, spoke of sponging off and or cover the dressing and drain from getting wet, to have nursing advise. M5 OT- IP IADL's Start: 07/26/24 14:13 Freq: Status: Active Protocol: Document 07/26/24 13:10 [facility] (Rec: 07/26/24 14:48 [facility] Desktop) OT-Instrumental Activities of Daily Living Home Safety Awareness Home Safety Comments Pt a little insistent on her needs and vc to slow down, take smaller steps, and have the FWW in front of her at all times. Medication Management Medication Best to have at least supervision. Management Comments Meal Preparation Meal Preparation Caregiver Provides Assist Human Resources Supervisor Human Resources Supervisor Caregiver Provides Assist M6 OT- IP Functional Cognition Start: 07/26/24 14:13 Freq: Status: Active Protocol: Document 07/26/24 13:10 [facility] (Rec: 07/26/24 14:48 [facility] Desktop) Cognitive Factors Limiting Selfcare Function Cognitive Ability Level of Alertness Alert Patient Orientation Name,Place,Situation Attention Span Capable of Focused Attention,Capable of Sustained Ability Attention Ability to Follow Able to Follow One Step Commands Commands Safety Awareness Underestimates Need for Assistance Cognitive Comments Cognitive Assessment Pt a bit impulsive and insistent on doing things her Comments way. Pt using the gait belt strap in her LLE when walking out of the bathroom. Educated to pt that use of the strap on her left leg when walking is a high fall risk. Pt needing cues not to twist over her LLE and keep the FWW in front of her at all times. M7 OT- IP Mobility and Balance Start: 07/26/24 14:13 Freq: Status: Active Protocol: Document 07/26/24 13:10 [facility] (Rec: 07/26/24 14:48 [facility] Desktop) OT- Bed Mobility Assessment Sit to Supine Sit to Supine Assist Standby Assistance OT-Transfer Assessment Transfers Transfer Ability Standby Assistance Technique Transfer Destination Bed,Toilet Comments Mobility Comments SBA with the FWW and mainly needing safety for FWW safety and to slow down as pt is impulsive. Pt's drain was out after getting back to bed, and nursing notified . OT- Balance Assessment Sitting Balance and Reactions Static Sitting Normal Balance Ability Dynamic Sitting Good Balance Ability Standing Balance and Reactions Static Standing Good Balance Ability Dynamic Standing Fair Balance Ability M8 OT- IP Objective Assessments Start: 07/26/24 14:13 Freq: Status: Active Protocol: Document 07/26/24 13:10 [facility] (Rec: 07/26/24 14:48 [facility] Desktop) OT Gross Range of Motion Upper Extremity Range of Motion Assessment Within Functional Limits ROM Impairments WFL for needs. OT Strength Upper Extremity Strength Assessment Within Functional Limits Comments Strength Comments WFL for needs. OT- Coordination Assessment Upper Extremity Finger to Nose Test Within Functional Limits M9 OT- IP Assessment and Plan Start: 07/26/24 14:13 Freq: Status: Active Protocol: Document 07/26/24 13:10 [facility] (Rec: 07/26/24 14:48 [facility] Desktop) OT Summary Assessment and Plan Potential Rehabilitation Good Potential Analytic Complexity Moderate at Evaluation Summary OT Impairments Pain,Range of Motion,Strength,Balance,Functional Mobility,Grooming,Dressing,Toileting,Bathing,Toilet Transfers,Shower Transfers,Activity Tolerance Progress Towards Slow Progress due to Pain,Slow Progress due to Medical Goals Issues,Slow Progress due to Cognition Assessment Summary Pt MOD complexity and main barriers are pain, decreased safety awareness and impulsive. Pt able to use the toilet and practice LB dressing needs. Having to educate pt to slow down, keep the FWW in front of her at all times and be sure not to twist her LLE during ADL and mobility needs. Able to write down ADL equipment needs for pt to get to help with her safety and independence. Pt looking to go home with 24/7 available assist. TO resume outpt PT when cleared by surgeon. Goals Self-Feeding Goal Independent Grooming Goal Independent Dressing Goal Independent Toileting Goal Independent Bathing Goal Minimal Assistance Toilet Transfer Goal Independent Shower Transfer Goal Standby Assistance Days to Meet Goals 40 Frequency of Treatment Other frequency 5x/week Treatment Plan OT Treatment Plan ADL Training,Functional Cognition Training,Functional Mobility,Patient/Family Education,Discharge Planning Discharge Recommendations OT Discharge Home with 24/7 Assist Available Recommendations Other Discharge TO resume outpt PT when cleared by surgeon. Recommendations Home Equipment Needs LB dressing equipment, HHSP , non slip mat Transportation Needs Private Vehicle at Discharge
--- NOTE | 2024-07-26 18:11 | PC.NURSE ---
While ambulating with OT today claudia's hemovac was accidentally removed. MD Alejo notified. Bandage applied to incision site.No new orders at this time.
--- NOTE | 2024-07-26 18:16 | PM.DS.1 ---
History of Present Illness History of Present Illness Date Patient Seen: 07/26/24 Time Patient Seen: 06:54 Date of Onset of Symptoms: 07/25/24 Chief complaint: abnormal Ultrasound findings Narrative: Keerthi is a 63-year-old female with a history of asthma. Also has a history of cirrhosis and known benign lesion on her kidney. 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 She had a dressing change on Tuesday in clinic with standard postoperative appearance. Then noticed this morning increased pain and swelling from thigh to knee towards ankle and increased pain. Denies a fall. Was sent for lower extremity ultrasound found to have some active extravasation around the patella and hemarthrosis. Due to significant swelling no signs of DVT and signs of active small bleed around the knee joint but also increase thigh swelling was sent for CTA to rule out more proximal bleed. The patient's results were discussed with the orthopedic surgeon from the IR attending reading of the ultrasound. Patient was sent to ER for labs and CTA. Discussed based on result would plan for open arthrotomy and hematoma evacuation versus potential IR procedure if more proximal vascular issues are found. Patient was seen in the ER is able to stand on her own demonstrates increased left lower extremity swelling compared to my examined of the patient 2 days ago involves the distal thigh and knee down into the calf. Is able to demonstrate active dorsiflexion and plantar flexion. Large effusion. Ramos dressing in place. No drainage on dressing. No fevers or chills. Last had a just few sips of soda no recent solid food. Until today pain has been better using hydromorphone compared to oxycodone. Endorses increased pain swelling and bruising today. No falls. No chest pain. States had a good day on Tuesday after her dressing change and switched pain medication to hydromorphone. States may have been a little bit motivated in the more active than in the previous stays. But no falls or events. Then noticed the increased in pain and swelling starting this morning, Tuesday and increasing throughout the day. Discharge Providers Provider Date of admission: 07/25/24 18:51 Discharge Date: 07/27/24 Primary care physician: Amanda Lara MD Consults: 07/25/24 22:09 Consult to Discharge Planning Routine Comment: Consult to Physical Therapy Evaluate & Treat Comment: Physician Instructions: postop TKA protocol 07/25/24 22:10 Consult to Occupational Therapy Evaluate & Treat Comment: Physician Instructions: Evaluate and treat Discharge provider: Josey Quintanilla MD Summary Hospital Course Discharge Diagnosis: Knee hemarthrosis, hematoma Hospital Course: The patient was in radiology for her ultrasound and findings were concerning for active bleeding therefore she was referred to the emergency room for further workup. Patient was seen in the ER. She went to her CTA. And was indicated for surgery for hematoma evacuation and exploration of her knee. She was brought to the operating room. Hematoma evacuation knee exploration was completed. Then she was admitted to the floor. On the floor she was managed with IV and oral medications for pain control. On postoperative day 1 she worked with Physical therapy and Occupational therapy while having a drain in place for hematoma management. She did well throughout the day and her pain was controlled. Drain pulled out in the evening of postop day 1 and patient was appropriate for discharge home on postop day 2 Status at Discharge Cognitive/behavioral status at discharge: at baseline, oriented Functional status at discharge: uses cane/walker Overall status at discharge: patient is progressing back to baseline Time Spent with Patient Time spent: Less than 30 minutes Exam Vital Signs (past 8 hours): - 07/26/24 13:03 07/26/24 15:07 Pulse Rate 73 71 Respiratory Rate 16 18 Pulse Oximetry 100 100 Oxygen Delivery Method Room Air Room Air Oxygen Delivery Method Room Air Oxygen Flow Rate 0 Narrative Exam Narrative: Alert and oriented no acute distress Heart regular rate Lungs clear to auscultation Shoulder pain and decreased range of motion, known rotator cuff tears Left knee Aquacel dressing in place. Scant drainage. Swelling thigh to foot with bruising. Compartments soft. Dorsiflexion plantar flexion intact. Palpable dorsalis pedis pulse. Objective Labs 07/26/24 04:39 07/26/24 04:39 Labs: Laboratory Results - last 24 hr 07/26/24 04:39 WBC 11.1 H RBC 3.20 L Hgb 11.1 L Hct 31.4 L MCV 98.3 MCH 34.6 H MCHC 35.2 RDW 14.0 Plt Count 316 Neut % (Auto) 87.0 H D Lymph % (Auto) 8.[address] [place] % (Auto) 3.7 Eos % (Auto) 0.0 L Baso % (Auto) 0.7 Neut # (Auto) 9600 H Lymph # (Auto) [address] [place] # (Auto) 400 Eos # (Auto) 0 Baso # (Auto) 100 Sodium 130 L Potassium 4.7 Chloride 98 Carbon Dioxide 22 BUN 6 L Creatinine 0.49 L Estimated GFR > 60 BUN/Creatinine Ratio 12.2 Glucose 170 H Calcium 8.5 PFSH Medical History History of COVID-19 (2022) Thyroid cancer (~2003) Osteoarthritis Panic disorder PTSD (post-traumatic stress disorder) VASILIY (generalized anxiety disorder) MDD (major depressive disorder) Alcoholic cirrhosis of liver Alcohol use disorder in remission HLD (hyperlipidemia) HTN (hypertension) Hypothyroidism Surgical History Hx of right knee surgery History of surgery Hx of thyroidectomy History of bladder suspension procedure Status post rotator cuff repair (12/30/15) Status post cholecystectomy Status post vaginal hysterectomy Social History household members: spouse and family Smoking Status: Never smoker alcohol intake: former Discharge Assessment & Plan Assessment and Plan Assessment: Postop knee hematoma, hemarthrosis evacuation and drainage. Plan of Treatment: Doing well weightbear as tolerated. May shower with Aquacel dressing. Change if needed. Follow up in orthopedic clinic next week for wound check. Sutures and jovany will stay in place 2 weeks. Will work on knee range of motion. Elevation and icing. Pain control. Aspirin for DVT prophylaxis. 81 mg b.i.d.. Discharge Plan Discharge Plan Patient Disposition: Home Discharge orders & Medications Prescriptions: New hydromorphone 2 mg tablet 2 mg PO Q4H PRN (Reason: pain) Qty: 40 0RF Rx Instructions: Postop exempt hydroxyzine pamoate 25 mg capsule 25 mg PO QID PRN (Reason: nausea and vomiting) Qty: 30 0RF morphine 15 mg tablet extended release 15 mg PO Q12H Qty: 10 0RF Rx Instructions: Postop exempt cefadroxil 500 mg capsule 500 mg PO BID Qty: 14 0RF Continued albuterol sulfate 90 mcg/actuation HFA aerosol inhaler 1 - 2 puff Inhalation Q4-6H PRN (Reason: Shortness Of Breath) Patient Comments: INHALE 1-2 PUFFS INHALE EVERY 4-6 HOURS cetirizine 10 mg Tablet 10 mg PO DAILY atorvastatin 10 mg Tablet 10 mg PO DAILY levothyroxine 112 mcg Tablet 112 mcg PO DAILY budesonide-formoterol 160-4.5 mcg/actuation Hfa Aerosol Inhaler 2 inh INHALATION BID estradiol 1 MG tablet 0.5 mg PO SEEINSTR Rx Instructions: Holds Tues & Thurs ondansetron HCl 4 mg tablet 4 mg PO Q8H PRN (Reason: nausea and vomiting) Qty: 30 0RF lorazepam 1 mg Capsule,Extended Release 24hr 0.5 - 1 mg PO BID PRN (Reason: Anxiety) Discontinued oxycodone-acetaminophen 5-325 mg tablet 1 tab PO Q4H PRN (Reason: pain) Follow up/Referrals: Amanda Lara MD [Primary Care Provider, [facility]] Diet/Activity/Treatments Diet: Diet as Tolerated Other treatments: Dressing/Wound care: -Remove the Ab wrap 48 hours after surgery. -Keep Aquacell dressing in place until postoperative follow-up office visit. -you may see some drainage on the bandage, this is ok. If it is leaking or saturated, then the dressing can be changed to clean gauze or a clean surgical dressing from a pharmacy or reinforced with additional gauze and paper tape or dressings over the top. Otherwise, just keep dressing in place until follow up. -Okay to shower. Keep wound out of direct water stream. No soaking or submerging until all the scabs fall off (approximately 6 weeks). -Please call the office if dressing becomes significantly wet, soiled, or saturated. Activities: -Weight-bearing as tolerated. Use front wheeled walker, and progress to cane when safe. -Continue with home exercises as directed by your physical therapist. -Elevate ?toes above the nose if you have significant swelling in your lower leg. (A wedge pillow is easiest.) -Ice your incision as needed for pain/inflammation/swelling. Protect your skin with a folded pillowcase. Follow-up: -Follow-up with your surgeon or PA in the office in 10-14 days after surgery. -Follow-up with your surgeon 6 weeks postoperatively. Call the office if you have chest pain, shortness of breath, significant swelling that will not resolve with elevating, fever over 101?, significantly worsening pain. [facility]: [phone] You have been discharged with medications. These have already been sent to your pharmacy. Pain include pain medications: Hydromorphone take 2-4 mg orally every 4 hours as needed for pain. Take the smallest dose necessary. Morphine extended release 15 mg tablet. Take 1 every 12 hours for 5 days as a long-acting pain medication. Narcotic medication can make you feel constipated. You can get jqvk-hyv-iehgbwd stool softener such as docusate sodium-Colace at a pharmacy to help with this. You also have prescriptions for cefadroxil 500 mg. This is an antibiotic for infection prophylaxis. Take this twice a day for 7 days. And acetaminophen (Tylenol) take 500-1000 mg 3 times a day for pain control. You also have a prescription for hydroxyzine pamoate this is a anti nausea medication and antispasm medication that can be taken up to every 8 hours as needed for nausea Additionally will take a baby aspirin 81 mg twice a day (morning and night) to help prevent blood clots Skin/Wound/Dressing Care Report to your healthcare provider any signs of infection, such as:: chills, fever, night sweats, increased pain, unusual drainage and unusual redness Visit Report/Discharge Packet Instructions: DI for Prescription Opioid Use, DI for Incision and Drainage of a Joint, DI for Incision and Drainage Stand Alone Forms: Patient Portal/API, Stroke Signs & Symptoms Discharge Data Primary Care Provider: Amanda Lara VTE Deep Vein Thrombosis/Pulmonary Embolism Present on Admission: No
[2024-07-26] MEDS: MORPHINE ER 15 MG TABLET PO (21:09)
[2024-07-26] MEDS: ATORVASTATIN 20 MG TABLET 10 MG PO (21:09)
[2024-07-27] MEDS: HYDROMORPHONE 0.5 MG INJ IV ×2 (00:21→05:06)
[2024-07-27] MEDS: HYDROMORPHONE 2 MG TABLET 4 MG PO ×2 (02:02→07:32)
[2024-07-27] MEDS: hydrOXYzine HCL 25 MG TABLET PO (02:33)
[2024-07-27] MEDS: LORazepam 0.5 MG TABLET PO (05:06)
[2024-07-27] MEDS: DOCUSATE 100 MG CAPSULE PO (08:22)
[2024-07-27] MEDS: ASPIRIN EC 81 MG TABLET PO (08:22)
[2024-07-27] MEDS: LORATADINE 10 MG TABLET PO (08:22)
[2024-07-27] MEDS: MORPHINE ER 15 MG TABLET PO (08:22)
[2024-07-27] MEDS: ALBUTEROL 2.5 MG/3 ML NEB (ADULT) INH (08:23)
[2024-07-27] MEDS: BUDESONIDE 0.5 MG/2 ML NEB INH (08:23)
[2024-07-27 08:30] VITALS: BP 123/53; PULSE 70; PULSE 72; RESP 16; RESP 20; TEMP 36.1; O2SAT 98
[2024-07-27] MEDS: LEVOTHYROXINE 112 MCG TABLET PO (08:32)
--- NOTE | 2024-07-27 09:03 | CM.DPNOTE ---
DCP Continued: Reviewed EMR and team rounds for pt?s medical status. Per Ortho surgeon, pt cleared for discharge and will have close Ortho follow up. No new discharge needs identified at this time. Plan: Discharge orders are in, anticipating discharge home with family to transport on 07/27 or when medically cleared. CM Team will continue to follow for coordination of discharge plans. TAURUS Ku
== END 2024-07-27 11:00 | disposition home or self-care (01) | DRG 908 ==
LOC: ED 16:21 → AC 18:52
PROVIDERS: Admitting Provider Orthopaedic Surgery Foot and Ankle Surgery; Emergency Provider Family Medicine; PCP Family Medicine; Referring Provider Family Medicine; Visit Provider Orthopaedic Surgery Foot and Ankle Surgery
PROC: 0S9D0ZZ Drainage of Left Knee Joint, Open Approach (ICD-10-PCS; principal; 2024-07-25 19:00)
DX: M96.840 Postprocedural hematoma of a musculoskeletal structure following a musculoskeletal system procedure (principal); M25.062 Hemarthrosis, left knee; Z87.891 Personal history of nicotine dependence; Z96.652 Presence of left artificial knee joint
CPT/HCPCS: 36415; 71045; 75635; 80048; 80053; 84484; 85025; 85610; 85730; 93971; 94640; 94762; 96361; 96374; 96375; 96376; 97110; 97162; 97166; 97535; 99284; A9270; J0690; J1100; J1171; J1200; J2250; J2405; J2704; J2919; J3010; J3410; J3490; J7613; Q9967

== ENCOUNTER 2024-08-05 06:26 | Emergency (ER) | payer MEDICARE, MEDICAID, SELFPAY ==
[2024-07-25 23:21] VITALS: BMI 38.7
[2024-08-05] VITALS (12 sets, daily range): BP systolic 97–165; BP diastolic 55–68; PULSE 60–91; RESP 16–18; TEMP 36.8–37; O2SAT 96–99; BMI 34.3
--- NOTE | 2024-08-05 06:45 | DI.RAD.S_ITS ---
PROCEDURE: XR CHEST 1V INDICATIONS: suspected sepsis TECHNIQUE: One view of the chest was acquired. COMPARISON: [facility], CR, XR CHEST 1V, 07/26/2024, 4:16. [facility], CR, XR CHEST 1V, 03/19/2023, 3:57. FINDINGS AND IMPRESSION: No airspace consolidation or pleural effusion on this single view study. Heart size is at the upper limit of normal. Unchanged mediastinal contours. Upper chest surgical clips. Degenerative osseous findings. No discrepancy identified from the preliminary report. Dictated by: Jovan Kelly M.D. on 08/05/2024 at 8:12 Approved by: Jovan Kelly M.D. on 08/05/2024 at 8:13
--- NOTE | 2024-08-05 06:47 | DI.RAD.S_ITS ---
PROCEDURE: XR KNEE LT 4V INDICATIONS: knee pain swelling s/p surgery TECHNIQUE: 3 views of the knee were acquired. COMPARISON: [facility] [place], CR, XR KNEE STANDING BILATERAL, 04/06/2024, 9:12. [facility], CR, XR KNEE LT 3V, 03/09/2024, 11:22. [facility], CR, XR KNEE LT 3V, 06/09/2023, 16:24. FINDINGS AND IMPRESSION: Left knee arthroplasty in place with expected radiographic appearance. No acute displaced fracture lucency is identified. Peripatellar edema is suspected. If there is further concern, consider cross-sectional imaging or three-phase nuclear medicine bone scan. No significant changes from the preliminary report. Dictated by: Jovan Kelly M.D. on 08/05/2024 at 8:13 Approved by: Jovan Kelly M.D. on 08/05/2024 at 8:15
--- NOTE | 2024-08-05 06:51 | EKG_ITS ---
[address] [address] Test Date: 2024-08-05 Pat Name: Keerthi Granda Department: [facility] Room: Gender: Female Manager Engine: MUNA : 1960 Requested By: Order Number: [id number] Reading MD: Charles Murphy MD Measurements Intervals [place] Rate: 61 P: 49 ID: [id number] QRS: -55 QRSD: 162 T: 12 QT: 482 QTc: 485 Interpretive Statements Normal sinus rhythm Right bundle branch block Left anterior fascicular block Bifascicular block Electronically Signed On 08-05-2024 9:16:54 PDT by Charles Murphy MD
[2024-08-05] MEDS: SODIUM CHLORIDE 0.9% 1,000 ML 1000 ML IV (06:56)
[2024-08-05 07:00] LABS: Add Manual Diff / Slide Review NO; Basophils Absolute Auto 100 /uL (0-100); Basophils Percent Auto 1.5 % (0-2); Eosinophils Absolute Auto 700 /uL (0-450); Eosinophils Percent Auto 7.7 % (2-4); Hematocrit 33.3 % (36-46); Hemoglobin 11.6 g/dL (12.0-16.0); Lymphocytes Absolute Auto 2300 /uL (1100-4500); Lymphocytes Percent Auto 27.1 % (25-40); Mean Corpuscular HGB Conc 34.7 % (30-36); Mean Corpuscular Volume 97.9 fL (80-100); Monocytes Absolute Auto 800 /uL (0-900); Monocytes Percent Auto 9.4 % (3-14); Neutrophils Absolute Auto 4700 /uL (1500-7000); Neutrophils Percent Auto 54.3 % (50-75); Platelet Count 396 X10^3/uL (150-400); Red Cell Distribution Width 14.1 % (11.6-14.8); White Blood Cell Count 8.6 X10^3/uL (4.5-11.0)
[2024-08-05 07:06] LABS: INR 1.1 (0.9-1.3)
[2024-08-05 07:09] LABS: Lactate (Lactic Acid) 1.2 mmol/L (0.7-2.1); PTT Partial Thromboplastin Tim 33 SECONDS (25.1-36.5)
[2024-08-05 07:10] LABS: Albumin 3.8 g/dL (3.5-5.0); Calcium 8.8 mg/dL (8.4-10.2); Chloride 102 mmol/L (98-107); Glucose 114 mg/dL (70-99); HEMOLYSIS < 15 (0-50); Lipase 61 U/L (23-300); Potassium 3.8 mmol/L (3.4-5.1); Sodium 132 mmol/L (137-145)
[2024-08-05 07:12] LABS: Alanine Aminotransferase 15 IU/L (<35); Albumin Globulin Ratio 1.2 (1.0-2.8); Alkaline Phosphatase 107 U/L (38-126); Aspartate Aminotransferase 33 IU/L (14-36); BUN Creatinine Ratio 7.4 (6-22); Bilirubin Total 0.7 mg/dL (0.2-1.3); Blood Urea Nitrogen 4 mg/dL (7-17); Carbon Dioxide 24 mmol/L (22-32); Estimated Glomerular Filt Rate > 60 mL/min (>60); Globulin 3.3 g/dL (1.7-4.1); Total Protein 7.1 g/dL (6.3-8.2)
--- NOTE | 2024-08-05 07:12 | ED_ITS ---
HPI - Extremity Problem General Chief complaint: Extremity Problem,Nontraumatic Stated complaint: L Knee Pain/ 10day Post op Time Seen by Provider: 08/05/24 06:40 Source: patient Mode of arrival: Ambulatory History of Present Illness HPI Narrative: 64-year-old patient with a history of hyperlipidemia, hypothyroidism post knee replacement on July 19 for avascular necrosis. Complications have surrounded this knee replacement. She was seen in the emergency department on July 25 there is a small extravasation around the left patella, CTA did not show additional bleeding. Hemarthrosis was a pretty appreciated. Patient was taken back to the operating room by Dr. Lance for exploration and evacuation of hemarthrosis and evaluation for intracapsular arterial bleeding. She is presenting to the emergency department today complaining of increased pain again, fever to 102.6. Noted at 3:00 a.m. with pain awakened him from sleep increased swelling. Pain and increased muscle cramping has been appreciated. Related Data Home Medications ?Medication ?Instructions ?Recorded ?Confirmed albuterol sulfate 90 mcg/actuation 1 - 2 puff inhalati on Q4-6H PRN 06/21/17 08/05/24 aerosol inhaler Shortness Of Breath lorazepam 1 mg capsule,extended 0.5 - 1 mg PO BID PRN Anxiety 07/08/21 08/05/24 release 24 hr atorvastatin 10 mg tablet 10 mg PO DAILY 05/02/2407/09 budesonide-formoterol HFA 160 2 inh inhalation BID 08/05/24 mcg-4.5 mcg/actuation aerosol inhaler cetirizine 10 mg tablet 10 mg PO DAILY 05/02/2407/09 estradiol 1 mg tablet 0.5 mg PO SEEINSTR 05/02/24 08/05/24 levothyroxine 112 mcg tablet 112 mcg PO DAILY 05/02/24 08/05/24 Previous Rx's ?Medication ?Instructions ?Recorded ondansetron HCl 4 mg tablet 4 mg PO Q8H PRN nausea and 05/11/24 vomiting #30 tabs hydromorphone 2 mg tablet 2 mg PO Q4H PRN pain #40 tab s 07/26/24 hydroxyzine pamoate 25 mg capsule 25 mg PO QID PRN graciela sea and 07/26/24 vomiting #30 caps morphine 15 mg tablet,extended 15 mg PO Q12H #10 tabs 07/26/24 release hydromorphone 2 mg tablet 2 mg PO Q6H PRN pain #30 tab s 08/05/24 (Dilaudid) morphine 15 mg immediate release 15 mg PO BID PRN pain #20 tabs 08/05/24 tablet Allergies Allergy/AdvReac Type Severity Reaction Status Date / Time Iodinated Contrast Media Allergy Severe Shortness Verified 07/25/24 14:29 (Iodinated Contrast- Oral of Breath and IV Dye) Sulfa (Sulfonamide Allergy Severe itchy, Verified 07/25/24 14:29 Antibiotics) (SULFA rash, (SULFONAMIDE ANTIBIOTICS)) asthma NSAIDS (Non-Steroidal Allergy Intermediate worsening Verified 07/25/24 14:29 Anti-Inflamma asthma, throat swelling bee pollen (BEE POLLEN) Allergy Unknown throat Verified 07/25/24 14:29 swelling tetracycline (TETRACYCLINE) AdvReac Severe nausea Verified 07/25/24 14:29 Review of Systems Review of Systems Narrative: Pertinent positive and negative findings as per HPI Patient History Medical History History of COVID-19 (2022) Thyroid cancer (~2003) Osteoarthritis Panic disorder PTSD (post-traumatic stress disorder) VASILIY (generalized anxiety disorder) MDD (major depressive disorder) Alcoholic cirrhosis of liver Alcohol use disorder in remission HLD (hyperlipidemia) HTN (hypertension) Hypothyroidism Surgical History Hx of right knee surgery History of surgery Hx of thyroidectomy History of bladder suspension procedure Status post rotator cuff repair (12/30/15) Status post cholecystectomy Status post vaginal hysterectomy Social History household members: spouse and family Smoking Status: Never smoker alcohol intake: former Smoking Status: Never smoker alcohol intake frequency: other Exam Initial Vital Signs Initial Vital Signs: Vital Signs Temperature 98.6 F 08/05/24 06:40 Pulse Rate 67 08/05/24 06:40 Respiratory Rate 18 08/05/24 06:40 Blood Pressure 137/61 08/05/24 06:40 Pulse Oximetry 99 08/05/24 06:40 Oxygen Delivery Method Room Air 08/05/24 06:40 General: In significant pain but Able to give a complete and coherent history. Well-nourished well-developed HEENT: Moist mucous membranes, normal sclera with reactive pupils, Respiratory: Full and symmetrical air movement Cardiac: Regular rate and rhythm no murmurs no bruits Skin: Left lower extremity is erythematous to the thigh, warm to the touch Neurologic: Grossly neurologically intact with no obvious asymmetries or abnormalities Extremities: Left lower extremity swollen from the thigh to the toes, increased pain secondary to the tense edema, surgical incision site actually looks clean, no breakdown, no drainage. She is exquisitely tender over the entire knee area and significantly tender throughout the entire leg. She is neurovascularly intact Psych: Cooperative, appropriate insight and affect Course Orders Ordered: ED Orders 08/05/24 06:45 XR chest 1V Stat EKG-12 Lead Stat RT Consult Eval and Treat NOW 08/05/24 06:47 XR knee LT 4V Stat 08/05/24 06:50 Complete Blood Count AUTO DIFF Stat Comprehensive Metabolic Panel Stat Lactate (Lactic Acid) Stat Lipase Stat PTT Partial Thromboplastin Jovanni Stat Procalcitonin Stat Prothrombin Time INR Stat 08/05/24 07:20 Blood Culture Stat 08/05/24 07:45 US periph venous low extrem lt Stat Ondansetron HCl (Ondansetron 4 Mg Odt) 4 mg PO NOW PRN PRN Reason: Nausea And Vomiting Discontinued Medications Hydromorphone HCl (Hydromorphone 0.5 Mg Inj) 0.5 mg IV NOW ONE Stop: 08/05/24 07:26 Last Admin: 08/05/24 07:28 Dose: 0.5 mg Documented By: SALOMON Hydromorphone HCl (Hydromorphone 1 Mg Inj) 1 mg IV NOW ONE Stop: 08/05/24 07:43 Last Admin: 08/05/24 07:44 Dose: 1 mg Documented By: SALOMON Hydromorphone HCl (Hydromorphone 1 Mg Inj) 1 mg IV NOW ONE Stop: 08/05/24 07:47 Last Admin: 08/05/24 08:15 Dose: 1 mg Documented By: SALOMON Hydromorphone HCl (Hydromorphone 1 Mg Inj) 1 mg IV NOW ONE Stop: 08/05/24 09:17 Last Admin: 08/05/24 09:18 Dose: 1 mg Documented By: SALOMON Hydroxyzine HCl (Hydroxyzine Hcl 25 Mg Tablet) 25 mg PO NOW ONE Stop: 08/05/24 07:47 Last Admin: 08/05/24 08:02 Dose: 25 mg Documented By: SALOMON Sodium Chloride (Normal Saline 0.9%) 1,000 mls @ 1,000 mls/hr IV BOLUS ONE Stop: 08/05/24 07:43 Last Infusion: 08/05/24 07:54 Dose: Infused Documented By: Admin: 08/05/24 06:56 Dose: 1,000 mls/hr Documented By: CELY Lidocaine HCl (Lidocaine 1% (Pf) 5 Ml) 5 ml INJ NOW ONE Stop: 08/05/24 09:04 Last Admin: 08/05/24 09:06 Dose: 5 ml Documented By: SALOMON Ondansetron HCl (Ondansetron 4 Mg/2 Ml Inj) 4 mg IV NOW PRN PRN Reason: Nausea And Vomiting Last Admin: 08/05/24 07:27 Dose: 4 mg Documented By: SALOMON Vital Signs Vital signs: Vital Signs - 8 hr 08/05/24 06:40 08/05/24 07:15 08/05/24 07:30 Temperature 98.6 F Pulse Rate 67 66 62 Respiratory Rate 18 Blood Pressure 137/61 Pulse Oximetry 99 97 97 Oxygen Delivery Method Room Air 08/05/24 07:37 08/05/24 07:37 08/05/24 08:00 Temperature Pulse Rate 60 Respiratory Rate Blood Pressure 117/56 L 97/55 L Pulse Oximetry 97 Oxygen Delivery Method 08/05/24 08:00 08/05/24 08:05 08/05/24 08:05 Temperature Pulse Rate 66 66 Respiratory Rate 16 Blood Pressure 123/60 Pulse Oximetry 96 96 Oxygen Delivery Method Room Air 08/05/24 08:15 08/05/24 08:15 Temperature Pulse Rate 74 Respiratory Rate 18 Blood Pressure 118/57 L Pulse Oximetry 98 Oxygen Delivery Method Room Air MDM - Extremity (Nontraumatic) Lab Data 08/05/24 06:50 08/05/24 06:50 Labs: Lab Results 08/05/24 Range/Units 06:50 WBC 8.6 (4.5-11.0) X10^3/uL RBC 3.40 L (4.0-5.2) X10^6/uL Hgb 11.6 L (12.0-16.0) g/dL Hct 33.3 L (36-46) % MCV 97.9 (80-100) fL MCH 34.0 (26-34) PG MCHC 34.7 (30-36) % RDW 14.1 (11.6-14.8) % Plt Count 396 (150-400) X10^3/uL Neut % (Auto) 54.3 (50-75) % Lymph % (Auto) 27.1 (25-40) % [place] % (Auto) 9.4 (3-14) % Eos % (Auto) 7.7 H (2-4) % Baso % (Auto) 1.5 (0-2) % Neut # (Auto) 4700 (9418-1573) /uL Lymph # (Auto) 2300 (4022-1516) /uL [place] # (Auto) 800 (0-900) /uL Eos # (Auto) 700 H (0-450) /uL Baso # (Auto) 100 (0-100) /uL PT 13.0 H (9.4-12.5) SECONDS INR 1.1 (0.9-1.3) APTT 33 (25.1-36.5) SECONDS Sodium 132 L (137-145) mmol/L Potassium 3.8 (3.4-5.1) mmol/L Chloride 102 (98-107) mmol/L Carbon Dioxide 24 (22-32) mmol/L BUN 4 L (7-17) mg/dL Creatinine 0.54 (0.52-1.04) mg/dL Estimated GFR > 60 (>60) mL/min BUN/Creatinine Ratio 7.4 (6-22) Glucose 114 H (70-99) mg/dL Lactate 1.2 (0.7-2.1) mmol/L Calcium 8.8 (8.4-10.2) mg/dL Total Bilirubin 0.7 (0.2-1.3) mg/dL AST 33 (14-36) IU/L ALT 15 (<35) IU/L Alkaline Phosphatase 107 (38-126) U/L Total Protein 7.1 (6.3-8.2) g/dL Albumin 3.8 (3.5-5.0) g/dL Globulin 3.3 (1.7-4.1) g/dL Albumin/Globulin Ratio 1.2 (1.0-2.8) Lipase 61 (23-300) U/L Procalcitonin 0.066 (<0.5) ng/mL Urine Dip Bedside Urine Glucose Negative Bedside Urine Bilirubin - Negative Bedside Urine Ketone - Negative Urine Specific [place] 1.000 Bedside Urine Occult Blood - Negative Bedside Urine pH 6.5 Bedside Urine Protein - Negative Bedside Urine Urobilinogen - Negative Bedside Urine Nitrite - Negative Bedside Urine Leukocytes - Negative Esterase MDM Narrative Medical decision making narrative: CC: Increase left knee pain swelling erythema, Complicating co-morbidities: Hyperlipidemia hypertension, already has had a washout and postoperative complication with current knee Data collected from: patient Medical records reviewed: Previous ER records, OR notes all related to current issue are reviewed Differential considered: Septic joint, DVT, patient currently on aspirin only, recurrent hemarthrosis Exam documented above, pertinent findings include: Significant pain, left leg swollen from the thigh to the toes, erythematous, warm to the touch, unable to bear weight secondary to pain can not been knee secondary to pain. She is neurovascularly intact Lab Test results independently reviewed as above. Pertinent findings: CBC does not show leukocytosis or left shift, stable anemia slightly improved Chemistries show appropriate renal function no significant abnormality Procalcitonin today is not significantly elevated Imaging studies independently reviewed: Ultrasound was again unremarkable for DVT Consultations: Discussion with Dr. Lance, we will evaluate the patient in the emergency department. Given a negative lab workup her concern for infection is significantly less. Pain control in light of chronic narcotic use secondary to pain prior to surgery as well as anxiety are factoring significantly into overall recovery and current presentation Treatments: She has been given a total of 2.5 mg of IV Dilaudid as well as hydroxyzine for muscle spasm and her pain is at a tolerable level Re-evaluations: Dr. Lance is in the department. She has done knee tap that was negative for blood, significant fluid or pus. Feels that the pain and swelling is still all postoperative and does not need antibiotics or hospitalization. Requested at least another week of oral morphine with Dilaudid for breakthrough pain. Prescriptions were written. Dr. Lance has rewrapped the leg with an Ab dressing for compression and comfort. Plans for outpatient follow up are arranged Discussion: 64-year-old woman with left knee replacement secondary to avascular necrosis on July 19, hemarthrosis complication with washout done on July 25 for arterial hemorrhage and hemarthrosis. She had been doing well for approximately 48 hours and now is having increasing pain. She woke up last night at 3:00 a.m. severe pain despite 15 mg of morphine b.i.d. that has been working well for pain control, increased swelling warmth and redness, fever to 102.6. Discharge Plan Departure Patient Disposition: Home Clinical Impression: Post-operative pain Instructions: DI for Postoperative Pain Activity Restrictions/Additional Instructions: Thank you for coming in today, I am sorry that you are continuing to suffer so much with this postoperative pain and swelling Your workup today did not show signs of infection, new bleeding, blood clots in your legs or findings that would require hospitalization You saw Dr. Rangel in the emergency department who was unable to get any fluid(blood, fluid or infection) from your knee joint and feels that the swelling is all in keeping with your recent surgery. She did ask that we refill your pain medications for other weak, prescriptions have been sent to [facility]. Please keep your scheduled follow up appointment with her. If you find that you are getting worse or develop any new symptoms, please feel free to return to the emergency department for further evaluation. Prescriptions: New morphine 15 mg tablet 15 mg PO BID PRN (Reason: pain) Qty: 20 0RF hydromorphone [Dilaudid] 2 mg tablet 2 mg PO Q6H PRN (Reason: pain) Qty: 30 0RF No Action albuterol sulfate 90 mcg/actuation HFA aerosol inhaler 1 - 2 puff Inhalation Q4-6H PRN (Reason: Shortness Of Breath) Patient Comments: INHALE 1-2 PUFFS INHALE EVERY 4-6 HOURS cetirizine 10 mg Tablet 10 mg PO DAILY atorvastatin 10 mg Tablet 10 mg PO DAILY levothyroxine 112 mcg Tablet 112 mcg PO DAILY budesonide-formoterol 160-4.5 mcg/actuation Hfa Aerosol Inhaler 2 inh INHALATION BID estradiol 1 MG tablet 0.5 mg PO SEEINSTR Rx Instructions: Holds Tues & Thurs ondansetron HCl 4 mg tablet 4 mg PO Q8H PRN (Reason: nausea and vomiting) Qty: 30 0RF lorazepam 1 mg Capsule,Extended Release 24hr 0.5 - 1 mg PO BID PRN (Reason: Anxiety) hydromorphone 2 mg tablet 2 mg PO Q4H PRN (Reason: pain) Qty: 40 0RF Rx Instructions: Postop exempt hydroxyzine pamoate 25 mg capsule 25 mg PO QID PRN (Reason: nausea and vomiting) Qty: 30 0RF morphine 15 mg tablet extended release 15 mg PO Q12H Qty: 10 0RF Patient Comments: Patient took last pill 09/01/24 reports it helped with pain control, would like refill/to continue Rx Instructions: Postop exempt Referrals: Amanda Lara MD [Primary Care Provider, Family Practice] Stand Alone Forms: Patient Portal/API
[2024-08-05 07:27] LABS: Procalcitonin 0.066 ng/mL (<0.5)
[2024-08-05] MEDS: ONDANSETRON 4 MG/2 ML INJ IV (07:27)
[2024-08-05] MEDS: HYDROMORPHONE 0.5 MG INJ IV (07:28)
[2024-08-05] MEDS: HYDROMORPHONE 1 MG INJ IV ×3 (07:44→09:18)
--- NOTE | 2024-08-05 07:45 | DI.US.S_ITS ---
PROCEDURE: [facility] VENOUS LOW EXTREM LT INDICATIONS: swelling and pain again, knee replacement TECHNIQUE: Real-time imaging, as well as color and pulse Doppler interrogation, were performed of the lower extremity deep veins from the inguinal ligament to the popliteal fossa, with documentation of the visualized calf veins. COMPARISON: [facility], , [facility] VENOUS LOW EXTREM LT, 07/25/2024, 13:02. FINDINGS: The common femoral, femoral, popliteal, and the visualized calf veins are normally compressible, and free of intraluminal thrombus. Color and pulse Doppler demonstrate normal phasic intraluminal flow. There is normal augmentation response to distal compression maneuver. Nonspecific soft tissue edema is seen in the left lower leg. IMPRESSION: No findings of lower extremity deep venous thrombosis. Approved by: Brandon Billingsley M.D. on 08/05/2024 at 8:53
[2024-08-05] MEDS: hydrOXYzine HCL 25 MG TABLET PO (08:02)
[2024-08-05] MEDS: LIDOCAINE 1% (PF) 5 ML INJ (09:06)
--- NOTE | 2024-08-05 09:44 | PM.CN ---
History of Present Illness Consult details Date Patient Seen: 08/05/24 Time Patient Seen: 09:44 Chief complaint: L Knee Pain/ 10day Post op Reason for consult: Knee pain swelling fever Requesting provider: Nargis Mueller Narrative: Keerthi is a 64-year-old female that had a left total knee arthroplasty a few weeks ago. She had excessive swelling and ultrasound to rule out DVT was thought to see some active bleeding around the inferior lateral capsule. CTA did not show any definitive bleeding but showed significant lower extremity subcutaneous edema throughout the lower extremity. I discussed this with the radiologist and ultimately took the patient for a hematoma evacuation approximately 1 week ago. No significant active bleeding was found but hematoma was evacuated and the capsule reclosed. The patient followed up in clinic with the physician volunteer services assistant 2 days ago noted continued swelling from the thigh down to the foot. Has had good days and bad days but has been icing consistently and went to physical therapy. Was doing better utilizing morphine sulfate 15 mg b.i.d. and intermediate acting 2 mg Dilaudid about every 4 hours. I had originally just had her on 5 days of the long acting narcotic. 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 This morning the patient was states she woke up about 3:00 a.m. with increased pain in her leg she took her temperature and reported that she had a fever of 102 or 102.5. She came to [facility]. Temperature on intake is 98. She has had some Tylenol this morning. She does state the timing of when she woke up was about 4 hours after her last oral Dilaudid dose. Meds Home Medications and Allergies Home Medications ?Medication ?Instructions ?Recorded ?Confirmed ?Type albuterol sulfate 90 mcg/actuation 1 - 2 puff inhalation Q4-6H PRN 06/21/17 08/05/24 History aerosol inhaler Shortness Of Breath lorazepam 1 mg capsule,extended 0.5 - 1 mg PO BID PRN Anxiety 07/08/21 08/05/24 History release 24 hr atorvastatin 10 mg tablet 10 mg PO DAILY 05/02/24 08/05/24 History budesonide-formoterol HFA 160 2 inh inhalation BID 05/02/24 08/05/24 History mcg-4.5 mcg/actuation aerosol inhaler cetirizine 10 mg tablet 10 mg PO DAILY 05/02/24 08/05/24 History estradiol 1 mg tablet 0.5 mg PO SEEINSTR 05/02/24 08/05/24 History levothyroxine 112 mcg tablet 112 mcg PO DAILY 05/02/24 08/05/24 History ondansetron HCl 4 mg tablet 4 mg PO Q8H PRN nausea and 05/11/24 08/05/24 Rx vomiting #30 tabs hydromorphone 2 mg tablet 2 mg PO Q4H PRN pain #40 tabs 07/26/24 08/05/24 Rx hydroxyzine pamoate 25 mg capsule 25 mg PO QID PRN nausea and 07/26/24 08/05/24 Rx vomiting #30 caps morphine 15 mg tablet,extended 15 mg PO Q12H #10 tabs 07/26/24 08/05/24 Rx release hydromorphone 2 mg tablet 2 mg PO Q6H PRN pain #30 tabs 08/05/24 Rx (Dilaudid) hydroxyzine pamoate 25 mg capsule 25 mg PO QID PRN muscle spasm #40 08/05/24 Rx caps morphine 15 mg immediate release 15 mg PO BID PRN pain #20 tabs 08/05/24 Rx tablet Allergies Allergy/AdvReac Type Severity Reaction Status Date / Time Iodinated Contrast Media Allergy Severe Shortness Verified 07/25/24 14:29 (Iodinated Contrast- Oral of Breath and IV Dye) Sulfa (Sulfonamide Allergy Severe itchy, Verified 07/25/24 14:29 Antibiotics) (SULFA rash, (SULFONAMIDE ANTIBIOTICS)) asthma NSAIDS (Non-Steroidal Allergy Intermediate worsening Verified 07/25/24 14:29 Anti-Inflamma asthma, throat swelling bee pollen (BEE POLLEN) Allergy Unknown throat Verified 07/25/24 14:29 swelling tetracycline (TETRACYCLINE) AdvReac Severe nausea Verified 07/25/24 14:29 Review of Systems Review of Systems Narrative: Reported a fever this morning, swelling, right lower extremity pain. No shortness of breath. No chest pain. Exam Vital Signs (past 8 hours): - 08/05/24 06:40 08/05/24 07:15 08/05/24 07:30 Temperature 98.6 F Pulse Rate 67 66 62 Respiratory Rate 18 Blood Pressure 137/61 Pulse Oximetry 99 97 97 Oxygen Delivery Method Room Air 06/29/25 07:37 08/05/24 07:37 08/05/24 08:00 Temperature Pulse Rate 60 Respiratory Rate Blood Pressure 117/56 L 97/55 L Pulse Oximetry 97 Oxygen Delivery Method 08/05/24 08:00 08/05/24 08:05 08/05/24 08:05 Temperature Pulse Rate 66 66 Respiratory Rate 16 Blood Pressure 123/60 Pulse Oximetry 96 96 Oxygen Delivery Method Room Air 08/05/24 08:15 08/05/24 08:15 Temperature Pulse Rate 74 Respiratory Rate 18 Blood Pressure 118/57 L Pulse Oximetry 98 Oxygen Delivery Method Room Air Oxygen Delivery Method Room Air Narrative Exam Narrative: Alert and oriented female no acute distress. Complains of pain and lower extremity. Answers questions appropriately. Right lower extremity demonstrates subcutaneous edema from the thigh down to the foot. Palpable dorsalis pedis pulse. No erythema or cellulitis no drainage from the incision is well healed. Calf is compressible in all compartments. Thigh compartments are soft but diffuse global subcutaneous swelling is present. There were no blisters. The patient was able to demonstrate a straight leg raise she was able to extend her knee straight and bent to 90?. She was able to demonstrate 5/5 dorsiflexion and plantar flexion. I am able to palpate around the patella with no obvious effusion. Objective Imaging Knee x-ray left: My impression: Left knee x-rays AP and lateral demonstrate expected alignment total knee arthroplasty no evidence of complication no evidence of fracture. No obvious effusion. Labs 08/05/24 06:50 08/05/24 06:50 Labs: Laboratory Results - last 24 hr 08/05/24 06:50 WBC 8.6 RBC 3.40 L Hgb 11.6 L Hct 33.3 L MCV 97.9 MCH 34.0 MCHC 34.7 RDW 14.1 Plt Count 396 Neut % (Auto) 54.3 Lymph % (Auto) 27.1 Rooks % (Auto) 9.4 Eos % (Auto) 7.7 H Baso % (Auto) 1.5 Neut # (Auto) 4700 Lymph # (Auto) 2300 Rooks # (Auto) 800 Eos # (Auto) 700 H Baso # (Auto) 100 PT 13.0 H INR 1.1 APTT 33 Sodium 132 L Potassium 3.8 Chloride 102 Carbon Dioxide 24 BUN 4 L Creatinine 0.54 Estimated GFR > 60 BUN/Creatinine Ratio 7.4 Glucose 114 H Lactate 1.2 Calcium 8.8 Total Bilirubin 0.7 AST 33 ALT 15 Alkaline Phosphatase 107 Total Protein 7.1 Albumin 3.8 Globulin 3.3 Albumin/Globulin Ratio 1.2 Lipase 61 Procalcitonin 0.066 [facility] Medical History History of COVID-19 (2022) Thyroid cancer (~2003) Osteoarthritis Panic disorder PTSD (post-traumatic stress disorder) VASILIY (generalized anxiety disorder) MDD (major depressive disorder) Alcoholic cirrhosis of liver Alcohol use disorder in remission HLD (hyperlipidemia) HTN (hypertension) Hypothyroidism Surgical History Hx of right knee surgery History of surgery Hx of thyroidectomy History of bladder suspension procedure Status post rotator cuff repair (12/30/15) Status post cholecystectomy Status post vaginal hysterectomy Social History household members: spouse and family Tobacco & Substance Use Smoking Status: Never smoker alcohol intake: former Assessment & Plan Assessment and plan (1) Post-operative pain: Status: Acute Plan The patient was status post left knee replacement. She did have a take back for a hemarthrosis evacuation. She presents today with pain and swelling and after she measured a fever this morning. Her exam and testing studies were reassuring. She does not have a fever here at the hospital. Her white count is normal there was no left shift. Her vascular ultrasound demonstrated no signs of venous thrombosis. And I did attempt to aspirate her knee which was a dry tap, consistent with the examination and radiographs not demonstrating any significant effusion. Her procalcitonin was normal. She had an extensive workup, I do not see any signs of infection. She does have fairly diffuse subcutaneous edema from the level of thigh to the foot this has been about the same to my eye since before the hematoma evacuation. I did discuss this can happen with some patients after knee arthroplasty. And fluid can accumulate back into the thigh from gravity--or down to the foot from gravity depending on positioning of the leg. And some patients get this worse than others. We have ruled out deep venous thrombosis on the vascular ultrasound. She was able to demonstrate good knee flexion to 90? for me today and again does not have an effusion and had an negative aspiration. Reassurance has been provided. She was on the narcotic medication for quite some time before her knee replacement because of the circumstances surrounding the necessity for her knee replacement was the acute onset of avascular necrosis of her knee about 6 months ago associated does likely have a higher long-term requirements. She was previously doing better utilizing the morphine sulfate b.i.d. and the Dilaudid as the intermediate acting in between. We will put her back on this regimen for a longer term and have her work on physical therapy in the [facility] in the [place] as she has been doing. We will use an Ab wrap and wrap from the foot up towards the thigh to help with the edema control. I do not see any indications for any repeat surgeries at this time. We will keep a close eye on her I will see her back in my clinic the 2nd week of August and I do think based on my assessment of her today she would be appropriate to continue with her physical therapy appointments next week. The patient was discussed with emergency medicine physician Umesh Mueller MD Time-Based Coding :: [TOTAL MINUTES] spent with patient and on the chart (including review of chart, obtaining history, exam, reviewing outside data, placing orders, documenting exam and treatment plan, and counseling patient) on [DATE].
[2024-08-05] MEDS: MORPHINE IR 15 MG TABLET PO (09:55)
--- NOTE | 2024-08-05 10:00 | PM.PROC.1 ---
Procedures Date/Time Date of procedure: 08/05/24 Time of procedure: 10:00 General Procedure description: Left knee aspiration Complications: none Joint Aspiration/Injection Time out performed: Yes Side of body: left Joint aspirated: knee Ultrasound guidance: No Skin prep: Chlorhexidine Local anesthesia used: lidocaine 1% Amount of anesthesia used (ml): 5 Needle size used: Other (27, 18) Total fluid obtained (ml): 0 Patient tolerated procedure: well Complications: none Additional comments: Negative aspiration left knee. Skin was anesthetized with lidocaine using a 27 gauge needle. 18 gauge needle was then sent is using the lateral parapatellar approach into the joint space and multiple attempts aspiration no fluid was returned other than small drop of blood. This was confirmed with no palpable effusion. Needle was withdrawn. Band-Aid placed. Patient tolerated procedure well.
== END 2024-08-05 10:04 | disposition home or self-care (01) ==
PROVIDERS: Family Medicine; Emergency Provider Emergency Medicine; PCP Family Medicine
DX: G89.18 Other acute postprocedural pain (principal); R50.9 Fever, unspecified
CPT/HCPCS: 36415; 71045; 73564; 80053; 81003; 83605; 83690; 84145; 85025; 85610; 85730; 87040; 93005; 93010; 93971; 96361; 96374; 96375; 96376; 99284; A9270; J1171; J2405

== ENCOUNTER 2024-10-22 14:42 | Emergency (ER) | payer MEDICARE, MEDICAID, SELFPAY ==
[2024-07-25 23:21] VITALS: BMI 38.7
[2024-10-22 14:52] VITALS: BP 148/80; PULSE 68; RESP 17; TEMP 36.8; O2SAT 100; BMI 32.1
--- NOTE | 2024-10-22 14:57 | DI.RAD.S_ITS ---
PROCEDURE: XR SHOULDER RT MIN 2V INDICATIONS: pain TECHNIQUE: Three views of the shoulder were acquired. COMPARISON: [facility], CR, XR CHEST 1V, 08/05/2024, 6:43. [facility], CR, XR SHOULDER LT MIN 2V, 02/13/2019, 14:49. FINDINGS: Bones: No acute fractures. There is chronic superior subluxation of the humeral head in the glenoid fossa. Near complete acromiohumeral interval space loss. Mild sclerosis and remodeling of the acromial undersurface. Small humeral head spurs. No shoulder separation. Visible rib arcs are intact. Soft tissues: No suspicious soft tissue calcifications. IMPRESSION: No acute fracture or shoulder separation. Chronic superior humeral head subluxation suggesting chronic rotator cuff tear. Dictated by: Roselia Nuno M.D. on 10/22/2024 at 15:44 Approved by: Roselia Nuno M.D. on 10/22/2024 at 15:46
--- NOTE | 2024-10-22 14:57 | DI.RAD.S_ITS ---
PROCEDURE: XR KNEE LT 3V INDICATIONS: pain TECHNIQUE: Three views of the knee were acquired. COMPARISON: [facility], CR, XR KNEE LT 4V, 08/05/2024, 6:43. FINDINGS: Bones: No fractures or dislocations. No suspicious bony lesions. Knee arthroplasty components appear intact without periprosthetic lucency. Mild lateral patellar tilt, chronic. Soft tissues: Moderate-sized joint effusion. Faint radiodensity in the suprapatellar soft tissues measuring about 8 mm, potentially of loose intra-articular body. No suspicious soft tissue calcifications. IMPRESSION: Moderate-size knee joint effusion and possible loose intra-articular calcified body. No visible acute fractures. Dictated by: Roselia Nuno M.D. on 10/22/2024 at 15:54 Approved by: Roselia Nuno M.D. on 10/22/2024 at 15:57
--- NOTE | 2024-10-22 15:28 | DI.RAD.S_ITS ---
PROCEDURE: XR ELBOW RT MIN 3V INDICATIONS: fell, hit elbow, pain contustions TECHNIQUE: 3 views of the elbow were acquired. COMPARISON: [facility], CR, XR ELBOW RT MIN 3V, 12/20/2023, 7:55. FINDINGS: Bones: No fractures or dislocations. No suspicious bony lesions. Soft tissues: No elbow joint effusion. No suspicious soft tissue calcifications. IMPRESSION: No acute bony abnormality or significant joint effusion. Dictated by: Roselia Nuno M.D. on 10/22/2024 at 16:20 Approved by: Roselia Nuno M.D. on 10/22/2024 at 16:20
--- NOTE | 2024-10-22 15:50 | ED_ITS ---
<Statement entered by Ángel Austin, - 10/22/24 20:58> Dr. Austin: I was immediately available in the department for consultation. I did not actually see the patient. HPI - Fall General Chief Complaint: Fall Stated Complaint: Knee pain Time Seen by Provider: 10/22/24 14:59 Source: patient and EMS Mode of arrival: EMS History of Present Illness HPI Narrative: Ms. Granda is a very pleasant 64-year-old female with a past medical history of left total knee repair July 2024 with subsequent hemarthrosis and washout 3 days later, chronic pain off opioids for the last 3 weeks, hyperlipidemia, hypothyroidism who presents to the emergency department via EMS for left knee, right elbow, right shoulder pain after a fall that occurred prior to arrival. Patient was playing chair beach volleyball when she tripped and fell forward landing on a bent left knee and then directly onto the right elbow and shoulder. She denies hitting her head. She now has significant pain of the left knee, right elbow and right shoulder and is unable to flex the left knee. Reports prior chronic pain in the right shoulder however she is now unable to abduct greater than 90?. No medications prior to arrival. She is currently taking aspirin but no other anticoagulation. She is very anxious and upset as she was supposed to travel next month for a volleyball tournament. No head trauma, neck pain, loss of consciousness, abdominal pain, back pain, open wounds. Related Data Home Medications ?Medication ?Instructions ?Recorded ?Confirmed albuterol sulfate 90 mcg/actuation 1 - 2 puff inhalati on Q4-6H PRN 06/21/17 08/05/24 aerosol inhaler Shortness Of Breath lorazepam 1 mg capsule,extended 0.5 - 1 mg PO BID PRN Anxiety 07/08/21 08/05/24 release 24 hr atorvastatin 10 mg tablet 10 mg PO DAILY 05/02/2407/09 budesonide-formoterol HFA 160 2 inh inhalation BID 08/05/24 mcg-4.5 mcg/actuation aerosol inhaler cetirizine 10 mg tablet 10 mg PO DAILY 05/02/2407/09 estradiol 1 mg tablet 0.5 mg PO SEEINSTR 05/02/24 08/05/24 levothyroxine 112 mcg tablet 112 mcg PO DAILY 05/02/24 08/05/24 Previous Rx's ?Medication ?Instructions ?Recorded ondansetron HCl 4 mg tablet 4 mg PO Q8H PRN nausea and 05/11/24 vomiting #30 tabs hydromorphone 2 mg tablet 2 mg PO Q4H PRN pain #40 tab s 07/26/24 hydroxyzine pamoate 25 mg capsule 25 mg PO QID PRN graciela sea and 07/26/24 vomiting #30 caps morphine 15 mg tablet,extended 15 mg PO Q12H #10 tabs 07/26/24 release hydromorphone 2 mg tablet 2 mg PO Q6H PRN pain #30 tab s 08/05/24 (Dilaudid) hydromorphone 2 mg tablet 2 mg PO Q6H PRN pain #40 tab s 08/05/24 (Dilaudid) hydroxyzine pamoate 25 mg capsule 25 mg PO QID PRN mus tristen spasm #40 08/05/24 caps morphine 15 mg immediate release 15 mg PO BID PRN pain #20 tabs 08/05/24 tablet morphine 15 mg immediate release 15 mg PO BID PRN pain #20 tabs 08/05/24 tablet oxycodone 10 mg tablet 10 mg PO Q8H PRN pain #10 ta bs 10/22/24 Allergies Allergy/AdvReac Type Severity Reaction Status Date / Time Iodinated Contrast Media Allergy Severe Shortness Verified 10/22/24 14:52 (Iodinated Contrast- Oral of Breath and IV Dye) Sulfa (Sulfonamide Allergy Severe itchy, Verified 10/22/24 14:52 Antibiotics) (SULFA rash, (SULFONAMIDE ANTIBIOTICS)) asthma NSAIDS (Non-Steroidal Allergy Intermediate worsening Verified 10/22/24 14:52 Anti-Inflamma asthma, throat swelling bee pollen (BEE POLLEN) Allergy Unknown throat Verified 10/22/24 14:52 swelling tetracycline (TETRACYCLINE) AdvReac Severe nausea Verified 10/22/24 14:52 Review of Systems Review of Systems ROS Unobtainable: All systems reviewed & are unremarkable except as noted in HPI and below Patient History Medical History History of COVID-19 (2022) Thyroid cancer (~2003) Osteoarthritis Panic disorder PTSD (post-traumatic stress disorder) VASILIY (generalized anxiety disorder) MDD (major depressive disorder) Alcoholic cirrhosis of liver Alcohol use disorder in remission HLD (hyperlipidemia) HTN (hypertension) Hypothyroidism Surgical History Hx of right knee surgery History of surgery Hx of thyroidectomy History of bladder suspension procedure Status post rotator cuff repair (12/30/15) Status post cholecystectomy Status post vaginal hysterectomy Social History household members: spouse and family alcohol intake: former alcohol intake frequency: other Exam Narrative Exam Narrative: GENERAL: 64 year old patient appears stated age. Well-developed patient, tearful, in no acute distress. Sitting in wheelchair with left leg elevated. HEAD: Atraumatic. Normocephalic. EYES: Extraocular motions intact. No scleral icterus. No injection or drainage. NECK: Trachea midline. Cervical ROM intact. No midline cervical tenderness. CARDIOVASCULAR: Regular rate and rhythm. RESPIRATORY: ?Nonlabored respirations. ?Speaking in clear, full sentences. ?Clear to auscultation. Breath sounds equal bilaterally. No wheezes, rales, or rhonchi. ? GASTROINTESTINAL: Abdomen soft, non-tender, nondistended. EXTREMITIES: Left knee held in extension/elevated. Anterior mid knee surgical incision scar present, no open wounds, knee is not deformed or edematous. Tenderness to palpation of anterolateral aspect of knee. Knee flexion limited to 3o degrees. Right elbow with bruising and pain with flexion-extension however full flexion-extension intact. Pain with movement of right shoulder, abduction limited just below 90?. Strong radial pulses bilaterally, left DP pulse palpable with brisk capillary refill. BACK: No midline spinal tenderness. NEURO: AOx3. ?Clear speech. Sensation intact to light touch on extremities. SKIN: No rash or erythema of visible areas Initial Vital Signs Initial Vital Signs: Vital Signs Temperature 98.2 F 10/22/24 14:52 Pulse Rate 68 10/22/24 14:52 Respiratory Rate 17 10/22/24 14:52 Blood Pressure 148/80 H 10/22/24 14:52 Pulse Oximetry 100 10/22/24 14:52 Oxygen Delivery Method Room Air 10/22/24 14:52 Course Orders Ordered: ED Orders 10/22/24 14:57 XR knee LT 3V Stat XR shoulder RT 2+ views Stat 10/22/24 15:28 XR elbow RT min 3V Stat Discontinued Medications Oxycodone/Acetaminophen (Oxycodone/Acetaminophen 5/325 Tablet) 2 tab PO NOW ONE Stop: 10/22/24 16:06 Last Admin: 10/22/24 16:12 Dose: 2 tab Documented By: RUSSELL Consultations Consultation #1: Discussed case with orthopedic surgeon on-call, Dr. Krueger. For right shoulder, recommends sling and follow-up, patient may need reverse total shoulder which would need to be referred out for. For left knee, does not advise knee arthrocentesis if no concern for infection, advised compression and orhto f/u Time: 17:35 Vital Signs Vital signs: Vital Signs - 8 hr 10/22/24 14:52 10/22/24 18:33 Temperature 98.2 F Pulse Rate 68 76 Respiratory Rate 17 18 Blood Pressure 148/80 H 138/80 Pulse Oximetry 100 97 Oxygen Delivery Method Room Air Room Air MDM - Fall Medical Records Attestation: I reviewed the patient's medical records. Imaging Data Right Elbow XR: Radiologist's Impression: PROCEDURE: XR ELBOW RT MIN 3V INDICATIONS: fell, hit elbow, pain contustions TECHNIQUE: 3 views of the elbow were acquired. COMPARISON: [facility], CR, XR ELBOW RT MIN 3V, 12/20/2023, 7:55. FINDINGS: Bones: No fractures or dislocations. No suspicious bony lesions. Soft tissues: No elbow joint effusion. No suspicious soft tissue calcifications. IMPRESSION: No acute bony abnormality or significant joint effusion. Dictated by: Roselia Nuno M.D. on 10/22/2024 at 16:20 Approved by: Roselia Nuno M.D. on 10/22/2024 at 16:20 Right Shoulder XR: Radiologist's Impression: PROCEDURE: XR SHOULDER RT MIN 2V INDICATIONS: pain TECHNIQUE: Three views of the shoulder were acquired. COMPARISON: [facility], CR, XR CHEST 1V, 08/05/2024, 6:43. [facility], CR, XR SHOULDER LT MIN 2V, 02/13/2019, 14:49. FINDINGS: Bones: No acute fractures. There is chronic superior subluxation of the humeral head in the glenoid fossa. Near complete acromiohumeral interval space loss. Mild scl erosis and remodeling of the acromial undersurface. Small humeral head spurs. No shoulder separation. Visible rib arcs are intact. Soft tissues: No suspicious soft tissue calcifications. IMPRESSION: No acute fracture or shoulder separation. Chronic superior humeral head subluxation suggesting chronic rotator cuff tear. Dictated by: Roselia Nuno M.D. on 10/22/2024 at 15:44 Approved by: Roselia Nuno M.D. on 10/22/2024 at 15:46 Left Knee XR: Radiologist's Impression: PROCEDURE: XR KNEE LT 3V INDICATIONS: pain TECHNIQUE: Three views of the knee were acquired. COMPARISON: [facility], , XR KNEE LT 4V, 08/05/2024, 6:43. FINDINGS: Bones: No fractures or dislocations. No suspicious bony lesions. Knee arthroplasty components appear intact without periprosthetic lucency. Mild lateral patellar tilt, chronic. Soft tissues: Moderate-sized joint effusion. Faint radiodensity in the suprapatellar soft tissues measuring about 8 mm, potentially of loose intra-articular body. No suspicious soft tissue calcifications. IMPRESSION: Moderate-size knee joint effusion and possible loose intra-articular calcified body. No visible acute fractures. Dictated by: Roselia Nuno M.D. on 10/22/2024 at 15:54 Approved by: Roselia Nuno M.D. on 10/22/2024 at 15:57 MDM Narrative Medical decision making narrative: 64-year-old female with a past medical history of left total knee repair July 2024 with subsequent hemarthrosis and washout 3 days later, chronic pain off opioids for the last 3 weeks, hyperlipidemia, hypothyroidism who presents to the emergency department via EMS for left knee, right elbow, right shoulder pain after a fall that occurred prior to arrival. Differential diagnosis includes but is not limited to left knee sprain, strain, fracture, hardware injury, right shoulder sprain, strain, fracture, dislocation, right elbow sprain, strain, fracture, dislocation, etc. On exam patient in no acute distress, nontoxic appearing, vital signs appropriate. She is tearful due to pain. Left knee held in extension/elevated with anterolateral tenderness. Right shoulder abduction limited to about 80?. Imaging right shoulder, elbow, knee obtained in triage, we will treat pain with 10 mg oxycodone. Patient's pain improved significantly. X-ray left knee reveals moderate size knee joint effusion and possible loose intra-articular calcified body. No visible acute fractures. X-ray right shoulder reveals no acute fracture shoulder separation, chronic superior humeral head subluxation succession chronic rotator cuff tear. X-ray right elbow reveals no acute bony abnormality or significant joint effusion. Discussed case with the on-call orthopedic surgeon. Patient was placed into a left knee immobilizer and right shoulder sling. Denies the need for crutches as she has a bit home. Advised patient follow up promptly with her orthopedic surgeon for further evaluation of her left knee, also recommended follow up with Orthopedics for right shoulder, discussed with the patient that she will likely need surgery for repair of right shoulder chronic subluxation and rotator cuff tear. Patient and her at bedside verbalized understanding of all information agreeable with the plan. Short course pain medication was sent to pharmacy of choice, discussed risks of narcotics. Discussed strict ED return precautions. Patient has been verbalized understanding of all information agreeable with the plan. She is stable for discharge home. Discharge Plan Departure Patient Disposition: Home Clinical Impression: Effusion of knee joint, left, Other subluxation of right shoulder joint, initial encounter Fall Qualifiers: Encounter type: initial encounter Qualified Code(s): W19.XXXA - Unspecified fall, initial encounter Contusion of elbow, right Qualifiers: Encounter type: initial encounter Qualified Code(s): S50.01XA - Contusion of right elbow, initial encounter Instructions: DI for Knee Effusion Activity Restrictions/Additional Instructions: Dear Jesus Alberto, Thank you for coming to the emergency department. Today you were evaluated for a fall causing left knee, right elbow and right shoulder pain. Your right elbow x-ray did not show any abnormalities. Your right shoulder did show chronic changing of mild subluxation and rotator cuff tear. Your left knee x-ray showed an effusion. I spoke with the orthopedic surgeon on-call, Dr. Krueger. Please follow up with your orthopedic surgeon, Dr. Quintanilla, as soon as possible for further evaluation of your left knee. Please follow up with Orthopedics as well for your right shoulder. Please use RICE therapy for your pain in addition to pain medication. Rest the painful area. Ice the area of pain/swelling for at least 15 minutes, 4x a day. Compress the area of swelling using a brace, wrap, or splint if applied. Elevate the painful or swollen extremity by supporting it above the level of the heart with pillows when sitting or laying. You have been prescribed a short course of narcotic medications. These are potentially dangerous and addictive medications that should be used carefully. While on these medications you cannot drive or operate heavy machinery. Additionally, you cannot sign legal documents or perform any duties such as this. Many people get constipated on narcotic medications so it would be advisable to discuss stool softeners with the pharmacist when you diamond picker your prescription. Please understand that we cannot provide further refills of narcotics or controlled substances through the ED and your pain management will need to be through your Primary Care Provider Please follow up with your primary care doctor within the next 2-3 days for ER follow-up. (If you do not have a PCP you can call [phone]. ?to schedule an appointment with an [facility] Primary Care Provider) IF YOU DEVELOP ANY NEW OR WORSENING SYMPTOMS, RETURN TO THE ER! Please read the attached instructions, they highlight more specific treatments and interventions for you at home. Thank you for letting me participate in your care, Raquel Reinoso PA-C Prescriptions: New oxycodone 10 mg tablet 10 mg PO Q8H PRN (Reason: pain) Qty: 10 0RF No Action albuterol sulfate 90 mcg/actuation HFA aerosol inhaler 1 - 2 puff Inhalation Q4-6H PRN (Reason: Shortness Of Breath) Patient Comments: INHALE 1-2 PUFFS INHALE EVERY 4-6 HOURS cetirizine 10 mg Tablet 10 mg PO DAILY atorvastatin 10 mg Tablet 10 mg PO DAILY levothyroxine 112 mcg Tablet 112 mcg PO DAILY budesonide-formoterol 160-4.5 mcg/actuation Hfa Aerosol Inhaler 2 inh INHALATION BID estradiol 1 MG tablet 0.5 mg PO SEEINSTR Rx Instructions: Holds Tues & Thurs ondansetron HCl 4 mg tablet 4 mg PO Q8H PRN (Reason: nausea and vomiting) Qty: 30 0RF morphine 15 mg tablet 15 mg PO BID PRN (Reason: pain) Qty: 20 0RF hydromorphone [Dilaudid] 2 mg tablet 2 mg PO Q6H PRN (Reason: pain) Qty: 30 0RF hydroxyzine pamoate 25 mg capsule 25 mg PO QID PRN (Reason: muscle spasm) Qty: 40 0RF morphine 15 mg tablet 15 mg PO BID PRN (Reason: pain) Qty: 20 0RF hydromorphone [Dilaudid] 2 mg tablet 2 mg PO Q6H PRN (Reason: pain) Qty: 40 0RF lorazepam 1 mg Capsule,Extended Release 24hr 0.5 - 1 mg PO BID PRN (Reason: Anxiety) hydromorphone 2 mg tablet 2 mg PO Q4H PRN (Reason: pain) Qty: 40 0RF Rx Instructions: Postop exempt hydroxyzine pamoate 25 mg capsule 25 mg PO QID PRN (Reason: nausea and vomiting) Qty: 30 0RF morphine 15 mg tablet extended release 15 mg PO Q12H Qty: 10 0RF Patient Comments: Patient took last pill 09/01/24 reports it helped with pain control, would like refill/to continue Rx Instructions: Postop exempt Referrals: Amanda Lara MD [Primary Care Provider, Family Practice] Josey Quintanilla MD [Physician, Orthopedic Surgery] Referral Note: left knee effusion, pain, fall Huber Krueger MD [Physician, Orthopedic Surgery] Referral Note: Right shoulder chronic subluxation / chronic rotator cuff tear Raquel Reinoso PA-C [Emergency Provider, Emergency Medicine] Stand Alone Forms: Patient Portal/API
[2024-10-22 18:33] VITALS: BP 138/80; PULSE 76; RESP 18; O2SAT 97
== END 2024-10-22 18:30 | disposition home or self-care (01) ==
PROVIDERS: Emergency Provider Physician Assistant; PCP Family Medicine
DX: S43.001A Unspecified subluxation of right shoulder joint, initial encounter (principal); M25.462 Effusion, left knee; S50.01XA Contusion of right elbow, initial encounter; W18.30XA Fall on same level, unspecified, initial encounter; Y93.68 Activity, volleyball (beach) (court); Z96.652 Presence of left artificial knee joint
CPT/HCPCS: 73030; 73080; 73562; 99283

== ENCOUNTER → 2025-01-08 08:33 | Outpatient (CLI) | payer MEDICARE, SELFPAY ==
[2024-07-25 23:21] VITALS: BMI 38.7
--- NOTE | 2025-01-08 08:33 | DI.US.S_ITS ---
PROCEDURE: US ABDOMEN LIMITED INDICATIONS: CIRRHOSIS TECHNIQUE: Real-time scanning was performed of the abdominal and retroperitoneal organs, with image documentation. COMPARISON: [facility], US, US ABDOMEN COMPLETE, 06/18/2024, 7:15. FINDINGS: Liver: Liver measures 16.6 cm. Nodular border is present. No focal mass. Questionable appearance of air suggestive of pneumobilia. Gallbladder: Moved. Biliary ducts: Intrahepatic bile ducts are non-dilated. Extrahepatic bile duct caliber measures 4 mm. Normal is 6-7 mm or less in diameter, or 10 mm or less post-cholecystectomy. IMPRESSION: Cirrhotic appearance without focal mass. Suspected appearance of pneumobilia. Clinical correlation is recommended. Dictated by: Toyin Quigley M.D. on 01/08/2025 at 12:19 Approved by: Toyin Quigley M.D. on 01/08/2025 at 12:20
== END ==
LOC: US 08:33
PROVIDERS: PCP Family Medicine; Referring Provider Family Medicine; Visit Provider Family Medicine
DX: K70.30 Alcoholic cirrhosis of liver without ascites (principal)
CPT/HCPCS: 76705